=== PATIENT | male | born 1960 | race Two or more races ===

== ENCOUNTER 2018-04-15 14:07 | Inpatient (IN) | payer MEDICAID ==
[~2018-04-15] VITALS: Ht 175.3 cm; Wt 99.5 kg
[2018-04-15] VITALS (17 sets, daily range): BP systolic 41–131; BP diastolic 16–80
[2018-04-15] MEDS ORDERED: Cefepime HCl 1 GM in NS 55 ML IV STA (14:10)
[2018-04-15] MEDS ORDERED: Vancomycin 1 GM in NS 275 ML IV ONE (14:15)
[2018-04-15] MEDS ORDERED: Morphine Sulfate 4mg/ml Inj IVP ONE (14:15)
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
[2018-04-15] MEDS ORDERED: ACIDOPHILUS-PE1 EAC3 PO (14:21)
[2018-04-15] MEDS ORDERED: PEPCID40 MG/5 ML PO (14:21)
[2018-04-15] MEDS ORDERED: ASCORBIC ACID500 MG ORAL (14:21)
[2018-04-15] MEDS ORDERED: NORCO 7.5-3251 EACH ORAL (14:21)
[2018-04-15] MEDS ORDERED: MULTIVITAMINS1 EAC2 ORAL (14:21)
[2018-04-15] MEDS ORDERED: ACETAMINOP160 MG/51 ORAL (14:21)
[2018-04-15] MEDS ORDERED: HYDRALAZINE HCL10 MG ORAL (14:21)
[2018-04-15] MEDS ORDERED: Vancomycin 1gm/D5W 275ml IVPB ONE ×2 (14:30)
[2018-04-15 14:47] LABS: HEMATOCRIT 32.1 % (42.0-52.0); HEMOGLOBIN 10.1 G/DL (14.2-18.0); MEAN CORPUSCULAR VOLUME 82 FL (80-99); PLATELET COUNT 276 K/UL (150-450); WHITE BLOOD COUNT 17.2 K/UL (4.8-10.8)
[2018-04-15 14:57] LABS: APPEARANCE,URINE SLIGHTLY CLOUDY; BILIRUBIN, URINE NEGATIVE (NEGATIVE); COLOR,URINE AMBER; GLUCOSE, URINE (UA) NEGATIVE (NEGATIVE); KETONES,URINE NEGATIVE (NEGATIVE); LEUKOCYTE ESTERASE ,URINE 3+ (NEGATIVE); NITRITE,URINE NEGATIVE (NEGATIVE); PH,URINE 8 (4.5-8.0); PROTEIN,URINE 2+ (NEGATIVE); UROBILINOGEN,URINE NORMAL MG/DL (0.0-1.0)
[2018-04-15 14:58] LABS: ANION GAP 16 mmol/L (5-15); BLOOD UREA NITROGEN 50 mg/dL (7-18); CALCIUM 7.5 MG/DL (8.5-10.1); CARBON DIOXIDE 18 MMOL/L (21-32); CHLORIDE 103 MMOL/L (98-107); CREATININE 3.8 MG/DL (0.55-1.30); POTASSIUM 3.7 MMOL/L (3.5-5.1); SODIUM 137 MMOL/L (136-145)
[2018-04-15 14:59] LABS: INR 1.2 (0.9-1.1)
[2018-04-15 15:11] LABS: ALANINE AMINOTRANSFERASE 24 U/L (12-78); ALBUMIN 2.2 G/DL (3.4-5.0); ALBUMIN/GLOBULIN RATIO 0.4 (1.0-2.7); ALKALINE PHOSPHATASE 118 U/L (46-116); ASPARTATE AMINO TRANSFERASE 37 U/L (15-37); BILIRUBIN,TOTAL 0.6 MG/DL (0.2-1.0); CREATINE KINASE 834 U/L (26-308)
--- NOTE | 2018-04-15 15:12 | Diagnostic Imaging Report ---
Indication: Dyspnea Comparison: None A single view chest radiograph was obtained. Findings: Cardiomediastinal appearance is within normal limits for age. Pulmonary vascularity is appropriate. The diaphragmatic contour is smooth and costophrenic angles are sharp. No pleural effusions are identified. The bones are unremarkable. Impression: No acute findings
--- NOTE | 2018-04-15 18:32 | Diagnostic Imaging Report ---
EXAM: XR Chest, 1 View CLINICAL HISTORY: TUBE PLCMT TECHNIQUE: Frontal view of the chest. COMPARISON: 04/15/2018 2:35 PM chest x-ray. FINDINGS: Lungs: Unremarkable. No consolidation. Pleural space: Unremarkable. No pneumothorax. Heart: Unremarkable. No cardiomegaly. Mediastinum: Unremarkable. Bones/joints: Unremarkable. Vasculature: Right IJ line in SVC. IMPRESSION: Right IJ line in SVC. No pneumothorax.
[2018-04-15] MEDS ORDERED: FAMOTIDINE20 MG ORAL (18:34)
[2018-04-15] MEDS ORDERED: METHADONE HCL10 MG PO (18:34)
[2018-04-15] MEDS ORDERED: POLYETHYLENE GL17 GM ORAL (18:34)
[2018-04-15] MEDS ORDERED: Milk of Magnesia 30ml Ud ORAL PRN (22:30)
[2018-04-15] MEDS ORDERED: Zolpidem 5mg tab ORAL PRN (22:30)
[2018-04-15] MEDS ORDERED: HYDROcodone/Acetamin 7.5/325 tab ORAL PRN (23:00)
[2018-04-15] MEDS: Heparin 5000 units/ml inj SUBQ SCH (23:31)
[2018-04-16] VITALS (68 sets, daily range): BP systolic 49–126; BP diastolic 29–86
[2018-04-16] MEDS ORDERED: Vancomycin 1250mg/D5W 250ml IVPB SCH
[2018-04-16] MEDS ORDERED: Piperacillin/Tazobactam 3.375 GM in D5W 110 ML IVPB SCH (02:00)
[2018-04-16 05:40] LABS: HEMATOCRIT 27.5 % (42.0-52.0); HEMOGLOBIN 9.4 G/DL (14.2-18.0); MEAN CORPUSCULAR VOLUME 82 FL (80-99); PLATELET COUNT 236 K/UL (150-450); RED BLOOD COUNT 3.35 M/UL (4.70-6.10); RED CELL DISTRIBUTION WIDTH 15.8 % (11.6-14.8)
[2018-04-16 05:55] LABS: ALANINE AMINOTRANSFERASE 20 U/L (12-78); ALBUMIN 2.1 G/DL (3.4-5.0); ALBUMIN/GLOBULIN RATIO 0.4 (1.0-2.7); ALKALINE PHOSPHATASE 112 U/L (46-116); ANION GAP 12 mmol/L (5-15); ASPARTATE AMINO TRANSFERASE 51 U/L (15-37); BILIRUBIN,TOTAL 0.6 MG/DL (0.2-1.0); BLOOD UREA NITROGEN 42 mg/dL (7-18); CALCIUM 7.8 MG/DL (8.5-10.1); CARBON DIOXIDE 20 MMOL/L (21-32); CHLORIDE 106 MMOL/L (98-107); CREATININE 2.5 MG/DL (0.55-1.30); POTASSIUM 3.6 MMOL/L (3.5-5.1); SODIUM 138 MMOL/L (136-145)
[2018-04-16 05:58] LABS: WHITE BLOOD COUNT 22.4 K/UL (4.8-10.8)
--- NOTE | 2018-04-16 09:24 | History & Physical ---
History and Physical History & Physicial 57 year old male presents with hypotension and sepsis. Patient admitted to ICU on pressors. ER care reviewed PMH: reviewed MEDS noted ALLERGIES: noted PHYSICAL WDWN chronically ill clear breath sounds bilaterally without rhonchi or wheeze [id number] without MRG NABS nontender no HSM; protuberant no CC contractures large wound Laboratory Tests Test 04/15/18 14:27 04/15/18 16:00 04/15/18 19:55 04/16/18 05:15 White Blood Count 17.2 K/UL (4.8-10.8) H 22.4 K/UL (4.8-10.8) *H Red Blood Count 3.90 M/UL (4.70-6.10) L 3.35 M/UL (4.70-6.10) L Hemoglobin 10.1 G/DL (14.2-18.0) L 9.4 G/DL (14.2-18.0) L Hematocrit 32.1 % (42.0-52.0) L 27.5 % (42.0-52.0) L Mean Corpuscular Volume 82 FL (80-99) 82 FL (80-99) Mean Corpuscular Hemoglobin 25.9 PG (27.0-31.0) L 28.2 PG (27.0-31.0) Mean Corpuscular Hemoglobin Concent 31.5 G/DL (32.0-36.0) L 34.3 G/DL (32.0-36.0) Red Cell Distribution Width 16.0 % (11.6-14.8) H 15.8 % (11.6-14.8) H Platelet Count 276 K/UL (150-450) 236 K/UL (150-450) Mean Platelet Volume 7.3 FL (6.5-10.1) 7.3 FL (6.5-10.1) Neutrophils (%) (Auto) % (45.0-75.0) % (45.0-75.0) Lymphocytes (%) (Auto) % (20.0-45.0) % (20.0-45.0) Monocytes (%) (Auto) % (1.0-10.0) % (1.0-10.0) Eosinophils (%) (Auto) % (0.0-3.0) % (0.0-3.0) Basophils (%) (Auto) % (0.0-2.0) % (0.0-2.0) Differential Total Cells Counted 100 Neutrophils % (Manual) 84 % (45-75) H Pending Lymphocytes % (Manual) 6 % (20-45) L Pending Monocytes % (Manual) 3 % (1-10) Eosinophils % (Manual) 0 % (0-3) Basophils % (Manual) 0 % (0-2) Band Neutrophils 7 % (0-8) Platelet Estimate Adequate Pending Platelet Morphology Normal Pending Polychromasia 1+ Anisocytosis 1+ Prothrombin Time 12.6 SEC (9.30-11.50) H Prothromb Time International Ratio 1.2 (0.9-1.1) H Activated Partial Thromboplast Time 37 SEC (23-33) H Urine Color Erica Urine Appearance Slightly cloudy Urine pH 8 (4.5-8.0) Urine Specific [place] 1.010 (1.005-1.035) Urine Protein 2+ (NEGATIVE) H Urine Glucose (UA) Negative (NEGATIVE) Urine Ketones Negative (NEGATIVE) Urine Occult Blood 4+ (NEGATIVE) H Urine Nitrite Negative (NEGATIVE) Urine Bilirubin Negative (NEGATIVE) Urine Ictotest Negative Urine Urobilinogen Normal MG/DL (0.0-1.0) Urine Leukocyte Esterase 3+ (NEGATIVE) H Urine RBC Tntc /HPF (0 - 0) H Urine WBC Tntc /HPF (0 - 0) H Urine Squamous Epithelial Cells Few /LPF (NONE/OCC) Urine Bacteria Many /HPF (NONE) H Sodium Level 137 MMOL/L (136-145) 138 MMOL/L (136-145) Potassium Level 3.7 MMOL/L (3.5-5.1) 3.6 MMOL/L (3.5-5.1) Chloride Level 103 MMOL/L (98-107) 106 MMOL/L (98-107) Carbon Dioxide Level 18 MMOL/L (21-32) L 20 MMOL/L (21-32) L Anion Gap 16 mmol/L (5-15) H 12 mmol/L (5-15) Blood Urea Nitrogen 50 mg/dL (7-18) H 42 mg/dL (7-18) H Creatinine 3.8 MG/DL (0.55-1.30) H 2.5 MG/DL (0.55-1.30) H Estimat Glomerular Filtration Rate 16.5 mL/min (>60) 26.8 mL/min (>60) Glucose Level 103 MG/DL (74-106) 118 MG/DL (74-106) H Lactic Acid Level 2.80 mmol/L (0.4-2.0) H 3.10 mmol/L (0.66-2.22) H 2.30 mmol/L (0.4-2.0) H 1.10 mmol/L (0.4-2.0) Calcium Level 7.5 MG/DL (8.5-10.1) L 7.8 MG/DL (8.5-10.1) L Total Bilirubin 0.6 MG/DL (0.2-1.0) 0.6 MG/DL (0.2-1.0) Aspartate Amino Transf (AST/SGOT) 37 U/L (15-37) 51 U/L (15-37) H Alanine Aminotransferase (ALT/SGPT) 24 U/L (12-78) 20 U/L (12-78) Alkaline Phosphatase 118 U/L (46-116) H 112 U/L (46-116) Total Creatine Kinase 834 U/L (26-308) H Troponin I 0.003 ng/mL (0.000-0.056) Pro-B-Type Natriuretic Peptide 3183 pg/mL (0-125) H Total Protein 7.1 G/DL (6.4-8.2) 7.1 G/DL (6.4-8.2) Albumin 2.2 G/DL (3.4-5.0) L 2.1 G/DL (3.4-5.0) L Globulin 4.9 g/dL 5.0 g/dL Albumin/Globulin Ratio 0.4 (1.0-2.7) L 0.4 (1.0-2.7) L IMPRESSION Acute on chronic encephalopathy Urosepsis shock leukocytosis anemia SHARDA severe protein malnutrition hypotension sacral pressure ulcer PLAN IV antibiotics ID evaluation pressors iv hydration monitor labs ICU care for Amado Arce MD Apr 16, 2018 09:24
[2018-04-16] MEDS: Pantoprazole Inj IVP SCH (10:05)
[2018-04-16] MEDS: Lactobacillus-GG tablet ORAL SCH ×2 (10:05→17:52)
[2018-04-16] MEDS: Ascorbic Acid 500mg tab ORAL SCH ×2 (10:06→17:52)
[2018-04-16] MEDS: Heparin 5000 units/ml inj SUBQ SCH ×2 (10:07→20:19)
[2018-04-16] MEDS: Norepinephrine Bitartrate 8 MG in D5W 500ml 550 ML IV SCH ×2 (10:08→17:53)
[2018-04-16] MEDS ORDERED: Tubing IV Secondary IV ONE (10:49)
[2018-04-16] MEDS ORDERED: Aztreonam Inj 1 GM in D5W 110 ML IVPB SCH (11:00)
--- NOTE | 2018-04-16 11:30 | Consultation ---
DATE OF CONSULTATION: 04/16/2018 REFERRING PHYSICIAN: Amado Coker M.D. REASON FOR CONSULTATION: Acute kidney injury. HISTORY OF PRESENT ILLNESS: The patient is a pleasant 57-year-old gentleman who presented for further evaluation and care of fever and weakness from his shelter facility. The patient is paralyzed/paraplegic from the waist down. He does have an indwelling Slater catheter. Upon presentation, the patient was hypotensive, with an elevated creatinine of 2.5. No nausea, vomiting, or diarrhea. No chest pain. The patient is stable and communicating well. IV fluids along with IV pressor support and antibiotics have been initiated. No baseline creatinine is known at this time. ALLERGIES: No known drug allergies. PAST MEDICAL HISTORY: 1. Paraplegic. 2. Indwelling Slater catheter, urinary retention. 3. Hypertension. PAST SOCIAL HISTORY: No current tobacco, alcohol, illicit drug use. FAMILY HISTORY: Noncontributory. PAST SURGICAL HISTORY: The patient has an indwelling Slater catheter. REVIEW OF SYSTEMS: NEUROLOGIC: The patient denies headache, change in vision, syncope or presyncopal episodes. CARDIOVASCULAR: No current chest pain, palpitations, or angina. PULMONARY: No difficulty breathing, productive cough, or sputum. GASTROINTESTINAL/GENITOURINARY: No changes urinary or bowel habits. No nausea, vomiting, or diarrhea. ENDOCRINOLOGY: No night sweats, fevers, or chills. LABORATORY AND DIAGNOSTIC DATA: Labs dated 04/16/2018, sodium 130, potassium 3.6, BUN 42, creatinine 2.5, bicarbonate 20, calcium 7.8. White cell count 22.4, hemoglobin 9.4, and platelet count 236. PHYSICAL EXAMINATION: VITAL SIGNS: Blood pressure 105/61, respiratory rate 20, pulse 82, and 99% oxygen saturation on room air. GENERAL: The patient is awake, alert, not otherwise in distress. HEENT: Extraocular muscles intact. No lymphadenopathy noted. CARDIOVASCULAR: S1 and S2. No rubs or gallops. PULMONARY: Clear to auscultation bilaterally. No rales, rhonchi or wheezes. ABDOMEN: Nondistended, nontender. EXTREMITIES: The patient is contracted. No edema noted. ASSESSMENT AND PLAN: 1. Acute kidney injury at this time, most likely secondary to multifactorial acute tubular necrosis from underlying sepsis inflammatory cytokine damaged approximate tubes along with ischemic acute tubular necrosis from hypotension. Continue IV fluids along with IV pressor support. Maintain a mean arterial blood pressure greater than 65 millimeters per mercury. Renal ultrasound to rule out the possibility of obstruction. Avoid any nephrotoxins. Pharmacy to follow vancomycin levels. 2. Septic shock, likely from urinary source. Intravenous antibiotics per primary care physician. 3. Hypotension secondary to septic shock. Continue IV pressor support and intravenous fluids. Let me take this opportunity to thank, Dr. Coker. Macario Kumar MD DR: LAURI JOB#: [id number] CC:
[2018-04-16] MEDS: Meropenem 1 GM in D5W 110 ML IVPB SCH (12:38)
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
--- NOTE | 2018-04-16 15:37 | Diagnostic Imaging Report ---
EXAM: US Abdomen Complete CLINICAL HISTORY: Abscess. Increased AST. Increased renal function tests. History of hypertension, diabetes, and hypercholesterolemia. TECHNIQUE: Real-time ultrasound of the abdomen (complete) with image documentation. COMPARISON: No relevant prior studies available. FINDINGS: Limitations: Exam degraded by body habitus and overlying gas, obscuring pancreas, left hepatic lobe, IVC, and aorta. Liver: Liver appears enlarged, with a diameter of 24.3 cm. Mildly echogenic liver, suggesting fatty infiltration. Gallbladder: Cholelithiasis. Gallbladder wall thickness of 4 mm. No pericholecystic fluid. Common bile duct: Common bile duct diameter of 2.6 mm, within normal limits. No stones. No dilation. Pancreas: See above. Kidneys: Right kidney length of 12.8 cm. Left kidney length of 12.8 cm. No stones. No hydronephrosis. Spleen: Spleen diameter of 12.1 cm. Aorta: See above. Inferior vena cava: See above. Tubes, lines and devices: Slater catheter within a decompressed urinary bladder. A bladder volume of 47 cc. IMPRESSION: 1. Liver appears enlarged, with a diameter of 24.3 cm. 2. Mildly echogenic liver, suggesting fatty infiltration. 3. Cholelithiasis with borderline wall thickening of 4 mm. No pericholecystic fluid or ductal dilatation. Negative sonographic Tyson's sign.
[2018-04-16] MEDS ORDERED: Dyna-Hex 2% Top Sol 2oz TOPIC SCH (20:00)
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
[2018-04-16] MEDS ORDERED: Aztreonam Inj 1 GM in D5W 55 ML IVPB SCH (21:00)
[2018-04-16] MEDS ORDERED: Zolpidem 5mg tab ORAL PRN (21:00)
[2018-04-17] VITALS (54 sets, daily range): BP systolic 68–135; BP diastolic 30–74
[2018-04-17] MEDS: Meropenem 1 GM in D5W 110 ML IVPB SCH ×2 (01:15→13:00)
[2018-04-17] MEDS ORDERED: Levophed 4mg/4mL Inj IV ONE (02:10)
[2018-04-17] MEDS: Norepinephrine Bitartrate 8 MG in D5W 500ml 550 ML IV SCH ×2 (02:15→17:00)
[2018-04-17 05:34] LABS: BASOPHILS % (AUTO) 0.5 % (0.0-2.0); EOSINOPHILS % (AUTO) 5.4 % (0.0-3.0); HEMATOCRIT 26.7 % (42.0-52.0); MEAN CORPUSCULAR VOLUME 82 FL (80-99); MONOCYTES % (AUTO) 4.5 % (1.0-10.0); NEUTROPHILS % (AUTO) 81.6 % (45.0-75.0); PLATELET COUNT 228 K/UL (150-450); RED BLOOD COUNT 3.26 M/UL (4.70-6.10); RED CELL DISTRIBUTION WIDTH 16.1 % (11.6-14.8); WHITE BLOOD COUNT 15.7 K/UL (4.8-10.8)
[2018-04-17 05:55] LABS: ANION GAP 10 mmol/L (5-15); BLOOD UREA NITROGEN 19 mg/dL (7-18); CALCIUM 8.1 MG/DL (8.5-10.1); CARBON DIOXIDE 22 MMOL/L (21-32); CHLORIDE 106 MMOL/L (98-107); CREATININE 1.3 MG/DL (0.55-1.30); SODIUM 138 MMOL/L (136-145)
[2018-04-17] MEDS: Lactobacillus-GG tablet ORAL SCH ×2 (09:19→18:00)
[2018-04-17] MEDS: Ascorbic Acid 500mg tab ORAL SCH ×2 (09:19→18:00)
[2018-04-17] MEDS: Pantoprazole Inj IVP SCH (09:19)
[2018-04-17] MEDS: Heparin 5000 units/ml inj SUBQ SCH ×2 (09:20→21:19)
--- NOTE | 2018-04-17 10:12 | Nephrology Progress Note ---
Assessment/Plan Assessment/Plan 1. SHARDA- multifact ATN ( hypotension/sepsis) - Cr improved 2.5--------> 1.3 - Renal US negative - avoid nephrotoxins - continue IV pressors and Abx/IVF's 2. Sepsis- Abx and IV pressors 3. UTI- Abx 4. Paraplegic- per PCP 5. Hypokalemia- being replaced today Subjective Date patient seen: Apr 17, 2018 Time patient seen: 09:35 ROS Limited/Unobtainable: No Allergies: Coded Allergies: CHLORHEXIDINE (Verified Allergy, Unknown, 04/17/18) Pt states CHG gives him rashes All Systems: reviewed and negative except above Subjective Patient doing much better. In no acute distress Objective Last 24 Hour Vital Signs Date Time Temp Pulse Resp B/P (MAP) Pulse Ox O2 Delivery O2 Flow Rate FiO2 04/17/18 07:00 76 22 90/52 99 Nasal Cannula 2.0 04/17/18 06:00 77 19 84/44 98 Nasal Cannula 2.0 04/17/18 05:30 76 22 135/71 93 Nasal Cannula 2.0 04/17/18 05:00 77 20 93/48 99 Nasal Cannula 2.0 04/17/18 04:30 83 23 99/49 98 Nasal Cannula 2.0 04/17/18 04:00 81 04/17/18 04:00 98.3 85 30 111/60 98 Nasal Cannula 2.0 98.3 04/17/18 03:30 83 31 91/74 98 Nasal Cannula 2.0 04/17/18 03:15 87 34 114/58 99 Nasal Cannula 2.0 04/17/18 03:00 85 33 114/58 97 Nasal Cannula 2.0 04/17/18 02:45 85 40 124/67 97 Nasal Cannula 2.0 04/17/18 02:30 84 32 109/59 97 Nasal Cannula 2.0 04/17/18 02:15 83 30 107/47 98 Nasal Cannula 2.0 04/17/18 02:15 68/30 04/17/18 02:02 93 33 68/30 99 Nasal Cannula 2.0 04/17/18 02:00 80 29 79/35 98 Nasal Cannula 2.0 04/17/18 01:45 85 31 115/62 97 Nasal Cannula 2.0 04/17/18 01:30 87 38 104/59 96 Nasal Cannula 2.0 04/17/18 01:15 85 29 102/58 97 Nasal Cannula 2.0 04/17/18 01:00 83 30 101/53 96 Nasal Cannula 2.0 04/17/18 00:45 81 29 95/50 96 Nasal Cannula 2.0 04/17/18 00:30 86 38 113/55 96 Nasal Cannula 2.0 04/17/18 00:15 84 30 114/61 98 Nasal Cannula 2.0 04/17/18 00:00 82 04/17/18 00:00 82 24 107/57 98 Nasal Cannula 2.0 04/16/18 23:45 81 28 103/63 97 Nasal Cannula 2.0 04/16/18 23:30 83 32 102/56 95 Nasal Cannula 2.0 04/16/18 23:15 83 30 102/53 96 Nasal Cannula 2.0 04/16/18 23:00 85 29 108/55 97 Nasal Cannula 2.0 04/16/18 22:45 83 32 94/55 95 Nasal Cannula 2.0 04/16/18 22:30 83 30 99/53 96 Nasal Cannula 2.0 04/16/18 22:15 83 27 98/53 96 Nasal Cannula 2.0 04/16/18 22:00 87 27 112/54 96 Nasal Cannula 2.0 04/16/18 21:45 85 29 100/51 95 Nasal Cannula 2.0 04/16/18 21:30 85 28 102/53 96 Nasal Cannula 2.0 04/16/18 21:15 83 25 95/48 97 Nasal Cannula 2.0 04/16/18 21:00 84 29 95/54 96 Nasal Cannula 2.0 04/16/18 20:45 84 26 102/50 95 Nasal Cannula 2.0 04/16/18 20:30 84 26 88/71 94 Nasal Cannula 2.0 04/16/18 20:15 84 27 99/51 95 Nasal Cannula 2.0 04/16/18 20:00 83 04/16/18 20:00 80 27 89/43 96 Nasal Cannula 2.0 04/16/18 19:45 77 22 92/50 96 Nasal Cannula 2.0 04/16/18 19:30 98.3 87 27 89/41 99 Nasal Cannula 2.0 98.3 04/16/18 19:15 83 22 96/53 97 Nasal Cannula 2.0 04/16/18 19:00 86 24 93/37 98 Nasal Cannula 2.0 04/16/18 18:30 87 23 95/34 96 Nasal Cannula 2.0 04/16/18 18:00 98/68 04/16/18 17:59 92 28 92/68 98 Nasal Cannula 2.0 04/16/18 17:53 96/50 04/16/18 17:00 77 20 92/48 99 Nasal Cannula 2.0 04/16/18 17:00 92/48 04/16/18 16:30 77 20 90/47 98 Nasal Cannula 2.0 04/16/18 16:00 98.3 79 21 104/50 98 Nasal Cannula 2.0 98.3 04/16/18 16:00 78 04/16/18 16:00 104/50 04/16/18 15:30 78 21 100/52 98 Nasal Cannula 2.0 04/16/18 15:00 77 21 126/86 98 Nasal Cannula 2.0 04/16/18 15:00 126/86 04/16/18 14:30 80 27 101/54 98 Nasal Cannula 2.0 04/16/18 14:00 89 26 69/34 98 Nasal Cannula 2.0 04/16/18 14:00 69/34 04/16/18 13:30 101 85/31 95 Nasal Cannula 2.0 04/16/18 13:00 109/46 04/16/18 12:00 110/58 04/16/18 12:00 91 04/16/18 12:00 98.6 89 25 110/58 97 Nasal Cannula 2.0 98.6 04/16/18 11:30 91 26 111/51 97 Nasal Cannula 2.0 04/16/18 11:00 98/47 04/16/18 11:00 86 26 98/47 96 Nasal Cannula 2.0 04/16/18 10:30 78 25 104/54 97 Nasal Cannula 2.0 04/16/18 10:08 122/67 04/16/18 10:00 89 22 61/29 98 Nasal Cannula 2.0 04/16/18 10:00 122/67 Intake and Output 04/16/18 04/17/18 19:00 07:00 Intake Total 4610.92 ml 2922.85 ml Output Total 2512 ml 2560 ml Balance 2098.92 ml 362.85 ml Intake Oral 2290 ml 960 ml IV Total 2280.92 ml 1962.85 ml Other 40 ml Output Urine Total 2510 ml 2560 ml Stool Total 2 ml # Bowel Movements 2 2 Laboratory Tests 04/17/18 05:00: White Blood Count 15.7H, Red Blood Count 3.26L, Hemoglobin 9.0L, Hematocrit 26.7L, Mean Corpuscular Volume 82, Mean Corpuscular Hemoglobin 27.8, Mean Corpuscular Hemoglobin Concent 33.9, Red Cell Distribution Width 16.1H, Platelet Count 228, Mean Platelet Volume 7.7, Neutrophils (%) (Auto) 81.6H, Lymphocytes (%) (Auto) 8.0L, Monocytes (%) (Auto) 4.5, Eosinophils (%) (Auto) 5.4H, Basophils (%) (Auto) 0.5, Sodium Level 138, Potassium Level 3.0L, Chloride Level 106, Carbon Dioxide Level 22, Anion Gap 10, Blood Urea Nitrogen 19H, Creatinine 1.3, Estimat Glomerular Filtration Rate 56.9, Glucose Level 124H , Calcium Level 8.1L Height (Feet): 5 Height (Inches): 9.00 Weight (Pounds): 198 General Appearance: no apparent distress, alert EENT: normal ENT inspection Neck: normal alignment, supple Cardiovascular: normal rate, regular rhythm Respiratory/Chest: lungs clear, normal breath sounds Abdomen: non tender, soft Edema: no edema noted Arm (L), no edema noted Arm (R), no edema noted Leg (L), no edema noted Leg (R), no edema noted Pedal (L), no edema noted Pedal (R), no edema noted Generalized Macario Kumar M.D. Apr 17, 2018 10:12
--- NOTE | 2018-04-17 11:12 | General Progress Note ---
Assessment/Plan Assessment/Plan IMPRESSION Acute on chronic encephalopathy Urosepsis shock leukocytosis anemia SHARDA severe protein malnutrition hypotension sacral pressure ulcer PLAN IV antibiotics ID evaluation pressors taper to off iv hydration monitor labs all appreciated ICU care for now Subjective Allergies: Coded Allergies: CHLORHEXIDINE (Verified Allergy, Unknown, 04/17/18) Pt states CHG gives him rashes Subjective better more alert no distress Objective Last 24 Hour Vital Signs Date Time Temp Pulse Resp B/P (MAP) Pulse Ox O2 Delivery O2 Flow Rate FiO2 04/17/18 07:00 76 22 90/52 99 Nasal Cannula 2.0 04/17/18 06:00 77 19 84/44 98 Nasal Cannula 2.0 04/17/18 05:30 76 22 135/71 93 Nasal Cannula 2.0 04/17/18 05:00 77 20 93/48 99 Nasal Cannula 2.0 04/17/18 04:30 83 23 99/49 98 Nasal Cannula 2.0 04/17/18 04:00 81 04/17/18 04:00 98.3 85 30 111/60 98 Nasal Cannula 2.0 98.3 04/17/18 03:30 83 31 91/74 98 Nasal Cannula 2.0 04/17/18 03:15 87 34 114/58 99 Nasal Cannula 2.0 04/17/18 03:00 85 33 114/58 97 Nasal Cannula 2.0 04/17/18 02:45 85 40 124/67 97 Nasal Cannula 2.0 04/17/18 02:30 84 32 109/59 97 Nasal Cannula 2.0 04/17/18 02:15 83 30 107/47 98 Nasal Cannula 2.0 04/17/18 02:15 68/30 04/17/18 02:02 93 33 68/30 99 Nasal Cannula 2.0 04/17/18 02:00 80 29 79/35 98 Nasal Cannula 2.0 04/17/18 01:45 85 31 115/62 97 Nasal Cannula 2.0 04/17/18 01:30 87 38 104/59 96 Nasal Cannula 2.0 04/17/18 01:15 85 29 102/58 97 Nasal Cannula 2.0 04/17/18 01:00 83 30 101/53 96 Nasal Cannula 2.0 04/17/18 00:45 81 29 95/50 96 Nasal Cannula 2.0 04/17/18 00:30 86 38 113/55 96 Nasal Cannula 2.0 04/17/18 00:15 84 30 114/61 98 Nasal Cannula 2.0 04/17/18 00:00 82 04/17/18 00:00 82 24 107/57 98 Nasal Cannula 2.0 04/16/18 23:45 81 28 103/63 97 Nasal Cannula 2.0 04/16/18 23:30 83 32 102/56 95 Nasal Cannula 2.0 04/16/18 23:15 83 30 102/53 96 Nasal Cannula 2.0 04/16/18 23:00 85 29 108/55 97 Nasal Cannula 2.0 04/16/18 22:45 83 32 94/55 95 Nasal Cannula 2.0 04/16/18 22:30 83 30 99/53 96 Nasal Cannula 2.0 04/16/18 22:15 83 27 98/53 96 Nasal Cannula 2.0 04/16/18 22:00 87 27 112/54 96 Nasal Cannula 2.0 04/16/18 21:45 85 29 100/51 95 Nasal Cannula 2.0 04/16/18 21:30 85 28 102/53 96 Nasal Cannula 2.0 04/16/18 21:15 83 25 95/48 97 Nasal Cannula 2.0 04/16/18 21:00 84 29 95/54 96 Nasal Cannula 2.0 04/16/18 20:45 84 26 102/50 95 Nasal Cannula 2.0 04/16/18 20:30 84 26 88/71 94 Nasal Cannula 2.0 04/16/18 20:15 84 27 99/51 95 Nasal Cannula 2.0 04/16/18 20:00 83 04/16/18 20:00 80 27 89/43 96 Nasal Cannula 2.0 04/16/18 19:45 77 22 92/50 96 Nasal Cannula 2.0 04/16/18 19:30 98.3 87 27 89/41 99 Nasal Cannula 2.0 98.3 04/16/18 19:15 83 22 96/53 97 Nasal Cannula 2.0 04/16/18 19:00 86 24 93/37 98 Nasal Cannula 2.0 04/16/18 18:30 87 23 95/34 96 Nasal Cannula 2.0 04/16/18 18:00 98/68 04/16/18 17:59 92 28 92/68 98 Nasal Cannula 2.0 04/16/18 17:53 96/50 04/16/18 17:00 77 20 92/48 99 Nasal Cannula 2.0 04/16/18 17:00 92/48 04/16/18 16:30 77 20 90/47 98 Nasal Cannula 2.0 04/16/18 16:00 98.3 79 21 104/50 98 Nasal Cannula 2.0 98.3 04/16/18 16:00 78 04/16/18 16:00 104/50 04/16/18 15:30 78 21 100/52 98 Nasal Cannula 2.0 04/16/18 15:00 77 21 126/86 98 Nasal Cannula 2.0 04/16/18 15:00 126/86 04/16/18 14:30 80 27 101/54 98 Nasal Cannula 2.0 04/16/18 14:00 89 26 69/34 98 Nasal Cannula 2.0 04/16/18 14:00 69/34 04/16/18 13:30 101 85/31 95 Nasal Cannula 2.0 04/16/18 13:00 109/46 04/16/18 12:00 110/58 04/16/18 12:00 91 04/16/18 12:00 98.6 89 25 110/58 97 Nasal Cannula 2.0 98.6 04/16/18 11:30 91 26 111/51 97 Nasal Cannula 2.0 Intake and Output 04/16/18 04/17/18 19:00 07:00 Intake Total 4610.92 ml 2922.85 ml Output Total 2512 ml 2560 ml Balance 2098.92 ml 362.85 ml Intake Oral 2290 ml 960 ml IV Total 2280.92 ml 1962.85 ml Other 40 ml Output Urine Total 2510 ml 2560 ml Stool Total 2 ml # Bowel Movements 2 2 Laboratory Tests 04/17/18 05:00: White Blood Count 15.7H, Red Blood Count 3.26L, Hemoglobin 9.0L, Hematocrit 26.7L, Mean Corpuscular Volume 82, Mean Corpuscular Hemoglobin 27.8, Mean Corpuscular Hemoglobin Concent 33.9, Red Cell Distribution Width 16.1H, Platelet Count 228, Mean Platelet Volume 7.7, Neutrophils (%) (Auto) 81.6H, Lymphocytes (%) (Auto) 8.0L, Monocytes (%) (Auto) 4.5, Eosinophils (%) (Auto) 5.4H, Basophils (%) (Auto) 0.5, Sodium Level 138, Potassium Level 3.0L, Chloride Level 106, Carbon Dioxide Level 22, Anion Gap 10, Blood Urea Nitrogen 19H, Creatinine 1.3, Estimat Glomerular Filtration Rate 56.9, Glucose Level 124H , Calcium Level 8.1L Height (Feet): 5 Height (Inches): 9.00 Weight (Pounds): 198 Objective WDWN NAD clear breath sounds bilaterally without rhonchi or wheeze [id number] without MRG NABS nontender no HSM weak alert Amado Coker MD Apr 17, 2018 11:12
--- NOTE | 2018-04-17 13:35 | General Surgery Progress Note ---
General Surgery-Progress Note Subjective Additional Comments on pressors. titrating pressors down. somewhat improved. Objective Last 24 Hour Vital Signs Date Time Temp Pulse Resp B/P (MAP) Pulse Ox O2 Delivery O2 Flow Rate FiO2 04/17/18 12:00 83 04/17/18 08:00 75 04/17/18 07:00 76 22 90/52 99 Nasal Cannula 2.0 04/17/18 06:00 77 19 84/44 98 Nasal Cannula 2.0 04/17/18 05:30 76 22 135/71 93 Nasal Cannula 2.0 04/17/18 05:00 77 20 93/48 99 Nasal Cannula 2.0 04/17/18 04:30 83 23 99/49 98 Nasal Cannula 2.0 04/17/18 04:00 81 04/17/18 04:00 98.3 85 30 111/60 98 Nasal Cannula 2.0 98.3 04/17/18 03:30 83 31 91/74 98 Nasal Cannula 2.0 04/17/18 03:15 87 34 114/58 99 Nasal Cannula 2.0 04/17/18 03:00 85 33 114/58 97 Nasal Cannula 2.0 04/17/18 02:45 85 40 124/67 97 Nasal Cannula 2.0 04/17/18 02:30 84 32 109/59 97 Nasal Cannula 2.0 04/17/18 02:15 83 30 107/47 98 Nasal Cannula 2.0 04/17/18 02:15 68/30 04/17/18 02:02 93 33 68/30 99 Nasal Cannula 2.0 04/17/18 02:00 80 29 79/35 98 Nasal Cannula 2.0 04/17/18 01:45 85 31 115/62 97 Nasal Cannula 2.0 04/17/18 01:30 87 38 104/59 96 Nasal Cannula 2.0 04/17/18 01:15 85 29 102/58 97 Nasal Cannula 2.0 04/17/18 01:00 83 30 101/53 96 Nasal Cannula 2.0 04/17/18 00:45 81 29 95/50 96 Nasal Cannula 2.0 04/17/18 00:30 86 38 113/55 96 Nasal Cannula 2.0 04/17/18 00:15 84 30 114/61 98 Nasal Cannula 2.0 04/17/18 00:00 82 04/17/18 00:00 82 24 107/57 98 Nasal Cannula 2.0 04/16/18 23:45 81 28 103/63 97 Nasal Cannula 2.0 04/16/18 23:30 83 32 102/56 95 Nasal Cannula 2.0 04/16/18 23:15 83 30 102/53 96 Nasal Cannula 2.0 04/16/18 23:00 85 29 108/55 97 Nasal Cannula 2.0 04/16/18 22:45 83 32 94/55 95 Nasal Cannula 2.0 04/16/18 22:30 83 30 99/53 96 Nasal Cannula 2.0 04/16/18 22:15 83 27 98/53 96 Nasal Cannula 2.0 04/16/18 22:00 87 27 112/54 96 Nasal Cannula 2.0 04/16/18 21:45 85 29 100/51 95 Nasal Cannula 2.0 04/16/18 21:30 85 28 102/53 96 Nasal Cannula 2.0 04/16/18 21:15 83 25 95/48 97 Nasal Cannula 2.0 04/16/18 21:00 84 29 95/54 96 Nasal Cannula 2.0 04/16/18 20:45 84 26 102/50 95 Nasal Cannula 2.0 04/16/18 20:30 84 26 88/71 94 Nasal Cannula 2.0 04/16/18 20:15 84 27 99/51 95 Nasal Cannula 2.0 04/16/18 20:00 83 04/16/18 20:00 80 27 89/43 96 Nasal Cannula 2.0 04/16/18 19:45 77 22 92/50 96 Nasal Cannula 2.0 04/16/18 19:30 98.3 87 27 89/41 99 Nasal Cannula 2.0 98.3 04/16/18 19:15 83 22 96/53 97 Nasal Cannula 2.0 04/16/18 19:00 86 24 93/37 98 Nasal Cannula 2.0 04/16/18 18:30 87 23 95/34 96 Nasal Cannula 2.0 04/16/18 18:00 98/68 04/16/18 17:59 92 28 92/68 98 Nasal Cannula 2.0 04/16/18 17:53 96/50 04/16/18 17:00 77 20 92/48 99 Nasal Cannula 2.0 04/16/18 17:00 92/48 04/16/18 16:30 77 20 90/47 98 Nasal Cannula 2.0 04/16/18 16:00 98.3 79 21 104/50 98 Nasal Cannula 2.0 98.3 04/16/18 16:00 78 04/16/18 16:00 104/50 04/16/18 15:30 78 21 100/52 98 Nasal Cannula 2.0 04/16/18 15:00 77 21 126/86 98 Nasal Cannula 2.0 04/16/18 15:00 126/86 04/16/18 14:30 80 27 101/54 98 Nasal Cannula 2.0 04/16/18 14:00 89 26 69/34 98 Nasal Cannula 2.0 04/16/18 14:00 6934 I&O Intake and Output 04/16/18 04/17/18 19:00 07:00 Intake Total 4610.92 ml 2922.85 ml Output Total 2512 ml 2560 ml Balance 2098.92 ml 362.85 ml Intake Oral 2290 ml 960 ml IV Total 2280.92 ml 1962.85 ml Other 40 ml Output Urine Total 2510 ml 2560 ml Stool Total 2 ml # Bowel Movements 2 2 Cardiovascular: RSR Respiratory: clear Abdomen: soft, present bowel sounds Extremities: edema Laboratory Tests Test 04/17/18 05:00 White Blood Count 15.7 K/UL (4.8-10.8) H Red Blood Count 3.26 M/UL (4.70-6.10) L Hemoglobin 9.0 G/DL (14.2-18.0) L Hematocrit 26.7 % (42.0-52.0) L Mean Corpuscular Volume 82 FL (80-99) Mean Corpuscular Hemoglobin 27.8 PG (27.0-31.0) Mean Corpuscular Hemoglobin Concent 33.9 G/DL (32.0-36.0) Red Cell Distribution Width 16.1 % (11.6-14.8) H Platelet Count 228 K/UL (150-450) Mean Platelet Volume 7.7 FL (6.5-10.1) Neutrophils (%) (Auto) 81.6 % (45.0-75.0) H Lymphocytes (%) (Auto) 8.0 % (20.0-45.0) L Monocytes (%) (Auto) 4.5 % (1.0-10.0) Eosinophils (%) (Auto) 5.4 % (0.0-3.0) H Basophils (%) (Auto) 0.5 % (0.0-2.0) Sodium Level 138 MMOL/L (136-145) Potassium Level 3.0 MMOL/L (3.5-5.1) L Chloride Level 106 MMOL/L (98-107) Carbon Dioxide Level 22 MMOL/L (21-32) Anion Gap 10 mmol/L (5-15) Blood Urea Nitrogen 19 mg/dL (7-18) H Creatinine 1.3 MG/DL (0.55-1.30) Estimat Glomerular Filtration Rate 56.9 mL/min (>60) Glucose Level 124 MG/DL (74-106) H Calcium Level 8.1 MG/DL (8.5-10.1) L Plan Problems: (1) Sepsis Assessment & Plan: 57M with sepsis. likely etiology UTI. 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 please refer to wound care photos for size and measurements. 2-3cm deep, 2cm undermining in inferior aspect. does get stool in wound at times given proximity to anus. some granulation tissue. no foul odor. serous drainage. minimal eschar and necrotic tissues. -wound care orders placed. air soft mattress, gauze packing and dressings TID for now. good rectal care. -IV Abx -wean pressors -trend labs -will follow with recs. thank you for this consultation. Alo Martin Apr 17, 2018 13:35
[2018-04-17] MEDS ORDERED: NS 500ML ONE (17:14)
[2018-04-17] MEDS ORDERED: D5W 550ml IV ONE (17:14)
[2018-04-18] VITALS (39 sets, daily range): BP systolic 76–123; BP diastolic 39–79
[2018-04-18] MEDS: Meropenem 1 GM in D5W 110 ML IVPB SCH (00:20)
[2018-04-18] MEDS ORDERED: Vancomycin 1500mg IVPB SCH (02:00)
[2018-04-18 05:54] LABS: BASOPHILS % (AUTO) 0.2 % (0.0-2.0); EOSINOPHILS % (AUTO) 8.1 % (0.0-3.0); HEMATOCRIT 27.4 % (42.0-52.0); HEMOGLOBIN 8.7 G/DL (14.2-18.0); LYMPHOCYTES % (AUTO) 7.1 % (20.0-45.0); MEAN CORPUSCULAR VOLUME 83 FL (80-99); MONOCYTES % (AUTO) 5.7 % (1.0-10.0); NEUTROPHILS % (AUTO) 78.9 % (45.0-75.0); PLATELET COUNT 220 K/UL (150-450); RED BLOOD COUNT 3.31 M/UL (4.70-6.10); WHITE BLOOD COUNT 15.6 K/UL (4.8-10.8)
[2018-04-18 05:57] LABS: ANION GAP 9 mmol/L (5-15); BLOOD UREA NITROGEN 10 mg/dL (7-18); CALCIUM 8.3 MG/DL (8.5-10.1); CARBON DIOXIDE 25 MMOL/L (21-32); CHLORIDE 105 MMOL/L (98-107); CREATININE 1.2 MG/DL (0.55-1.30); POTASSIUM 3.3 MMOL/L (3.5-5.1); SODIUM 139 MMOL/L (136-145)
[2018-04-18] MEDS: Norepinephrine Bitartrate 8 MG in D5W 500ml 550 ML IV SCH (07:10)
--- NOTE | 2018-04-18 08:07 | Nephrology Progress Note ---
Assessment/Plan Assessment/Plan 1. SHARDA- multifact ATN ( hypotension/sepsis) - Cr improved 2.5--------> 1.3->1.2 - Renal US negative, avoid nephrotoxins, IV pressors and Abx/IVF's 2. Sepsis- Abx and IV pressors 3. UTI- Abx 4. Paraplegic- per PCP mgmt 5. Hypokalemia- replace today Subjective Date patient seen: Apr 18, 2018 Time patient seen: 08:04 ROS Limited/Unobtainable: No Allergies: Coded Allergies: CHLORHEXIDINE (Verified Allergy, Unknown, 04/17/18) Pt states CHG gives him rashes Subjective Patient doing much better. No CP or SOB Objective Last 24 Hour Vital Signs Date Time Temp Pulse Resp B/P (MAP) Pulse Ox O2 Delivery O2 Flow Rate FiO2 04/18/18 07:10 111/58 04/18/18 07:00 84 27 111/58 96 Nasal Cannula 2.0 04/18/18 06:30 86 35 115/62 96 Nasal Cannula 2.0 04/18/18 06:00 96 21 103/64 97 Nasal Cannula 2.0 04/18/18 06:00 103/64 04/18/18 05:30 85 27 104/59 96 Nasal Cannula 2.0 04/18/18 05:00 106/57 04/18/18 05:00 84 27 106/57 96 Nasal Cannula 2.0 04/18/18 04:30 81 24 107/59 97 Nasal Cannula 2.0 04/18/18 04:00 86 04/18/18 04:00 101/56 04/18/18 04:00 99.3 83 24 101/56 98 Nasal Cannula 2.0 99.3 04/18/18 03:30 88 26 108/59 98 Nasal Cannula 2.0 04/18/18 03:00 99/53 04/18/18 03:00 83 24 99/53 98 Nasal Cannula 2.0 04/18/18 02:30 80 24 102/57 97 Nasal Cannula 2.0 04/18/18 02:02 88/39 04/18/18 02:00 83 21 88/39 97 Nasal Cannula 2.0 04/18/18 01:30 74 23 94/52 95 Nasal Cannula 2.0 04/18/18 01:00 86 23 78/52 98 Nasal Cannula 2.0 04/18/18 01:00 78/52 04/18/18 00:30 79 23 99/57 96 Nasal Cannula 2.0 04/18/18 00:00 81 04/18/18 00:00 99.2 81 23 92/48 97 Nasal Cannula 2.0 99.2 04/18/18 00:00 99/57 04/17/18 23:30 79 23 116/60 96 Nasal Cannula 2.0 04/17/18 23:00 82 25 110/56 94 Nasal Cannula 2.0 04/17/18 23:00 102/54 04/17/18 22:30 89 21 105/57 94 Nasal Cannula 2.0 04/17/18 22:00 105/57 04/17/18 22:00 84 25 102/54 94 Nasal Cannula 2.0 04/17/18 21:30 83 26 107/66 98 Nasal Cannula 2.0 04/17/18 21:00 80 24 90/47 96 Nasal Cannula 2.0 04/17/18 21:00 90/47 04/17/18 20:30 81 23 115/62 96 Nasal Cannula 2.0 04/17/18 20:00 98.6 82 22 96/52 95 Nasal Cannula 2.0 98.6 04/17/18 20:00 115/62 04/17/18 20:00 80 04/17/18 19:30 81 24 104/54 95 Nasal Cannula 2.0 04/17/18 19:00 79 20 92/55 98 Nasal Cannula 2.0 04/17/18 19:00 96/52 04/17/18 18:30 79 22 97/50 96 Nasal Cannula 2.0 04/17/18 18:00 82 20 86/49 98 Nasal Cannula 2.0 04/17/18 17:30 79 20 93/52 97 Nasal Cannula 2.0 04/17/18 17:00 86/49 04/17/18 17:00 75 19 90/49 95 Nasal Cannula 2.0 04/17/18 16:30 70 18 110/60 99 Nasal Cannula 2.0 04/17/18 16:00 98.2 85 16 100/55 98 Nasal Cannula 2.0 98.2 04/17/18 16:00 85 04/17/18 15:30 79 24 86/49 42 Nasal Cannula 2.0 04/17/18 15:00 80 24 86/49 97 Nasal Cannula 2.0 04/17/18 14:30 79 22 87/44 97 Nasal Cannula 2.0 04/17/18 14:00 84 21 87/50 97 Nasal Cannula 2.0 04/17/18 14:00 21 97 04/17/18 13:30 83 18 100/50 99 Nasal Cannula 2.0 04/17/18 13:00 98.2 85 18 97/55 98 Nasal Cannula 2.0 98.2 04/17/18 12:30 83 18 98/52 99 Nasal Cannula 2.0 04/17/18 12:00 83 04/17/18 12:00 85 20 99/58 99 Nasal Cannula 2.0 04/17/18 11:30 81 19 96/53 99 Nasal Cannula 2.0 04/17/18 11:00 79 22 99/50 99 Nasal Cannula 2.0 04/17/18 10:30 76 20 94/54 99 Nasal Cannula 2.0 04/17/18 10:00 75 20 91/44 99 Nasal Cannula 2.0 04/17/18 09:30 76 18 95/56 99 Nasal Cannula 2.0 04/17/18 09:00 80 19 96/53 99 Nasal Cannula 2.0 04/17/18 08:30 82 20 95/55 99 Nasal Cannula 2.0 Intake and Output 04/17/18 04/18/18 19:00 07:00 Intake Total 2474.26 ml 1886.39 ml Output Total 2330 ml 1925 ml Balance 144.26 ml -38.61 ml Intake Oral 750 ml IV Total 1724.26 ml 1886.39 ml Output Urine Total 2330 ml 1925 ml # Bowel Movements 1 3 Laboratory Tests 04/17/18 23:32: Vancomycin Level Trough 3.0L 04/18/18 04:30: White Blood Count 15.6H, Red Blood Count 3.31L, Hemoglobin 8.7L, Hematocrit 27.4L, Mean Corpuscular Volume 83, Mean Corpuscular Hemoglobin 26.3L, Mean Corpuscular Hemoglobin Concent 31.8L, Red Cell Distribution Width 16.0H, Platelet Count 220, Mean Platelet Volume 7.9, Neutrophils (%) (Auto) 78.9H, Lymphocytes (%) (Auto) 7.1L, Monocytes (%) (Auto) 5.7, Eosinophils (%) (Auto) 8.1H, Basophils (%) (Auto) 0.2, Sodium Level 139, Potassium Level 3.3L, Chloride Level 105, Carbon Dioxide Level 25, Anion Gap 9, Blood Urea Nitrogen 10 , Creatinine 1.2, Estimat Glomerular Filtration Rate > 60, Glucose Level 123H, Calcium Level 8.3L Height (Feet): 5 Height (Inches): 9.00 Weight (Pounds): 197 General Appearance: no apparent distress, alert EENT: normal ENT inspection, TMs normal Neck: normal alignment, supple Cardiovascular: normal rate, regular rhythm Respiratory/Chest: lungs clear, normal breath sounds Abdomen: non tender, soft Edema: no edema noted Arm (L), no edema noted Arm (R), no edema noted Leg (L), no edema noted Leg (R), no edema noted Pedal (L), no edema noted Pedal (R), no edema noted Generalized Macario Kumar M.D. Apr 18, 2018 08:07
--- NOTE | 2018-04-18 08:44 | General Progress Note ---
Assessment/Plan Assessment/Plan IMPRESSION Acute on chronic encephalopathy Urosepsis shock leukocytosis anemia SHARDA severe protein malnutrition hypotension sacral pressure ulcer PLAN IV antibiotics noted cultures noted ID evaluation appreciated pressors taper to off iv hydration ?dc add norco monitor labs all appreciated hope to dc to snf once hemodynamics improved Subjective Allergies: Coded Allergies: CHLORHEXIDINE (Verified Allergy, Unknown, 04/17/18) Pt states CHG gives him rashes Subjective better more alert has pain Objective Last 24 Hour Vital Signs Date Time Temp Pulse Resp B/P (MAP) Pulse Ox O2 Delivery O2 Flow Rate FiO2 04/18/18 07:10 111/58 04/18/18 07:00 84 27 111/58 96 Nasal Cannula 2.0 04/18/18 06:30 86 35 115/62 96 Nasal Cannula 2.0 04/18/18 06:00 96 21 103/64 97 Nasal Cannula 2.0 04/18/18 06:00 103/64 04/18/18 05:30 85 27 104/59 96 Nasal Cannula 2.0 04/18/18 05:00 106/57 04/18/18 05:00 84 27 106/57 96 Nasal Cannula 2.0 04/18/18 04:30 81 24 107/59 97 Nasal Cannula 2.0 04/18/18 04:00 86 04/18/18 04:00 101/56 04/18/18 04:00 99.3 83 24 101/56 98 Nasal Cannula 2.0 99.3 04/18/18 03:30 88 26 108/59 98 Nasal Cannula 2.0 04/18/18 03:00 99/53 04/18/18 03:00 83 24 99/53 98 Nasal Cannula 2.0 04/18/18 02:30 80 24 102/57 97 Nasal Cannula 2.0 04/18/18 02:02 88/39 04/18/18 02:00 83 21 88/39 97 Nasal Cannula 2.0 04/18/18 01:30 74 23 94/52 95 Nasal Cannula 2.0 04/18/18 01:00 86 23 78/52 98 Nasal Cannula 2.0 04/18/18 01:00 78/52 04/18/18 00:30 79 23 99/57 96 Nasal Cannula 2.0 04/18/18 00:00 81 04/18/18 00:00 99.2 81 23 92/48 97 Nasal Cannula 2.0 99.2 04/18/18 00:00 99/57 04/17/18 23:30 79 23 116/60 96 Nasal Cannula 2.0 04/17/18 23:00 82 25 110/56 94 Nasal Cannula 2.0 04/17/18 23:00 102/54 04/17/18 22:30 89 21 105/57 94 Nasal Cannula 2.0 04/17/18 22:00 105/57 04/17/18 22:00 84 25 102/54 94 Nasal Cannula 2.0 04/17/18 21:30 83 26 107/66 98 Nasal Cannula 2.0 04/17/18 21:00 80 24 90/47 96 Nasal Cannula 2.0 04/17/18 21:00 90/47 04/17/18 20:30 81 23 115/62 96 Nasal Cannula 2.0 04/17/18 20:00 98.6 82 22 96/52 95 Nasal Cannula 2.0 98.6 04/17/18 20:00 115/62 04/17/18 20:00 80 04/17/18 19:30 81 24 104/54 95 Nasal Cannula 2.0 04/17/18 19:00 79 20 92/55 98 Nasal Cannula 2.0 04/17/18 19:00 96/52 04/17/18 18:30 79 22 97/50 96 Nasal Cannula 2.0 04/17/18 18:00 82 20 86/49 98 Nasal Cannula 2.0 04/17/18 17:30 79 20 93/52 97 Nasal Cannula 2.0 04/17/18 17:00 86/49 04/17/18 17:00 75 19 90/49 95 Nasal Cannula 2.0 04/17/18 16:30 70 18 110/60 99 Nasal Cannula 2.0 04/17/18 16:00 98.2 85 16 100/55 98 Nasal Cannula 2.0 98.2 04/17/18 16:00 85 04/17/18 15:30 79 24 86/49 42 Nasal Cannula 2.0 04/17/18 15:00 80 24 86/49 97 Nasal Cannula 2.0 04/17/18 14:30 79 22 87/44 97 Nasal Cannula 2.0 04/17/18 14:00 84 21 87/50 97 Nasal Cannula 2.0 04/17/18 14:00 21 97 04/17/18 13:30 83 18 100/50 99 Nasal Cannula 2.0 04/17/18 13:00 98.2 85 18 97/55 98 Nasal Cannula 2.0 98.2 04/17/18 12:30 83 18 98/52 99 Nasal Cannula 2.0 04/17/18 12:00 83 04/17/18 12:00 85 20 99/58 99 Nasal Cannula 2.0 04/17/18 11:30 81 19 96/53 99 Nasal Cannula 2.0 04/17/18 11:00 79 22 99/50 99 Nasal Cannula 2.0 04/17/18 10:30 76 20 94/54 99 Nasal Cannula 2.0 04/17/18 10:00 75 20 91/44 99 Nasal Cannula 2.0 04/17/18 09:30 76 18 95/56 99 Nasal Cannula 2.0 04/17/18 09:00 80 19 96/53 99 Nasal Cannula 2.0 Intake and Output 04/17/18 04/18/18 19:00 07:00 Intake Total 2474.26 ml 1886.39 ml Output Total 2330 ml 1925 ml Balance 144.26 ml -38.61 ml Intake Oral 750 ml IV Total 1724.26 ml 1886.39 ml Output Urine Total 2330 ml 1925 ml # Bowel Movements 1 3 Laboratory Tests 04/17/18 23:32: Vancomycin Level Trough 3.0L 04/18/18 04:30: White Blood Count 15.6H, Red Blood Count 3.31L, Hemoglobin 8.7L, Hematocrit 27.4L, Mean Corpuscular Volume 83, Mean Corpuscular Hemoglobin 26.3L, Mean Corpuscular Hemoglobin Concent 31.8L, Red Cell Distribution Width 16.0H, Platelet Count 220, Mean Platelet Volume 7.9, Neutrophils (%) (Auto) 78.9H, Lymphocytes (%) (Auto) 7.1L, Monocytes (%) (Auto) 5.7, Eosinophils (%) (Auto) 8.1H, Basophils (%) (Auto) 0.2, Sodium Level 139, Potassium Level 3.3L, Chloride Level 105, Carbon Dioxide Level 25, Anion Gap 9, Blood Urea Nitrogen 10 , Creatinine 1.2, Estimat Glomerular Filtration Rate > 60, Glucose Level 123H, Calcium Level 8.3L Height (Feet): 5 Height (Inches): 9.00 Weight (Pounds): 197 Objective WDWN NAD clear breath sounds bilaterally without rhonchi or wheeze [id number] without MRG NABS nontender no HSM weak alert Amado Coker MD Apr 18, 2018 08:44
[2018-04-18] MEDS ORDERED: Meropenem 1 GM in D5W 110 ML IVPB SCH (10:00)
[2018-04-18] MEDS: Lactobacillus-GG tablet ORAL SCH ×2 (10:00→18:22)
[2018-04-18] MEDS: Pantoprazole Inj IVP SCH (10:00)
[2018-04-18] MEDS: Heparin 5000 units/ml inj SUBQ SCH ×2 (10:00→21:00)
[2018-04-18] MEDS: Ascorbic Acid 500mg tab ORAL SCH ×2 (10:00→18:22)
[2018-04-18] MEDS ORDERED: HYDROcodone/Acetamin 7.5/325 tab ORAL PRN (11:00)
--- NOTE | 2018-04-18 11:49 | Infectious Diseases Prog Note ---
Assessment/Plan Assessment/Plan antibiotics : vancomycin iv, meropenem A 1. proteus sepsis secondary to UTI 2. proteus UTI 3. leucocytosis improving 4. renal failure improving 5. paraplegia 6. shock 7. sacral decubitus ulcer P 1. d/c vancomycin iv, meropenem 2. start iv ceftriaxone 3. will follow up cultures Subjective Constitutional: Denies: fever, chills Respiratory: Denies: shortness of breath, dry cough Gastrointestinal/Abdominal: Denies: nausea, vomiting, diarrhea Musculoskeletal: Denies: pain Allergies: Coded Allergies: CHLORHEXIDINE (Verified Allergy, Unknown, 04/17/18) Pt states CHG gives him rashes Objective Vital Signs Last 24 Hour Vital Signs Date Time Temp Pulse Resp B/P (MAP) Pulse Ox O2 Delivery O2 Flow Rate FiO2 04/18/18 07:10 111/58 04/18/18 07:00 84 27 111/58 96 Nasal Cannula 2.0 04/18/18 06:30 86 35 115/62 96 Nasal Cannula 2.0 04/18/18 06:00 96 21 103/64 97 Nasal Cannula 2.0 04/18/18 06:00 103/64 04/18/18 05:30 85 27 104/59 96 Nasal Cannula 2.0 04/18/18 05:00 106/57 04/18/18 05:00 84 27 106/57 96 Nasal Cannula 2.0 04/18/18 04:30 81 24 107/59 97 Nasal Cannula 2.0 04/18/18 04:00 86 04/18/18 04:00 101/56 04/18/18 04:00 99.3 83 24 101/56 98 Nasal Cannula 2.0 99.3 04/18/18 03:30 88 26 108/59 98 Nasal Cannula 2.0 04/18/18 03:00 99/53 04/18/18 03:00 83 24 99/53 98 Nasal Cannula 2.0 04/18/18 02:30 80 24 102/57 97 Nasal Cannula 2.0 04/18/18 02:02 88/39 04/18/18 02:00 83 21 88/39 97 Nasal Cannula 2.0 04/18/18 01:30 74 23 94/52 95 Nasal Cannula 2.0 04/18/18 01:00 86 23 78/52 98 Nasal Cannula 2.0 04/18/18 01:00 78/52 04/18/18 00:30 79 23 99/57 96 Nasal Cannula 2.0 04/18/18 00:00 81 04/18/18 00:00 99.2 81 23 92/48 97 Nasal Cannula 2.0 99.2 04/18/18 00:00 99/57 04/17/18 23:30 79 23 116/60 96 Nasal Cannula 2.0 04/17/18 23:00 82 25 110/56 94 Nasal Cannula 2.0 04/17/18 23:00 102/54 04/17/18 22:30 89 21 105/57 94 Nasal Cannula 2.0 04/17/18 22:00 105/57 04/17/18 22:00 84 25 102/54 94 Nasal Cannula 2.0 04/17/18 21:30 83 26 107/66 98 Nasal Cannula 2.0 04/17/18 21:00 80 24 90/47 96 Nasal Cannula 2.0 04/17/18 21:00 90/47 04/17/18 20:30 81 23 115/62 96 Nasal Cannula 2.0 04/17/18 20:00 98.6 82 22 96/52 95 Nasal Cannula 2.0 98.6 04/17/18 20:00 115/62 04/17/18 20:00 80 04/17/18 19:30 81 24 104/54 95 Nasal Cannula 2.0 04/17/18 19:00 79 20 92/55 98 Nasal Cannula 2.0 04/17/18 19:00 96/52 04/17/18 18:30 79 22 97/50 96 Nasal Cannula 2.0 04/17/18 18:00 82 20 86/49 98 Nasal Cannula 2.0 04/17/18 17:30 79 20 93/52 97 Nasal Cannula 2.0 04/17/18 17:00 86/49 04/17/18 17:00 75 19 90/49 95 Nasal Cannula 2.0 04/17/18 16:30 70 18 110/60 99 Nasal Cannula 2.0 04/17/18 16:00 98.2 85 16 100/55 98 Nasal Cannula 2.0 98.2 04/17/18 16:00 85 04/17/18 15:30 79 24 86/49 42 Nasal Cannula 2.0 04/17/18 15:00 80 24 86/49 97 Nasal Cannula 2.0 04/17/18 14:30 79 22 87/44 97 Nasal Cannula 2.0 04/17/18 14:00 84 21 87/50 97 Nasal Cannula 2.0 04/17/18 14:00 21 97 04/17/18 13:30 83 18 100/50 99 Nasal Cannula 2.0 04/17/18 13:00 98.2 85 18 97/55 98 Nasal Cannula 2.0 98.2 04/17/18 12:30 83 18 98/52 99 Nasal Cannula 2.0 04/17/18 12:00 83 04/17/18 12:00 85 20 99/58 99 Nasal Cannula 2.0 Height (Feet): 5 Height (Inches): 9.00 Weight (Pounds): 197 Respiratory/Chest: lungs clear Cardiovascular: normal rate, regular rhythm, no gallop/murmur Abdomen: soft, non tender Extremities: no edema, other - right Ij catheter Microbiology Date/Time Source Procedure Growth Status 04/15/18 14:27 Blood Blood Culture - Final Proteus Mirabilis Complete 04/15/18 14:27 Blood Blood Culture - Final Proteus Mirabilis Complete 04/15/18 21:00 Wound Gram Stain - Final Resulted 04/15/18 21:00 Wound Culture - Preliminary Escherichia Coli - Esbl Strep Species, Gamma-Hemolytic Resulted 04/15/18 18:50 Nasal Nares MRSA Culture - Final NO METHICILLIN RESISTANT STAPH AUREUS... Complete 04/17/18 04:30 Stool Clostridium difficile Toxin Assay - Final Complete 04/15/18 14:27 Urine,Clean Catch Urine Culture - Final Proteus Mirabilis Complete 04/15/18 18:50 Rectum VRE Culture - Final Enterococcus Faecalis - Vre Complete Laboratory Tests Test 04/17/18 23:32 04/18/18 04:30 Vancomycin Level Trough 3.0 ug/mL (5.0-12.0) L White Blood Count 15.6 K/UL (4.8-10.8) H Red Blood Count 3.31 M/UL (4.70-6.10) L Hemoglobin 8.7 G/DL (14.2-18.0) L Hematocrit 27.4 % (42.0-52.0) L Mean Corpuscular Volume 83 FL (80-99) Mean Corpuscular Hemoglobin 26.3 PG (27.0-31.0) L Mean Corpuscular Hemoglobin Concent 31.8 G/DL (32.0-36.0) L Red Cell Distribution Width 16.0 % (11.6-14.8) H Platelet Count 220 K/UL (150-450) Mean Platelet Volume 7.9 FL (6.5-10.1) Neutrophils (%) (Auto) 78.9 % (45.0-75.0) H Lymphocytes (%) (Auto) 7.1 % (20.0-45.0) L Monocytes (%) (Auto) 5.7 % (1.0-10.0) Eosinophils (%) (Auto) 8.1 % (0.0-3.0) H Basophils (%) (Auto) 0.2 % (0.0-2.0) Sodium Level 139 MMOL/L (136-145) Potassium Level 3.3 MMOL/L (3.5-5.1) L Chloride Level 105 MMOL/L (98-107) Carbon Dioxide Level 25 MMOL/L (21-32) Anion Gap 9 mmol/L (5-15) Blood Urea Nitrogen 10 mg/dL (7-18) Creatinine 1.2 MG/DL (0.55-1.30) Estimat Glomerular Filtration Rate > 60 mL/min (>60) Glucose Level 123 MG/DL (74-106) H Calcium Level 8.3 MG/DL (8.5-10.1) L Current Medications Medications (Trade) Dose Ordered Sig/Aleyda Route PRN Reason Start Time Stop Time Status Last Admin Dose Admin Acetaminophen/ Hydrocodone Bitart ([place] 5/325) 1 tab Q4H PRN ORAL Moderate Pain (Pain Scale 4-6) 04/18/18 08:45 04/25/18 08:44 Acetaminophen/ Hydrocodone Bitart ([place] 7.5/325) 1 tab Q6H PRN ORAL Severe Pain (Pain Scale 7-10) 04/18/18 11:00 04/22/18 22:59 Al Hydroxide/Mg Hydroxide (Mylanta) 30 ml Q6H PRN ORAL HEARTBURN 04/15/18 22:30 05/15/18 22:29 Ascorbic Acid (Vitamin C) 500 mg TWICE A DAY ORAL 04/16/18 09:00 05/16/18 08:59 6/11/18 10:00 Heparin Sodium (Porcine) (Heparin 5000 units/ml) 5,000 units EVERY 12 HOURS SUBQ 04/15/18 22:30 05/15/18 22:29 04/18/18 10:00 Lactobacillus Acidophilus (Culturelle) 1 tab TWICE A DAY ORAL 04/16/18 09:00 05/16/18 08:59 04/18/18 10:00 Magnesium Hydroxide (Mom) 30 ml HSPRN PRN ORAL Constipation 04/15/18 22:30 05/15/18 22:29 Meropenem 1 gm/ Dextrose 110 ml @ 220 mls/hr Q8HR@0200,1000,1800 IVPB 04/18/18 10:00 04/23/18 09:59 Multivitamins (Multivitamins) 1 tab DAILY ORAL 04/16/18 09:00 05/16/18 08:59 04/18/18 10:00 Norepinephrine Bitartrate 8 mg/ Dextrose 558 ml @ 0 mls/hr Q24H IV 04/16/18 10:00 05/16/18 09:59 04/18/18 07:10 Pantoprazole (Protonix) 40 mg DAILY IVP 04/16/18 09:00 05/16/18 08:59 04/18/18 10:00 Potassium Chloride 100 ml @ 100 mls/hr Q1H IVPB 04/18/18 10:00 04/18/18 11:59 04/18/18 10:34 Sodium Chloride 1,000 ml @ 100 mls/hr Q10H IV 04/15/18 22:30 05/15/18 22:29 04/18/18 10:40 Vancomycin HCl (Vanco rx to dose) 1 ea DAILY PRN MISC Per rx protocol 04/15/18 22:30 05/15/18 22:29 Vancomycin HCl/ Dextrose 250 ml @ 125 mls/hr Q24H IVPB 04/18/18 02:00 04/23/18 01:59 04/18/18 02:02 Zolpidem Tartrate (Ambien) 5 mg HSPRN PRN ORAL Insomnia 04/16/18 21:00 04/23/18 20:59 04/17/18 21:16 SABI COLON Apr 18, 2018 11:49
[2018-04-18] MEDS: cefTRIAXone 1 GM in D5W 110 ML IVPB SCH (13:58)
[2018-04-18] MEDS ORDERED: Tubing IV Secondary IV ONE (17:07)
[2018-04-18] MEDS: Norco 5mg/325mg tab ORAL PRN (21:31)
[2018-04-19] VITALS (32 sets, daily range): BP systolic 79–130; BP diastolic 28–79
[2018-04-19] MEDS: Norco 5mg/325mg tab ORAL PRN ×3 (05:08→19:51)
[2018-04-19 06:06] LABS: BASOPHILS % (AUTO) 0.5 % (0.0-2.0); EOSINOPHILS % (AUTO) 16.5 % (0.0-3.0); HEMATOCRIT 25.2 % (42.0-52.0); HEMOGLOBIN 8.1 G/DL (14.2-18.0); LYMPHOCYTES % (AUTO) 14.2 % (20.0-45.0); MEAN CORPUSCULAR VOLUME 84 FL (80-99); NEUTROPHILS % (AUTO) 62.7 % (45.0-75.0); PLATELET COUNT 173 K/UL (150-450); RED BLOOD COUNT 3.01 M/UL (4.70-6.10); RED CELL DISTRIBUTION WIDTH 15.6 % (11.6-14.8); WHITE BLOOD COUNT 9.9 K/UL (4.8-10.8)
[2018-04-19 06:24] LABS: ANION GAP 10 mmol/L (5-15); BLOOD UREA NITROGEN 9 mg/dL (7-18); CALCIUM 8.1 MG/DL (8.5-10.1); CARBON DIOXIDE 26 MMOL/L (21-32); CHLORIDE 105 MMOL/L (98-107); CREATININE 1.3 MG/DL (0.55-1.30); POTASSIUM 3.1 MMOL/L (3.5-5.1); SODIUM 140 MMOL/L (136-145)
--- NOTE | 2018-04-19 08:28 | Nephrology Progress Note ---
Assessment/Plan Assessment/Plan 1. SHARDA- multifact ATN ( hypotension/sepsis) - Resolving, Cr stable at 1.3 - Renal US negative. Wean off pressor and add midrodrine 2. Sepsis- Abx and midrodrine 3. UTI- Abx 4. Paraplegic- per PCP mgmt 5. Hypokalemia- replace today again Subjective Date patient seen: Apr 19, 2018 Time patient seen: 08:25 ROS Limited/Unobtainable: No Allergies: Coded Allergies: CHLORHEXIDINE (Verified Allergy, Unknown, 04/17/18) Pt states CHG gives him rashes All Systems: reviewed and negative except above Subjective Patient doing well and in no distress Objective Last 24 Hour Vital Signs Date Time Temp Pulse Resp B/P (MAP) Pulse Ox O2 Delivery O2 Flow Rate FiO2 04/19/18 08:00 98.2 83 24 91/53 100 Nasal Cannula 2.0 98.2 04/19/18 07:00 94 33 122/79 100 Nasal Cannula 2.0 04/19/18 06:00 77 21 96/61 97 Nasal Cannula 2.0 04/19/18 05:00 78 21 101/55 97 Nasal Cannula 2.0 04/19/18 04:00 90 04/19/18 04:00 98.7 76 25 79/28 100 Nasal Cannula 2.0 98.7 04/19/18 03:00 69 21 109/67 100 Nasal Cannula 2.0 04/19/18 02:00 88 36 87/54 94 Nasal Cannula 2.0 04/19/18 01:00 91 31 130/67 94 Nasal Cannula 2.0 04/19/18 00:00 84 19 102/56 100 Nasal Cannula 2.0 04/18/18 23:00 86 29 95/55 31 Nasal Cannula 2.0 04/18/18 22:00 80 29 101/52 96 Nasal Cannula 2.0 04/18/18 21:00 83 30 106/56 95 Nasal Cannula 2.0 04/18/18 20:00 84 04/18/18 20:00 98.9 86 36 100/53 98 Nasal Cannula 2.0 98.9 04/18/18 19:00 81 30 107/64 97 Nasal Cannula 2.0 04/18/18 18:00 79 30 105/57 98 Nasal Cannula 2.0 04/18/18 17:00 81 25 97/50 97 Nasal Cannula 2.0 04/18/18 16:00 78 31 104/54 95 Nasal Cannula 2.0 04/18/18 16:00 77 04/18/18 15:30 80 36 94/54 95 Nasal Cannula 2.0 04/18/18 15:00 79 38 106/60 95 Nasal Cannula 2.0 04/18/18 14:30 81 41 96/52 95 Nasal Cannula 2.0 04/18/18 14:00 81 40 99/57 96 Nasal Cannula 2.0 04/18/18 13:30 84 39 93/54 96 Nasal Cannula 2.0 04/18/18 13:00 87 36 112/65 97 Nasal Cannula 2.0 04/18/18 12:30 87 37 120/79 97 Nasal Cannula 2.0 04/18/18 12:00 80 04/18/18 12:00 98.9 89 31 119/74 97 Nasal Cannula 2.0 98.9 04/18/18 11:30 82 33 123/75 98 Nasal Cannula 2.0 04/18/18 11:00 82 33 109/70 98 Nasal Cannula 2.0 04/18/18 10:30 80 24 121/62 98 Nasal Cannula 2.0 04/18/18 10:00 82 25 104/66 98 Nasal Cannula 2.0 04/18/18 09:30 81 25 116/63 98 Nasal Cannula 2.0 04/18/18 09:00 84 27 104/64 97 Nasal Cannula 2.0 04/18/18 08:30 82 36 114/65 96 Nasal Cannula 2.0 Intake and Output 04/18/18 04/19/18 19:00 07:00 Intake Total 1868.95 ml 1558.81 ml Output Total 1655 ml 1625 ml Balance 213.95 ml -66.19 ml Intake Oral 350 ml IV Total 1868.95 ml 1208.81 ml Output Urine Total 1655 ml 1625 ml # Bowel Movements 3 3 Laboratory Tests 04/19/18 04:00: White Blood Count 9.9, Red Blood Count 3.01L, Hemoglobin 8.1L, Hematocrit 25.2L , Mean Corpuscular Volume 84, Mean Corpuscular Hemoglobin 27.0, Mean Corpuscular Hemoglobin Concent 32.3, Red Cell Distribution Width 15.6H, Platelet Count 173, Mean Platelet Volume 8.0, Neutrophils (%) (Auto) 62.7, Lymphocytes (%) (Auto) 14.2L, Monocytes (%) (Auto) 6.0, Eosinophils (%) (Auto) 16.5H, Basophils (%) (Auto) 0.5, Sodium Level 140, Potassium Level 3.1L, Chloride Level 105, Carbon Dioxide Level 26, Anion Gap 10, Blood Urea Nitrogen 9 , Creatinine 1.3, Estimat Glomerular Filtration Rate 56.9, Glucose Level 103, Calcium Level 8.1L Height (Feet): 5 Height (Inches): 9.00 Weight (Pounds): 195 General Appearance: no apparent distress, alert EENT: normal ENT inspection Neck: normal alignment, supple Cardiovascular: normal rate, regular rhythm Respiratory/Chest: lungs clear, normal breath sounds Abdomen: non tender, soft Edema: no edema noted Arm (L), no edema noted Arm (R), no edema noted Leg (L), no edema noted Leg (R), no edema noted Pedal (L), no edema noted Pedal (R), no edema noted Generalized Macario Kumar M.D. Apr 19, 2018 08:28
[2018-04-19] MEDS: Pantoprazole Inj IVP SCH (09:11)
[2018-04-19] MEDS: Ascorbic Acid 500mg tab ORAL SCH ×2 (09:12→17:36)
[2018-04-19] MEDS: Lactobacillus-GG tablet ORAL SCH ×2 (09:13→17:36)
[2018-04-19] MEDS: Heparin 5000 units/ml inj SUBQ SCH ×2 (09:23→21:04)
--- NOTE | 2018-04-19 09:54 | Infectious Diseases Prog Note ---
Assessment/Plan Assessment/Plan A 1. Proteus sepsis secondary to UTI 2. Proteus UTI 3. leucocytosis resolved 4. Acute renal failure improving 5. paraplegia 6. shock, resolved, off pressor 7. 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 Continue iv ceftriaxone 2. will follow up cultures Subjective ROS Limited/Unobtainable: No Constitutional: Reports: no symptoms Respiratory: Reports: no symptoms Cardiovascular: Reports: no symptoms Gastrointestinal/Abdominal: Reports: diarrhea Musculoskeletal: Reports: pain, other - in left hand Allergies: Coded Allergies: CHLORHEXIDINE (Verified Allergy, Unknown, 04/17/18) Pt states CHG gives him rashes Objective Vital Signs Last 24 Hour Vital Signs Date Time Temp Pulse Resp B/P (MAP) Pulse Ox O2 Delivery O2 Flow Rate FiO2 04/19/18 08:00 98.2 83 24 91/53 100 Nasal Cannula 2.0 98.2 04/19/18 07:00 94 33 122/79 100 Nasal Cannula 2.0 04/19/18 06:00 77 21 96/61 97 Nasal Cannula 2.0 04/19/18 05:00 78 21 101/55 97 Nasal Cannula 2.0 04/19/18 04:00 90 04/19/18 04:00 98.7 76 25 79/28 100 Nasal Cannula 2.0 98.7 04/19/18 03:00 69 21 109/67 100 Nasal Cannula 2.0 04/19/18 02:00 88 36 87/54 94 Nasal Cannula 2.0 04/19/18 01:00 91 31 130/67 94 Nasal Cannula 2.0 04/19/18 00:00 84 19 102/56 100 Nasal Cannula 2.0 04/18/18 23:00 86 29 95/55 31 Nasal Cannula 2.0 04/18/18 22:00 80 29 101/52 96 Nasal Cannula 2.0 04/18/18 21:00 83 30 106/56 95 Nasal Cannula 2.0 04/18/18 20:00 84 04/18/18 20:00 98.9 86 36 100/53 98 Nasal Cannula 2.0 98.9 04/18/18 19:00 81 30 107/64 97 Nasal Cannula 2.0 04/18/18 18:00 79 30 105/57 98 Nasal Cannula 2.0 04/18/18 17:00 81 25 97/50 97 Nasal Cannula 2.0 04/18/18 16:00 78 31 104/54 95 Nasal Cannula 2.0 04/18/18 16:00 77 04/18/18 15:30 80 36 94/54 95 Nasal Cannula 2.0 04/18/18 15:00 79 38 106/60 95 Nasal Cannula 2.0 04/18/18 14:30 81 41 96/52 95 Nasal Cannula 2.0 04/18/18 14:00 81 40 99/57 96 Nasal Cannula 2.0 04/18/18 13:30 84 39 93/54 96 Nasal Cannula 2.0 04/18/18 13:00 87 36 112/65 97 Nasal Cannula 2.0 04/18/18 12:30 87 37 120/79 97 Nasal Cannula 2.0 04/18/18 12:00 80 04/18/18 12:00 98.9 89 31 119/74 97 Nasal Cannula 2.0 98.9 04/18/18 11:30 82 33 123/75 98 Nasal Cannula 2.0 04/18/18 11:00 82 33 109/70 98 Nasal Cannula 2.0 04/18/18 10:30 80 24 121/62 98 Nasal Cannula 2.0 04/18/18 10:00 82 25 104/66 98 Nasal Cannula 2.0 Height (Feet): 5 Height (Inches): 9.00 Weight (Pounds): 195 General Appearance: no acute distress HEENT: mucous membranes moist Respiratory/Chest: lungs clear Cardiovascular: normal rate, other - RIJ central line Abdomen: soft, non tender, other - rectal tube Extremities: no edema Skin: ulcers, other - multiple Neurologic/Psychiatric: alert, responsive Microbiology Date/Time Source Procedure Growth Status 04/17/18 04:30 Stool Clostridium difficile Toxin Assay - Final Complete Laboratory Tests Test 04/19/18 04:00 White Blood Count 9.9 K/UL (4.8-10.8) Red Blood Count 3.01 M/UL (4.70-6.10) L Hemoglobin 8.1 G/DL (14.2-18.0) L Hematocrit 25.2 % (42.0-52.0) L Mean Corpuscular Volume 84 FL (80-99) Mean Corpuscular Hemoglobin 27.0 PG (27.0-31.0) Mean Corpuscular Hemoglobin Concent 32.3 G/DL (32.0-36.0) Red Cell Distribution Width 15.6 % (11.6-14.8) H Platelet Count 173 K/UL (150-450) Mean Platelet Volume 8.0 FL (6.5-10.1) Neutrophils (%) (Auto) 62.7 % (45.0-75.0) Lymphocytes (%) (Auto) 14.2 % (20.0-45.0) L Monocytes (%) (Auto) 6.0 % (1.0-10.0) Eosinophils (%) (Auto) 16.5 % (0.0-3.0) H Basophils (%) (Auto) 0.5 % (0.0-2.0) Sodium Level 140 MMOL/L (136-145) Potassium Level 3.1 MMOL/L (3.5-5.1) L Chloride Level 105 MMOL/L (98-107) Carbon Dioxide Level 26 MMOL/L (21-32) Anion Gap 10 mmol/L (5-15) Blood Urea Nitrogen 9 mg/dL (7-18) Creatinine 1.3 MG/DL (0.55-1.30) Estimat Glomerular Filtration Rate 56.9 mL/min (>60) Glucose Level 103 MG/DL (74-106) Calcium Level 8.1 MG/DL (8.5-10.1) L Current Medications Medications (Trade) Dose Ordered Sig/Aleyda Route PRN Reason Start Time Stop Time Status Last Admin Dose Admin Acetaminophen/ Hydrocodone Bitart ([place] 5/325) 1 tab Q4H PRN ORAL Moderate Pain (Pain Scale 4-6) 04/18/18 08:45 04/25/18 08:44 04/19/18 09:13 Acetaminophen/ Hydrocodone Bitart ([place] 7.5/325) 1 tab Q6H PRN ORAL Severe Pain (Pain Scale 7-10) 04/18/18 11:00 04/22/18 22:59 Al Hydroxide/Mg Hydroxide (Mylanta) 30 ml Q6H PRN ORAL HEARTBURN 04/15/18 22:30 05/15/18 22:29 Ascorbic Acid (Vitamin C) 500 mg TWICE A DAY ORAL 04/16/18 09:00 05/16/18 08:59 04/19/18 09:12 Ceftriaxone Sodium 1 gm/ Dextrose 110 ml @ 220 mls/hr Q24H IVPB 04/18/18 13:00 04/25/18 12:59 04/18/18 13:58 Heparin Sodium (Porcine) (Heparin 5000 units/ml) 5,000 units EVERY 12 HOURS SUBQ 04/15/18 22:30 05/15/18 22:29 04/19/18 09:23 Lactobacillus Acidophilus (Culturelle) 1 tab TWICE A DAY ORAL 04/16/18 09:00 05/16/18 08:59 04/19/18 09:13 Magnesium Hydroxide (Mom) 30 ml HSPRN PRN ORAL Constipation 04/15/18 22:30 05/15/18 22:29 Midodrine (Pro-Amatine) 5 mg THREE TIMES A DAY ORAL 04/19/18 09:00 05/19/18 08:59 04/19/18 09:12 Multivitamins (Multivitamins) 1 tab DAILY ORAL 04/16/18 09:00 05/16/18 08:59 04/19/18 09:13 Norepinephrine Bitartrate 8 mg/ Dextrose 558 ml @ 0 mls/hr Q24H IV 04/16/18 10:00 05/16/18 09:59 04/18/18 07:10 Pantoprazole (Protonix) 40 mg DAILY IVP 04/16/18 09:00 05/16/18 08:59 04/19/18 09:11 Sodium Chloride 1,000 ml @ 100 mls/hr Q10H IV 04/15/18 22:30 05/15/18 22:29 04/19/18 06:33 Zolpidem Tartrate (Ambien) 5 mg HSPRN PRN ORAL Insomnia 04/16/18 21:00 04/23/18 20:59 04/17/18 21:16 Reyes Trevino MD Apr 19, 2018 09:54
[2018-04-19] MEDS: Norepinephrine Bitartrate 8 MG in D5W 500ml 550 ML IV SCH (10:00)
--- NOTE | 2018-04-19 12:03 | General Surgery Progress Note ---
General Surgery-Progress Note Subjective Additional Comments leukocytosis resolved. no acute events. no n/v/f/c. diarrhea. responsive Objective Last 24 Hour Vital Signs Date Time Temp Pulse Resp B/P (MAP) Pulse Ox O2 Delivery O2 Flow Rate FiO2 04/19/18 11:00 114/57 04/19/18 11:00 77 26 103/55 88 Nasal Cannula 3.0 04/19/18 10:30 76 26 113/51 90 Nasal Cannula 3.0 04/19/18 10:15 82/41 04/19/18 10:00 77 26 82/41 82 Nasal Cannula 3.0 04/19/18 09:00 79 22 91/45 93 Nasal Cannula 2.0 04/19/18 08:00 98.2 83 24 91/53 100 Nasal Cannula 2.0 98.2 04/19/18 08:00 83 04/19/18 07:00 94 33 122/79 100 Nasal Cannula 2.0 04/19/18 07:00 99/73 04/19/18 06:00 77 21 96/61 97 Nasal Cannula 2.0 04/19/18 05:00 78 21 101/55 97 Nasal Cannula 2.0 04/19/18 04:00 90 04/19/18 04:00 98.7 76 25 79/28 100 Nasal Cannula 2.0 98.7 04/19/18 03:00 69 21 109/67 100 Nasal Cannula 2.0 04/19/18 02:00 88 36 87/54 94 Nasal Cannula 2.0 04/19/18 01:00 91 31 130/67 94 Nasal Cannula 2.0 04/19/18 00:00 84 19 102/56 100 Nasal Cannula 2.0 04/18/18 23:00 86 29 95/55 31 Nasal Cannula 2.0 04/18/18 22:00 80 29 101/52 96 Nasal Cannula 2.0 04/18/18 21:00 83 30 106/56 95 Nasal Cannula 2.0 04/18/18 20:00 84 04/18/18 20:00 98.9 86 36 100/53 98 Nasal Cannula 2.0 98.9 04/18/18 19:00 81 30 107/64 97 Nasal Cannula 2.0 04/18/18 18:00 79 30 105/57 98 Nasal Cannula 2.0 04/18/18 17:00 81 25 97/50 97 Nasal Cannula 2.0 04/18/18 16:00 78 31 104/54 95 Nasal Cannula 2.0 04/18/18 16:00 77 04/18/18 15:30 80 36 94/54 95 Nasal Cannula 2.0 04/18/18 15:00 79 38 106/60 95 Nasal Cannula 2.0 04/18/18 14:30 81 41 96/52 95 Nasal Cannula 2.0 04/18/18 14:00 81 40 99/57 96 Nasal Cannula 2.0 04/18/18 13:30 84 39 93/54 96 Nasal Cannula 2.0 04/18/18 13:00 87 36 112/65 97 Nasal Cannula 2.0 04/18/18 12:30 87 37 120/79 97 Nasal Cannula 2.0 I&O Intake and Output 04/18/18 04/19/18 19:00 07:00 Intake Total 1868.95 ml 1558.81 ml Output Total 1655 ml 1625 ml Balance 213.95 ml -66.19 ml Intake Oral 350 ml IV Total 1868.95 ml 1208.81 ml Output Urine Total 1655 ml 1625 ml # Bowel Movements 3 3 Dressing: saturated Wound: clean Drains: none Cardiovascular: RSR Respiratory: clear Abdomen: soft, flat, non-tender Extremities: edema, tenderness, cyanosis Laboratory Tests Test 04/19/18 04:00 White Blood Count 9.9 K/UL (4.8-10.8) Red Blood Count 3.01 M/UL (4.70-6.10) L Hemoglobin 8.1 G/DL (14.2-18.0) L Hematocrit 25.2 % (42.0-52.0) L Mean Corpuscular Volume 84 FL (80-99) Mean Corpuscular Hemoglobin 27.0 PG (27.0-31.0) Mean Corpuscular Hemoglobin Concent 32.3 G/DL (32.0-36.0) Red Cell Distribution Width 15.6 % (11.6-14.8) H Platelet Count 173 K/UL (150-450) Mean Platelet Volume 8.0 FL (6.5-10.1) Neutrophils (%) (Auto) 62.7 % (45.0-75.0) Lymphocytes (%) (Auto) 14.2 % (20.0-45.0) L Monocytes (%) (Auto) 6.0 % (1.0-10.0) Eosinophils (%) (Auto) 16.5 % (0.0-3.0) H Basophils (%) (Auto) 0.5 % (0.0-2.0) Sodium Level 140 MMOL/L (136-145) Potassium Level 3.1 MMOL/L (3.5-5.1) L Chloride Level 105 MMOL/L (98-107) Carbon Dioxide Level 26 MMOL/L (21-32) Anion Gap 10 mmol/L (5-15) Blood Urea Nitrogen 9 mg/dL (7-18) Creatinine 1.3 MG/DL (0.55-1.30) Estimat Glomerular Filtration Rate 56.9 mL/min (>60) Glucose Level 103 MG/DL (74-106) Calcium Level 8.1 MG/DL (8.5-10.1) L Plan Problems: (1) Sepsis Assessment & Plan: 57M with sepsis. likely etiology UTI. 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 please refer to wound care photos for size and measurements. 2-3cm deep, 2cm undermining in inferior aspect. does get stool in wound at times given proximity to anus. some granulation tissue. no foul odor. serous drainage. minimal eschar and necrotic tissues. -No acute debridement necessary. -air soft mattress, gauze packing and dressings TID for now. -will follow with recs. thank you for this consultation. Alo Martin Apr 19, 2018 12:03
--- NOTE | 2018-04-19 12:16 | General Progress Note ---
Assessment/Plan Assessment/Plan IMPRESSION Acute on chronic encephalopathy Urosepsis shock leukocytosis anemia SHARDA severe protein malnutrition hypotension sacral pressure ulcer PLAN IV antibiotics noted cultures noted ID evaluation appreciated pressors off as able midodrine bolus fluids PRN norco monitor labs all appreciated hope to dc to snf once hemodynamics improved Subjective Allergies: Coded Allergies: CHLORHEXIDINE (Verified Allergy, Unknown, 04/17/18) Pt states CHG gives him rashes Subjective better more alert has pain Objective Last 24 Hour Vital Signs Date Time Temp Pulse Resp B/P (MAP) Pulse Ox O2 Delivery O2 Flow Rate FiO2 04/19/18 11:00 114/57 04/19/18 11:00 77 26 103/55 88 Nasal Cannula 3.0 04/19/18 10:30 76 26 113/51 90 Nasal Cannula 3.0 04/19/18 10:15 82/41 04/19/18 10:00 77 26 82/41 82 Nasal Cannula 3.0 04/19/18 09:00 79 22 91/45 93 Nasal Cannula 2.0 04/19/18 08:00 98.2 83 24 91/53 100 Nasal Cannula 2.0 98.2 04/19/18 08:00 83 04/19/18 07:00 94 33 122/79 100 Nasal Cannula 2.0 04/19/18 07:00 99/73 04/19/18 06:00 77 21 96/61 97 Nasal Cannula 2.0 04/19/18 05:00 78 21 101/55 97 Nasal Cannula 2.0 04/19/18 04:00 90 04/19/18 04:00 98.7 76 25 79/28 100 Nasal Cannula 2.0 98.7 04/19/18 03:00 69 21 109/67 100 Nasal Cannula 2.0 04/19/18 02:00 88 36 87/54 94 Nasal Cannula 2.0 04/19/18 01:00 91 31 130/67 94 Nasal Cannula 2.0 04/19/18 00:00 84 19 102/56 100 Nasal Cannula 2.0 04/18/18 23:00 86 29 95/55 31 Nasal Cannula 2.0 04/18/18 22:00 80 29 101/52 96 Nasal Cannula 2.0 04/18/18 21:00 83 30 106/56 95 Nasal Cannula 2.0 04/18/18 20:00 84 04/18/18 20:00 98.9 86 36 100/53 98 Nasal Cannula 2.0 98.9 04/18/18 19:00 81 30 107/64 97 Nasal Cannula 2.0 04/18/18 18:00 79 30 105/57 98 Nasal Cannula 2.0 04/18/18 17:00 81 25 97/50 97 Nasal Cannula 2.0 04/18/18 16:00 78 31 104/54 95 Nasal Cannula 2.0 04/18/18 16:00 77 04/18/18 15:30 80 36 94/54 95 Nasal Cannula 2.0 04/18/18 15:00 79 38 106/60 95 Nasal Cannula 2.0 04/18/18 14:30 81 41 96/52 95 Nasal Cannula 2.0 04/18/18 14:00 81 40 99/57 96 Nasal Cannula 2.0 04/18/18 13:30 84 39 93/54 96 Nasal Cannula 2.0 04/18/18 13:00 87 36 112/65 97 Nasal Cannula 2.0 04/18/18 12:30 87 37 120/79 97 Nasal Cannula 2.0 Intake and Output 04/18/18 04/19/18 19:00 07:00 Intake Total 1868.95 ml 1558.81 ml Output Total 1655 ml 1625 ml Balance 213.95 ml -66.19 ml Intake Oral 350 ml IV Total 1868.95 ml 1208.81 ml Output Urine Total 1655 ml 1625 ml # Bowel Movements 3 3 Laboratory Tests 04/19/18 04:00: White Blood Count 9.9, Red Blood Count 3.01L, Hemoglobin 8.1L, Hematocrit 25.2L , Mean Corpuscular Volume 84, Mean Corpuscular Hemoglobin 27.0, Mean Corpuscular Hemoglobin Concent 32.3, Red Cell Distribution Width 15.6H, Platelet Count 173, Mean Platelet Volume 8.0, Neutrophils (%) (Auto) 62.7, Lymphocytes (%) (Auto) 14.2L, Monocytes (%) (Auto) 6.0, Eosinophils (%) (Auto) 16.5H, Basophils (%) (Auto) 0.5, Sodium Level 140, Potassium Level 3.1L, Chloride Level 105, Carbon Dioxide Level 26, Anion Gap 10, Blood Urea Nitrogen 9 , Creatinine 1.3, Estimat Glomerular Filtration Rate 56.9, Glucose Level 103, Calcium Level 8.1L Height (Feet): 5 Height (Inches): 9.00 Weight (Pounds): 195 Objective WDWN NAD clear breath sounds bilaterally without rhonchi or wheeze [id number] without MRG NABS nontender no HSM weak alert Amado Coker MD Apr 19, 2018 12:16
[2018-04-19] MEDS ORDERED: Sodium Chloride 500ML 500 ML IV ONE (13:00)
[2018-04-19] MEDS: cefTRIAXone 1 GM in D5W 110 ML IVPB SCH (14:15)
--- NOTE | 2018-04-19 14:21 | Cardiology Report ---
APPROVED REPORT EKG Measurement Heart [id number] CT 124P72 [id number] Sinus tachycardia Otherwise normal ECG
[2018-04-20] VITALS (21 sets, daily range): BP systolic 89–132; BP diastolic 42–80
[2018-04-20 06:23] LABS: ANION GAP 9 mmol/L (5-15); BLOOD UREA NITROGEN 6 mg/dL (7-18); CALCIUM 8.2 MG/DL (8.5-10.1); CARBON DIOXIDE 25 MMOL/L (21-32); CHLORIDE 106 MMOL/L (98-107); CREATININE 1.1 MG/DL (0.55-1.30); POTASSIUM 3.2 MMOL/L (3.5-5.1); SODIUM 140 MMOL/L (136-145)
--- NOTE | 2018-04-20 08:03 | Nephrology Progress Note ---
Assessment/Plan Assessment/Plan 1. SHARDA- multifact ATN ( hypotension/sepsis) - Resolved, Cr 1.1 - Renal US negative. Off IV presswor 2. Sepsis- Abx and midrodrine. BP stable 3. UTI- Abx 4. Paraplegic- per PCP mgmt 5. Hypokalemia- replace today Subjective Date patient seen: Apr 20, 2018 Time patient seen: 07:53 ROS Limited/Unobtainable: No Allergies: Coded Allergies: CHLORHEXIDINE (Verified Allergy, Unknown, 04/17/18) Pt states CHG gives him rashes Subjective Patient doing well and in no distress and eating breakfast Objective Last 24 Hour Vital Signs Date Time Temp Pulse Resp B/P (MAP) Pulse Ox O2 Delivery O2 Flow Rate FiO2 04/20/18 07:00 82 19 115/68 93 Nasal Cannula 3.0 04/20/18 06:00 76 22 89/50 93 Nasal Cannula 3.0 04/20/18 05:00 78 22 105/42 94 Nasal Cannula 3.0 04/20/18 04:00 98.3 78 22 111/58 94 Nasal Cannula 3.0 98.3 04/20/18 04:00 80 04/20/18 03:05 98.2 04/20/18 03:00 73 22 107/58 94 Nasal Cannula 3.0 04/20/18 02:06 98.2 04/20/18 02:00 81 22 118/64 94 Nasal Cannula 3.0 04/20/18 01:00 69 18 125/67 94 Nasal Cannula 3.0 04/20/18 00:00 69 04/20/18 00:00 98.3 69 25 120/66 92 Nasal Cannula 3.0 98.3 04/19/18 23:00 71 26 126/70 93 Nasal Cannula 3.0 04/19/18 22:00 79 24 100/66 94 Nasal Cannula 3.0 04/19/18 21:00 75 18 95/61 94 Nasal Cannula 3.0 04/19/18 20:50 97.8 04/19/18 20:00 74 23 107/65 95 Nasal Cannula 3.0 04/19/18 20:00 74 04/19/18 19:51 97.6 04/19/18 19:00 77 21 117/71 93 Nasal Cannula 3.0 04/19/18 18:30 75 20 107/59 90 Nasal Cannula 3.0 04/19/18 18:00 81 20 101/61 90 Nasal Cannula 3.0 04/19/18 17:30 83 20 96/49 90 Nasal Cannula 3.0 04/19/18 17:00 80 23 96/54 92 Nasal Cannula 3.0 04/19/18 16:45 109/64 04/19/18 16:30 77 23 109/64 94 Nasal Cannula 3.0 04/19/18 16:00 98.1 79 21 117/60 90 Nasal Cannula 3.0 98.1 04/19/18 16:00 100/56 04/19/18 16:00 80 04/19/18 15:30 83 21 117/60 93 Nasal Cannula 3.0 04/19/18 15:00 97 23 98/57 95 Nasal Cannula 3.0 04/19/18 15:00 117/60 04/19/18 14:30 95 22 96/55 95 Nasal Cannula 3.0 04/19/18 14:00 75 24 100/50 96 Nasal Cannula 3.0 04/19/18 14:00 100/50 04/19/18 13:30 77 24 109/60 96 Nasal Cannula 3.0 04/19/18 13:00 114/63 04/19/18 13:00 79 29 106/52 92 Nasal Cannula 3.0 04/19/18 12:30 98.4 80 24 96/50 92 Nasal Cannula 3.0 98.4 04/19/18 12:30 96/50 04/19/18 12:00 79 04/19/18 12:00 117/65 04/19/18 12:00 80 26 117/65 88 Nasal Cannula 3.0 04/19/18 11:00 114/57 04/19/18 11:00 77 26 103/55 88 Nasal Cannula 3.0 04/19/18 10:30 76 26 113/51 90 Nasal Cannula 3.0 04/19/18 10:15 82/41 04/19/18 10:00 77 26 82/41 82 Nasal Cannula 3.0 04/19/18 10:00 113/51 04/19/18 09:00 79 22 91/45 93 Nasal Cannula 2.0 04/19/18 08:00 98.2 83 24 91/53 100 Nasal Cannula 2.0 98.2 04/19/18 08:00 83 Intake and Output 04/19/18 04/20/18 19:00 07:00 Intake Total 1649.50 ml 1770 ml Output Total 1775 ml 1540 ml Balance -125.50 ml 230 ml Intake Oral 250 ml 570 ml IV Total 1399.50 ml 1200 ml Output Urine Total 1775 ml 1340 ml Stool Total 200 ml # Bowel Movements 3 3 Laboratory Tests 04/20/18 05:00: Sodium Level 140, Potassium Level 3.2L, Chloride Level 106, Carbon Dioxide Level 25, Anion Gap 9, Blood Urea Nitrogen 6L, Creatinine 1.1, Estimat Glomerular Filtration Rate > 60, Glucose Level 115H, Calcium Level 8.2L Height (Feet): 5 Height (Inches): 9.00 Weight (Pounds): 198 General Appearance: no apparent distress, alert EENT: normal ENT inspection Neck: normal alignment, supple Cardiovascular: normal rate, regular rhythm Respiratory/Chest: lungs clear, normal breath sounds Abdomen: non tender, soft Edema: no edema noted Arm (L), no edema noted Arm (R), no edema noted Leg (L), no edema noted Leg (R), no edema noted Pedal (L), no edema noted Pedal (R), no edema noted Generalized Macario Kumar M.D. Apr 20, 2018 08:03
[2018-04-20] MEDS: Pantoprazole Inj IVP SCH (08:43)
[2018-04-20] MEDS: Lactobacillus-GG tablet ORAL SCH ×2 (08:44→18:41)
[2018-04-20] MEDS: Ascorbic Acid 500mg tab ORAL SCH ×2 (08:44→18:46)
[2018-04-20] MEDS: Heparin 5000 units/ml inj SUBQ SCH ×2 (08:56→22:14)
--- NOTE | 2018-04-20 09:10 | Consultation ---
History of Present Illness General Chief Complaint: Fever Reason for Consultation: sepsis, sacral ulcer Present Illness Allergies: Coded Allergies: CHLORHEXIDINE (Verified Allergy, Unknown, 04/17/18) Pt states CHG gives him rashes Medication History Scheduled Ascorbic Acid* (Ascorbic Acid*), 500 MG ORAL TWICE A DAY, (Reported) Famotidine (Famotidine), 20 MG ORAL DAILY, (Reported) Hydralazine Hcl* (Hydralazine Hcl*), 10 MG ORAL EVERY 6 HOURS, (Reported) Lactobacillus Acidophilus/Pect (Acidophilus-Pectin Capsule), 1 EACH PO BID, ( Reported) Methadone Hcl* (Methadone*), 10 MG PO Q8HR, (Reported) Multivitamins* (Multivitamins*), 1 TAB ORAL DAILY, (Reported) Scheduled PRN Acetaminophen* (Acetaminophen*), 650 MG ORAL Q6H PRN for Mild Pain/Temp > 100.5, (Reported) Hydrocodone Bit/Acetaminophen 7.5-325* ([place] 7.5-325*), 1 TAB ORAL Q6H PRN for For Pain, (Reported) Polyethylene Glycol 3350* (Polyethylene Glycol 3350*), 8.5 GM ORAL BEDTIME PRN for Constipation, (Reported) Discontinued Medications Famotidine (Pepcid), 20 MG PO, (Reported) Discontinued Reason: Prescription changed Patient History Healthcare decision maker N Resuscitation status Advanced Directive on File Physical Exam Last 24 Hour Vital Signs Date Time Temp Pulse Resp B/P (MAP) Pulse Ox O2 Delivery O2 Flow Rate FiO2 04/20/18 07:00 82 19 115/68 93 Nasal Cannula 3.0 04/20/18 06:00 76 22 89/50 93 Nasal Cannula 3.0 04/20/18 05:00 78 22 105/42 94 Nasal Cannula 3.0 04/20/18 04:00 98.3 78 22 111/58 94 Nasal Cannula 3.0 98.3 04/20/18 04:00 80 04/20/18 03:05 98.2 04/20/18 03:00 73 22 107/58 94 Nasal Cannula 3.0 04/20/18 02:06 98.2 04/20/18 02:00 81 22 118/64 94 Nasal Cannula 3.0 04/20/18 01:00 69 18 125/67 94 Nasal Cannula 3.0 04/20/18 00:00 69 6/13/18 00:00 98.3 69 25 120/66 92 Nasal Cannula 3.0 98.3 04/19/18 23:00 71 26 126/70 93 Nasal Cannula 3.0 04/19/18 22:00 79 24 100/66 94 Nasal Cannula 3.0 04/19/18 21:00 75 18 95/61 94 Nasal Cannula 3.0 04/19/18 20:50 97.8 04/19/18 20:00 74 23 107/65 95 Nasal Cannula 3.0 04/19/18 20:00 74 04/19/18 19:51 97.6 04/19/18 19:00 77 21 117/71 93 Nasal Cannula 3.0 04/19/18 18:30 75 20 107/59 90 Nasal Cannula 3.0 04/19/18 18:00 81 20 101/61 90 Nasal Cannula 3.0 04/19/18 17:30 83 20 96/49 90 Nasal Cannula 3.0 04/19/18 17:00 80 23 96/54 92 Nasal Cannula 3.0 04/19/18 16:45 109/64 04/19/18 16:30 77 23 109/64 94 Nasal Cannula 3.0 04/19/18 16:00 98.1 79 21 117/60 90 Nasal Cannula 3.0 98.1 04/19/18 16:00 100/56 04/19/18 16:00 80 04/19/18 15:30 83 21 117/60 93 Nasal Cannula 3.0 04/19/18 15:00 97 23 98/57 95 Nasal Cannula 3.0 04/19/18 15:00 117/60 04/19/18 14:30 95 22 96/55 95 Nasal Cannula 3.0 04/19/18 14:00 75 24 100/50 96 Nasal Cannula 3.0 04/19/18 14:00 100/50 04/19/18 13:30 77 24 109/60 96 Nasal Cannula 3.0 04/19/18 13:00 114/63 04/19/18 13:00 79 29 106/52 92 Nasal Cannula 3.0 04/19/18 12:30 98.4 80 24 96/50 92 Nasal Cannula 3.0 98.4 04/19/18 12:30 96/50 04/19/18 12:00 79 04/19/18 12:00 117/65 04/19/18 12:00 80 26 117/65 88 Nasal Cannula 3.0 04/19/18 11:00 114/57 04/19/18 11:00 77 26 103/55 88 Nasal Cannula 3.0 04/19/18 10:30 76 26 113/51 90 Nasal Cannula 3.0 04/19/18 10:15 82/41 04/19/18 10:00 77 26 82/41 82 Nasal Cannula 3.0 04/19/18 10:00 113/51 Intake and Output 04/19/18 04/20/18 19:00 07:00 Intake Total 1649.50 ml 1770 ml Output Total 1775 ml 1540 ml Balance -125.50 ml 230 ml Intake Oral 250 ml 570 ml IV Total 1399.50 ml 1200 ml Output Urine Total 1775 ml 1340 ml Stool Total 200 ml # Bowel Movements 3 3 Laboratory Tests Test 04/20/18 05:00 Sodium Level 140 MMOL/L (136-145) Potassium Level 3.2 MMOL/L (3.5-5.1) L Chloride Level 106 MMOL/L (98-107) Carbon Dioxide Level 25 MMOL/L (21-32) Anion Gap 9 mmol/L (5-15) Blood Urea Nitrogen 6 mg/dL (7-18) L Creatinine 1.1 MG/DL (0.55-1.30) Estimat Glomerular Filtration Rate > 60 mL/min (>60) Glucose Level 115 MG/DL (74-106) H Calcium Level 8.2 MG/DL (8.5-10.1) L Height (Feet): 5 Height (Inches): 9.00 Weight (Pounds): 198 Medications Current Medications Medications (Trade) Dose Ordered Sig/Aleyda Route PRN Reason Start Time Stop Time Status Last Admin Dose Admin Al Hydroxide/Mg Hydroxide (Mylanta) 30 ml Q6H PRN ORAL HEARTBURN 04/15/18 22:30 05/15/18 22:29 Ascorbic Acid (Vitamin C) 500 mg TWICE A DAY ORAL 04/16/18 09:00 05/16/18 08:59 04/20/18 08:44 Ceftriaxone Sodium 1 gm/ Dextrose 110 ml @ 220 mls/hr Q24H IVPB 04/18/18 13:00 04/25/18 12:59 04/19/18 14:15 Heparin Sodium (Porcine) (Heparin 5000 units/ml) 5,000 units EVERY 12 HOURS SUBQ 04/15/18 22:30 05/15/18 22:29 04/20/18 08:56 Lactobacillus Acidophilus (Culturelle) 1 tab TWICE A DAY ORAL 04/16/18 09:00 05/16/18 08:59 04/20/18 08:44 Magnesium Hydroxide (Mom) 30 ml HSPRN PRN ORAL Constipation 04/15/18 22:30 05/15/18 22:29 Midodrine (Pro-Amatine) 5 mg THREE TIMES A DAY ORAL 04/19/18 09:00 05/19/18 08:59 04/20/18 08:44 Multivitamins (Multivitamins) 1 tab DAILY ORAL 04/16/18 09:00 05/16/18 08:59 04/20/18 08:44 Norepinephrine Bitartrate 8 mg/ Dextrose 558 ml @ 0 mls/hr Q24H IV 04/16/18 10:00 05/16/18 09:59 04/18/18 07:10 Oxycodone/ Acetaminophen (Percocet 10/325) 1 tab Q4H PRN ORAL severe pain 04/20/18 09:15 04/27/18 09:14 UNV Pantoprazole (Protonix) 40 mg DAILY IVP 04/16/18 09:00 05/16/18 08:59 04/20/18 08:43 Potassium Chloride (K-Dur) 40 meq DAILY ORAL 04/20/18 09:00 05/20/18 08:59 04/20/18 08:44 Pregabalin (Lyrica) 50 mg THREE TIMES A DAY ORAL 04/20/18 09:15 05/20/18 09:14 UNV Sodium Chloride 1,000 ml @ 100 mls/hr Q10H IV 04/15/18 22:30 05/15/18 22:29 04/19/18 23:21 Zolpidem Tartrate (Ambien) 5 mg HSPRN PRN ORAL Insomnia 04/16/18 21:00 04/23/18 20:59 04/17/18 21:16 Assessment/Plan Assessment/Plan (1) Spinal cord injury (2) H/o heroin abuse (3) Decubitus ulcer (4) Paraplegia (5) Neuropathic pain (6) Intractable pain seen dictated Luiz Lees Apr 20, 2018 09:10
[2018-04-20] MEDS ORDERED: Naloxone 0.4mg/ml Inj IVP PRN ×2 (09:15→21:00)
[2018-04-20] MEDS: Norepinephrine Bitartrate 8 MG in D5W 500ml 550 ML IV SCH (09:24)
--- NOTE | 2018-04-20 11:12 | Infectious Diseases Prog Note ---
Assessment/Plan Assessment/Plan antibiotics : ceftriaxone A 1. proteus sepsis secondary to UTI 2. proteus UTI 3. leucocytosis resolved 4. renal failure resolved 5. paraplegia 6. shock 7. sacral decubitus ulcer P 1. continue iv ceftriaxone 5 more days 2. will follow up cultures Subjective ROS Limited/Unobtainable: Yes Allergies: Coded Allergies: CHLORHEXIDINE (Verified Allergy, Unknown, 04/17/18) Pt states CHG gives him rashes Objective Vital Signs Last 24 Hour Vital Signs Date Time Temp Pulse Resp B/P (MAP) Pulse Ox O2 Delivery O2 Flow Rate FiO2 04/20/18 09:24 95/52 04/20/18 09:00 82 22 95/52 90 Nasal Cannula 3.0 04/20/18 08:00 98.1 87 20 93/45 90 Nasal Cannula 3.0 98.1 04/20/18 07:00 82 19 115/68 93 Nasal Cannula 3.0 04/20/18 06:00 76 22 89/50 93 Nasal Cannula 3.0 04/20/18 05:00 78 22 105/42 94 Nasal Cannula 3.0 04/20/18 04:00 98.3 78 22 111/58 94 Nasal Cannula 3.0 98.3 04/20/18 04:00 80 04/20/18 03:05 98.2 04/20/18 03:00 73 22 107/58 94 Nasal Cannula 3.0 04/20/18 02:06 98.2 04/20/18 02:00 81 22 118/64 94 Nasal Cannula 3.0 04/20/18 01:00 69 18 125/67 94 Nasal Cannula 3.0 04/20/18 00:00 69 04/20/18 00:00 98.3 69 25 120/66 92 Nasal Cannula 3.0 98.3 04/19/18 23:00 71 26 126/70 93 Nasal Cannula 3.0 04/19/18 22:00 79 24 100/66 94 Nasal Cannula 3.0 04/19/18 21:00 75 18 95/61 94 Nasal Cannula 3.0 04/19/18 20:50 97.8 04/19/18 20:00 74 23 107/65 95 Nasal Cannula 3.0 04/19/18 20:00 74 04/19/18 19:51 97.6 04/19/18 19:00 77 21 117/71 93 Nasal Cannula 3.0 04/19/18 18:30 75 20 107/59 90 Nasal Cannula 3.0 04/19/18 18:00 81 20 101/61 90 Nasal Cannula 3.0 04/19/18 17:30 83 20 96/49 90 Nasal Cannula 3.0 04/19/18 17:00 80 23 96/54 92 Nasal Cannula 3.0 04/19/18 16:45 109/64 04/19/18 16:30 77 23 109/64 94 Nasal Cannula 3.0 04/19/18 16:00 98.1 79 21 117/60 90 Nasal Cannula 3.0 98.1 04/19/18 16:00 100/56 04/19/18 16:00 80 04/19/18 15:30 83 21 117/60 93 Nasal Cannula 3.0 04/19/18 15:00 97 23 98/57 95 Nasal Cannula 3.0 04/19/18 15:00 117/60 04/19/18 14:30 95 22 96/55 95 Nasal Cannula 3.0 04/19/18 14:00 75 24 100/50 96 Nasal Cannula 3.0 04/19/18 14:00 100/50 04/19/18 13:30 77 24 109/60 96 Nasal Cannula 3.0 04/19/18 13:00 114/63 04/19/18 13:00 79 29 106/52 92 Nasal Cannula 3.0 04/19/18 12:30 98.4 80 24 96/50 92 Nasal Cannula 3.0 98.4 04/19/18 12:30 96/50 04/19/18 12:00 79 04/19/18 12:00 117/65 04/19/18 12:00 80 26 117/65 88 Nasal Cannula 3.0 Height (Feet): 5 Height (Inches): 9.00 Weight (Pounds): 198 Respiratory/Chest: lungs clear Cardiovascular: normal rate, regular rhythm, no gallop/murmur Abdomen: soft, non tender Extremities: no edema, other - right IJ catheter Skin: rash - on abdomen Laboratory Tests Test 04/20/18 05:00 Sodium Level 140 MMOL/L (136-145) Potassium Level 3.2 MMOL/L (3.5-5.1) L Chloride Level 106 MMOL/L (98-107) Carbon Dioxide Level 25 MMOL/L (21-32) Anion Gap 9 mmol/L (5-15) Blood Urea Nitrogen 6 mg/dL (7-18) L Creatinine 1.1 MG/DL (0.55-1.30) Estimat Glomerular Filtration Rate > 60 mL/min (>60) Glucose Level 115 MG/DL (74-106) H Calcium Level 8.2 MG/DL (8.5-10.1) L Current Medications Medications (Trade) Dose Ordered Sig/Aleyda Route PRN Reason Start Time Stop Time Status Last Admin Dose Admin Al Hydroxide/Mg Hydroxide (Mylanta) 30 ml Q6H PRN ORAL HEARTBURN 04/15/18 22:30 05/15/18 22:29 Ascorbic Acid (Vitamin C) 500 mg TWICE A DAY ORAL 04/16/18 09:00 05/16/18 08:59 04/20/18 08:44 Ceftriaxone Sodium 1 gm/ Dextrose 110 ml @ 220 mls/hr Q24H IVPB 04/18/18 13:00 04/25/18 12:59 04/19/18 14:15 Heparin Sodium (Porcine) (Heparin 5000 units/ml) 5,000 units EVERY 12 HOURS SUBQ 04/15/18 22:30 05/15/18 22:29 04/20/18 08:56 Lactobacillus Acidophilus (Culturelle) 1 tab TWICE A DAY ORAL 04/16/18 09:00 05/16/18 08:59 04/20/18 08:44 Magnesium Hydroxide (Mom) 30 ml HSPRN PRN ORAL Constipation 04/15/18 22:30 05/15/18 22:29 Midodrine (Pro-Amatine) 10 mg THREE TIMES A DAY ORAL 04/20/18 13:00 05/19/18 08:59 Multivitamins (Multivitamins) 1 tab DAILY ORAL 04/16/18 09:00 05/16/18 08:59 04/20/18 08:44 Naloxone HCl (Narcan) 0.2 mg Q30MIN PRN IVP respritory depression 04/20/18 09:15 05/20/18 09:14 Norepinephrine Bitartrate 8 mg/ Dextrose 558 ml @ 0 mls/hr Q24H IV 04/16/18 10:00 05/16/18 09:59 04/18/18 07:10 Oxycodone/ Acetaminophen (Percocet 10/325) 1 tab Q4H PRN ORAL severe pain 04/20/18 09:15 04/27/18 09:14 04/20/18 09:34 Pantoprazole (Protonix) 40 mg DAILY IVP 04/16/18 09:00 05/16/18 08:59 04/20/18 08:43 Potassium Chloride (K-Dur) 40 meq DAILY ORAL 04/20/18 09:00 05/20/18 08:59 04/20/18 08:44 Pregabalin (Lyrica) 50 mg THREE TIMES A DAY ORAL 04/20/18 11:00 05/20/18 10:59 Sodium Chloride 1,000 ml @ 100 mls/hr Q10H IV 04/15/18 22:30 05/15/18 22:29 04/20/18 10:30 Zolpidem Tartrate (Ambien) 5 mg HSPRN PRN ORAL Insomnia 04/16/18 21:00 04/23/18 20:59 04/17/18 21:16 SABI COLON Apr 20, 2018 11:12
[2018-04-20] MEDS: Lyrica 50mg cap ORAL SCH ×3 (11:18→18:47)
[2018-04-20] MEDS: Midodrine 10mg tab ORAL SCH ×2 (13:22→18:46)
[2018-04-20] MEDS: cefTRIAXone 1 GM in D5W 110 ML IVPB SCH (13:22)
--- NOTE | 2018-04-20 17:50 | General Progress Note ---
Assessment/Plan Assessment/Plan IMPRESSION Acute on chronic encephalopathy Urosepsis shock leukocytosis anemia SHARDA severe protein malnutrition hypotension sacral pressure ulcer PLAN IV antibiotics noted cultures noted ID evaluation appreciated pressors off midodrine bolus fluids PRN norco monitor labs dc to snf Subjective Allergies: Coded Allergies: CHLORHEXIDINE (Verified Allergy, Unknown, 04/17/18) Pt states CHG gives him rashes Subjective better alert has pain Objective Last 24 Hour Vital Signs Date Time Temp Pulse Resp B/P (MAP) Pulse Ox O2 Delivery O2 Flow Rate FiO2 04/20/18 16:00 98.4 73 22 104/54 90 Room Air 98.4 04/20/18 16:00 81 04/20/18 15:00 87 22 120/67 90 Room Air 04/20/18 14:00 80 22 121/64 91 Room Air 04/20/18 13:00 81 22 121/57 90 Room Air 04/20/18 12:00 77 04/20/18 12:00 98.0 96 22 112/61 90 Room Air 98.0 04/20/18 11:00 81 22 130/67 90 Room Air 04/20/18 10:00 79 22 102/58 91 Room Air 04/20/18 09:24 95/52 04/20/18 09:00 82 22 95/52 90 Room Air 04/20/18 08:00 73 04/20/18 08:00 98.1 87 20 93/45 90 Room Air 98.1 04/20/18 07:00 82 19 115/68 93 Nasal Cannula 3.0 04/20/18 06:00 76 22 89/50 93 Nasal Cannula 3.0 04/20/18 05:00 78 22 105/42 94 Nasal Cannula 3.0 04/20/18 04:00 98.3 78 22 111/58 94 Nasal Cannula 3.0 98.3 04/20/18 04:00 80 04/20/18 03:05 98.2 04/20/18 03:00 73 22 107/58 94 Nasal Cannula 3.0 04/20/18 02:06 98.2 04/20/18 02:00 81 22 118/64 94 Nasal Cannula 3.0 04/20/18 01:00 69 18 125/67 94 Nasal Cannula 3.0 04/20/18 00:00 69 04/20/18 00:00 98.3 69 25 120/66 92 Nasal Cannula 3.0 98.3 04/19/18 23:00 71 26 126/70 93 Nasal Cannula 3.0 04/19/18 22:00 79 24 100/66 94 Nasal Cannula 3.0 04/19/18 21:00 75 18 95/61 94 Nasal Cannula 3.0 04/19/18 20:50 97.8 04/19/18 20:00 74 23 107/65 95 Nasal Cannula 3.0 04/19/18 20:00 74 04/19/18 19:51 97.6 04/19/18 19:00 77 21 117/71 93 Nasal Cannula 3.0 04/19/18 18:30 75 20 107/59 90 Nasal Cannula 3.0 04/19/18 18:00 81 20 101/61 90 Nasal Cannula 3.0 Intake and Output 04/19/18 04/20/18 19:00 07:00 Intake Total 1649.50 ml 1770 ml Output Total 1775 ml 1540 ml Balance -125.50 ml 230 ml Intake Oral 250 ml 570 ml IV Total 1399.50 ml 1200 ml Output Urine Total 1775 ml 1340 ml Stool Total 200 ml # Bowel Movements 3 3 Laboratory Tests 04/20/18 05:00: Sodium Level 140, Potassium Level 3.2L, Chloride Level 106, Carbon Dioxide Level 25, Anion Gap 9, Blood Urea Nitrogen 6L, Creatinine 1.1, Estimat Glomerular Filtration Rate > 60, Glucose Level 115H, Calcium Level 8.2L Height (Feet): 5 Height (Inches): 9.00 Weight (Pounds): 198 Objective WDWN NAD clear breath sounds bilaterally without rhonchi or wheeze [id number] without MRG NABS nontender no HSM weak alert Amado Coker MD Apr 20, 2018 17:50
[2018-04-20] MEDS ORDERED: Zolpidem 5mg tab ORAL PRN (21:00)
[2018-04-20] MEDS ORDERED: Milk of Magnesia 30ml Ud ORAL PRN (22:30)
[2018-04-21 00:38] VITALS: BP 126/75
[2018-04-21 04:00] VITALS: BP 120/77
[2018-04-21 07:42] VITALS: BP 127/70
--- NOTE | 2018-04-21 07:45 | Consultation ---
DATE OF CONSULTATION: 04/20/2018 PAIN MANAGEMENT CONSULTATION CONSULTING PHYSICIAN: Stephany Byrd M.D. REFERRING PHYSICIAN: Amado Coker M.D. PHYSICIAN PAROLE HEARING OFFICER: SHAWNA Godoy. CHIEF COMPLAINT: Generalized body pain. HISTORY OF PRESENT ILLNESS: This is a 57-year-old male who is being seen on the ICU of the [facility] for initial comprehensive pain management consultation. The patient was admitted under the care of Dr. Coker due to sepsis and reports that he has been having generalized body pain for many years due to spinal cord injury causing him to be paraplegic with decubitus ulcer that has formed with multiple joint contractures. He has history of heroin abuse and was admitted with [place] 5/325 and [place] 10/325mg 1 tablet every 4-6 hours as needed with minimal pain relief. He had been started on Neurontin which the patient refused reporting that it has increased his pain. Due to this, we were consulted so that the patient could have adequate pain control while here in the hospital. I discussed with the patient about his current condition and the fact that his blood pressure is not stable due to sepsis. I explained to the patient that we will add parameters to his medication and that to hold for oversedation or systolic blood pressure below 90 or diastolic blood pressure below 60 or respiratory rate below 12 or oxygen saturation below 92%. The patient seems to understand and agrees. With the fact that the [place] has not helped relieve his pain, I discussed with the patient about starting him on Percocet 10/325 one tablet every four hours as needed for severe pain as well as Lyrica 50 mg tablet 3 times a day. He seems to understand and agrees with the plan and he has no complaints. PAST MEDICAL HISTORY: Paraplegic, indwelling Slater catheter, hypertension. SOCIAL HISTORY: He has history of heroin abuse. ALLERGIES: Chlorhexidine. REVIEW OF SYSTEMS: Denies rash, fever, chills, sweating, dizziness, drowsiness, blurred vision, sore throat, or change in weight. No shortness of breath or chest pain. No nausea, vomiting, diarrhea, or blood in the stool or urine. He is complaining of generalized body pain. PHYSICAL EXAMINATION: GENERAL: Alert, awake, and oriented. VITAL SIGNS: Blood pressure 115/68, heart rate 65. HEENT: PERRLA. NECK: Range of motion is decreased due to the patient's condition. LUNGS: Decreased breath sounds bilaterally. ABDOMEN: Benign. BACK: Range of motion is decreased in flexion and extension with decubitus ulcer noted. EXTREMITIES: Upper and lower extremity range of motion is decreased with joint contractures seen. Tenderness to palpation. ASSESSMENT AND PLAN: This is a 57-year-old male with spinal cord injury, paraplegia, history of heroin abuse, decubitus ulcer, chronic pain, intractable pain. The patient will be discontinued off the [place] and Neurontin. He will be started on Percocet 10/325 one tablet every 4 hours as needed for severe pain and Lyrica 50 mg 3 times a day. Parameters will be set to hold opiates for oversedation or systolic blood pressure below 90 or diastolic blood pressure below 60 or respiratory rate below 12 or oxygen saturation below 92%. The patient seems to understand and agrees. The patient was discussed with Dr. Byrd and Dr. Byrd concurred. We will follow the patient. Thank you very much for the courtesy of this consultation. Stephany Byrd M.D. SHAWNA Godoy DR: Alex JOB#: [id number] CC: ELANA
[2018-04-21 08:11] LABS: ANION GAP 10 mmol/L (5-15); BLOOD UREA NITROGEN 9 mg/dL (7-18); CARBON DIOXIDE 23 MMOL/L (21-32); CHLORIDE 110 MMOL/L (98-107); CREATININE 1.1 MG/DL (0.55-1.30); POTASSIUM 3.2 MMOL/L (3.5-5.1); SODIUM 143 MMOL/L (136-145)
[2018-04-21] MEDS: Ascorbic Acid 500mg tab ORAL SCH ×2 (08:27→17:18)
[2018-04-21] MEDS: Lactobacillus-GG tablet ORAL SCH ×2 (08:27→17:19)
[2018-04-21] MEDS: Pantoprazole Inj IVP SCH (08:28)
[2018-04-21] MEDS: Lyrica 50mg cap ORAL SCH ×3 (08:28→17:19)
[2018-04-21] MEDS: Heparin 5000 units/ml inj SUBQ SCH ×2 (08:29→21:28)
--- NOTE | 2018-04-21 08:35 | Nephrology Progress Note ---
Assessment/Plan Assessment/Plan 1. SHARDA- multifact ATN ( hypotension/sepsis) - Resolved 2. Sepsis- Abx and midrodrine. BP stable. DC IVF's 3. UTI- Abx 4. Paraplegic- per PCP mgmt 5. Hypokalemia- replace today again Subjective Date patient seen: Apr 21, 2018 Time patient seen: 08:34 ROS Limited/Unobtainable: No Allergies: Coded Allergies: CHLORHEXIDINE (Verified Allergy, Unknown, 04/17/18) Pt states CHG gives him rashes All Systems: reviewed and negative except above Subjective Patient doing well and in no distress Objective Last 24 Hour Vital Signs Date Time Temp Pulse Resp B/P (MAP) Pulse Ox O2 Delivery O2 Flow Rate FiO2 04/21/18 07:42 97.7 74 18 127/70 96 Room Air 97.7 04/21/18 04:00 98.2 79 24 120/77 96 Room Air 98.2 04/21/18 03:16 99.1 04/21/18 02:17 99.1 04/21/18 00:38 99.1 84 20 126/75 95 Room Air 99.1 84 84 04/21/18 00:38 95 Room Air 04/20/18 22:13 98.5 04/20/18 20:00 98.5 77 22 128/61 90 Room Air 98.5 04/20/18 20:00 78 04/20/18 19:00 79 22 132/80 90 Room Air 04/20/18 18:00 78 22 126/59 90 Room Air 04/20/18 17:00 76 22 123/60 90 Room Air 04/20/18 16:00 98.4 73 22 104/54 90 Room Air 98.4 04/20/18 16:00 81 04/20/18 15:00 87 22 120/67 90 Room Air 04/20/18 14:00 80 22 121/64 91 Room Air 04/20/18 13:00 81 22 121/57 90 Room Air 04/20/18 12:00 77 04/20/18 12:00 98.0 96 22 112/61 90 Room Air 98.0 04/20/18 11:00 81 22 130/67 90 Room Air 04/20/18 10:00 79 22 102/58 91 Room Air 04/20/18 09:24 95/52 04/20/18 09:00 82 22 95/52 90 Room Air Intake and Output 04/20/18 04/21/18 19:00 07:00 Intake Total 810 ml 1075 ml Output Total 1975 ml 1325 ml Balance -1165 ml -250 ml Intake Oral 200 ml 200 ml IV Total 610 ml 875 ml Output Urine Total 1875 ml 1325 ml Stool Total 100 ml 0 ml # Bowel Movements 3 1 Laboratory Tests 04/21/18 06:30: Sodium Level 143, Potassium Level 3.2L, Chloride Level 110H, Carbon Dioxide Level 23, Anion Gap 10, Blood Urea Nitrogen 9, Creatinine 1.1, Estimat Glomerular Filtration Rate > 60, Glucose Level 90, Calcium Level 8.0L Height (Feet): 5 Height (Inches): 9.00 Weight (Pounds): 202 General Appearance: no apparent distress, alert EENT: normal ENT inspection Neck: normal alignment, supple Cardiovascular: normal rate, regular rhythm Respiratory/Chest: lungs clear, normal breath sounds Abdomen: non tender, soft Edema: no edema noted Arm (L), no edema noted Arm (R), no edema noted Leg (L), no edema noted Leg (R), no edema noted Pedal (L), no edema noted Pedal (R), no edema noted Generalized Macario Kumar M.D. Apr 21, 2018 08:35
[2018-04-21] MEDS: Midodrine 10mg tab ORAL SCH ×3 (08:44→17:19)
[2018-04-21] MEDS: DiphenhydrAMINE 50mg/ml Inj IVP PRN ×2 (09:35→21:57)
[2018-04-21 11:41] VITALS: BP 127/73
--- NOTE | 2018-04-21 12:22 | Infectious Diseases Prog Note ---
Assessment/Plan Assessment/Plan A 1. Proteus sepsis secondary to UTI 2. Proteus UTI 3. leucocytosis resolved 4. Acute renal failure improving 5. paraplegia 6. shock, resolved, off pressor 7. 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 Continue iv ceftriaxone X 4 days 2. will follow up cultures Subjective ROS Limited/Unobtainable: Yes Allergies: Coded Allergies: CHLORHEXIDINE (Verified Allergy, Unknown, 04/17/18) Pt states CHG gives him rashes Objective Vital Signs Last 24 Hour Vital Signs Date Time Temp Pulse Resp B/P (MAP) Pulse Ox O2 Delivery O2 Flow Rate FiO2 04/21/18 11:41 77 18 127/73 96 Room Air 04/21/18 10:34 97.7 04/21/18 09:35 97.7 04/21/18 07:42 97.7 74 18 127/70 96 Room Air 97.7 04/21/18 04:00 98.2 79 24 120/77 96 Room Air 98.2 04/21/18 02:17 99.1 04/21/18 00:38 99.1 84 20 126/75 95 Room Air 99.1 84 84 04/21/18 00:38 95 Room Air 04/20/18 22:13 98.5 04/20/18 20:00 98.5 77 22 128/61 90 Room Air 98.5 04/20/18 20:00 78 04/20/18 19:00 79 22 132/80 90 Room Air 04/20/18 18:00 78 22 126/59 90 Room Air 04/20/18 17:00 76 22 123/60 90 Room Air 04/20/18 16:00 98.4 73 22 104/54 90 Room Air 98.4 04/20/18 16:00 81 04/20/18 15:00 87 22 120/67 90 Room Air 04/20/18 14:00 80 22 121/64 91 Room Air 04/20/18 13:00 81 22 121/57 90 Room Air Height (Feet): 5 Height (Inches): 9.00 Weight (Pounds): 202 General Appearance: no acute distress HEENT: mucous membranes moist Respiratory/Chest: lungs clear Cardiovascular: normal rate Abdomen: soft, non tender, other - rectal tube Extremities: no edema Neurologic/Psychiatric: alert, responsive Laboratory Tests Test 04/21/18 06:30 Sodium Level 143 MMOL/L (136-145) Potassium Level 3.2 MMOL/L (3.5-5.1) L Chloride Level 110 MMOL/L (98-107) H Carbon Dioxide Level 23 MMOL/L (21-32) Anion Gap 10 mmol/L (5-15) Blood Urea Nitrogen 9 mg/dL (7-18) Creatinine 1.1 MG/DL (0.55-1.30) Estimat Glomerular Filtration Rate > 60 mL/min (>60) Glucose Level 90 MG/DL (74-106) Calcium Level 8.0 MG/DL (8.5-10.1) L Current Medications Medications (Trade) Dose Ordered Sig/Aleyda Route PRN Reason Start Time Stop Time Status Last Admin Dose Admin Al Hydroxide/Mg Hydroxide (Mylanta) 30 ml Q6H PRN ORAL HEARTBURN 04/20/18 22:30 05/15/18 22:29 Ascorbic Acid (Vitamin C) 500 mg TWICE A DAY ORAL 04/21/18 09:00 05/16/18 08:59 04/21/18 08:27 Ceftriaxone Sodium 1 gm/ Dextrose 110 ml @ 220 mls/hr Q24H IVPB 04/21/18 13:00 04/25/18 12:59 Diphenhydramine HCl (Benadryl) 25 mg Q6H PRN IVP Itching 04/21/18 08:39 05/21/18 08:38 04/21/18 09:35 Heparin Sodium (Porcine) (Heparin 5000 units/ml) 5,000 units EVERY 12 HOURS SUBQ 04/20/18 22:00 05/15/18 21:59 04/21/18 08:29 Lactobacillus Acidophilus (Culturelle) 1 tab TWICE A DAY ORAL 04/21/18 09:00 05/16/18 08:59 04/21/18 08:27 Magnesium Hydroxide (Mom) 30 ml HSPRN PRN ORAL Constipation 04/20/18 22:30 05/15/18 22:29 Midodrine (Pro-Amatine) 10 mg THREE TIMES A DAY ORAL 04/21/18 09:00 05/19/18 08:59 04/21/18 08:44 Multivitamins (Multivitamins) 1 tab DAILY ORAL 04/21/18 09:00 05/16/18 08:59 04/21/18 08:27 Naloxone HCl (Narcan) 0.2 mg Q30MIN PRN IVP respiratory depression 04/20/18 21:00 05/20/18 09:14 Oxycodone/ Acetaminophen (Percocet 10/325) 1 tab Q4H PRN ORAL Severe Pain (Pain Scale 7-10) 04/20/18 21:15 04/27/18 09:14 04/21/18 09:35 Pantoprazole (Protonix) 40 mg DAILY IVP 04/21/18 09:00 05/16/18 08:59 04/21/18 08:28 Potassium Chloride (K-Dur) 40 meq DAILY ORAL 04/21/18 09:00 05/20/18 08:59 04/21/18 08:28 Pregabalin (Lyrica) 50 mg THREE TIMES A DAY ORAL 04/21/18 09:00 05/20/18 10:59 04/21/18 08:28 Zolpidem Tartrate (Ambien) 5 mg HSPRN PRN ORAL Insomnia 04/20/18 21:00 04/23/18 20:59 Reyes Trevino MD Apr 21, 2018 12:22
[2018-04-21] MEDS: cefTRIAXone 1 GM in D5W 110 ML IVPB SCH (12:48)
--- NOTE | 2018-04-21 14:21 | General Progress Note ---
Assessment/Plan Assessment/Plan (1) Spinal cord injury (2) H/o heroin abuse (3) Decubitus ulcer (4) Paraplegia (5) Neuropathic pain (6) Intractable pain Patient will be continued on Percocet and Lyrica D/w Dr. Byrd and he concurred. Subjective Date patient seen: Apr 21, 2018 Time patient seen: 01:30 - pm Constitutional: Reports: weakness HEENT: Reports: no symptoms Cardiovascular: Reports: no symptoms Respiratory: Reports: no symptoms Gastrointestinal/Abdominal: Reports: no symptoms Genitourinary: Reports: no symptoms Neurologic/Psychiatric: Reports: numbness, tingling Endocrine: Reports: no symptoms Hematologic/Lymphatic: Reports: no symptoms Allergies: Coded Allergies: CHLORHEXIDINE (Verified Allergy, Unknown, 04/17/18) Pt states CHG gives him rashes Subjective Patient has been transffered to med/surg floor and reports that his pain has reduced with the Percocet and Lyrica at a moderate level. Objective Last 24 Hour Vital Signs Date Time Temp Pulse Resp B/P (MAP) Pulse Ox O2 Delivery O2 Flow Rate FiO2 04/21/18 11:41 98.1 77 18 127/73 96 Room Air 98.1 04/21/18 10:34 97.7 04/21/18 09:35 97.7 04/21/18 07:42 97.7 74 18 127/70 96 Room Air 97.7 04/21/18 04:00 98.2 79 24 120/77 96 Room Air 98.2 04/21/18 02:17 99.1 04/21/18 00:38 99.1 84 20 126/75 95 Room Air 99.1 84 84 04/21/18 00:38 95 Room Air 04/20/18 22:13 98.5 04/20/18 20:00 98.5 77 22 128/61 90 Room Air 98.5 04/20/18 20:00 78 04/20/18 19:00 79 22 132/80 90 Room Air 04/20/18 18:00 78 22 126/59 90 Room Air 04/20/18 17:00 76 22 123/60 90 Room Air 04/20/18 16:00 98.4 73 22 104/54 90 Room Air 98.4 04/20/18 16:00 81 04/20/18 15:00 87 22 120/67 90 Room Air Intake and Output 04/20/18 04/21/18 19:00 07:00 Intake Total 810 ml 1075 ml Output Total 1975 ml 1325 ml Balance -1165 ml -250 ml Intake Oral 200 ml 200 ml IV Total 610 ml 875 ml Output Urine Total 1875 ml 1325 ml Stool Total 100 ml 0 ml # Bowel Movements 3 1 Laboratory Tests 04/21/18 06:30: Sodium Level 143, Potassium Level 3.2L, Chloride Level 110H, Carbon Dioxide Level 23, Anion Gap 10, Blood Urea Nitrogen 9, Creatinine 1.1, Estimat Glomerular Filtration Rate > 60, Glucose Level 90, Calcium Level 8.0L Height (Feet): 5 Height (Inches): 9.00 Weight (Pounds): 202 Objective GENERAL: Alert, awake, and oriented. HEENT: PERRLA. NECK: Range of motion is decreased due to the patient's condition. LUNGS: Decreased breath sounds bilaterally. ABDOMEN: Benign. BACK: Range of motion is decreased in flexion and extension with decubitus ulcer noted. EXTREMITIES: Upper and lower extremity range of motion is decreased with joint contractures seen. Tenderness to palpation. Luiz Lees Apr 21, 2018 14:21
[2018-04-21 16:00] VITALS: BP 122/78
[2018-04-21 20:00] VITALS: BP 145/75
--- NOTE | 2018-04-21 22:01 | General Progress Note ---
Assessment/Plan Assessment/Plan IMPRESSION Acute on chronic encephalopathy Urosepsis shock leukocytosis anemia SHARDA severe protein malnutrition hypotension sacral pressure ulcer PLAN IV antibiotics noted cultures noted ID evaluation appreciated pressors off midodrine bolus fluids PRN norco monitor labs dc to snf Subjective Allergies: Coded Allergies: CHLORHEXIDINE (Verified Allergy, Unknown, 04/17/18) Pt states CHG gives him rashes Subjective better alert has pain Objective Last 24 Hour Vital Signs Date Time Temp Pulse Resp B/P (MAP) Pulse Ox O2 Delivery O2 Flow Rate FiO2 04/21/18 20:56 97.3 04/21/18 19:57 97.3 04/21/18 16:00 97.3 80 18 122/78 96 Room Air 97.3 04/21/18 15:18 98.1 04/21/18 11:41 98.1 77 18 127/73 96 Room Air 98.1 04/21/18 09:35 97.7 04/21/18 07:42 97.7 74 18 127/70 96 Room Air 97.7 04/21/18 04:00 98.2 79 24 120/77 96 Room Air 98.2 04/21/18 02:17 99.1 04/21/18 00:38 99.1 84 20 126/75 95 Room Air 99.1 84 84 04/21/18 00:38 95 Room Air 04/20/18 22:13 98.5 Intake and Output 04/20/18 04/21/18 19:00 07:00 Intake Total 810 ml 1075 ml Output Total 1975 ml 1325 ml Balance -1165 ml -250 ml Intake Oral 200 ml 200 ml IV Total 610 ml 875 ml Output Urine Total 1875 ml 1325 ml Stool Total 100 ml 0 ml # Bowel Movements 3 1 Laboratory Tests 04/21/18 06:30: Sodium Level 143, Potassium Level 3.2L, Chloride Level 110H, Carbon Dioxide Level 23, Anion Gap 10, Blood Urea Nitrogen 9, Creatinine 1.1, Estimat Glomerular Filtration Rate > 60, Glucose Level 90, Calcium Level 8.0L Height (Feet): 5 Height (Inches): 9.00 Weight (Pounds): 202 Objective WDWN NAD clear breath sounds bilaterally without rhonchi or wheeze [id number] without MRG NABS nontender no HSM weak alert Amado Coker MD Apr 21, 2018 22:01
[2018-04-22] VITALS (8 sets, daily range): BP systolic 79–150; BP diastolic 44–88
[2018-04-22 06:48] LABS: ANION GAP 11 mmol/L (5-15); BLOOD UREA NITROGEN 14 mg/dL (7-18); CARBON DIOXIDE 23 MMOL/L (21-32); CHLORIDE 107 MMOL/L (98-107); CREATININE 1.9 MG/DL (0.55-1.30); POTASSIUM 3.5 MMOL/L (3.5-5.1); SODIUM 141 MMOL/L (136-145)
--- NOTE | 2018-04-22 08:13 | General Progress Note ---
Assessment/Plan Assessment/Plan IMPRESSION Acute on chronic encephalopathy Urosepsis shock leukocytosis anemia SHARDA severe protein malnutrition hypotension sacral pressure ulcer PLAN IV antibiotics noted cultures noted ID evaluation appreciated pressors off midodrine bolus fluids PRN norco monitor labs dc to snf Subjective Allergies: Coded Allergies: CHLORHEXIDINE (Verified Allergy, Unknown, 04/17/18) Pt states CHG gives him rashes Subjective better alert has pain Objective Last 24 Hour Vital Signs Date Time Temp Pulse Resp B/P (MAP) Pulse Ox O2 Delivery O2 Flow Rate FiO2 04/22/18 07:18 99.0 04/22/18 06:19 99.0 04/22/18 04:00 99.0 64 20 94/54 97 Room Air 99.0 04/22/18 01:09 97.3 04/22/18 00:00 99.5 78 20 150/88 94 Room Air 99.5 04/21/18 20:00 97.1 73 18 145/75 98 Room Air 97.1 04/21/18 19:57 97.3 04/21/18 16:00 97.3 80 18 122/78 96 Room Air 97.3 04/21/18 15:18 98.1 04/21/18 11:41 98.1 77 18 127/73 96 Room Air 98.1 04/21/18 09:35 97.7 Intake and Output 04/21/18 04/22/18 19:00 07:00 Intake Total 1200 ml 840 ml Output Total 1800 ml 300 ml Balance -600 ml 540 ml Intake Oral 1200 ml 840 ml Output Urine Total 1800 ml Stool Total 300 ml # Bowel Movements 1 Laboratory Tests 04/22/18 05:10: Sodium Level 141, Potassium Level 3.5, Chloride Level 107, Carbon Dioxide Level 23, Anion Gap 11, Blood Urea Nitrogen 14, Creatinine 1.9#H, Estimat Glomerular Filtration Rate 36.7, Glucose Level 98, Calcium Level 8.0L Height (Feet): 5 Height (Inches): 9.00 Weight (Pounds): 201 Objective WDWN NAD clear breath sounds bilaterally without rhonchi or wheeze [id number] without MRG NABS nontender no HSM weak alert Amado Coker MD Apr 22, 2018 08:13
[2018-04-22] MEDS: Ascorbic Acid 500mg tab ORAL SCH ×2 (08:52→17:36)
[2018-04-22] MEDS: Midodrine 10mg tab ORAL SCH ×5 (08:52→17:38)
[2018-04-22] MEDS: Lactobacillus-GG tablet ORAL SCH ×2 (08:52→17:36)
[2018-04-22] MEDS: Lyrica 50mg cap ORAL SCH ×3 (08:52→17:37)
--- NOTE | 2018-04-22 09:02 | General Progress Note ---
Assessment/Plan Assessment/Plan (1) Spinal cord injury (2) H/o heroin abuse (3) Decubitus ulcer (4) Paraplegia (5) Neuropathic pain (6) Intractable pain Patient will be continued on Percocet and Lyrica D/w Dr. Byrd and he concurred. Subjective Date patient seen: Apr 22, 2018 Time patient seen: 08:15 - am Allergies: Coded Allergies: CHLORHEXIDINE (Verified Allergy, Unknown, 04/17/18) Pt states CHG gives him rashes Subjective Constitutional: Reports: weakness HEENT: Reports: no symptoms Cardiovascular: Reports: no symptoms Respiratory: Reports: no symptoms Gastrointestinal/Abdominal: Reports: no symptoms Genitourinary: Reports: no symptoms Neurologic/Psychiatric: Reports: numbness, tingling Endocrine: Reports: no symptoms Hematologic/Lymphatic: Reports: no symptoms Subjective Patient is in bed and reports that he continues to have pain and it has been tolerated when given. 5 doses of Percocet has been given to patient in last 24hrs. He has no other complaints. Objective Last 24 Hour Vital Signs Date Time Temp Pulse Resp B/P (MAP) Pulse Ox O2 Delivery O2 Flow Rate FiO2 04/22/18 08:00 97.9 83 20 79/46 94 97.9 04/22/18 07:18 99.0 04/22/18 06:19 99.0 04/22/18 04:00 99.0 64 20 94/54 97 Room Air 99.0 04/22/18 01:09 97.3 04/22/18 00:00 99.5 78 20 150/88 94 Room Air 99.5 04/21/18 20:00 97.1 73 18 145/75 98 Room Air 97.1 04/21/18 19:57 97.3 04/21/18 16:00 97.3 80 18 122/78 96 Room Air 97.3 04/21/18 15:18 98.1 04/21/18 11:41 98.1 77 18 127/73 96 Room Air 98.1 04/21/18 09:35 97.7 Intake and Output 04/21/18 04/22/18 19:00 07:00 Intake Total 1200 ml 840 ml Output Total 1800 ml 300 ml Balance -600 ml 540 ml Intake Oral 1200 ml 840 ml Output Urine Total 1800 ml Stool Total 300 ml # Bowel Movements 1 Laboratory Tests 04/22/18 05:10: Sodium Level 141, Potassium Level 3.5, Chloride Level 107, Carbon Dioxide Level 23, Anion Gap 11, Blood Urea Nitrogen 14, Creatinine 1.9#H, Estimat Glomerular Filtration Rate 36.7, Glucose Level 98, Calcium Level 8.0L Height (Feet): 5 Height (Inches): 9.00 Weight (Pounds): 201 Objective GENERAL: Alert, awake, and oriented. HEENT: PERRLA. NECK: Range of motion is decreased due to the patient's condition. LUNGS: Decreased breath sounds bilaterally. ABDOMEN: Benign. BACK: Range of motion is decreased in flexion and extension with decubitus ulcer noted. EXTREMITIES: Upper and lower extremity range of motion is decreased with joint contractures seen. Tenderness to palpation. Luiz Lees Apr 22, 2018 09:02
[2018-04-22] MEDS: Heparin 5000 units/ml inj SUBQ SCH ×2 (09:03→21:30)
--- NOTE | 2018-04-22 09:49 | Nephrology Progress Note ---
Assessment/Plan Assessment/Plan 1. SHARDA- multifact ATN ( hypotension/sepsis) - Cr up to 1.9 this am as patient becaome hypotensive - Midrodrine and fluid bolus. NS at 125 ml/hr 2. Sepsis- Abx and midrodrine. 3. UTI- Abx 4. Paraplegic- per PCP mgmt 5. Hypokalemia- replace prn Subjective Date patient seen: Apr 22, 2018 Time patient seen: 09:47 ROS Limited/Unobtainable: No Allergies: Coded Allergies: CHLORHEXIDINE (Verified Allergy, Unknown, 04/17/18) Pt states CHG gives him rashes All Systems: reviewed and negative except above Subjective Patient had hypotensive episode and fluid bolus being given Objective Last 24 Hour Vital Signs Date Time Temp Pulse Resp B/P (MAP) Pulse Ox O2 Delivery O2 Flow Rate FiO2 04/22/18 08:00 97.9 83 20 79/46 94 97.9 04/22/18 07:18 99.0 04/22/18 06:19 99.0 04/22/18 04:00 99.0 64 20 94/54 97 Room Air 99.0 04/22/18 01:09 97.3 04/22/18 00:00 99.5 78 20 150/88 94 Room Air 99.5 04/21/18 20:00 97.1 73 18 145/75 98 Room Air 97.1 04/21/18 19:57 97.3 04/21/18 16:00 97.3 80 18 122/78 96 Room Air 97.3 04/21/18 15:18 98.1 04/21/18 11:41 98.1 77 18 127/73 96 Room Air 98.1 Intake and Output 04/21/18 04/22/18 19:00 07:00 Intake Total 1200 ml 840 ml Output Total 1800 ml 300 ml Balance -600 ml 540 ml Intake Oral 1200 ml 840 ml Output Urine Total 1800 ml Stool Total 300 ml # Bowel Movements 1 Laboratory Tests 04/22/18 05:10: Sodium Level 141, Potassium Level 3.5, Chloride Level 107, Carbon Dioxide Level 23, Anion Gap 11, Blood Urea Nitrogen 14, Creatinine 1.9#H, Estimat Glomerular Filtration Rate 36.7, Glucose Level 98, Calcium Level 8.0L Height (Feet): 5 Height (Inches): 9.00 Weight (Pounds): 201 General Appearance: no apparent distress, alert EENT: normal ENT inspection, TMs normal Neck: supple Cardiovascular: normal rate, regular rhythm Respiratory/Chest: normal breath sounds, no respiratory distress Abdomen: non tender, soft Edema: no edema noted Arm (L), no edema noted Arm (R), no edema noted Leg (L), no edema noted Leg (R), no edema noted Pedal (L), no edema noted Pedal (R), no edema noted Generalized Macario Kumar M.D. Apr 22, 2018 09:49
[2018-04-22] MEDS: Pantoprazole Inj IVP SCH (09:58)
--- NOTE | 2018-04-22 11:57 | Infectious Diseases Prog Note ---
Assessment/Plan Assessment/Plan A 1. Proteus sepsis secondary to UTI 2. Proteus UTI 3. leucocytosis resolved 4. Acute renal failure improving 5. paraplegia 6. shock, resolved, off pressor 7. 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 acute renal failure P 1. Continue iv ceftriaxone X 3 days 2. will follow up cultures Subjective ROS Limited/Unobtainable: Yes Cardiovascular: Reports: other - hypotension in am Allergies: Coded Allergies: CHLORHEXIDINE (Verified Allergy, Unknown, 04/17/18) Pt states CHG gives him rashes Objective Vital Signs Last 24 Hour Vital Signs Date Time Temp Pulse Resp B/P (MAP) Pulse Ox O2 Delivery O2 Flow Rate FiO2 04/22/18 11:33 98.8 64 20 101/51 95 98.8 04/22/18 11:33 Room Air 04/22/18 08:00 97.9 83 20 79/46 94 97.9 04/22/18 08:00 Room Air 04/22/18 07:18 99.0 04/22/18 06:19 99.0 04/22/18 04:00 99.0 64 20 94/54 97 Room Air 99.0 04/22/18 01:09 97.3 04/22/18 00:00 99.5 78 20 150/88 94 Room Air 99.5 04/21/18 20:00 97.1 73 18 145/75 98 Room Air 97.1 04/21/18 19:57 97.3 04/21/18 16:00 97.3 80 18 122/78 96 Room Air 97.3 04/21/18 15:18 98.1 Height (Feet): 5 Height (Inches): 9.00 Weight (Pounds): 201 General Appearance: no acute distress HEENT: mucous membranes moist Respiratory/Chest: lungs clear Cardiovascular: normal rate Abdomen: soft, non tender Extremities: no edema Neurologic/Psychiatric: other - sleeping Laboratory Tests Test 04/22/18 05:10 Sodium Level 141 MMOL/L (136-145) Potassium Level 3.5 MMOL/L (3.5-5.1) Chloride Level 107 MMOL/L (98-107) Carbon Dioxide Level 23 MMOL/L (21-32) Anion Gap 11 mmol/L (5-15) Blood Urea Nitrogen 14 mg/dL (7-18) Creatinine 1.9 MG/DL (0.55-1.30) #H Estimat Glomerular Filtration Rate 36.7 mL/min (>60) Glucose Level 98 MG/DL (74-106) Calcium Level 8.0 MG/DL (8.5-10.1) L Current Medications Medications (Trade) Dose Ordered Sig/Aleyda Route PRN Reason Start Time Stop Time Status Last Admin Dose Admin Al Hydroxide/Mg Hydroxide (Mylanta) 30 ml Q6H PRN ORAL HEARTBURN 04/20/18 22:30 05/15/18 22:29 Ascorbic Acid (Vitamin C) 500 mg TWICE A DAY ORAL 04/21/18 09:00 05/16/18 08:59 04/22/18 08:52 Ceftriaxone Sodium 1 gm/ Dextrose 110 ml @ 220 mls/hr Q24H IVPB 04/21/18 13:00 04/25/18 12:59 04/21/18 12:48 Diphenhydramine HCl (Benadryl) 25 mg Q6H PRN IVP Itching 04/21/18 08:39 05/21/18 08:38 04/21/18 21:57 Heparin Sodium (Porcine) (Heparin 5000 units/ml) 5,000 units EVERY 12 HOURS SUBQ 04/20/18 22:00 05/15/18 21:59 04/22/18 09:03 Lactobacillus Acidophilus (Culturelle) 1 tab TWICE A DAY ORAL 04/21/18 09:00 05/16/18 08:59 04/22/18 08:52 Magnesium Hydroxide (Mom) 30 ml HSPRN PRN ORAL Constipation 04/20/18 22:30 05/15/18 22:29 Midodrine (Pro-Amatine) 10 mg THREE TIMES A DAY ORAL 04/21/18 09:00 05/19/18 08:59 04/22/18 08:52 Midodrine (Pro-Amatine) 10 mg THREE TIMES A DAY ORAL 04/22/18 09:30 05/22/18 09:29 Multivitamins (Multivitamins) 1 tab DAILY ORAL 04/21/18 09:00 05/16/18 08:59 04/22/18 08:52 Naloxone HCl (Narcan) 0.2 mg Q30MIN PRN IVP respiratory depression 04/20/18 21:00 05/20/18 09:14 Oxycodone/ Acetaminophen (Percocet 10/325) 1 tab Q4H PRN ORAL Severe Pain (Pain Scale 7-10) 04/20/18 21:15 04/27/18 09:14 04/22/18 06:19 Pantoprazole (Protonix) 40 mg DAILY IVP 04/21/18 09:00 05/16/18 08:59 04/22/18 09:58 Potassium Chloride (K-Dur) 40 meq DAILY ORAL 04/21/18 09:00 05/20/18 08:59 04/22/18 08:51 Pregabalin (Lyrica) 50 mg THREE TIMES A DAY ORAL 04/21/18 09:00 05/20/18 10:59 04/22/18 08:52 Sodium Chloride 1,000 ml @ 125 mls/hr Q8H IV 04/22/18 10:00 05/22/18 09:59 04/22/18 10:01 Zolpidem Tartrate (Ambien) 5 mg HSPRN PRN ORAL Insomnia 04/20/18 21:00 04/23/18 20:59 Reyes Trevino MD Apr 22, 2018 11:57
[2018-04-22] MEDS: cefTRIAXone 1 GM in D5W 110 ML IVPB SCH (13:39)
[2018-04-23 00:08] VITALS: BP 108/62
[2018-04-23 04:00] VITALS: BP 139/83
[2018-04-23 06:49] LABS: ANION GAP 14 mmol/L (5-15); BLOOD UREA NITROGEN 13 mg/dL (7-18); CALCIUM 8.3 MG/DL (8.5-10.1); CARBON DIOXIDE 20 MMOL/L (21-32); CHLORIDE 111 MMOL/L (98-107); CREATININE 1.5 MG/DL (0.55-1.30); POTASSIUM 3.2 MMOL/L (3.5-5.1); SODIUM 145 MMOL/L (136-145)
[2018-04-23 08:00] VITALS: BP 85/47
--- NOTE | 2018-04-23 08:26 | Nephrology Progress Note ---
Assessment/Plan Assessment/Plan 1. SHARDA- multifact ATN ( hypotension/sepsis) - Cr down to 1.5. BP stable - Midrodrine and IVF's 2. Sepsis- Abx and midrodrine. Stable now 3. UTI- Abx 4. Paraplegic- per PCP mgmt 5. Hypokalemia- replace today IV Subjective Date patient seen: Apr 23, 2018 Time patient seen: 08:23 ROS Limited/Unobtainable: No Allergies: Coded Allergies: CHLORHEXIDINE (Verified Allergy, Unknown, 04/17/18) Pt states CHG gives him rashes Subjective Patient resting comfortably in no distress Objective Last 24 Hour Vital Signs Date Time Temp Pulse Resp B/P (MAP) Pulse Ox O2 Delivery O2 Flow Rate FiO2 04/23/18 05:24 98.5 04/23/18 04:25 98.5 04/23/18 04:00 97.6 84 18 139/83 99 Room Air 97.6 04/23/18 00:09 96 Room Air 04/23/18 00:08 98.5 72 19 108/62 96 Room Air 98.5 04/22/18 21:29 97.5 04/22/18 20:00 97.5 72 19 146/78 96 Room Air 97.5 04/22/18 20:00 96 Room Air 04/22/18 17:37 98.1 04/22/18 16:00 Room Air 04/22/18 15:57 98.1 80 20 131/65 95 98.1 04/22/18 13:38 98.8 04/22/18 11:33 98.8 64 20 101/51 95 98.8 04/22/18 11:33 Room Air 04/22/18 10:30 82/44 Intake and Output 04/22/18 04/23/18 19:00 07:00 Intake Total 1840 ml 2000 ml Output Total 1800 ml 800 ml Balance 40 ml 1200 ml Intake Oral 620 ml 500 ml IV Total 1220 ml 1500 ml Output Urine Total 1700 ml 800 ml Stool Total 100 ml Laboratory Tests 04/23/18 04:45: Sodium Level 145, Potassium Level 3.2L, Chloride Level 111H, Carbon Dioxide Level 20L, Anion Gap 14, Blood Urea Nitrogen 13, Creatinine 1.5H, Estimat Glomerular Filtration Rate 48.2, Glucose Level 99, Calcium Level 8.3L Height (Feet): 5 Height (Inches): 9.00 Weight (Pounds): 213 General Appearance: no apparent distress, alert EENT: PERRL/EOMI, normal ENT inspection Neck: normal alignment, supple Cardiovascular: normal rate, regular rhythm Respiratory/Chest: lungs clear, normal breath sounds Abdomen: non tender, soft Edema: no edema noted Arm (L), no edema noted Arm (R), no edema noted Leg (L), no edema noted Leg (R), no edema noted Pedal (L), no edema noted Pedal (R), no edema noted Generalized Macario Kumar M.D. Apr 23, 2018 08:26
[2018-04-23] MEDS: Ascorbic Acid 500mg tab ORAL SCH ×2 (08:38→17:49)
[2018-04-23] MEDS: Pantoprazole Inj IVP SCH (08:38)
[2018-04-23] MEDS: DiphenhydrAMINE 50mg/ml Inj IVP PRN ×2 (08:38→20:47)
[2018-04-23] MEDS: Lactobacillus-GG tablet ORAL SCH ×2 (08:39→17:49)
[2018-04-23] MEDS: Lyrica 50mg cap ORAL SCH ×3 (08:39→17:50)
[2018-04-23] MEDS: Heparin 5000 units/ml inj SUBQ SCH ×2 (08:46→20:56)
[2018-04-23] MEDS: Midodrine 10mg tab ORAL SCH ×3 (08:46→17:49)
--- NOTE | 2018-04-23 10:02 | General Progress Note ---
Assessment/Plan Assessment/Plan IMPRESSION Acute on chronic encephalopathy Urosepsis shock leukocytosis anemia SHARDA severe protein malnutrition hypotension sacral pressure ulcer PLAN IV antibiotics to dc soon ID evaluation appreciated pressors off midodrine PRN norco monitor labs dc to snf Subjective Allergies: Coded Allergies: CHLORHEXIDINE (Verified Allergy, Unknown, 04/17/18) Pt states CHG gives him rashes Subjective better stable Objective Last 24 Hour Vital Signs Date Time Temp Pulse Resp B/P (MAP) Pulse Ox O2 Delivery O2 Flow Rate FiO2 04/23/18 08:00 98.2 80 20 85/47 99 Room Air 98.2 04/23/18 05:24 98.5 04/23/18 04:25 98.5 04/23/18 04:00 97.6 84 18 139/83 99 Room Air 97.6 04/23/18 00:09 96 Room Air 04/23/18 00:08 98.5 72 19 108/62 96 Room Air 98.5 04/22/18 21:29 97.5 04/22/18 20:00 97.5 72 19 146/78 96 Room Air 97.5 04/22/18 20:00 96 Room Air 04/22/18 17:37 98.1 04/22/18 16:00 Room Air 04/22/18 15:57 98.1 80 20 131/65 95 98.1 04/22/18 13:38 98.8 04/22/18 11:33 98.8 64 20 101/51 95 98.8 04/22/18 11:33 Room Air 04/22/18 10:30 82/44 Intake and Output 04/22/18 04/23/18 19:00 07:00 Intake Total 1840 ml 2000 ml Output Total 1800 ml 800 ml Balance 40 ml 1200 ml Intake Oral 620 ml 500 ml IV Total 1220 ml 1500 ml Output Urine Total 1700 ml 800 ml Stool Total 100 ml Laboratory Tests 04/23/18 04:45: Sodium Level 145, Potassium Level 3.2L, Chloride Level 111H, Carbon Dioxide Level 20L, Anion Gap 14, Blood Urea Nitrogen 13, Creatinine 1.5H, Estimat Glomerular Filtration Rate 48.2, Glucose Level 99, Calcium Level 8.3L Height (Feet): 5 Height (Inches): 9.00 Weight (Pounds): 213 Objective WDWN NAD clear breath sounds bilaterally without rhonchi or wheeze [id number] without MRG NABS nontender no HSM weak alert Amado Coker MD Apr 23, 2018 10:02
[2018-04-23] MEDS ORDERED: Tubing IV Secondary IV ONE (11:03)
--- NOTE | 2018-04-23 11:06 | Infectious Diseases Prog Note ---
Assessment/Plan Assessment/Plan antibiotics : ceftriaxone A 1. proteus sepsis secondary to UTI 2. proteus UTI 3. leucocytosis resolved 4. renal failure resolved 5. paraplegia 6. shock resolved 7. sacral decubitus ulcer P 1. continue iv ceftriaxone 2 more days 2. will follow up cultures Subjective Constitutional: Denies: fever, chills Respiratory: Denies: shortness of breath, dry cough Gastrointestinal/Abdominal: Denies: nausea, vomiting, diarrhea Musculoskeletal: Reports: pain Allergies: Coded Allergies: CHLORHEXIDINE (Verified Allergy, Unknown, 04/17/18) Pt states CHG gives him rashes Objective Vital Signs Last 24 Hour Vital Signs Date Time Temp Pulse Resp B/P (MAP) Pulse Ox O2 Delivery O2 Flow Rate FiO2 04/23/18 08:00 98.2 80 20 85/47 99 Room Air 98.2 04/23/18 05:24 98.5 04/23/18 04:25 98.5 04/23/18 04:00 97.6 84 18 139/83 99 Room Air 97.6 04/23/18 00:09 96 Room Air 04/23/18 00:08 98.5 72 19 108/62 96 Room Air 98.5 04/22/18 21:29 97.5 04/22/18 20:00 97.5 72 19 146/78 96 Room Air 97.5 04/22/18 20:00 96 Room Air 04/22/18 17:37 98.1 04/22/18 16:00 Room Air 04/22/18 15:57 98.1 80 20 131/65 95 98.1 04/22/18 13:38 98.8 04/22/18 11:33 98.8 64 20 101/51 95 98.8 04/22/18 11:33 Room Air Height (Feet): 5 Height (Inches): 9.00 Weight (Pounds): 213 Respiratory/Chest: lungs clear Cardiovascular: normal rate, regular rhythm, no gallop/murmur Abdomen: soft, non tender Extremities: no edema Laboratory Tests Test 04/23/18 04:45 Sodium Level 145 MMOL/L (136-145) Potassium Level 3.2 MMOL/L (3.5-5.1) L Chloride Level 111 MMOL/L (98-107) H Carbon Dioxide Level 20 MMOL/L (21-32) L Anion Gap 14 mmol/L (5-15) Blood Urea Nitrogen 13 mg/dL (7-18) Creatinine 1.5 MG/DL (0.55-1.30) H Estimat Glomerular Filtration Rate 48.2 mL/min (>60) Glucose Level 99 MG/DL (74-106) Calcium Level 8.3 MG/DL (8.5-10.1) L Current Medications Medications (Trade) Dose Ordered Sig/Aledya Route PRN Reason Start Time Stop Time Status Last Admin Dose Admin Al Hydroxide/Mg Hydroxide (Mylanta) 30 ml Q6H PRN ORAL HEARTBURN 04/20/18 22:30 05/15/18 22:29 Ascorbic Acid (Vitamin C) 500 mg TWICE A DAY ORAL 04/21/18 09:00 05/16/18 08:59 04/23/18 08:38 Ceftriaxone Sodium 1 gm/ Dextrose 110 ml @ 220 mls/hr Q24H IVPB 04/21/18 13:00 04/25/18 12:59 04/22/18 13:39 Diphenhydramine HCl (Benadryl) 25 mg Q6H PRN IVP Itching 04/21/18 08:39 05/21/18 08:38 04/23/18 08:38 Heparin Sodium (Porcine) (Heparin 5000 units/ml) 5,000 units EVERY 12 HOURS SUBQ 04/20/18 22:00 05/15/18 21:59 04/23/18 08:46 Lactobacillus Acidophilus (Culturelle) 1 tab TWICE A DAY ORAL 04/21/18 09:00 05/16/18 08:59 04/23/18 08:39 Magnesium Hydroxide (Mom) 30 ml HSPRN PRN ORAL Constipation 04/20/18 22:30 05/15/18 22:29 Midodrine (Pro-Amatine) 10 mg THREE TIMES A DAY ORAL 04/21/18 09:00 05/19/18 08:59 04/23/18 08:46 Multivitamins (Multivitamins) 1 tab DAILY ORAL 04/21/18 09:00 05/16/18 08:59 04/23/18 08:39 Naloxone HCl (Narcan) 0.2 mg Q30MIN PRN IVP respiratory depression 04/20/18 21:00 05/20/18 09:14 Oxycodone/ Acetaminophen (Percocet 10/325) 1 tab Q4H PRN ORAL Severe Pain (Pain Scale 7-10) 04/20/18 21:15 04/27/18 09:14 04/23/18 08:38 Pantoprazole (Protonix) 40 mg DAILY IVP 04/21/18 09:00 05/16/18 08:59 04/23/18 08:38 Potassium Chloride (K-Dur) 40 meq DAILY ORAL 04/21/18 09:00 05/20/18 08:59 04/23/18 08:39 Potassium Chloride (K-Dur) 60 meq ONCE ONCE ORAL 04/23/18 10:15 04/23/18 10:16 UNV Pregabalin (Lyrica) 50 mg THREE TIMES A DAY ORAL 04/21/18 09:00 05/20/18 10:59 04/23/18 08:39 Sodium Chloride 1,000 ml @ 125 mls/hr Q8H IV 04/22/18 10:00 05/22/18 09:59 04/23/18 08:46 Zolpidem Tartrate (Ambien) 5 mg HSPRN PRN ORAL Insomnia 04/20/18 21:00 04/23/18 20:59 SABI COLON Apr 23, 2018 11:06
[2018-04-23 12:00] VITALS: BP 121/75
[2018-04-23] MEDS: cefTRIAXone 1 GM in D5W 110 ML IVPB SCH (12:49)
[2018-04-23 16:00] VITALS: BP 129/81
[2018-04-23 20:00] VITALS: BP 121/75
[2018-04-24] VITALS: BP_SYST 101; BP_SYST 118; BP_DIAS 64; BP_DIAS 71
[2018-04-24 04:00] VITALS: BP 124/75
[2018-04-24 06:55] LABS: ANION GAP 9 mmol/L (5-15); BLOOD UREA NITROGEN 11 mg/dL (7-18); CALCIUM 8.3 MG/DL (8.5-10.1); CARBON DIOXIDE 24 MMOL/L (21-32); CHLORIDE 111 MMOL/L (98-107); CREATININE 1.2 MG/DL (0.55-1.30); POTASSIUM 3.6 MMOL/L (3.5-5.1); SODIUM 144 MMOL/L (136-145)
[2018-04-24 07:53] VITALS: BP 90/60
[2018-04-24] MEDS: Lyrica 50mg cap ORAL SCH ×3 (08:57→17:49)
[2018-04-24] MEDS: Ascorbic Acid 500mg tab ORAL SCH ×2 (08:58→17:50)
[2018-04-24] MEDS: Pantoprazole Inj IVP SCH (08:58)
[2018-04-24] MEDS: Midodrine 10mg tab ORAL SCH ×3 (08:58→17:49)
[2018-04-24] MEDS: Lactobacillus-GG tablet ORAL SCH ×2 (08:58→17:50)
[2018-04-24] MEDS: Heparin 5000 units/ml inj SUBQ SCH ×2 (09:07→20:43)
--- NOTE | 2018-04-24 09:07 | Nephrology Progress Note ---
Assessment/Plan Assessment/Plan 1. SHARDA- multifact ATN ( hypotension/sepsis) - Resolved again, Cr back to 1.2 - Midrodrine and IVF's. 2. Sepsis- Abx and midrodrine. Stable 3. UTI- Abx 4. Paraplegic- per PCP mgmt 5. Hypokalemia- corrected. replace prn Subjective Date patient seen: Apr 24, 2018 Time patient seen: 09:05 ROS Limited/Unobtainable: No Allergies: Coded Allergies: CHLORHEXIDINE (Verified Allergy, Unknown, 04/17/18) Pt states CHG gives him rashes All Systems: reviewed and negative except above Subjective Patient resting comfortably. No complaints Objective Last 24 Hour Vital Signs Date Time Temp Pulse Resp B/P (MAP) Pulse Ox O2 Delivery O2 Flow Rate FiO2 04/24/18 07:53 98.0 71 20 90/60 98 Room Air 98.0 04/24/18 04:00 97.8 71 18 124/75 97 Room Air 97.8 04/24/18 00:00 97.7 69 18 118/71 96 Room Air 97.7 04/23/18 20:00 98.0 72 18 121/75 95 Room Air 98.0 04/23/18 16:00 97.3 66 20 129/81 98 Room Air 97.3 04/23/18 12:00 97.7 74 20 121/75 95 Room Air 97.7 Intake and Output 04/23/18 04/24/18 19:00 07:00 Intake Total 1080 ml 1775 ml Output Total 800 ml 900 ml Balance 280 ml 875 ml Intake Oral 220 ml 400 ml IV Total 860 ml 1375 ml Output Urine Total 800 ml 700 ml Stool Total 200 ml Laboratory Tests 04/24/18 04:40: Sodium Level 144, Potassium Level 3.6, Chloride Level 111H, Carbon Dioxide Level 24, Anion Gap 9, Blood Urea Nitrogen 11, Creatinine 1.2, Estimat Glomerular Filtration Rate > 60, Glucose Level 94, Calcium Level 8.3L Height (Feet): 5 Height (Inches): 9.00 Weight (Pounds): 205 General Appearance: no apparent distress, alert EENT: normal ENT inspection Neck: normal alignment Cardiovascular: normal rate, regular rhythm Respiratory/Chest: lungs clear, normal breath sounds Abdomen: non tender, soft Edema: no edema noted Arm (L), no edema noted Arm (R), no edema noted Leg (L), no edema noted Leg (R), no edema noted Pedal (L), no edema noted Pedal (R), no edema noted Generalized Macario Kumar M.D. Apr 24, 2018 09:07
--- NOTE | 2018-04-24 09:47 | Infectious Diseases Prog Note ---
Assessment/Plan Assessment/Plan A 1. Proteus sepsis secondary to UTI 2. Proteus UTI 3. leucocytosis resolved 4. Acute renal failure improving 5. paraplegia 6. shock, resolved, off pressor 7. 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 acute renal failure P 1. Continue iv ceftriaxone X 1 day 2. will follow up cultures Subjective ROS Limited/Unobtainable: No Constitutional: Reports: chills Musculoskeletal: Reports: pain, other - left hand Allergies: Coded Allergies: CHLORHEXIDINE (Verified Allergy, Unknown, 04/17/18) Pt states CHG gives him rashes Objective Vital Signs Last 24 Hour Vital Signs Date Time Temp Pulse Resp B/P (MAP) Pulse Ox O2 Delivery O2 Flow Rate FiO2 04/24/18 09:41 98.0 04/24/18 07:53 98.0 71 20 90/60 98 Room Air 98.0 04/24/18 04:00 97.8 71 18 124/75 97 Room Air 97.8 04/24/18 00:00 97.7 69 18 118/71 96 Room Air 97.7 04/23/18 20:00 98.0 72 18 121/75 95 Room Air 98.0 04/23/18 16:00 97.3 66 20 129/81 98 Room Air 97.3 04/23/18 12:00 97.7 74 20 121/75 95 Room Air 97.7 Height (Feet): 5 Height (Inches): 9.00 Weight (Pounds): 205 General Appearance: no acute distress HEENT: mucous membranes moist Respiratory/Chest: lungs clear Cardiovascular: normal rate Abdomen: soft, non tender, other - rectal tube Extremities: no edema Neurologic/Psychiatric: alert, responsive Laboratory Tests Test 04/24/18 04:40 Sodium Level 144 MMOL/L (136-145) Potassium Level 3.6 MMOL/L (3.5-5.1) Chloride Level 111 MMOL/L (98-107) H Carbon Dioxide Level 24 MMOL/L (21-32) Anion Gap 9 mmol/L (5-15) Blood Urea Nitrogen 11 mg/dL (7-18) Creatinine 1.2 MG/DL (0.55-1.30) Estimat Glomerular Filtration Rate > 60 mL/min (>60) Glucose Level 94 MG/DL (74-106) Calcium Level 8.3 MG/DL (8.5-10.1) L Current Medications Medications (Trade) Dose Ordered Sig/Aleyda Route PRN Reason Start Time Stop Time Status Last Admin Dose Admin Al Hydroxide/Mg Hydroxide (Mylanta) 30 ml Q6H PRN ORAL HEARTBURN 04/20/18 22:30 05/15/18 22:29 Ascorbic Acid (Vitamin C) 500 mg TWICE A DAY ORAL 04/21/18 09:00 05/16/18 08:59 04/24/18 08:58 Ceftriaxone Sodium 1 gm/ Dextrose 110 ml @ 220 mls/hr Q24H IVPB 04/21/18 13:00 04/25/18 12:59 04/23/18 12:49 Diphenhydramine HCl (Benadryl) 25 mg Q6H PRN IVP Itching 04/21/18 08:39 05/21/18 08:38 04/23/18 20:47 Heparin Sodium (Porcine) (Heparin 5000 units/ml) 5,000 units EVERY 12 HOURS SUBQ 04/20/18 22:00 05/15/18 21:59 04/24/18 09:07 Lactobacillus Acidophilus (Culturelle) 1 tab TWICE A DAY ORAL 04/21/18 09:00 05/16/18 08:59 04/24/18 08:58 Magnesium Hydroxide (Mom) 30 ml HSPRN PRN ORAL Constipation 04/20/18 22:30 05/15/18 22:29 Midodrine (Pro-Amatine) 10 mg THREE TIMES A DAY ORAL 04/21/18 09:00 05/19/18 08:59 04/24/18 08:58 Multivitamins (Multivitamins) 1 tab DAILY ORAL 04/21/18 09:00 05/16/18 08:59 04/24/18 08:57 Naloxone HCl (Narcan) 0.2 mg Q30MIN PRN IVP respiratory depression 04/20/18 21:00 05/20/18 09:14 Oxycodone/ Acetaminophen (Percocet 10/325) 1 tab Q4H PRN ORAL Severe Pain (Pain Scale 7-10) 04/20/18 21:15 04/27/18 09:14 04/24/18 09:41 Pantoprazole (Protonix) 40 mg DAILY IVP 04/21/18 09:00 05/16/18 08:59 04/24/18 08:58 Potassium Chloride (K-Dur) 40 meq DAILY ORAL 04/21/18 09:00 05/20/18 08:59 04/24/18 08:58 Pregabalin (Lyrica) 50 mg THREE TIMES A DAY ORAL 04/21/18 09:00 05/20/18 10:59 04/24/18 08:57 Sodium Chloride 1,000 ml @ 125 mls/hr Q8H IV 04/22/18 10:00 05/22/18 09:59 04/24/18 09:40 Reyes Trevino MD Apr 24, 2018 09:47
--- NOTE | 2018-04-24 10:14 | General Progress Note ---
Assessment/Plan Assessment/Plan IMPRESSION Acute on chronic encephalopathy Urosepsis shock leukocytosis anemia SHARDA severe protein malnutrition hypotension sacral pressure ulcer PLAN IV antibiotics dc after today ID evaluation appreciated pressors off midodrine PRN norco monitor labs dc to snf Subjective Allergies: Coded Allergies: CHLORHEXIDINE (Verified Allergy, Unknown, 04/17/18) Pt states CHG gives him rashes Subjective better stable BP improved Objective Last 24 Hour Vital Signs Date Time Temp Pulse Resp B/P (MAP) Pulse Ox O2 Delivery O2 Flow Rate FiO2 04/24/18 09:41 98.0 04/24/18 07:53 98.0 71 20 90/60 98 Room Air 98.0 04/24/18 04:00 97.8 71 18 124/75 97 Room Air 97.8 04/24/18 00:00 97.7 69 18 118/71 96 Room Air 97.7 04/23/18 20:00 98.0 72 18 121/75 95 Room Air 98.0 04/23/18 16:00 97.3 66 20 129/81 98 Room Air 97.3 04/23/18 12:00 97.7 74 20 121/75 95 Room Air 97.7 Intake and Output 04/23/18 04/24/18 19:00 07:00 Intake Total 1080 ml 1775 ml Output Total 800 ml 900 ml Balance 280 ml 875 ml Intake Oral 220 ml 400 ml IV Total 860 ml 1375 ml Output Urine Total 800 ml 700 ml Stool Total 200 ml Laboratory Tests 04/24/18 04:40: Sodium Level 144, Potassium Level 3.6, Chloride Level 111H, Carbon Dioxide Level 24, Anion Gap 9, Blood Urea Nitrogen 11, Creatinine 1.2, Estimat Glomerular Filtration Rate > 60, Glucose Level 94, Calcium Level 8.3L Height (Feet): 5 Height (Inches): 9.00 Weight (Pounds): 205 Objective WDWN NAD clear breath sounds bilaterally without rhonchi or wheeze [id number] without MRG NABS nontender no HSM weak alert Amado Coker MD Apr 24, 2018 10:14
[2018-04-24 12:00] VITALS: BP 127/77
--- NOTE | 2018-04-24 12:40 | General Progress Note ---
Assessment/Plan Assessment/Plan (1) Spinal cord injury (2) H/o heroin abuse (3) Decubitus ulcer (4) Paraplegia (5) Neuropathic pain (6) Intractable pain Patient will be continued on Percocet and Lyrica D/w Dr. Byrd and he concurred. Subjective Date patient seen: Apr 24, 2018 Time patient seen: 12:00 - pm Allergies: Coded Allergies: CHLORHEXIDINE (Verified Allergy, Unknown, 04/17/18) Pt states CHG gives him rashes Subjective Constitutional: Reports: weakness HEENT: Reports: no symptoms Cardiovascular: Reports: no symptoms Respiratory: Reports: no symptoms Gastrointestinal/Abdominal: Reports: no symptoms Genitourinary: Reports: no symptoms Neurologic/Psychiatric: Reports: numbness, tingling Endocrine: Reports: no symptoms Hematologic/Lymphatic: Reports: no symptoms Subjective Patient has no new complaints or signs of pain. His pain has been tolerated on the medication. Objective Last 24 Hour Vital Signs Date Time Temp Pulse Resp B/P (MAP) Pulse Ox O2 Delivery O2 Flow Rate FiO2 04/24/18 10:40 98.0 04/24/18 09:41 98.0 04/24/18 07:53 98.0 71 20 90/60 98 Room Air 98.0 04/24/18 04:00 97.8 71 18 124/75 97 Room Air 97.8 04/24/18 00:00 97.7 69 18 118/71 96 Room Air 97.7 04/23/18 20:00 98.0 72 18 121/75 95 Room Air 98.0 04/23/18 16:00 97.3 66 20 129/81 98 Room Air 97.3 Intake and Output 04/23/18 04/24/18 19:00 07:00 Intake Total 1080 ml 1775 ml Output Total 800 ml 900 ml Balance 280 ml 875 ml Intake Oral 220 ml 400 ml IV Total 860 ml 1375 ml Output Urine Total 800 ml 700 ml Stool Total 200 ml Laboratory Tests 04/24/18 04:40: Sodium Level 144, Potassium Level 3.6, Chloride Level 111H, Carbon Dioxide Level 24, Anion Gap 9, Blood Urea Nitrogen 11, Creatinine 1.2, Estimat Glomerular Filtration Rate > 60, Glucose Level 94, Calcium Level 8.3L Height (Feet): 5 Height (Inches): 9.00 Weight (Pounds): 205 Objective GENERAL: Alert, awake, and oriented. HEENT: PERRLA. NECK: Range of motion is decreased due to the patient's condition. LUNGS: Decreased breath sounds bilaterally. ABDOMEN: Benign. BACK: Range of motion is decreased in flexion and extension with decubitus ulcer noted. EXTREMITIES: Upper and lower extremity range of motion is decreased with joint contractures seen. Tenderness to palpation. Luiz Lees Apr 24, 2018 12:40
[2018-04-24] MEDS ORDERED: LYRICA50 MG ORAL (12:57)
[2018-04-24] MEDS ORDERED: PANTOPRAZOLE SO20 MG ORAL (12:58)
[2018-04-24] MEDS ORDERED: FLUDROCORTISON0.1 MG PO (13:00)
[2018-04-24] MEDS ORDERED: BENADRYL25 M3 PO (13:01)
[2018-04-24] MEDS: cefTRIAXone 1 GM in D5W 110 ML IVPB SCH (13:01)
[2018-04-24] MEDS ORDERED: PERCOCET 10-321 EAC1 PO (13:03)
[2018-04-24 15:28] LABS: ALANINE AMINOTRANSFERASE 20 U/L (12-78); ALBUMIN 2.6 G/DL (3.4-5.0); ALKALINE PHOSPHATASE 90 U/L (46-116); ASPARTATE AMINO TRANSFERASE 16 U/L (15-37); BILIRUBIN,DIRECT < 0.1 MG/DL (0.0-0.3); BILIRUBIN,TOTAL < 0.1 MG/DL (0.2-1.0)
[2018-04-24 16:00] VITALS: BP 104/69
[2018-04-24] MEDS: DiphenhydrAMINE 50mg/ml Inj IVP PRN (18:42)
[2018-04-24 20:22] VITALS: BP 116/75
[2018-04-25] VITALS (7 sets, daily range): BP systolic 94–118; BP diastolic 56–79
--- NOTE | 2018-04-25 07:53 | General Progress Note ---
Assessment/Plan Assessment/Plan (1) Spinal cord injury (2) H/o heroin abuse (3) Decubitus ulcer (4) Paraplegia (5) Neuropathic pain (6) Intractable pain Patient will be continued on Percocet and Lyrica D/w Dr. Byrd and he concurred. Subjective Date patient seen: Apr 25, 2018 Time patient seen: 07:15 - am Allergies: Coded Allergies: CHLORHEXIDINE (Verified Allergy, Unknown, 04/17/18) Pt states CHG gives him rashes Subjective Constitutional: Reports: weakness HEENT: Reports: no symptoms Cardiovascular: Reports: no symptoms Respiratory: Reports: no symptoms Gastrointestinal/Abdominal: Reports: no symptoms Genitourinary: Reports: no symptoms Neurologic/Psychiatric: Reports: numbness, tingling Endocrine: Reports: no symptoms Hematologic/Lymphatic: Reports: no symptoms Subjective Patient laying in bed and reports pain is tolerated well on the Percocet 6 doses in the last 24hrs. He has no new complaints. Objective Last 24 Hour Vital Signs Date Time Temp Pulse Resp B/P (MAP) Pulse Ox O2 Delivery O2 Flow Rate FiO2 04/25/18 04:00 98.1 76 20 94/56 96 Room Air 98.1 04/25/18 00:00 97.0 81 20 99/64 98 Room Air 97.0 04/24/18 20:22 97.2 72 18 116/75 100 Room Air 97.2 04/24/18 17:34 98.4 04/24/18 16:35 98.4 04/24/18 16:00 98.4 75 18 104/69 97 Room Air 98.4 04/24/18 12:00 97.7 69 18 127/77 98 Room Air 97.7 04/24/18 09:41 98.0 04/24/18 07:53 98.0 71 20 90/60 98 Room Air 98.0 Intake and Output 04/24/18 04/25/18 19:00 07:00 Intake Total 1677.5 ml Output Total 2400 ml 1600 ml Balance -722.5 ml -1600 ml Intake Oral 1250 ml IV Total 427.5 ml Output Urine Total 2000 ml 1400 ml Stool Total 400 ml 200 ml Laboratory Tests 04/25/18 06:30: Sodium Level [Pending], Potassium Level [Pending], Chloride Level [Pending], Carbon Dioxide Level [Pending], Blood Urea Nitrogen [Pending], Creatinine [ Pending], Estimat Glomerular Filtration Rate [Pending], Glucose Level [Pending] , Calcium Level [Pending] Height (Feet): 5 Height (Inches): 9.00 Weight (Pounds): 216 Objective GENERAL: Alert, awake, and oriented. HEENT: PERRLA. NECK: Range of motion is decreased due to the patient's condition. LUNGS: Decreased breath sounds bilaterally. ABDOMEN: Benign. BACK: Range of motion is decreased in flexion and extension with decubitus ulcer noted. EXTREMITIES: Upper and lower extremity range of motion is decreased with joint contractures seen. Tenderness to palpation. Luiz Lees Apr 25, 2018 07:53
--- NOTE | 2018-04-25 08:21 | General Progress Note ---
Assessment/Plan Assessment/Plan IMPRESSION Acute on chronic encephalopathy Urosepsis shock leukocytosis anemia SHARDA severe protein malnutrition hypotension sacral pressure ulcer abdominal distention PLAN IV antibiotics -dc ID noted abdominal CT and intervention if needed pressors off midodrine PRN norco monitor labs dc to snf on hold pending GI and GS clearance and eval Subjective Allergies: Coded Allergies: CHLORHEXIDINE (Verified Allergy, Unknown, 04/17/18) Pt states CHG gives him rashes Subjective abdominal distention abnormal KUB CT ordered Objective Last 24 Hour Vital Signs Date Time Temp Pulse Resp B/P (MAP) Pulse Ox O2 Delivery O2 Flow Rate FiO2 04/25/18 04:00 98.1 76 20 94/56 96 Room Air 98.1 04/25/18 00:00 97.0 81 20 99/64 98 Room Air 97.0 04/24/18 20:22 97.2 72 18 116/75 100 Room Air 97.2 04/24/18 17:34 98.4 04/24/18 16:35 98.4 04/24/18 16:00 98.4 75 18 104/69 97 Room Air 98.4 04/24/18 12:00 97.7 69 18 127/77 98 Room Air 97.7 04/24/18 09:41 98.0 Intake and Output 04/24/18 04/25/18 19:00 07:00 Intake Total 1677.5 ml Output Total 2400 ml 1600 ml Balance -722.5 ml -1600 ml Intake Oral 1250 ml IV Total 427.5 ml Output Urine Total 2000 ml 1400 ml Stool Total 400 ml 200 ml Laboratory Tests 04/25/18 06:30: Sodium Level [Pending], Potassium Level [Pending], Chloride Level [Pending], Carbon Dioxide Level [Pending], Blood Urea Nitrogen [Pending], Creatinine [ Pending], Estimat Glomerular Filtration Rate [Pending], Glucose Level [Pending] , Calcium Level [Pending] Height (Feet): 5 Height (Inches): 9.00 Weight (Pounds): 216 Objective WDWN NAD clear breath sounds bilaterally without rhonchi or wheeze [id number] without MRG NABS some distention weak alert Amado Coker MD Apr 25, 2018 08:21
[2018-04-25 08:30] LABS: ANION GAP 9 mmol/L (5-15); BLOOD UREA NITROGEN 12 mg/dL (7-18); CALCIUM 8.2 MG/DL (8.5-10.1); CARBON DIOXIDE 24 MMOL/L (21-32); CHLORIDE 111 MMOL/L (98-107); CREATININE 1.3 MG/DL (0.55-1.30); POTASSIUM 3.7 MMOL/L (3.5-5.1); SODIUM 144 MMOL/L (136-145)
--- NOTE | 2018-04-25 09:00 | Nephrology Progress Note ---
Assessment/Plan Assessment/Plan 1. SHARDA- multifact ATN ( hypotension/sepsis) - Cr stable, monitor for now - Midrodrine and IVF's. 2. Sepsis- Abx and midrodrine. 3. UTI- Abx 4. Paraplegic- per PCP mgmt 5. Hypokalemia- corrected. replace prn OK for DC from renal point Subjective Date patient seen: Apr 25, 2018 Time patient seen: 08:58 ROS Limited/Unobtainable: No Allergies: Coded Allergies: CHLORHEXIDINE (Verified Allergy, Unknown, 04/17/18) Pt states CHG gives him rashes Subjective Patient resting comfortably. Doing well Objective Last 24 Hour Vital Signs Date Time Temp Pulse Resp B/P (MAP) Pulse Ox O2 Delivery O2 Flow Rate FiO2 04/25/18 08:00 97.5 81 19 104/63 98 Room Air 97.5 04/25/18 04:00 98.1 76 20 94/56 96 Room Air 98.1 04/25/18 00:00 97.0 81 20 99/64 98 Room Air 97.0 04/24/18 20:22 97.2 72 18 116/75 100 Room Air 97.2 04/24/18 17:34 98.4 04/24/18 16:35 98.4 04/24/18 16:00 98.4 75 18 104/69 97 Room Air 98.4 04/24/18 12:00 97.7 69 18 127/77 98 Room Air 97.7 04/24/18 09:41 98.0 Intake and Output 04/24/18 04/25/18 19:00 07:00 Intake Total 1677.5 ml Output Total 2400 ml 1600 ml Balance -722.5 ml -1600 ml Intake Oral 1250 ml IV Total 427.5 ml Output Urine Total 2000 ml 1400 ml Stool Total 400 ml 200 ml Laboratory Tests 04/25/18 06:30: Sodium Level 144, Potassium Level 3.7, Chloride Level 111H, Carbon Dioxide Level 24, Anion Gap 9, Blood Urea Nitrogen 12, Creatinine 1.3, Estimat Glomerular Filtration Rate 56.9, Glucose Level 91, Calcium Level 8.2L Height (Feet): 5 Height (Inches): 9.00 Weight (Pounds): 216 General Appearance: no apparent distress, alert EENT: normal ENT inspection, TMs normal Neck: normal alignment, supple Cardiovascular: normal rate, regular rhythm Respiratory/Chest: lungs clear, normal breath sounds Edema: no edema noted Arm (L), no edema noted Arm (R), no edema noted Leg (L), no edema noted Leg (R), no edema noted Pedal (L), no edema noted Pedal (R), no edema noted Generalized Macario Kuamr M.D. Apr 25, 2018 09:00
[2018-04-25] MEDS: Ascorbic Acid 500mg tab ORAL SCH ×2 (09:11→18:03)
[2018-04-25] MEDS: Midodrine 10mg tab ORAL SCH ×3 (09:12→18:03)
[2018-04-25] MEDS: Heparin 5000 units/ml inj SUBQ SCH ×2 (09:13→21:30)
[2018-04-25] MEDS: Lactobacillus-GG tablet ORAL SCH ×2 (09:13→18:03)
--- NOTE | 2018-04-25 09:52 | Diagnostic Imaging Report ---
Indication: Abdominal distention Technique: Noncontrast CT of the abdomen and pelvis utilizing automated exposure control. Axial, sagittal and coronal reformats presented. CT dose: Total DLP 1126.47 mGycm; CTDI vol 19.28 mGy Comparison: None Findings: Please note that evaluation of the abdominal and pelvic viscera and vascular structures is limited without the use of intravenous and oral contrast. Within these limitations the following observations are made: There are dependent atelectatic changes in the lung bases. Heart size within normal limits. There are some coronary arterial calcifications. Cholelithiasis without CT evidence suggest acute cholecystitis. Otherwise noncontrast evaluation of the liver is unremarkable. Spleen, adrenal glands and pancreas grossly unremarkable. There is bilateral perinephric stranding which is nonspecific although there may be subtle increase on the right, particularly around the proximal right ureter. No evidence of hydronephrosis bilaterally. Slater catheter decompresses the bladder. There is no free intraperitoneal air or fluid. There is gaseous distention of a redundant sigmoid colon which expands up to the right upper quadrant without definite evidence of twisting or volvulus. A rectal tube is in place. There is a moderate to large amount of colonic stool, including stool adjacent to the tip of the rectal tube. No appreciable colonic wall thickening or pericolonic inflammatory change. No pneumatosis identified. Small bowel is normal in caliber. Appendix is normal. Abdominal aorta normal in caliber with scattered atherosclerotic calcifications. No pathologically enlarged lymphadenopathy. There are degenerative changes of the spine. No acute osseous abnormality is seen. There is a sacral decubitus ulcer with adjacent sclerosis of the sacrum. No well-defined/drainable fluid collection is identified. IMPRESSION: Limited exam without intravenous and oral contrast. Within these limitations: * Gaseous distention of a redundant sigmoid without definite evidence of twisting/volvulus. * Moderate to large amount of upstream colonic stool including moderate stool adjacent to the tip of the rectal tube. * No evidence of free intraperitoneal air or fluid. * Bilateral nonspecific perinephric stranding with questionable asymmetric increased on the right. No hydronephrosis or urinary tract stone. Correlate with urinalysis. * Bibasilar atelectasis. * Cholelithiasis without CT evidence of acute cholecystitis. * Sacral decubitus dorsal with adjacent osseous changes. Osteomyelitis (acute or chronic) not excludable. This corresponds with the statrad preliminary report. The CT scanner at [facility] is accredited by the [employer] and the scans are performed using protocols designed to limit radiation exposure to as low as reasonably achievable to attain images of sufficient resolution adequate for diagnostic evaluation.
[2018-04-25] MEDS: Lyrica 50mg cap ORAL SCH ×3 (10:10→18:49)
--- NOTE | 2018-04-25 12:24 | Infectious Diseases Prog Note ---
Assessment/Plan Assessment/Plan A 1. Proteus sepsis secondary to UTI 2. Proteus UTI 3. leucocytosis resolved 4. Acute renal failure improving 5. paraplegia 6. shock, resolved, off pressor 7. 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 acute renal failure P 1.observe off antibiotic 2. agree with discharge Subjective ROS Limited/Unobtainable: No Respiratory: Reports: no symptoms Cardiovascular: Reports: no symptoms Gastrointestinal/Abdominal: Reports: no symptoms Musculoskeletal: Reports: pain, other - in left hand Allergies: Coded Allergies: CHLORHEXIDINE (Verified Allergy, Unknown, 04/17/18) Pt states CHG gives him rashes Objective Vital Signs Last 24 Hour Vital Signs Date Time Temp Pulse Resp B/P (MAP) Pulse Ox O2 Delivery O2 Flow Rate FiO2 04/25/18 12:00 98.0 67 20 118/79 96 Room Air 98.0 04/25/18 10:12 97.5 04/25/18 09:13 97.5 04/25/18 08:00 97.5 81 19 104/63 98 Room Air 97.5 04/25/18 04:00 98.1 76 20 94/56 96 Room Air 98.1 04/25/18 00:00 97.0 81 20 99/64 98 Room Air 97.0 04/24/18 20:22 97.2 72 18 116/75 100 Room Air 97.2 04/24/18 17:34 98.4 04/24/18 16:35 98.4 04/24/18 16:00 98.4 75 18 104/69 97 Room Air 98.4 Height (Feet): 5 Height (Inches): 9.00 Weight (Pounds): 216 General Appearance: no acute distress HEENT: mucous membranes moist Respiratory/Chest: lungs clear Cardiovascular: normal rate Abdomen: soft, non tender, other - rectal tube Extremities: no edema, other - contracted left hand Neurologic/Psychiatric: alert, oriented x 3, responsive, other - triplegic with sensory level in lower chest Laboratory Tests Test 04/25/18 06:30 Sodium Level 144 MMOL/L (136-145) Potassium Level 3.7 MMOL/L (3.5-5.1) Chloride Level 111 MMOL/L (98-107) H Carbon Dioxide Level 24 MMOL/L (21-32) Anion Gap 9 mmol/L (5-15) Blood Urea Nitrogen 12 mg/dL (7-18) Creatinine 1.3 MG/DL (0.55-1.30) Estimat Glomerular Filtration Rate 56.9 mL/min (>60) Glucose Level 91 MG/DL (74-106) Calcium Level 8.2 MG/DL (8.5-10.1) L Current Medications Medications (Trade) Dose Ordered Sig/Aleyda Route PRN Reason Start Time Stop Time Status Last Admin Dose Admin Al Hydroxide/Mg Hydroxide (Mylanta) 30 ml Q6H PRN ORAL HEARTBURN 04/20/18 22:30 05/15/18 22:29 Ascorbic Acid (Vitamin C) 500 mg TWICE A DAY ORAL 04/21/18 09:00 05/16/18 08:59 04/25/18 09:11 Diphenhydramine HCl (Benadryl) 25 mg Q6H PRN IVP Itching 04/21/18 08:39 05/21/18 08:38 04/24/18 18:42 Fludrocortisone Acetate (Florinef) 0.1 mg DAILY ORAL 04/25/18 09:00 05/25/18 08:59 04/25/18 09:12 Heparin Sodium (Porcine) (Heparin 5000 units/ml) 5,000 units EVERY 12 HOURS SUBQ 04/20/18 22:00 05/15/18 21:59 04/25/18 09:13 Lactobacillus Acidophilus (Culturelle) 1 tab TWICE A DAY ORAL 04/21/18 09:00 05/16/18 08:59 04/25/18 09:13 Magnesium Hydroxide (Mom) 30 ml HSPRN PRN ORAL Constipation 04/20/18 22:30 05/15/18 22:29 Midodrine (Pro-Amatine) 10 mg THREE TIMES A DAY ORAL 04/21/18 09:00 05/19/18 08:59 04/25/18 09:12 Multivitamins (Multivitamins) 1 tab DAILY ORAL 04/21/18 09:00 05/16/18 08:59 04/25/18 09:11 Naloxone HCl (Narcan) 0.2 mg Q30MIN PRN IVP respiratory depression 04/20/18 21:00 05/20/18 09:14 Oxycodone/ Acetaminophen (Percocet 10/325) 1 tab Q4H PRN ORAL Severe Pain (Pain Scale 7-10) 04/25/18 09:15 05/01/18 21:14 04/25/18 09:13 Pantoprazole (Protonix) 40 mg DAILY ORAL 04/25/18 09:00 05/25/18 08:59 04/25/18 09:11 Potassium Chloride (K-Dur) 40 meq DAILY ORAL 04/21/18 09:00 05/20/18 08:59 04/25/18 09:12 Pregabalin (Lyrica) 50 mg THREE TIMES A DAY ORAL 04/21/18 09:00 05/20/18 10:59 04/25/18 10:10 Reyes Trevino MD Apr 25, 2018 12:24
--- NOTE | 2018-04-25 16:27 | General Surgery Progress Note ---
General Surgery-Progress Note Subjective Additional Comments abdominal distention. KUB with concerns for volvulus Objective Last 24 Hour Vital Signs Date Time Temp Pulse Resp B/P (MAP) Pulse Ox O2 Delivery O2 Flow Rate FiO2 04/25/18 15:10 98.0 04/25/18 14:11 98.0 04/25/18 12:00 98.0 67 20 118/79 96 Room Air 98.0 04/25/18 09:13 97.5 04/25/18 08:00 97.5 81 19 104/63 98 Room Air 97.5 04/25/18 04:00 98.1 76 20 94/56 96 Room Air 98.1 04/25/18 00:00 97.0 81 20 99/64 98 Room Air 97.0 04/24/18 20:22 97.2 72 18 116/75 100 Room Air 97.2 04/24/18 17:34 98.4 04/24/18 16:35 98.4 I&O Intake and Output 04/24/18 04/25/18 19:00 07:00 Intake Total 1677.5 ml Output Total 2400 ml 1600 ml Balance -722.5 ml -1600 ml Intake Oral 1250 ml IV Total 427.5 ml Output Urine Total 2000 ml 1400 ml Stool Total 400 ml 200 ml Cardiovascular: RSR Respiratory: clear Abdomen: soft, distended, non-tender, present bowel sounds Extremities: no cyanosis Laboratory Tests Test 04/25/18 06:30 Sodium Level 144 MMOL/L (136-145) Potassium Level 3.7 MMOL/L (3.5-5.1) Chloride Level 111 MMOL/L (98-107) H Carbon Dioxide Level 24 MMOL/L (21-32) Anion Gap 9 mmol/L (5-15) Blood Urea Nitrogen 12 mg/dL (7-18) Creatinine 1.3 MG/DL (0.55-1.30) Estimat Glomerular Filtration Rate 56.9 mL/min (>60) Glucose Level 91 MG/DL (74-106) Calcium Level 8.2 MG/DL (8.5-10.1) L Plan Problems: (1) Sepsis Assessment & Plan: 57M with sepsis. likely etiology UTI. recently noted to have abdominal distention. KUB ordered and concerns for possible volvulus. CT ordered and no obstruction or volvulus noted. dilated redundant sigmoid colon air filled. still watery stool in rectal tube. exam with distention but otherwise benign. differential could be atonic colon developing, hirschsprung adult, pseudo- obstruction -no acute surgical intervention planned -appreciate GI input -can potentially perforate and if so then will need surgery Sacral decubitus ulcer stage IV evaluated. please refer to wound care photos for size and measurements. 2-3cm deep, 2cm undermining in inferior aspect. does get stool in wound at times given proximity to anus. some granulation tissue. no foul odor. serous drainage. minimal eschar and necrotic tissues. -No acute debridement necessary. -air soft mattress, gauze packing and dressings TID for now. -will follow with recs. thank you for this consultation. Alo Martin Apr 25, 2018 16:27
--- NOTE | 2018-04-25 17:48 | Diagnostic Imaging Report ---
Indication: Abdominal distention Technique: XRAY Abdomen 1v Comparison: None Findings: There is large amount of colonic stool. There is gaseous distention of a large bowel loop in the right abdomen. No definite evidence suggest free intraperitoneal air. No acute osseous abnormality seen. Impression: Marked gaseous distention of a large bowel loop in the right abdomen, likely sigmoid colon. The possibility of a volvulus is not excluded. Consider further imaging with water soluble contrast enema or CT. This corresponds with the [facility] preliminary report.
--- NOTE | 2018-04-25 23:05 | General Progress Note ---
Assessment/Plan Assessment/Plan GI CONSULT Dictated KUB findings presumed due to chronic intestinal dysmotility ("paraplegic gut") No volvulus Rectal tube removed and replaced with 30 Fr colonic decompression tube resulting in gush of air Will need jail paraplegic bowel Rx (roll side to side, daily digital stimulation, dulcolax supp) Thank you Raiza Rodas MD Subjective Allergies: Coded Allergies: CHLORHEXIDINE (Verified Allergy, Unknown, 04/17/18) Pt states CHG gives him rashes Objective Last 24 Hour Vital Signs Date Time Temp Pulse Resp B/P (MAP) Pulse Ox O2 Delivery O2 Flow Rate FiO2 04/25/18 20:02 97.0 86 20 115/65 97 Room Air 97.0 04/25/18 19:03 98.9 04/25/18 18:04 98.9 04/25/18 16:24 98.9 76 22 110/70 98 Room Air 98.9 04/25/18 14:11 98.0 04/25/18 12:00 98.0 67 20 118/79 96 Room Air 98.0 04/25/18 09:13 97.5 04/25/18 08:00 97.5 81 19 104/63 98 Room Air 97.5 04/25/18 04:00 98.1 76 20 94/56 96 Room Air 98.1 04/25/18 00:00 97.0 81 20 99/64 98 Room Air 97.0 Intake and Output 04/24/18 04/25/18 19:00 07:00 Intake Total 1677.5 ml Output Total 2400 ml 1600 ml Balance -722.5 ml -1600 ml Intake Oral 1250 ml IV Total 427.5 ml Output Urine Total 2000 ml 1400 ml Stool Total 400 ml 200 ml Laboratory Tests 04/25/18 06:30: Sodium Level 144, Potassium Level 3.7, Chloride Level 111H, Carbon Dioxide Level 24, Anion Gap 9, Blood Urea Nitrogen 12, Creatinine 1.3, Estimat Glomerular Filtration Rate 56.9, Glucose Level 91, Calcium Level 8.2L Height (Feet): 5 Height (Inches): 9.00 Weight (Pounds): 216 Raiza Rodas MD Apr 25, 2018 23:05
--- NOTE | 2018-04-26 02:30 | Consultation ---
DATE OF CONSULTATION: 04/25/2018 NOTE: POOR AUDIO GASTROENTEROLOGY CONSULTATION CONSULTING PHYSICIAN: Raiza Roads M.D. CHIEF COMPLAINT: I was asked to see this patient by Dr. Amado Coker and Dr. Alo Martin for evaluation of abdominal distention. HISTORY OF PRESENT ILLNESS: The patient is an unfortunate 57-year-old white man, who is paraplegic from his waist down, was brought in for urinary tract infection with sepsis. His initial presentation was notable for sepsis and leukocytosis and is markedly better now. During the process, he has been noted to distended and in a possible volvulus position. However, the patient has no nausea, vomiting, and no significant abdominal complaints. He has been having bowel movements with copious diarrhea with the rectal tube. The rectal tube placed in the area of rectum. The patient is chronically ill. He is bedbound. He is contracted, has decubitus ulceration and is essentially nonmobile. PAST MEDICAL HISTORY: History of paraplegia, chronic Slater catheter, history of urinary retention, hypertension, history of paraplegia, contraction deformities, decubitus ulceration, debilitation, azotemia, urinary tract infection. FAMILY HISTORY: Noncontributory. SOCIAL HISTORY: The patient requires around the clock care. He does not smoke or drink alcohol. REVIEW OF SYSTEMS: Otherwise negative. PHYSICAL EXAMINATION: GENERAL: This is a debilitated white man with obvious contracture deformities in all extremities. HEENT: Normocephalic and atraumatic. Sclerae anicteric. Oropharynx clear. Dentition is poor. NECK: Supple. CHEST: Clear to auscultation. CARDIOVASCULAR: Regular rate. ABDOMEN: Soft and distended. There are audible bowel sounds. There is no tenderness. EXTREMITIES: Lower extremities revealed contractures. LABORATORY DATA: Laboratory data were noted. ASSESSMENT: The patient presented with marked distention and dilated contour, which in the setting is likely due to chronic intestinal dysmotility, in which he has been paraplegic. I doubt if this represents volvulus since he does not have any vomiting and he clinically improved with 30-Romansh Slater catheter and with resulting in eventual repair and showing that there is no obstruction due to airflow. The patient will likely get better with paraplegic bowel regimen including daily rectal exams and side to side maneuvers. RECOMMENDATIONS: 1. Large caliber Slater catheter decompression. 2. Outpatient long-term paraplegic bowel regimen. Thank you for asking me to participate in the care of this patient. Raiza Rodas M.D. DR: CELINE JOB#: [id number] CC: ELANA
[2018-04-26 03:50] VITALS: BP 126/78
--- NOTE | 2018-04-26 07:52 | General Progress Note ---
Assessment/Plan Assessment/Plan IMPRESSION Acute on chronic encephalopathy Urosepsis shock leukocytosis anemia SHARDA severe protein malnutrition hypotension sacral pressure ulcer abdominal distention PLAN IV antibiotics -off ID noted abdominal CT noted laxatives pressors off midodrine PRN norco monitor labs dc to snf ?hospice Subjective Allergies: Coded Allergies: CHLORHEXIDINE (Verified Allergy, Unknown, 04/17/18) Pt states CHG gives him rashes Subjective abdominal distention improved CT noted Objective Last 24 Hour Vital Signs Date Time Temp Pulse Resp B/P (MAP) Pulse Ox O2 Delivery O2 Flow Rate FiO2 04/26/18 04:47 96.8 04/26/18 03:50 96.8 67 20 126/78 99 Room Air 96.8 04/26/18 03:48 97.3 04/25/18 23:53 97.3 72 20 102/63 96 Room Air 97.3 04/25/18 23:17 97.0 04/25/18 20:02 97.0 86 20 115/65 97 Room Air 97.0 04/25/18 18:04 98.9 04/25/18 16:24 98.9 76 22 110/70 98 Room Air 98.9 04/25/18 14:11 98.0 04/25/18 12:00 98.0 67 20 118/79 96 Room Air 98.0 04/25/18 09:13 97.5 04/25/18 08:00 97.5 81 19 104/63 98 Room Air 97.5 Intake and Output 04/25/18 04/26/18 19:00 07:00 Intake Total 720 ml 600 ml Output Total 1275 ml 1150 ml Balance -555 ml -550 ml Intake Oral 720 ml 480 ml Other 120 ml Output Urine Total 1275 ml 950 ml Stool Total 200 ml Height (Feet): 5 Height (Inches): 9.00 Weight (Pounds): 214 Objective WDWN NAD clear breath sounds bilaterally without rhonchi or wheeze [id number] without MRG NABS nontender weak alert Amado Coker MD Apr 26, 2018 07:52
[2018-04-26 08:00] VITALS: BP 68/40
--- NOTE | 2018-04-26 08:12 | Nephrology Progress Note ---
Assessment/Plan Assessment/Plan 1. SHARDA- multifact ATN ( hypotension/sepsis) - Cr stable. Recheck in am - Midrodrine 3. UTI- Abx completed 4. Paraplegic- per PCP mgmt 5. Hypokalemia- corrected. replace prn OK for DC from renal point Subjective Date patient seen: Apr 26, 2018 Time patient seen: 08:09 ROS Limited/Unobtainable: No Allergies: Coded Allergies: CHLORHEXIDINE (Verified Allergy, Unknown, 04/17/18) Pt states CHG gives him rashes All Systems: reviewed and negative except above Subjective Patient in no distress Objective Last 24 Hour Vital Signs Date Time Temp Pulse Resp B/P (MAP) Pulse Ox O2 Delivery O2 Flow Rate FiO2 04/26/18 04:47 96.8 04/26/18 03:50 96.8 67 20 126/78 99 Room Air 96.8 04/26/18 03:48 97.3 04/25/18 23:53 97.3 72 20 102/63 96 Room Air 97.3 04/25/18 23:17 97.0 04/25/18 20:02 97.0 86 20 115/65 97 Room Air 97.0 04/25/18 18:04 98.9 04/25/18 16:24 98.9 76 22 110/70 98 Room Air 98.9 04/25/18 14:11 98.0 04/25/18 12:00 98.0 67 20 118/79 96 Room Air 98.0 04/25/18 09:13 97.5 Intake and Output 04/25/18 04/26/18 19:00 07:00 Intake Total 720 ml 600 ml Output Total 1275 ml 1150 ml Balance -555 ml -550 ml Intake Oral 720 ml 480 ml Other 120 ml Output Urine Total 1275 ml 950 ml Stool Total 200 ml Height (Feet): 5 Height (Inches): 9.00 Weight (Pounds): 214 General Appearance: no apparent distress EENT: normal ENT inspection Neck: normal alignment, supple Cardiovascular: normal rate, regular rhythm Respiratory/Chest: lungs clear, normal breath sounds Abdomen: non tender, soft Edema: no edema noted Arm (L), no edema noted Arm (R), no edema noted Leg (L), no edema noted Leg (R), no edema noted Pedal (L), no edema noted Pedal (R), no edema noted Generalized Macario Kumar M.D. Apr 26, 2018 08:12
--- NOTE | 2018-04-26 08:30 | General Progress Note ---
Assessment/Plan Assessment/Plan (1) Spinal cord injury (2) H/o heroin abuse (3) Decubitus ulcer (4) Paraplegia (5) Neuropathic pain (6) Intractable pain Patient will be continued on Percocet and Lyrica D/w Dr. Byrd and he concurred. Subjective Date patient seen: Apr 26, 2018 Time patient seen: 07:15 - am Allergies: Coded Allergies: CHLORHEXIDINE (Verified Allergy, Unknown, 04/17/18) Pt states CHG gives him rashes Subjective Constitutional: Reports: weakness HEENT: Reports: no symptoms Cardiovascular: Reports: no symptoms Respiratory: Reports: no symptoms Gastrointestinal/Abdominal: Reports: no symptoms Genitourinary: Reports: no symptoms Neurologic/Psychiatric: Reports: numbness, tingling Endocrine: Reports: no symptoms Hematologic/Lymphatic: Reports: no symptoms Subjective Patient reports that the pain has been stable and tolerated on the Percocet and Lyrica. He has no other complaints at this time. Objective Last 24 Hour Vital Signs Date Time Temp Pulse Resp B/P (MAP) Pulse Ox O2 Delivery O2 Flow Rate FiO2 04/26/18 04:47 96.8 04/26/18 03:50 96.8 67 20 126/78 99 Room Air 96.8 04/26/18 03:48 97.3 04/25/18 23:53 97.3 72 20 102/63 96 Room Air 97.3 04/25/18 23:17 97.0 04/25/18 20:02 97.0 86 20 115/65 97 Room Air 97.0 04/25/18 18:04 98.9 04/25/18 16:24 98.9 76 22 110/70 98 Room Air 98.9 04/25/18 14:11 98.0 04/25/18 12:00 98.0 67 20 118/79 96 Room Air 98.0 04/25/18 09:13 97.5 Intake and Output 04/25/18 04/26/18 19:00 07:00 Intake Total 720 ml 600 ml Output Total 1275 ml 1150 ml Balance -555 ml -550 ml Intake Oral 720 ml 480 ml Other 120 ml Output Urine Total 1275 ml 950 ml Stool Total 200 ml Height (Feet): 5 Height (Inches): 9.00 Weight (Pounds): 214 Objective GENERAL: Alert, awake, and oriented. HEENT: PERRLA. NECK: Range of motion is decreased due to the patient's condition. LUNGS: Decreased breath sounds bilaterally. ABDOMEN: Benign. BACK: Range of motion is decreased in flexion and extension with decubitus ulcer noted. EXTREMITIES: Upper and lower extremity range of motion is decreased with joint contractures seen. Tenderness to palpation. Luiz Lees Apr 26, 2018 08:30
[2018-04-26] MEDS: Lyrica 50mg cap ORAL SCH ×4 (08:53→18:39)
[2018-04-26] MEDS: Midodrine 10mg tab ORAL SCH ×3 (08:53→17:27)
[2018-04-26] MEDS: Ascorbic Acid 500mg tab ORAL SCH ×2 (08:54→17:27)
[2018-04-26] MEDS: Heparin 5000 units/ml inj SUBQ SCH ×2 (09:07→20:55)
--- NOTE | 2018-04-26 09:28 | General Surgery Progress Note ---
General Surgery-Progress Note Subjective Symptoms: improved Additional Comments 30f rectal tube placed high with good evacuation of air and contents. Objective Last 24 Hour Vital Signs Date Time Temp Pulse Resp B/P (MAP) Pulse Ox O2 Delivery O2 Flow Rate FiO2 04/26/18 08:00 97.5 95 20 68/40 98 97.5 04/26/18 04:47 96.8 04/26/18 03:50 96.8 67 20 126/78 99 Room Air 96.8 04/26/18 03:48 97.3 04/25/18 23:53 97.3 72 20 102/63 96 Room Air 97.3 04/25/18 23:17 97.0 04/25/18 20:02 97.0 86 20 115/65 97 Room Air 97.0 04/25/18 18:04 98.9 04/25/18 16:24 98.9 76 22 110/70 98 Room Air 98.9 04/25/18 14:11 98.0 04/25/18 12:00 98.0 67 20 118/79 96 Room Air 98.0 I&O Intake and Output 04/25/18 04/26/18 19:00 07:00 Intake Total 720 ml 600 ml Output Total 1275 ml 1150 ml Balance -555 ml -550 ml Intake Oral 720 ml 480 ml Other 120 ml Output Urine Total 1275 ml 950 ml Stool Total 200 ml Cardiovascular: RSR Respiratory: clear Abdomen: soft, distended, non-tender, present bowel sounds Extremities: no cyanosis Plan Problems: (1) Sepsis Assessment & Plan: 57M with sepsis. likely etiology UTI. recently noted to have abdominal distention. KUB ordered and concerns for possible volvulus. CT ordered and no obstruction or volvulus noted. dilated redundant sigmoid colon air filled. still watery stool in rectal tube. exam with distention but otherwise benign. differential could be atonic colon developing, hirschsprung adult, pseudo- obstruction s/p high rectal tube insertion by GI with good result -kub today -no acute surgical intervention planned -appreciate GI input Sacral decubitus ulcer stage IV evaluated. please refer to wound care photos for size and measurements. 2-3cm deep, 2cm undermining in inferior aspect. does get stool in wound at times given proximity to anus. some granulation tissue. no foul odor. serous drainage. minimal eschar and necrotic tissues. -No acute debridement necessary. -air soft mattress, gauze packing and dressings TID for now. -will follow with recs. thank you for this consultation. Alo Martin Apr 26, 2018 09:28
[2018-04-26 09:37] VITALS: BP 101/66
[2018-04-26] MEDS: Lactobacillus-GG tablet ORAL SCH ×2 (10:39→17:28)
--- NOTE | 2018-04-26 10:47 | Infectious Diseases Prog Note ---
Assessment/Plan Assessment/Plan antibiotics : none A 1. proteus sepsis secondary to UTI s/p rx 2. proteus UTI s/p rx 3. leucocytosis resolved 4. renal failure resolved 5. paraplegia 6. shock resolved 7. sacral decubitus ulcer P 1. continue off antibiotics Subjective Constitutional: Denies: fever, chills Respiratory: Denies: shortness of breath, dry cough Gastrointestinal/Abdominal: Denies: nausea, vomiting, diarrhea Musculoskeletal: Reports: pain Allergies: Coded Allergies: CHLORHEXIDINE (Verified Allergy, Unknown, 04/17/18) Pt states CHG gives him rashes Objective Vital Signs Last 24 Hour Vital Signs Date Time Temp Pulse Resp B/P (MAP) Pulse Ox O2 Delivery O2 Flow Rate FiO2 04/26/18 10:32 97.5 04/26/18 09:37 62 18 101/66 96 Room Air 04/26/18 08:00 97.5 95 20 68/40 98 97.5 04/26/18 03:50 96.8 67 20 126/78 99 Room Air 96.8 04/26/18 03:48 97.3 04/25/18 23:53 97.3 72 20 102/63 96 Room Air 97.3 04/25/18 23:17 97.0 04/25/18 20:02 97.0 86 20 115/65 97 Room Air 97.0 04/25/18 18:04 98.9 04/25/18 16:24 98.9 76 22 110/70 98 Room Air 98.9 04/25/18 14:11 98.0 04/25/18 12:00 98.0 67 20 118/79 96 Room Air 98.0 Height (Feet): 5 Height (Inches): 9.00 Weight (Pounds): 214 Respiratory/Chest: lungs clear Cardiovascular: normal rate, regular rhythm, no gallop/murmur Abdomen: soft, non tender Extremities: no edema Current Medications Medications (Trade) Dose Ordered Sig/Aleyda Route PRN Reason Start Time Stop Time Status Last Admin Dose Admin Al Hydroxide/Mg Hydroxide (Mylanta) 30 ml Q6H PRN ORAL HEARTBURN 04/20/18 22:30 05/15/18 22:29 Ascorbic Acid (Vitamin C) 500 mg TWICE A DAY ORAL 04/21/18 09:00 05/16/18 08:59 04/26/18 08:54 Diphenhydramine HCl (Benadryl) 25 mg Q6H PRN IVP Itching 04/21/18 08:39 05/21/18 08:38 04/24/18 18:42 Fludrocortisone Acetate (Florinef) 0.1 mg DAILY ORAL 04/25/18 09:00 05/25/18 08:59 04/26/18 08:54 Heparin Sodium (Porcine) (Heparin 5000 units/ml) 5,000 units EVERY 12 HOURS SUBQ 04/20/18 22:00 05/15/18 21:59 04/26/18 09:07 Lactobacillus Acidophilus (Culturelle) 1 tab TWICE A DAY ORAL 04/21/18 09:00 05/16/18 08:59 04/26/18 10:39 Magnesium Hydroxide (Mom) 30 ml HSPRN PRN ORAL Constipation 04/20/18 22:30 05/15/18 22:29 Midodrine (Pro-Amatine) 10 mg THREE TIMES A DAY ORAL 04/21/18 09:00 05/19/18 08:59 04/26/18 08:53 Multivitamins (Multivitamins) 1 tab DAILY ORAL 04/21/18 09:00 05/16/18 08:59 04/26/18 08:54 Naloxone HCl (Narcan) 0.2 mg Q30MIN PRN IVP respiratory depression 04/20/18 21:00 05/20/18 09:14 Oxycodone/ Acetaminophen (Percocet 10/325) 1 tab Q4H PRN ORAL Severe Pain (Pain Scale 7-10) 04/25/18 09:15 05/01/18 21:14 04/26/18 09:07 Pantoprazole (Protonix) 40 mg DAILY ORAL 04/25/18 09:00 05/25/18 08:59 04/26/18 08:54 Potassium Chloride (K-Dur) 40 meq DAILY ORAL 04/21/18 09:00 05/20/18 08:59 04/26/18 08:53 Pregabalin (Lyrica) 50 mg THREE TIMES A DAY ORAL 04/21/18 09:00 05/20/18 10:59 04/26/18 10:39 SABI COLON Apr 26, 2018 10:47
[2018-04-26 11:48] VITALS: BP 127/76
--- NOTE | 2018-04-26 15:07 | Diagnostic Imaging Report ---
Indication: Abdominal pain and distention Technique: Supine view of the abdomen Comparison: 04/24/2018 Findings: Interim marked improvement of previously demonstrated gaseous colonic distention. There is still some prominent gas in the epigastric region in the midline, which probably represents residual dilated gas-filled mid sigmoid. Gas is otherwise seen in nondilated colon and small bowel elsewhere. Rectal tube and Slater catheter again demonstrated. Impression: Over 2 days, markedly improved gaseous distention of previously distended sigmoid colon. There is some residual mild distention at the apex of the sigmoid loop.
[2018-04-26] MEDS: DiphenhydrAMINE 50mg/ml Inj IVP PRN ×2 (15:40→23:56)
[2018-04-26 15:42] VITALS: BP 116/69
[2018-04-26 20:00] VITALS: BP 117/76
--- NOTE | 2018-04-26 22:36 | General Progress Note ---
Assessment/Plan Assessment/Plan Assessment - paraplegia - chronic intestinal dysmotility - contractures - poor Px Recommendations - po as tolerated - temporary rectal decompression - Abx - Placement Subjective Allergies: Coded Allergies: CHLORHEXIDINE (Verified Allergy, Unknown, 04/17/18) Pt states CHG gives him rashes Subjective Feel OK no abd pain no vomiting rectal tube in place Objective Last 24 Hour Vital Signs Date Time Temp Pulse Resp B/P (MAP) Pulse Ox O2 Delivery O2 Flow Rate FiO2 04/26/18 21:42 99.1 04/26/18 20:00 99.1 91 17 117/76 98 Room Air 99.1 04/26/18 18:05 98.4 04/26/18 17:28 98.4 04/26/18 15:42 98.4 79 20 116/69 98 98.4 04/26/18 13:09 99.0 04/26/18 11:48 99.0 68 20 127/76 97 99.0 04/26/18 09:37 62 18 101/66 96 Room Air 04/26/18 08:00 97.5 95 20 68/40 98 97.5 04/26/18 03:50 96.8 67 20 126/78 99 Room Air 96.8 04/26/18 03:48 97.3 04/25/18 23:53 97.3 72 20 102/63 96 Room Air 97.3 04/25/18 23:17 97.0 Intake and Output 04/25/18 04/26/18 19:00 07:00 Intake Total 720 ml 600 ml Output Total 1275 ml 1150 ml Balance -555 ml -550 ml Intake Oral 720 ml 480 ml Other 120 ml Output Urine Total 1275 ml 950 ml Stool Total 200 ml Height (Feet): 5 Height (Inches): 9.00 Weight (Pounds): 214 Raiza Rodas MD Apr 26, 2018 22:36
[2018-04-27] VITALS (8 sets, daily range): BP systolic 98–143; BP diastolic 56–84
[2018-04-27 06:58] LABS: ANION GAP 10 mmol/L (5-15); BLOOD UREA NITROGEN 15 mg/dL (7-18); CALCIUM 8.6 MG/DL (8.5-10.1); CARBON DIOXIDE 24 MMOL/L (21-32); CHLORIDE 106 MMOL/L (98-107); CREATININE 1.2 MG/DL (0.55-1.30); POTASSIUM 3.6 MMOL/L (3.5-5.1); SODIUM 140 MMOL/L (136-145)
--- NOTE | 2018-04-27 07:53 | General Progress Note ---
Assessment/Plan Assessment/Plan (1) Spinal cord injury (2) H/o heroin abuse (3) Decubitus ulcer (4) Paraplegia (5) Neuropathic pain (6) Intractable pain Patient will be continued on Percocet and Lyrica D/w Dr. Byrd and he concurred. Subjective Date patient seen: Apr 27, 2018 Time patient seen: 07:15 - am Allergies: Coded Allergies: CHLORHEXIDINE (Verified Allergy, Unknown, 04/17/18) Pt states CHG gives him rashes Subjective Constitutional: Reports: weakness HEENT: Reports: no symptoms Cardiovascular: Reports: no symptoms Respiratory: Reports: no symptoms Gastrointestinal/Abdominal: Reports: no symptoms Genitourinary: Reports: no symptoms Neurologic/Psychiatric: Reports: numbness, tingling Endocrine: Reports: no symptoms Hematologic/Lymphatic: Reports: no symptoms Subjective Patient continues to have pain through out his body and reports that the Lyrica and Percocet has been tolerating his pain. He has no new complaints. Objective Last 24 Hour Vital Signs Date Time Temp Pulse Resp B/P (MAP) Pulse Ox O2 Delivery O2 Flow Rate FiO2 04/27/18 04:00 98.2 79 17 109/66 96 Room Air 98.2 04/27/18 02:53 98.1 04/27/18 01:54 98.1 04/27/18 00:00 98.1 74 17 134/78 96 Room Air 98.1 04/26/18 21:42 99.1 04/26/18 20:00 99.1 91 17 117/76 98 Room Air 99.1 04/26/18 17:28 98.4 04/26/18 15:42 98.4 79 20 116/69 98 98.4 04/26/18 13:09 99.0 04/26/18 11:48 99.0 68 20 127/76 97 99.0 04/26/18 09:37 62 18 101/66 96 Room Air 04/26/18 08:00 97.5 95 20 68/40 98 97.5 Intake and Output 04/26/18 04/27/18 19:00 07:00 Intake Total 770 ml 780 ml Output Total 450 ml 2700 ml Balance 320 ml -1920 ml Intake Oral 770 ml 660 ml Other 120 ml Output Urine Total 450 ml 2400 ml Stool Total 300 ml Laboratory Tests 04/27/18 05:10: Sodium Level 140, Potassium Level 3.6, Chloride Level 106, Carbon Dioxide Level 24, Anion Gap 10, Blood Urea Nitrogen 15, Creatinine 1.2, Estimat Glomerular Filtration Rate > 60, Glucose Level 90, Calcium Level 8.6 Height (Feet): 5 Height (Inches): 9.00 Weight (Pounds): 211 Objective GENERAL: Alert, awake, and oriented. HEENT: PERRLA. NECK: Range of motion is decreased due to the patient's condition. LUNGS: Decreased breath sounds bilaterally. ABDOMEN: Benign. BACK: Range of motion is decreased in flexion and extension with decubitus ulcer noted. EXTREMITIES: Upper and lower extremity range of motion is decreased with joint contractures seen. Tenderness to palpation. Luiz Lees Apr 27, 2018 07:53
[2018-04-27] MEDS: Heparin 5000 units/ml inj SUBQ SCH ×2 (08:08→21:02)
[2018-04-27] MEDS: Ascorbic Acid 500mg tab ORAL SCH ×2 (08:09→17:18)
[2018-04-27] MEDS: Lyrica 50mg cap ORAL SCH ×3 (08:11→17:19)
[2018-04-27] MEDS: Midodrine 10mg tab ORAL SCH ×3 (08:15→17:17)
--- NOTE | 2018-04-27 08:21 | Nephrology Progress Note ---
Assessment/Plan Assessment/Plan 1. SHARDA- multifact ATN ( hypotension/sepsis) - Cr stable. OK for DC from renal point - Midrodrine + Florinef 3. UTI- Abx completed 4. Paraplegic- per PCP mgmt 5. Hypokalemia- corrected. Subjective Date patient seen: Apr 27, 2018 Time patient seen: 08:19 ROS Limited/Unobtainable: No Allergies: Coded Allergies: CHLORHEXIDINE (Verified Allergy, Unknown, 04/17/18) Pt states CHG gives him rashes Subjective Patient in no distress. Awaiting DC to SNF Objective Last 24 Hour Vital Signs Date Time Temp Pulse Resp B/P (MAP) Pulse Ox O2 Delivery O2 Flow Rate FiO2 04/27/18 08:12 97.4 71 18 98/57 97 Nasal Cannula 97.4 04/27/18 04:00 98.2 79 17 109/66 96 Room Air 98.2 04/27/18 02:53 98.1 04/27/18 01:54 98.1 04/27/18 00:00 98.1 74 17 134/78 96 Room Air 98.1 04/26/18 21:42 99.1 04/26/18 20:00 99.1 91 17 117/76 98 Room Air 99.1 04/26/18 17:28 98.4 04/26/18 15:42 98.4 79 20 116/69 98 98.4 04/26/18 13:09 99.0 04/26/18 11:48 99.0 68 20 127/76 97 99.0 04/26/18 09:37 62 18 101/66 96 Room Air Intake and Output 04/26/18 04/27/18 19:00 07:00 Intake Total 770 ml 780 ml Output Total 450 ml 2700 ml Balance 320 ml -1920 ml Intake Oral 770 ml 660 ml Other 120 ml Output Urine Total 450 ml 2400 ml Stool Total 300 ml Laboratory Tests 04/27/18 05:10: Sodium Level 140, Potassium Level 3.6, Chloride Level 106, Carbon Dioxide Level 24, Anion Gap 10, Blood Urea Nitrogen 15, Creatinine 1.2, Estimat Glomerular Filtration Rate > 60, Glucose Level 90, Calcium Level 8.6 Height (Feet): 5 Height (Inches): 9.00 Weight (Pounds): 211 General Appearance: no apparent distress, alert EENT: normal ENT inspection Neck: normal alignment, supple Cardiovascular: normal rate, regular rhythm Respiratory/Chest: normal breath sounds, no respiratory distress Abdomen: non tender, soft Edema: no edema noted Arm (L), no edema noted Arm (R), no edema noted Leg (L), no edema noted Leg (R), no edema noted Pedal (L), no edema noted Pedal (R), no edema noted Generalized Macario Kumar M.D. Apr 27, 2018 08:21
[2018-04-27] MEDS: Lactobacillus-GG tablet ORAL SCH ×2 (08:23→17:17)
--- NOTE | 2018-04-27 08:30 | General Progress Note ---
Assessment/Plan Problem List: (1) Renal failure ICD Codes: N19 - Unspecified kidney failure SNOMED: 47764082 Qualifiers: Qualified Codes: N19 - Unspecified kidney failure (2) Severe sepsis ICD Codes: A41.9 - Sepsis, unspecified organism; R65.20 - Severe sepsis without septic shock SNOMED: 05390154 (3) Paraplegia ICD Codes: G82.20 - Paraplegia, unspecified SNOMED: 09029212 (4) UTI (urinary tract infection) ICD Codes: N39.0 - Urinary tract infection, site not specified SNOMED: 57810672 Qualifiers: Qualified Codes: T83.511A - Infection and inflammatory reaction due to indwelling urethral catheter, initial encounter; N39.0 - Urinary tract infection , site not specified (5) Decubitus ulcer ICD Codes: L89.90 - Pressure ulcer of unspecified site, unspecified stage SNOMED: 953056690 Status: stable Assessment/Plan cont current rx wound care ?hospice Subjective ROS Limited/Unobtainable: No Constitutional: Reports: malaise, weakness HEENT: Reports: no symptoms Cardiovascular: Reports: no symptoms Respiratory: Reports: no symptoms Gastrointestinal/Abdominal: Reports: no symptoms Genitourinary: Reports: no symptoms Neurologic/Psychiatric: Reports: pre-existing deficit Endocrine: Reports: no symptoms Hematologic/Lymphatic: Reports: no symptoms Allergies: Coded Allergies: CHLORHEXIDINE (Verified Allergy, Unknown, 04/17/18) Pt states CHG gives him rashes All Systems: reviewed and negative except above Subjective no complaints. alert. no cp/sob. Objective Last 24 Hour Vital Signs Date Time Temp Pulse Resp B/P (MAP) Pulse Ox O2 Delivery O2 Flow Rate FiO2 04/27/18 08:12 97.4 71 18 98/57 97 Nasal Cannula 97.4 04/27/18 04:00 98.2 79 17 109/66 96 Room Air 98.2 04/27/18 02:53 98.1 04/27/18 01:54 98.1 04/27/18 00:00 98.1 74 17 134/78 96 Room Air 98.1 04/26/18 21:42 99.1 04/26/18 20:00 99.1 91 17 117/76 98 Room Air 99.1 04/26/18 17:28 98.4 04/26/18 15:42 98.4 79 20 116/69 98 98.4 04/26/18 13:09 99.0 04/26/18 11:48 99.0 68 20 127/76 97 99.0 04/26/18 09:37 62 18 101/66 96 Room Air Intake and Output 04/26/18 04/27/18 19:00 07:00 Intake Total 770 ml 780 ml Output Total 450 ml 2700 ml Balance 320 ml -1920 ml Intake Oral 770 ml 660 ml Other 120 ml Output Urine Total 450 ml 2400 ml Stool Total 300 ml Laboratory Tests 04/27/18 05:10: Sodium Level 140, Potassium Level 3.6, Chloride Level 106, Carbon Dioxide Level 24, Anion Gap 10, Blood Urea Nitrogen 15, Creatinine 1.2, Estimat Glomerular Filtration Rate > 60, Glucose Level 90, Calcium Level 8.6 Height (Feet): 5 Height (Inches): 9.00 Weight (Pounds): 211 General Appearance: WD/WN, alert Neck: supple Cardiovascular: regular rhythm Respiratory/Chest: chest wall non-tender, lungs clear, normal breath sounds Abdomen: normal bowel sounds, non tender, soft, no organomegaly Edema: no edema noted Arm (L), no edema noted Arm (R), no edema noted Leg (L), no edema noted Leg (R), no edema noted Pedal (L), no edema noted Pedal (R), no edema noted Generalized Alfa Marshall MD Apr 27, 2018 08:30
--- NOTE | 2018-04-27 13:29 | Infectious Diseases Prog Note ---
Assessment/Plan Assessment/Plan A 1. Proteus sepsis secondary to UTI treated 2. Proteus UTI treated 3. leucocytosis resolved 4. Acute renal failure resolved 5. paraplegia 6. shock, resolved, 7. 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 acute renal failure P 1.observe off antibiotic 2. agree with discharge Subjective ROS Limited/Unobtainable: No Constitutional: Reports: no symptoms Respiratory: Reports: no symptoms Cardiovascular: Reports: no symptoms Gastrointestinal/Abdominal: Reports: no symptoms Genitourinary: Reports: no symptoms Musculoskeletal: Reports: pain, other - in left hand Allergies: Coded Allergies: CHLORHEXIDINE (Verified Allergy, Unknown, 04/17/18) Pt states CHG gives him rashes Objective Vital Signs Last 24 Hour Vital Signs Date Time Temp Pulse Resp B/P (MAP) Pulse Ox O2 Delivery O2 Flow Rate FiO2 04/27/18 11:54 97.3 85 20 112/71 98 Nasal Cannula 97.3 04/27/18 08:12 97.4 71 18 98/57 97 Nasal Cannula 97.4 04/27/18 04:00 98.2 79 17 109/66 96 Room Air 98.2 04/27/18 02:53 98.1 04/27/18 01:54 98.1 04/27/18 00:00 98.1 74 17 134/78 96 Room Air 98.1 04/26/18 21:42 99.1 04/26/18 20:00 99.1 91 17 117/76 98 Room Air 99.1 04/26/18 17:28 98.4 04/26/18 15:42 98.4 79 20 116/69 98 98.4 Height (Feet): 5 Height (Inches): 9.00 Weight (Pounds): 211 General Appearance: no acute distress HEENT: mucous membranes moist Respiratory/Chest: lungs clear Cardiovascular: normal rate Abdomen: soft, non tender Extremities: no edema Neurologic/Psychiatric: alert, responsive, other - triplegic Laboratory Tests Test 04/27/18 05:10 Sodium Level 140 MMOL/L (136-145) Potassium Level 3.6 MMOL/L (3.5-5.1) Chloride Level 106 MMOL/L (98-107) Carbon Dioxide Level 24 MMOL/L (21-32) Anion Gap 10 mmol/L (5-15) Blood Urea Nitrogen 15 mg/dL (7-18) Creatinine 1.2 MG/DL (0.55-1.30) Estimat Glomerular Filtration Rate > 60 mL/min (>60) Glucose Level 90 MG/DL (74-106) Calcium Level 8.6 MG/DL (8.5-10.1) Current Medications Medications (Trade) Dose Ordered Sig/Aleyda Route PRN Reason Start Time Stop Time Status Last Admin Dose Admin Al Hydroxide/Mg Hydroxide (Mylanta) 30 ml Q6H PRN ORAL HEARTBURN 04/20/18 22:30 05/15/18 22:29 Ascorbic Acid (Vitamin C) 500 mg TWICE A DAY ORAL 04/21/18 09:00 05/16/18 08:59 04/27/18 08:09 Diphenhydramine HCl (Benadryl) 25 mg Q6H PRN IVP Itching 04/21/18 08:39 05/21/18 08:38 04/26/18 23:56 Fludrocortisone Acetate (Florinef) 0.1 mg DAILY ORAL 04/25/18 09:00 05/25/18 08:59 04/27/18 08:09 Heparin Sodium (Porcine) (Heparin 5000 units/ml) 5,000 units EVERY 12 HOURS SUBQ 04/20/18 22:00 05/15/18 21:59 04/27/18 08:08 Lactobacillus Acidophilus (Culturelle) 1 tab TWICE A DAY ORAL 04/21/18 09:00 05/16/18 08:59 04/27/18 08:23 Magnesium Hydroxide (Mom) 30 ml HSPRN PRN ORAL Constipation 04/20/18 22:30 05/15/18 22:29 Midodrine (Pro-Amatine) 10 mg THREE TIMES A DAY ORAL 04/21/18 09:00 05/19/18 08:59 04/27/18 12:43 Multivitamins (Multivitamins) 1 tab DAILY ORAL 04/21/18 09:00 05/16/18 08:59 04/27/18 08:09 Naloxone HCl (Narcan) 0.2 mg Q30MIN PRN IVP respiratory depression 04/20/18 21:00 05/20/18 09:14 Oxycodone/ Acetaminophen (Percocet 10/325) 1 tab Q4H PRN ORAL Severe Pain (Pain Scale 7-10) 04/25/18 09:15 05/01/18 21:14 04/27/18 12:44 Pantoprazole (Protonix) 40 mg DAILY ORAL 04/25/18 09:00 05/25/18 08:59 04/27/18 08:09 Potassium Chloride (K-Dur) 40 meq DAILY ORAL 04/21/18 09:00 05/20/18 08:59 04/27/18 08:09 Pregabalin (Lyrica) 50 mg THREE TIMES A DAY ORAL 04/21/18 09:00 05/20/18 10:59 04/27/18 12:43 Reyes Trevino MD Apr 27, 2018 13:29
--- NOTE | 2018-04-27 18:50 | General Progress Note ---
Assessment/Plan Assessment/Plan Assessment - paraplegia - chronic intestinal dysmotility - contractures - poor Px Recommendations - po as tolerated - temporary rectal decompression - can d/c rectal tube at time of discharge - Abx - Placement Subjective Allergies: Coded Allergies: CHLORHEXIDINE (Verified Allergy, Unknown, 04/17/18) Pt states CHG gives him rashes Subjective Feel OK no abd pain no vomiting rectal tube in place Objective Last 24 Hour Vital Signs Date Time Temp Pulse Resp B/P (MAP) Pulse Ox O2 Delivery O2 Flow Rate FiO2 04/27/18 16:00 98.8 68 18 143/84 96 Room Air 98.8 04/27/18 11:54 97.3 85 20 112/71 98 Nasal Cannula 97.3 04/27/18 08:12 97.4 71 18 98/57 97 Nasal Cannula 97.4 04/27/18 04:00 98.2 79 17 109/66 96 Room Air 98.2 04/27/18 02:53 98.1 04/27/18 01:54 98.1 04/27/18 00:00 98.1 74 17 134/78 96 Room Air 98.1 04/26/18 21:42 99.1 04/26/18 20:00 99.1 91 17 117/76 98 Room Air 99.1 Intake and Output 04/26/18 04/27/18 19:00 07:00 Intake Total 770 ml 780 ml Output Total 450 ml 2700 ml Balance 320 ml -1920 ml Intake Oral 770 ml 660 ml Other 120 ml Output Urine Total 450 ml 2400 ml Stool Total 300 ml Laboratory Tests 04/27/18 05:10: Sodium Level 140, Potassium Level 3.6, Chloride Level 106, Carbon Dioxide Level 24, Anion Gap 10, Blood Urea Nitrogen 15, Creatinine 1.2, Estimat Glomerular Filtration Rate > 60, Glucose Level 90, Calcium Level 8.6 Height (Feet): 5 Height (Inches): 9.00 Weight (Pounds): 211 Raiza Rodas MD Apr 27, 2018 18:50
--- NOTE | 2018-04-27 22:16 | General Surgery Progress Note ---
General Surgery-Progress Note Subjective Symptoms: improved Additional Comments KUB much improved. Objective Last 24 Hour Vital Signs Date Time Temp Pulse Resp B/P (MAP) Pulse Ox O2 Delivery O2 Flow Rate FiO2 04/27/18 20:22 98.0 80 24 105/62 95 98.0 04/27/18 20:00 98.0 80 24 105/62 95 Room Air 98.0 04/27/18 16:00 98.8 68 18 143/84 96 Room Air 98.8 04/27/18 11:54 97.3 85 20 112/71 98 Nasal Cannula 97.3 04/27/18 08:12 97.4 71 18 98/57 97 Nasal Cannula 97.4 04/27/18 04:00 98.2 79 17 109/66 96 Room Air 98.2 04/27/18 02:53 98.1 04/27/18 01:54 98.1 04/27/18 00:00 98.1 74 17 134/78 96 Room Air 98.1 I&O Intake and Output 04/26/18 04/27/18 19:00 07:00 Intake Total 770 ml 780 ml Output Total 450 ml 2700 ml Balance 320 ml -1920 ml Intake Oral 770 ml 660 ml Other 120 ml Output Urine Total 450 ml 2400 ml Stool Total 300 ml Drains: none Cardiovascular: RSR Respiratory: clear Abdomen: soft, distended, present bowel sounds Laboratory Tests Test 04/27/18 05:10 Sodium Level 140 MMOL/L (136-145) Potassium Level 3.6 MMOL/L (3.5-5.1) Chloride Level 106 MMOL/L (98-107) Carbon Dioxide Level 24 MMOL/L (21-32) Anion Gap 10 mmol/L (5-15) Blood Urea Nitrogen 15 mg/dL (7-18) Creatinine 1.2 MG/DL (0.55-1.30) Estimat Glomerular Filtration Rate > 60 mL/min (>60) Glucose Level 90 MG/DL (74-106) Calcium Level 8.6 MG/DL (8.5-10.1) Plan Problems: (1) Sepsis Assessment & Plan: 57M with sepsis. likely etiology UTI. recently noted to have abdominal distention. KUB ordered and concerns for possible volvulus. CT ordered and no obstruction or volvulus noted. dilated redundant sigmoid colon air filled. still watery stool in rectal tube. exam with distention but otherwise benign. differential could be atonic colon developing, hirschsprung adult, pseudo- obstruction s/p high rectal tube insertion by GI with good result KUB shows improvement -no acute surgical intervention planned -appreciate GI input Sacral decubitus ulcer stage IV evaluated. please refer to wound care photos for size and measurements. 2-3cm deep, 2cm undermining in inferior aspect. does get stool in wound at times given proximity to anus. some granulation tissue. no foul odor. serous drainage. minimal eschar and necrotic tissues. -No acute debridement necessary. -air soft mattress, gauze packing and dressings TID for now. -will follow with recs. thank you for this consultation. Alo Martin Apr 27, 2018 22:16
[2018-04-27] MEDS: DiphenhydrAMINE 50mg/ml Inj IVP PRN (22:46)
[2018-04-28 04:00] VITALS: BP 100/59
[2018-04-28] MEDS: DiphenhydrAMINE 50mg/ml Inj IVP PRN (04:53)
[2018-04-28 08:00] VITALS: BP 81/36
[2018-04-28] MEDS: Ascorbic Acid 500mg tab ORAL SCH ×2 (08:26→17:29)
[2018-04-28] MEDS: Lyrica 50mg cap ORAL SCH ×3 (08:27→17:29)
[2018-04-28] MEDS: Midodrine 10mg tab ORAL SCH ×3 (08:27→17:30)
[2018-04-28] MEDS: Lactobacillus-GG tablet ORAL SCH ×2 (08:27→17:29)
--- NOTE | 2018-04-28 08:28 | General Progress Note ---
Assessment/Plan Problem List: (1) Renal failure ICD Codes: N19 - Unspecified kidney failure SNOMED: 43251568 Qualifiers: Qualified Codes: N19 - Unspecified kidney failure (2) Severe sepsis ICD Codes: A41.9 - Sepsis, unspecified organism; R65.20 - Severe sepsis without septic shock SNOMED: 47431332 (3) Paraplegia ICD Codes: G82.20 - Paraplegia, unspecified SNOMED: 01439418 (4) UTI (urinary tract infection) ICD Codes: N39.0 - Urinary tract infection, site not specified SNOMED: 99481748 Qualifiers: Qualified Codes: T83.511A - Infection and inflammatory reaction due to indwelling urethral catheter, initial encounter; N39.0 - Urinary tract infection , site not specified (5) Decubitus ulcer ICD Codes: L89.90 - Pressure ulcer of unspecified site, unspecified stage SNOMED: 855844034 Status: stable Assessment/Plan cont current rx wound care ?hospice- pt refusing dc planning pt wants to go closer to [facility] Subjective ROS Limited/Unobtainable: No Constitutional: Reports: malaise, weakness HEENT: Reports: no symptoms Cardiovascular: Reports: no symptoms Respiratory: Reports: no symptoms Gastrointestinal/Abdominal: Reports: no symptoms Genitourinary: Reports: no symptoms Neurologic/Psychiatric: Reports: pre-existing deficit Endocrine: Reports: no symptoms Hematologic/Lymphatic: Reports: no symptoms Allergies: Coded Allergies: CHLORHEXIDINE (Verified Allergy, Unknown, 04/17/18) Pt states CHG gives him rashes All Systems: reviewed and negative except above Subjective no complaints. alert. no cp/sob. does not want hospice. no pain Objective Last 24 Hour Vital Signs Date Time Temp Pulse Resp B/P (MAP) Pulse Ox O2 Delivery O2 Flow Rate FiO2 04/28/18 08:00 97.8 72 20 81/36 98 97.8 04/28/18 04:00 98.1 67 24 100/59 96 98.1 04/27/18 23:47 98.5 74 22 100/56 95 98.5 04/27/18 20:22 98.0 80 24 105/62 95 98.0 04/27/18 20:00 98.0 80 24 105/62 95 Room Air 98.0 04/27/18 16:00 98.8 68 18 143/84 96 Room Air 98.8 04/27/18 11:54 97.3 85 20 112/71 98 Nasal Cannula 97.3 Intake and Output 04/27/18 04/28/18 19:00 07:00 Intake Total 720 ml 100 ml Output Total 900 ml 1300 ml Balance -180 ml -1200 ml Intake Oral 600 ml 100 ml Other 120 ml Output Urine Total 850 ml 1100 ml Stool Total 50 ml 200 ml Height (Feet): 5 Height (Inches): 9.00 Weight (Pounds): 211 Objective General Appearance: WD/WN, alert Neck: supple Cardiovascular: regular rhythm Respiratory/Chest: chest wall non-tender, lungs clear, normal breath sounds Abdomen: normal bowel sounds, non tender, soft, no organomegaly Edema: no edema noted Arm (L), no edema noted Arm (R), no edema noted Leg (L), no edema noted Leg (R), no edema noted Pedal (L), no edema noted Pedal (R), no edema noted Generalized Alfa Marshall MD Apr 28, 2018 08:28
[2018-04-28] MEDS: Heparin 5000 units/ml inj SUBQ SCH ×2 (08:31→20:47)
--- NOTE | 2018-04-28 08:41 | General Progress Note ---
Assessment/Plan Assessment/Plan (1) Spinal cord injury (2) H/o heroin abuse (3) Decubitus ulcer (4) Paraplegia (5) Neuropathic pain (6) Intractable pain Patient will be continued on Percocet and Lyrica D/w Dr. Byrd and he concurred. Subjective Date patient seen: Apr 28, 2018 Time patient seen: 07:15 - am Allergies: Coded Allergies: CHLORHEXIDINE (Verified Allergy, Unknown, 04/17/18) Pt states CHG gives him rashes Subjective Constitutional: Reports: weakness HEENT: Reports: no symptoms Cardiovascular: Reports: no symptoms Respiratory: Reports: no symptoms Gastrointestinal/Abdominal: Reports: no symptoms Genitourinary: Reports: no symptoms Neurologic/Psychiatric: Reports: numbness, tingling Endocrine: Reports: no symptoms Hematologic/Lymphatic: Reports: no symptoms Subjective Patient is in bed and continues to c/o body pain which has be tolerated on the Percocet. He has no new complaints.. Objective Last 24 Hour Vital Signs Date Time Temp Pulse Resp B/P (MAP) Pulse Ox O2 Delivery O2 Flow Rate FiO2 04/28/18 08:00 97.8 72 20 81/36 98 97.8 04/28/18 04:00 98.1 67 24 100/59 96 98.1 04/27/18 23:47 98.5 74 22 100/56 95 98.5 04/27/18 20:22 98.0 80 24 105/62 95 98.0 04/27/18 20:00 98.0 80 24 105/62 95 Room Air 98.0 04/27/18 16:00 98.8 68 18 143/84 96 Room Air 98.8 04/27/18 11:54 97.3 85 20 112/71 98 Nasal Cannula 97.3 Intake and Output 04/27/18 04/28/18 19:00 07:00 Intake Total 720 ml 100 ml Output Total 900 ml 1300 ml Balance -180 ml -1200 ml Intake Oral 600 ml 100 ml Other 120 ml Output Urine Total 850 ml 1100 ml Stool Total 50 ml 200 ml Height (Feet): 5 Height (Inches): 9.00 Weight (Pounds): 211 Objective GENERAL: Alert, awake, and oriented. HEENT: PERRLA. NECK: Range of motion is decreased due to the patient's condition. LUNGS: Decreased breath sounds bilaterally. ABDOMEN: Benign. BACK: Range of motion is decreased in flexion and extension with decubitus ulcer noted. EXTREMITIES: Upper and lower extremity range of motion is decreased with joint contractures seen. Tenderness to palpation. Luiz Lees Apr 28, 2018 08:41
--- NOTE | 2018-04-28 08:53 | Nephrology Progress Note ---
Assessment/Plan Assessment/Plan 1. SHARDA- multifact ATN ( hypotension/sepsis) - Cr stable. OK for DC from renal point. Will check BMP Sat if still here - Midrodrine + Florinef 3. UTI- Abx completed 4. Paraplegic- per PCP mgmt 5. Hypokalemia- corrected. BMP Sat Subjective Date patient seen: Apr 28, 2018 Time patient seen: 08:51 Allergies: Coded Allergies: CHLORHEXIDINE (Verified Allergy, Unknown, 04/17/18) Pt states CHG gives him rashes All Systems: reviewed and negative except above Subjective Awaiting DC to SNF. Itching today Objective Last 24 Hour Vital Signs Date Time Temp Pulse Resp B/P (MAP) Pulse Ox O2 Delivery O2 Flow Rate FiO2 04/28/18 08:00 97.8 72 20 81/36 98 97.8 04/28/18 04:00 98.1 67 24 100/59 96 98.1 04/27/18 23:47 98.5 74 22 100/56 95 98.5 04/27/18 20:22 98.0 80 24 105/62 95 98.0 04/27/18 20:00 98.0 80 24 105/62 95 Room Air 98.0 04/27/18 16:00 98.8 68 18 143/84 96 Room Air 98.8 04/27/18 11:54 97.3 85 20 112/71 98 Nasal Cannula 97.3 Intake and Output 04/27/18 04/28/18 19:00 07:00 Intake Total 720 ml 100 ml Output Total 900 ml 1300 ml Balance -180 ml -1200 ml Intake Oral 600 ml 100 ml Other 120 ml Output Urine Total 850 ml 1100 ml Stool Total 50 ml 200 ml Height (Feet): 5 Height (Inches): 9.00 Weight (Pounds): 211 General Appearance: no apparent distress, alert EENT: normal ENT inspection, TMs normal Neck: normal alignment, supple Cardiovascular: normal rate, regular rhythm Respiratory/Chest: lungs clear, normal breath sounds Abdomen: non tender, soft Edema: no edema noted Arm (L), no edema noted Arm (R), no edema noted Leg (L), no edema noted Leg (R), no edema noted Pedal (L), no edema noted Pedal (R), no edema noted Generalized Macario Kumar M.D. Apr 28, 2018 08:53
[2018-04-28 10:32] VITALS: BP 113/69
[2018-04-28] MEDS ORDERED: DiphenhydrAMINE & Zinc 28g Cream TOPIC PRN (11:00)
[2018-04-28 12:00] VITALS: BP 110/68
--- NOTE | 2018-04-28 12:14 | Infectious Diseases Prog Note ---
Assessment/Plan Assessment/Plan A 1. Proteus sepsis secondary to UTI treated 2. Proteus UTI treated 3. leucocytosis resolved 4. Acute renal failure resolved 5. paraplegia 6. shock, resolved, 7. 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 acute renal failure P 1.observe off antibiotic 2. agree with discharge Subjective ROS Limited/Unobtainable: Yes Allergies: Coded Allergies: CHLORHEXIDINE (Verified Allergy, Unknown, 04/17/18) Pt states CHG gives him rashes Objective Vital Signs Last 24 Hour Vital Signs Date Time Temp Pulse Resp B/P (MAP) Pulse Ox O2 Delivery O2 Flow Rate FiO2 04/28/18 11:33 97.8 04/28/18 10:34 97.8 04/28/18 10:32 79 113/69 04/28/18 08:00 97.8 72 20 81/36 98 97.8 04/28/18 04:00 98.1 67 24 100/59 96 98.1 04/27/18 23:47 98.5 74 22 100/56 95 98.5 04/27/18 20:22 98.0 80 24 105/62 95 98.0 04/27/18 20:00 98.0 80 24 105/62 95 Room Air 98.0 04/27/18 16:00 98.8 68 18 143/84 96 Room Air 98.8 Height (Feet): 5 Height (Inches): 9.00 Weight (Pounds): 211 General Appearance: no acute distress HEENT: mucous membranes moist Respiratory/Chest: lungs clear Cardiovascular: normal rate Abdomen: soft, non tender Extremities: no edema Neurologic/Psychiatric: other - sleeping Current Medications Medications (Trade) Dose Ordered Sig/Aleyda Route PRN Reason Start Time Stop Time Status Last Admin Dose Admin Al Hydroxide/Mg Hydroxide (Mylanta) 30 ml Q6H PRN ORAL HEARTBURN 04/20/18 22:30 05/15/18 22:29 Ascorbic Acid (Vitamin C) 500 mg TWICE A DAY ORAL 04/21/18 09:00 05/16/18 08:59 04/28/18 08:26 Diphenhydramine HCl (Benadryl Cream) 1 applic THREE TIMES A DAY PRN TOPIC Itching 04/28/18 11:00 05/28/18 10:59 Diphenhydramine HCl (Benadryl) 25 mg Q4H PRN IVP Itching 04/28/18 09:00 05/28/18 08:59 Fludrocortisone Acetate (Florinef) 0.1 mg DAILY ORAL 04/25/18 09:00 05/25/18 08:59 04/28/18 08:27 Heparin Sodium (Porcine) (Heparin 5000 units/ml) 5,000 units EVERY 12 HOURS SUBQ 04/20/18 22:00 05/15/18 21:59 04/28/18 08:31 Lactobacillus Acidophilus (Culturelle) 1 tab TWICE A DAY ORAL 04/21/18 09:00 05/16/18 08:59 04/28/18 08:27 Magnesium Hydroxide (Mom) 30 ml HSPRN PRN ORAL Constipation 04/20/18 22:30 05/15/18 22:29 Midodrine (Pro-Amatine) 10 mg THREE TIMES A DAY ORAL 04/21/18 09:00 05/19/18 08:59 04/28/18 08:27 Multivitamins (Multivitamins) 1 tab DAILY ORAL 04/21/18 09:00 05/16/18 08:59 04/28/18 08:27 Naloxone HCl (Narcan) 0.2 mg Q30MIN PRN IVP respiratory depression 04/20/18 21:00 05/20/18 09:14 Oxycodone/ Acetaminophen (Percocet 10/325) 1 tab Q4H PRN ORAL Severe Pain (Pain Scale 7-10) 04/25/18 09:15 05/01/18 21:14 04/28/18 10:34 Pantoprazole (Protonix) 40 mg DAILY ORAL 04/25/18 09:00 05/25/18 08:59 04/28/18 08:26 Potassium Chloride (K-Dur) 40 meq DAILY ORAL 04/21/18 09:00 05/20/18 08:59 04/28/18 08:28 Pregabalin (Lyrica) 50 mg THREE TIMES A DAY ORAL 04/21/18 09:00 05/20/18 10:59 04/28/18 08:27 Reyes Trevino MD Apr 28, 2018 12:14
--- NOTE | 2018-04-28 15:51 | General Surgery Progress Note ---
General Surgery-Progress Note Subjective Symptoms: improved Additional Comments no acute events. abd exam improved. good output in bag Objective Last 24 Hour Vital Signs Date Time Temp Pulse Resp B/P (MAP) Pulse Ox O2 Delivery O2 Flow Rate FiO2 04/28/18 12:00 98.0 73 19 110/68 98 98.0 04/28/18 12:00 Room Air 04/28/18 11:33 97.8 04/28/18 10:34 97.8 04/28/18 10:32 79 113/69 04/28/18 08:00 97.8 72 20 81/36 98 97.8 04/28/18 04:00 98.1 67 24 100/59 96 98.1 04/27/18 23:47 98.5 74 22 100/56 95 98.5 04/27/18 20:22 98.0 80 24 105/62 95 98.0 04/27/18 20:00 98.0 80 24 105/62 95 Room Air 98.0 04/27/18 16:00 98.8 68 18 143/84 96 Room Air 98.8 I&O Intake and Output 04/27/18 04/28/18 19:00 07:00 Intake Total 720 ml 100 ml Output Total 900 ml 1300 ml Balance -180 ml -1200 ml Intake Oral 600 ml 100 ml Other 120 ml Output Urine Total 850 ml 1100 ml Stool Total 50 ml 200 ml Drains: other Cardiovascular: RSR Respiratory: clear Abdomen: soft, distended, non-tender, present bowel sounds Extremities: no cyanosis Plan Problems: (1) Sepsis Assessment & Plan: 57M with sepsis. likely etiology UTI. recently noted to have abdominal distention. KUB ordered and concerns for possible volvulus. CT ordered and no obstruction or volvulus noted. dilated redundant sigmoid colon air filled. still watery stool in rectal tube. exam with distention but otherwise benign. differential could be atonic colon developing, hirschsprung adult, pseudo- obstruction s/p high rectal tube insertion by GI with good result KUB shows improvement -no acute surgical intervention planned -appreciate GI input Sacral decubitus ulcer stage IV evaluated. please refer to wound care photos for size and measurements. 2-3cm deep, 2cm undermining in inferior aspect. does get stool in wound at times given proximity to anus. some granulation tissue. no foul odor. serous drainage. minimal eschar and necrotic tissues. -No acute debridement necessary. -air soft mattress, gauze packing and dressings TID for now. -will follow with recs. thank you for this consultation. Alo Martin Apr 28, 2018 15:51
[2018-04-28 16:00] VITALS: BP 123/77
[2018-04-28 20:00] VITALS: BP 92/60
--- NOTE | 2018-04-28 22:26 | General Progress Note ---
Assessment/Plan Assessment/Plan Assessment - paraplegia - chronic intestinal dysmotility - contractures - poor Px Recommendations - po as tolerated - temporary rectal decompression - can d/c rectal tube at time of discharge - Abx - Placement Subjective Allergies: Coded Allergies: CHLORHEXIDINE (Verified Allergy, Unknown, 04/17/18) Pt states CHG gives him rashes Subjective Feel OK no abd pain no vomiting rectal tube in place Objective Last 24 Hour Vital Signs Date Time Temp Pulse Resp B/P (MAP) Pulse Ox O2 Delivery O2 Flow Rate FiO2 04/28/18 22:22 98.1 04/28/18 21:23 98.1 04/28/18 20:00 98.1 84 18 92/60 97 Room Air 98.1 04/28/18 16:43 97.8 04/28/18 16:00 Room Air 04/28/18 16:00 97.8 65 20 123/77 97 97.8 04/28/18 12:00 98.0 73 19 110/68 98 98.0 04/28/18 12:00 Room Air 04/28/18 10:34 97.8 04/28/18 10:32 79 113/69 04/28/18 08:00 97.8 72 20 81/36 98 97.8 04/28/18 04:00 98.1 67 24 100/59 96 98.1 04/27/18 23:47 98.5 74 22 100/56 95 98.5 Intake and Output 04/27/18 04/28/18 19:00 07:00 Intake Total 720 ml 100 ml Output Total 900 ml 1300 ml Balance -180 ml -1200 ml Intake Oral 600 ml 100 ml Other 120 ml Output Urine Total 850 ml 1100 ml Stool Total 50 ml 200 ml Height (Feet): 5 Height (Inches): 9.00 Weight (Pounds): 211 Raiza Rodas MD Apr 28, 2018 22:26
[2018-04-29] VITALS (7 sets, daily range): BP systolic 77–123; BP diastolic 46–93
--- NOTE | 2018-04-29 08:10 | General Progress Note ---
Assessment/Plan Problem List: (1) Renal failure ICD Codes: N19 - Unspecified kidney failure SNOMED: 98154978 Qualifiers: Qualified Codes: N19 - Unspecified kidney failure (2) Severe sepsis ICD Codes: A41.9 - Sepsis, unspecified organism; R65.20 - Severe sepsis without septic shock SNOMED: 74888493 (3) Paraplegia ICD Codes: G82.20 - Paraplegia, unspecified SNOMED: 92158191 (4) UTI (urinary tract infection) ICD Codes: N39.0 - Urinary tract infection, site not specified SNOMED: 31647552 Qualifiers: Qualified Codes: T83.511A - Infection and inflammatory reaction due to indwelling urethral catheter, initial encounter; N39.0 - Urinary tract infection , site not specified (5) Decubitus ulcer ICD Codes: L89.90 - Pressure ulcer of unspecified site, unspecified stage SNOMED: 962736916 Status: stable Assessment/Plan cont current rx wound care ?hospice- pt refusing picc line dc planning pt wants to go closer to [facility] Subjective ROS Limited/Unobtainable: No Constitutional: Reports: malaise, weakness HEENT: Reports: no symptoms Cardiovascular: Reports: no symptoms Respiratory: Reports: no symptoms Gastrointestinal/Abdominal: Reports: no symptoms Genitourinary: Reports: no symptoms Neurologic/Psychiatric: Reports: pre-existing deficit Endocrine: Reports: no symptoms Hematologic/Lymphatic: Reports: no symptoms Allergies: Coded Allergies: CHLORHEXIDINE (Verified Allergy, Unknown, 04/17/18) Pt states CHG gives him rashes All Systems: reviewed and negative except above Subjective no complaints. alert. no cp/sob. does not want hospice. no pain wants picc line. poor access Objective Last 24 Hour Vital Signs Date Time Temp Pulse Resp B/P (MAP) Pulse Ox O2 Delivery O2 Flow Rate FiO2 04/29/18 06:49 98.0 04/29/18 05:50 98.0 04/29/18 04:00 98.0 65 18 122/93 95 Room Air 98.0 04/29/18 01:31 97.9 04/29/18 00:00 97.9 80 19 100/80 96 Room Air 97.9 04/28/18 21:23 98.1 04/28/18 20:00 98.1 84 18 92/60 97 Room Air 98.1 04/28/18 16:43 97.8 04/28/18 16:00 Room Air 04/28/18 16:00 97.8 65 20 123/77 97 97.8 04/28/18 12:00 98.0 73 19 110/68 98 98.0 04/28/18 12:00 Room Air 04/28/18 10:34 97.8 04/28/18 10:32 79 113/69 Intake and Output 04/28/18 04/29/18 19:00 07:00 Intake Total 400 ml 720 ml Output Total 1000 ml 1150 ml Balance -600 ml -430 ml Intake Oral 400 ml 600 ml Other 120 ml Output Urine Total 900 ml 975 ml Stool Total 100 ml 175 ml Height (Feet): 5 Height (Inches): 9.00 Weight (Pounds): 211 Objective General Appearance: WD/WN, alert Neck: supple Cardiovascular: regular rhythm Respiratory/Chest: chest wall non-tender, lungs clear, normal breath sounds Abdomen: normal bowel sounds, non tender, soft, no organomegaly Edema: no edema noted Arm (L), no edema noted Arm (R), no edema noted Leg (L), no edema noted Leg (R), no edema noted Pedal (L), no edema noted Pedal (R), no edema noted Generalized Alfa Marshall MD Apr 29, 2018 08:09
[2018-04-29] MEDS ORDERED: Lidocaine 1% Plain 30 ml INJ PRN (08:15)
[2018-04-29] MEDS ORDERED: Heparin 2000 units/Ns 1000ml INJ PRN (09:00)
[2018-04-29] MEDS: Heparin 5000 units/ml inj SUBQ SCH ×2 (09:00→21:20)
--- NOTE | 2018-04-29 09:01 | General Progress Note ---
Assessment/Plan Assessment/Plan (1) Spinal cord injury (2) H/o heroin abuse (3) Decubitus ulcer (4) Paraplegia (5) Neuropathic pain (6) Intractable pain Patient will be continued on Percocet and Lyrica D/w Dr. Byrd and he concurred. Subjective Date patient seen: Apr 29, 2018 Time patient seen: 07:15 - am Allergies: Coded Allergies: CHLORHEXIDINE (Verified Allergy, Unknown, 04/17/18) Pt states CHG gives him rashes Subjective Constitutional: Reports: weakness HEENT: Reports: no symptoms Cardiovascular: Reports: no symptoms Respiratory: Reports: no symptoms Gastrointestinal/Abdominal: Reports: no symptoms Genitourinary: Reports: no symptoms Neurologic/Psychiatric: Reports: numbness, tingling Endocrine: Reports: no symptoms Hematologic/Lymphatic: Reports: no symptoms Subjective Patient is in bed pain has been unchanged and tolerated on the Percocet having 5 doses in the last 24hrs. No new complaints. Objective Last 24 Hour Vital Signs Date Time Temp Pulse Resp B/P (MAP) Pulse Ox O2 Delivery O2 Flow Rate FiO2 04/29/18 08:00 97.5 67 20 77/49 98 97.5 04/29/18 08:00 97.5 67 18 77/49 98 Room Air 97.5 04/29/18 06:49 98.0 04/29/18 05:50 98.0 04/29/18 04:00 98.0 65 18 122/93 95 Room Air 98.0 04/29/18 01:31 97.9 04/29/18 00:00 97.9 80 19 100/80 96 Room Air 97.9 04/28/18 21:23 98.1 04/28/18 20:00 98.1 84 18 92/60 97 Room Air 98.1 04/28/18 16:43 97.8 04/28/18 16:00 Room Air 04/28/18 16:00 97.8 65 20 123/77 97 97.8 04/28/18 12:00 98.0 73 19 110/68 98 98.0 04/28/18 12:00 Room Air 04/28/18 10:34 97.8 04/28/18 10:32 79 113/69 Intake and Output 04/28/18 04/29/18 19:00 07:00 Intake Total 400 ml 720 ml Output Total 1000 ml 1150 ml Balance -600 ml -430 ml Intake Oral 400 ml 600 ml Other 120 ml Output Urine Total 900 ml 975 ml Stool Total 100 ml 175 ml Height (Feet): 5 Height (Inches): 9.00 Weight (Pounds): 211 Objective GENERAL: Alert, awake, and oriented. HEENT: PERRLA. NECK: Range of motion is decreased due to the patient's condition. LUNGS: Decreased breath sounds bilaterally. ABDOMEN: Benign. BACK: Range of motion is decreased in flexion and extension with decubitus ulcer noted. EXTREMITIES: Upper and lower extremity range of motion is decreased with joint contractures seen. Tenderness to palpation. Luiz Lees Apr 29, 2018 09:01
[2018-04-29] MEDS: Midodrine 10mg tab ORAL SCH ×3 (09:23→17:46)
[2018-04-29] MEDS: Lactobacillus-GG tablet ORAL SCH ×2 (09:23→17:46)
[2018-04-29] MEDS: Ascorbic Acid 500mg tab ORAL SCH ×2 (09:23→17:46)
[2018-04-29] MEDS: Lyrica 50mg cap ORAL SCH ×3 (09:24→17:46)
--- NOTE | 2018-04-29 11:14 | Infectious Diseases Prog Note ---
Assessment/Plan Assessment/Plan antibiotics : none A 1. proteus sepsis secondary to UTI s/p rx 2. proteus UTI s/p rx 3. leucocytosis resolved 4. renal failure resolved 5. paraplegia 6. shock resolved 7. sacral decubitus ulcer P 1. continue off antibiotics Subjective ROS Limited/Unobtainable: Yes Allergies: Coded Allergies: CHLORHEXIDINE (Verified Allergy, Unknown, 04/17/18) Pt states CHG gives him rashes Objective Vital Signs Last 24 Hour Vital Signs Date Time Temp Pulse Resp B/P (MAP) Pulse Ox O2 Delivery O2 Flow Rate FiO2 04/29/18 09:47 97.2 69 18 85/46 97 Room Air 97.2 04/29/18 08:00 97.5 67 20 77/49 98 97.5 04/29/18 08:00 97.5 67 18 77/49 98 Room Air 97.5 04/29/18 06:49 98.0 04/29/18 05:50 98.0 04/29/18 04:00 98.0 65 18 122/93 95 Room Air 98.0 04/29/18 01:31 97.9 04/29/18 00:00 97.9 80 19 100/80 96 Room Air 97.9 04/28/18 21:23 98.1 04/28/18 20:00 98.1 84 18 92/60 97 Room Air 98.1 04/28/18 16:43 97.8 04/28/18 16:00 Room Air 04/28/18 16:00 97.8 65 20 123/77 97 97.8 04/28/18 12:00 98.0 73 19 110/68 98 98.0 04/28/18 12:00 Room Air Height (Feet): 5 Height (Inches): 9.00 Weight (Pounds): 211 Respiratory/Chest: lungs clear Cardiovascular: normal rate, regular rhythm, no gallop/murmur Abdomen: soft, non tender Extremities: no edema Current Medications Medications (Trade) Dose Ordered Sig/Aleyda Route PRN Reason Start Time Stop Time Status Last Admin Dose Admin Acetaminophen (Tylenol) 650 mg Q6H PRN ORAL Shivering 04/29/18 11:00 05/29/18 10:59 Al Hydroxide/Mg Hydroxide (Mylanta) 30 ml Q6H PRN ORAL HEARTBURN 04/20/18 22:30 05/15/18 22:29 Ascorbic Acid (Vitamin C) 500 mg TWICE A DAY ORAL 04/21/18 09:00 05/16/18 08:59 04/29/18 09:23 Diphenhydramine HCl (Benadryl Cream) 1 applic THREE TIMES A DAY PRN TOPIC Itching 04/28/18 11:00 05/28/18 10:59 Diphenhydramine HCl (Benadryl) 25 mg Q4H PRN IVP Itching 04/28/18 09:00 05/28/18 08:59 Fludrocortisone Acetate (Florinef) 0.1 mg DAILY ORAL 04/25/18 09:00 05/25/18 08:59 04/29/18 09:25 Heparin Sodium (Porcine) (Heparin 5000 units/ml) 5,000 units EVERY 12 HOURS SUBQ 04/20/18 22:00 05/15/18 21:59 04/28/18 20:47 Heparin Sodium/ Sodium Chloride (Heparin 2000 units/Ns 1000ml premix) 2,000 unit DAILY PRN INJ for picc line placement 04/29/18 09:00 05/01/18 08:59 Lactobacillus Acidophilus (Culturelle) 1 tab TWICE A DAY ORAL 04/21/18 09:00 05/16/18 08:59 04/29/18 09:23 Lidocaine HCl (Xylocaine 1% 30ml) 30 ml ONCE PRN INJ for picc line placement 04/29/18 08:15 05/01/18 08:14 Magnesium Hydroxide (Mom) 30 ml HSPRN PRN ORAL Constipation 04/20/18 22:30 05/15/18 22:29 Midodrine (Pro-Amatine) 10 mg THREE TIMES A DAY ORAL 04/21/18 09:00 05/19/18 08:59 04/29/18 09:23 Multivitamins (Multivitamins) 1 tab DAILY ORAL 04/21/18 09:00 05/16/18 08:59 04/29/18 09:23 Naloxone HCl (Narcan) 0.2 mg Q30MIN PRN IVP respiratory depression 04/20/18 21:00 05/20/18 09:14 Oxycodone/ Acetaminophen (Percocet 10/325) 1 tab Q4H PRN ORAL Severe Pain (Pain Scale 7-10) 04/25/18 09:15 05/01/18 21:14 04/29/18 05:50 Pantoprazole (Protonix) 40 mg DAILY ORAL 04/25/18 09:00 05/25/18 08:59 04/29/18 09:23 Potassium Chloride (K-Dur) 40 meq DAILY ORAL 04/21/18 09:00 05/20/18 08:59 04/29/18 09:24 Pregabalin (Lyrica) 50 mg THREE TIMES A DAY ORAL 04/21/18 09:00 05/20/18 10:59 04/29/18 09:24 SABI COLON Apr 29, 2018 11:14
--- NOTE | 2018-04-29 11:47 | Diagnostic Imaging Report ---
Indications: Needs long-term IV access Technique: Ultrasound confirms patent compressible left basilic vein. Total sterile technique, including sterile probe cover and sterile gel, hat, mask,, sterile gown, large sterile drape, and preparation with 2% chlorhexidine utilized. Local anesthesia with 1% lidocaine. Under real-time ultrasound guidance, puncture basilic vein using 21-gauge needle, documented and archived, passage 0.018 guidewire under direct fluoroscopy, which was used to determine appropriate catheter length, exchange for 5 Bengali peel-away sheath. 5 Bengali Bard dual-lumen power PICC cut to 45 cm. It was inserted through the peel-away sheath. Peel-away sheath and guidewire removed. Catheter fixed to the skin. Both catheter ports aspirated and flushed. Patient tolerated procedure well, without immediate complication. Digital radiograph documents satisfactory catheter tip position, at the cavoatrial junction. Total fluoroscopy time 0.4 minutes. Total dose area product 26 dGycm2 Impression: Successful placement of PICC under sonographic and fluoroscopic guidance, as described above.
--- NOTE | 2018-04-29 15:12 | General Surgery Progress Note ---
General Surgery-Progress Note Subjective Symptoms: improved, pain absent, tolerating diet, BM Additional Comments overall improving Objective Last 24 Hour Vital Signs Date Time Temp Pulse Resp B/P (MAP) Pulse Ox O2 Delivery O2 Flow Rate FiO2 04/29/18 12:12 97.2 04/29/18 12:12 97.2 04/29/18 12:00 97.7 66 20 123/73 97 97.7 04/29/18 11:13 99.1 04/29/18 11:13 97.2 04/29/18 09:47 97.2 69 18 85/46 97 Room Air 97.2 04/29/18 08:00 97.5 67 20 77/49 98 97.5 04/29/18 08:00 97.5 67 18 77/49 98 Room Air 97.5 04/29/18 05:50 98.0 04/29/18 04:00 98.0 65 18 122/93 95 Room Air 98.0 04/29/18 01:31 97.9 04/29/18 00:00 97.9 80 19 100/80 96 Room Air 97.9 04/28/18 21:23 98.1 04/28/18 20:00 98.1 84 18 92/60 97 Room Air 98.1 04/28/18 16:43 97.8 04/28/18 16:00 Room Air 04/28/18 16:00 97.8 65 20 123/77 97 97.8 I&O Intake and Output 04/28/18 04/29/18 19:00 07:00 Intake Total 400 ml 720 ml Output Total 1000 ml 1150 ml Balance -600 ml -430 ml Intake Oral 400 ml 600 ml Other 120 ml Output Urine Total 900 ml 975 ml Stool Total 100 ml 175 ml Drains: other - rectal Cardiovascular: RSR Respiratory: clear Abdomen: soft, distended, non-tender, present bowel sounds Extremities: no edema, no tenderness Plan Problems: (1) Sepsis Assessment & Plan: 57M with sepsis. likely etiology UTI. recently noted to have abdominal distention. KUB ordered and concerns for possible volvulus. CT ordered and no obstruction or volvulus noted. dilated redundant sigmoid colon air filled. still watery stool in rectal tube. exam with distention but otherwise benign. differential could be atonic colon developing, hirschsprung adult, pseudo- obstruction s/p high rectal tube insertion by GI with good result KUB shows improvement -no acute surgical intervention planned -appreciate GI input Overall much improved and decompressed. rectal tube to be removed upon discharge. unfortunately may recur and if so will need to be monitored. discussed considerations for diverting loop colostomy given medical condition, sacral wounds, and prior events. 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 please refer to wound care photos for size and measurements. 2-3cm deep, 2cm undermining in inferior aspect. does get stool in wound at times given proximity to anus. some granulation tissue. no foul odor. serous drainage. minimal eschar and necrotic tissues. -No acute debridement necessary. -air soft mattress, gauze packing and dressings TID for now. -will follow with recs. thank you for this consultation. Alo Martin Apr 29, 2018 15:12
[2018-04-29 16:05] LABS: ALANINE AMINOTRANSFERASE 19 U/L (12-78); ALBUMIN 3.1 G/DL (3.4-5.0); ALBUMIN/GLOBULIN RATIO 0.7 (1.0-2.7); ALKALINE PHOSPHATASE 114 U/L (46-116); ANION GAP 8 mmol/L (5-15); ASPARTATE AMINO TRANSFERASE 18 U/L (15-37); BILIRUBIN,TOTAL 0.1 MG/DL (0.2-1.0); BLOOD UREA NITROGEN 23 mg/dL (7-18); CALCIUM 8.7 MG/DL (8.5-10.1); CARBON DIOXIDE 26 MMOL/L (21-32); CHLORIDE 107 MMOL/L (98-107); CREATININE 1.3 MG/DL (0.55-1.30); POTASSIUM 4.4 MMOL/L (3.5-5.1); SODIUM 141 MMOL/L (136-145)
[2018-04-29 16:37] LABS: HEMATOCRIT 31.5 % (42.0-52.0); HEMOGLOBIN 9.9 G/DL (14.2-18.0); MEAN CORPUSCULAR VOLUME 86 FL (80-99); PLATELET COUNT 453 K/UL (150-450); RED BLOOD COUNT 3.66 M/UL (4.70-6.10); WHITE BLOOD COUNT 13.6 K/UL (4.8-10.8)
--- NOTE | 2018-04-29 17:37 | General Progress Note ---
Assessment/Plan Assessment/Plan Assessment - paraplegia - chronic intestinal dysmotility - contractures - poor Px Recommendations - po as tolerated - temporary rectal decompression - can d/c rectal tube at time of discharge - Abx - Placement Subjective Allergies: Coded Allergies: CHLORHEXIDINE (Verified Allergy, Unknown, 04/17/18) Pt states CHG gives him rashes Subjective Feel OK no abd pain no vomiting Objective Last 24 Hour Vital Signs Date Time Temp Pulse Resp B/P (MAP) Pulse Ox O2 Delivery O2 Flow Rate FiO2 04/29/18 15:51 98.1 71 20 111/75 98 98.1 04/29/18 12:12 97.2 04/29/18 12:12 97.2 04/29/18 12:00 97.7 66 20 123/73 97 97.7 04/29/18 11:13 99.1 04/29/18 11:13 97.2 04/29/18 09:47 97.2 69 18 85/46 97 Room Air 97.2 04/29/18 08:00 97.5 67 20 77/49 98 97.5 04/29/18 08:00 97.5 67 18 77/49 98 Room Air 97.5 04/29/18 05:50 98.0 04/29/18 04:00 98.0 65 18 122/93 95 Room Air 98.0 04/29/18 01:31 97.9 04/29/18 00:00 97.9 80 19 100/80 96 Room Air 97.9 04/28/18 21:23 98.1 04/28/18 20:00 98.1 84 18 92/60 97 Room Air 98.1 Intake and Output 04/28/18 04/29/18 19:00 07:00 Intake Total 400 ml 720 ml Output Total 1000 ml 1150 ml Balance -600 ml -430 ml Intake Oral 400 ml 600 ml Other 120 ml Output Urine Total 900 ml 975 ml Stool Total 100 ml 175 ml Laboratory Tests 04/29/18 15:20: Sodium Level 141, Potassium Level 4.4, Chloride Level 107, Carbon Dioxide Level 26, Anion Gap 8, Blood Urea Nitrogen 23H, Creatinine 1.3, Estimat Glomerular Filtration Rate 56.9, Glucose Level 106, Calcium Level 8.7, Total Bilirubin 0.1L , Aspartate Amino Transf (AST/SGOT) 18, Alanine Aminotransferase (ALT/SGPT) 19, Alkaline Phosphatase 114, Total Protein 7.8, Albumin 3.1L, Globulin 4.7, Albumin /Globulin Ratio 0.7L 04/29/18 16:00: White Blood Count 13.6H, Red Blood Count 3.66L, Hemoglobin 9.9L, Hematocrit 31.5L, Mean Corpuscular Volume 86, Mean Corpuscular Hemoglobin 26.9L, Mean Corpuscular Hemoglobin Concent 31.3L, Red Cell Distribution Width 17.0H, Platelet Count 453H, Mean Platelet Volume 7.2, Neutrophils (%) (Auto) , Lymphocytes (%) (Auto) , Monocytes (%) (Auto) , Eosinophils (%) (Auto) , Basophils (%) (Auto) , Differential Total Cells Counted 100, Neutrophils % ( Manual) 59, Lymphocytes % (Manual) 9L, Monocytes % (Manual) 2, Eosinophils % ( Manual) 29H, Basophils % (Manual) 1, Band Neutrophils 0, Platelet Estimate IncreasedH, Platelet Morphology Normal, Polychromasia 1+, Hypochromasia 1+, Anisocytosis 1+ Height (Feet): 5 Height (Inches): 9.00 Weight (Pounds): 211 Raiza Rodas MD Apr 29, 2018 17:37
[2018-04-29] MEDS ORDERED: Dyna-Hex 2% Top Sol 2oz TOPIC SCH (20:00)
[2018-04-30 00:26] VITALS: BP 110/70
[2018-04-30 04:00] VITALS: BP 109/62
[2018-04-30 06:13] LABS: ANION GAP 8 mmol/L (5-15); BLOOD UREA NITROGEN 25 mg/dL (7-18); CALCIUM 9.1 MG/DL (8.5-10.1); CARBON DIOXIDE 25 MMOL/L (21-32); CHLORIDE 107 MMOL/L (98-107); CREATININE 1.3 MG/DL (0.55-1.30); SODIUM 140 MMOL/L (136-145)
[2018-04-30 08:00] VITALS: BP 100/59
[2018-04-30] MEDS: Ascorbic Acid 500mg tab ORAL SCH ×2 (08:07→17:48)
[2018-04-30] MEDS: Midodrine 10mg tab ORAL SCH ×3 (08:07→17:48)
[2018-04-30] MEDS: Lyrica 50mg cap ORAL SCH ×3 (08:08→17:49)
[2018-04-30] MEDS: Lactobacillus-GG tablet ORAL SCH ×2 (08:08→17:48)
[2018-04-30] MEDS: Heparin 5000 units/ml inj SUBQ SCH ×2 (08:09→20:48)
--- NOTE | 2018-04-30 08:59 | General Progress Note ---
Assessment/Plan Assessment/Plan Assessment/Plan Assessment - paraplegia - chronic intestinal dysmotility - contractures - poor Px Recommendations - po as tolerated - temporary rectal decompression - can d/c rectal tube at time of discharge - Abx - Placement Subjective Allergies: Coded Allergies: CHLORHEXIDINE (Verified Allergy, Unknown, 04/17/18) Pt states CHG gives him rashes Objective Last 24 Hour Vital Signs Date Time Temp Pulse Resp B/P (MAP) Pulse Ox O2 Delivery O2 Flow Rate FiO2 04/30/18 08:00 97.4 72 20 100/59 98 Room Air 97.4 04/30/18 04:19 97.7 04/30/18 04:00 98.2 74 18 109/62 95 Room Air 98.2 04/30/18 03:20 97.7 04/30/18 00:26 97.7 76 19 110/70 95 Room Air 97.7 04/29/18 23:06 98.2 04/29/18 20:00 98.2 67 18 120/63 97 Room Air 98.2 04/29/18 18:21 98.1 04/29/18 15:51 98.1 71 20 111/75 98 98.1 04/29/18 12:12 97.2 04/29/18 12:12 97.2 04/29/18 12:00 97.7 66 20 123/73 97 97.7 04/29/18 11:13 99.1 04/29/18 11:13 97.2 04/29/18 09:47 97.2 69 18 85/46 97 Room Air 97.2 Intake and Output 04/29/18 04/30/18 19:00 07:00 Intake Total 480 ml 360 ml Output Total 700 ml 1000 ml Balance -220 ml -640 ml Intake Oral 480 ml 240 ml Other 120 ml Output Urine Total 700 ml 850 ml Stool Total 150 ml Laboratory Tests 04/29/18 15:20: Sodium Level 141, Potassium Level 4.4, Chloride Level 107, Carbon Dioxide Level 26, Anion Gap 8, Blood Urea Nitrogen 23H, Creatinine 1.3, Estimat Glomerular Filtration Rate 56.9, Glucose Level 106, Calcium Level 8.7, Total Bilirubin 0.1L , Aspartate Amino Transf (AST/SGOT) 18, Alanine Aminotransferase (ALT/SGPT) 19, Alkaline Phosphatase 114, Total Protein 7.8, Albumin 3.1L, Globulin 4.7, Albumin /Globulin Ratio 0.7L 04/29/18 16:00: White Blood Count 13.6H, Red Blood Count 3.66L, Hemoglobin 9.9L, Hematocrit 31.5L, Mean Corpuscular Volume 86, Mean Corpuscular Hemoglobin 26.9L, Mean Corpuscular Hemoglobin Concent 31.3L, Red Cell Distribution Width 17.0H, Platelet Count 453H, Mean Platelet Volume 7.2, Neutrophils (%) (Auto) , Lymphocytes (%) (Auto) , Monocytes (%) (Auto) , Eosinophils (%) (Auto) , Basophils (%) (Auto) , Differential Total Cells Counted 100, Neutrophils % ( Manual) 59, Lymphocytes % (Manual) 9L, Monocytes % (Manual) 2, Eosinophils % ( Manual) 29H, Basophils % (Manual) 1, Band Neutrophils 0, Platelet Estimate IncreasedH, Platelet Morphology Normal, Polychromasia 1+, Hypochromasia 1+, Anisocytosis 1+ 04/30/18 05:25: Sodium Level 140, Potassium Level 4.0, Chloride Level 107, Carbon Dioxide Level 25, Anion Gap 8, Blood Urea Nitrogen 25H, Creatinine 1.3, Estimat Glomerular Filtration Rate 56.9, Glucose Level 99, Calcium Level 9.1 Height (Feet): 5 Height (Inches): 9.00 Weight (Pounds): 209 General Appearance: no apparent distress EENT: normal ENT inspection Neck: supple Cardiovascular: normal rate Respiratory/Chest: decreased breath sounds Abdomen: normal bowel sounds, non tender, soft Extremities: non-tender Bran Burden MD Apr 30, 2018 08:59
--- NOTE | 2018-04-30 09:28 | Nephrology Progress Note ---
Assessment/Plan Assessment/Plan 1. SHARDA- multifact ATN ( hypotension/sepsis) - Cr stable. - OK for DC from renal point. BMP q 2x wk while inpatient - Midrodrine + Florinef 3. UTI- Abx completed 4. Paraplegic- per PCP mgmt 5. Hypokalemia- resolved Subjective Date patient seen: Apr 30, 2018 Time patient seen: 09:27 Allergies: Coded Allergies: CHLORHEXIDINE (Verified Allergy, Unknown, 04/17/18) Pt states CHG gives him rashes Subjective Awaiting DC to SNF. Objective Last 24 Hour Vital Signs Date Time Temp Pulse Resp B/P (MAP) Pulse Ox O2 Delivery O2 Flow Rate FiO2 04/30/18 08:00 97.4 72 20 100/59 98 Room Air 97.4 04/30/18 04:19 97.7 04/30/18 04:00 98.2 74 18 109/62 95 Room Air 98.2 04/30/18 03:20 97.7 04/30/18 00:26 97.7 76 19 110/70 95 Room Air 97.7 04/29/18 23:06 98.2 04/29/18 20:00 98.2 67 18 120/63 97 Room Air 98.2 04/29/18 18:21 98.1 04/29/18 15:51 98.1 71 20 111/75 98 98.1 04/29/18 12:12 97.2 04/29/18 12:12 97.2 04/29/18 12:00 97.7 66 20 123/73 97 97.7 04/29/18 11:13 99.1 04/29/18 11:13 97.2 04/29/18 09:47 97.2 69 18 85/46 97 Room Air 97.2 Intake and Output 04/29/18 04/30/18 19:00 07:00 Intake Total 480 ml 360 ml Output Total 700 ml 1000 ml Balance -220 ml -640 ml Intake Oral 480 ml 240 ml Other 120 ml Output Urine Total 700 ml 850 ml Stool Total 150 ml Laboratory Tests 04/29/18 15:20: Sodium Level 141, Potassium Level 4.4, Chloride Level 107, Carbon Dioxide Level 26, Anion Gap 8, Blood Urea Nitrogen 23H, Creatinine 1.3, Estimat Glomerular Filtration Rate 56.9, Glucose Level 106, Calcium Level 8.7, Total Bilirubin 0.1L , Aspartate Amino Transf (AST/SGOT) 18, Alanine Aminotransferase (ALT/SGPT) 19, Alkaline Phosphatase 114, Total Protein 7.8, Albumin 3.1L, Globulin 4.7, Albumin /Globulin Ratio 0.7L 04/29/18 16:00: White Blood Count 13.6H, Red Blood Count 3.66L, Hemoglobin 9.9L, Hematocrit 31.5L, Mean Corpuscular Volume 86, Mean Corpuscular Hemoglobin 26.9L, Mean Corpuscular Hemoglobin Concent 31.3L, Red Cell Distribution Width 17.0H, Platelet Count 453H, Mean Platelet Volume 7.2, Neutrophils (%) (Auto) , Lymphocytes (%) (Auto) , Monocytes (%) (Auto) , Eosinophils (%) (Auto) , Basophils (%) (Auto) , Differential Total Cells Counted 100, Neutrophils % ( Manual) 59, Lymphocytes % (Manual) 9L, Monocytes % (Manual) 2, Eosinophils % ( Manual) 29H, Basophils % (Manual) 1, Band Neutrophils 0, Platelet Estimate IncreasedH, Platelet Morphology Normal, Polychromasia 1+, Hypochromasia 1+, Anisocytosis 1+ 04/30/18 05:25: Sodium Level 140, Potassium Level 4.0, Chloride Level 107, Carbon Dioxide Level 25, Anion Gap 8, Blood Urea Nitrogen 25H, Creatinine 1.3, Estimat Glomerular Filtration Rate 56.9, Glucose Level 99, Calcium Level 9.1 Height (Feet): 5 Height (Inches): 9.00 Weight (Pounds): 209 General Appearance: no apparent distress EENT: normal ENT inspection Neck: normal alignment Cardiovascular: regular rhythm Respiratory/Chest: lungs clear, normal breath sounds Abdomen: non tender Edema: no edema noted Arm (L), no edema noted Arm (R), no edema noted Leg (L), no edema noted Leg (R), no edema noted Pedal (L), no edema noted Pedal (R), no edema noted Generalized Macario Kumar M.D. Apr 30, 2018 09:28
[2018-04-30 12:00] VITALS: BP 97/59
[2018-04-30] MEDS: DiphenhydrAMINE 50mg/ml Inj IVP PRN (13:23)
[2018-04-30 16:00] VITALS: BP 101/51
[2018-04-30 20:00] VITALS: BP 133/82
[2018-05-01] VITALS: BP 113/70
[2018-05-01 04:00] VITALS: BP 94/56
[2018-05-01] MEDS: DiphenhydrAMINE 50mg/ml Inj IVP PRN (05:54)
[2018-05-01 08:00] VITALS: BP 121/72
--- NOTE | 2018-05-01 08:37 | General Progress Note ---
Assessment/Plan Assessment/Plan Assessment/Plan Assessment - paraplegia - chronic intestinal dysmotility - contractures - poor Px Recommendations - po as tolerated - temporary rectal decompression - can d/c rectal tube at time of discharge - Abx - Placement Subjective Allergies: Coded Allergies: CHLORHEXIDINE (Verified Allergy, Unknown, 04/17/18) Pt states CHG gives him rashes Objective Last 24 Hour Vital Signs Date Time Temp Pulse Resp B/P (MAP) Pulse Ox O2 Delivery O2 Flow Rate FiO2 05/01/18 04:00 97.7 77 20 94/56 97 Room Air 97.7 05/01/18 00:00 99.0 73 20 113/70 96 Room Air 99.0 04/30/18 20:00 98.2 76 24 133/82 96 98.2 04/30/18 17:49 98.1 04/30/18 16:00 98.1 63 20 101/51 95 Room Air 98.1 04/30/18 13:37 98.2 04/30/18 12:38 98.2 04/30/18 12:00 98.2 70 20 97/59 94 Room Air 98.2 Intake and Output 04/30/18 05/01/18 19:00 07:00 Intake Total 960 ml 240 ml Output Total 600 ml 900 ml Balance 360 ml -660 ml Intake Oral 840 ml 120 ml Other 120 ml 120 ml Output Urine Total 600 ml 900 ml Height (Feet): 5 Height (Inches): 9.00 Weight (Pounds): 214 General Appearance: no apparent distress EENT: normal ENT inspection Neck: supple Cardiovascular: normal rate Respiratory/Chest: decreased breath sounds Abdomen: normal bowel sounds, non tender, soft Extremities: non-tender Bran Burden MD May 01, 2018 08:37
[2018-05-01] MEDS: Lactobacillus-GG tablet ORAL SCH ×2 (09:27→18:16)
[2018-05-01] MEDS: Midodrine 10mg tab ORAL SCH ×3 (09:28→18:16)
[2018-05-01] MEDS: Ascorbic Acid 500mg tab ORAL SCH ×2 (09:28→18:15)
[2018-05-01] MEDS: Heparin 5000 units/ml inj SUBQ SCH ×2 (09:32→20:06)
--- NOTE | 2018-05-01 10:24 | Infectious Diseases Prog Note ---
Assessment/Plan Assessment/Plan A 1. Proteus sepsis secondary to UTI treated 2. Proteus UTI treated 3. leucocytosis resolved 4. Acute renal failure resolved 5. paraplegia 6. shock, resolved, 7. 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 Leukocytosis P 1.observe off antibiotic 2. f/u CBC Subjective ROS Limited/Unobtainable: No Constitutional: Reports: chills, drenching sweats Respiratory: Reports: no symptoms Cardiovascular: Reports: no symptoms Gastrointestinal/Abdominal: Reports: no symptoms Genitourinary: Reports: no symptoms Allergies: Coded Allergies: CHLORHEXIDINE (Verified Allergy, Unknown, 04/17/18) Pt states CHG gives him rashes Objective Vital Signs Last 24 Hour Vital Signs Date Time Temp Pulse Resp B/P (MAP) Pulse Ox O2 Delivery O2 Flow Rate FiO2 05/01/18 09:27 98.3 05/01/18 08:00 98.3 65 21 121/72 97 Room Air 98.3 05/01/18 04:00 97.7 77 20 94/56 97 Room Air 97.7 05/01/18 00:00 99.0 73 20 113/70 96 Room Air 99.0 04/30/18 20:00 98.2 76 24 133/82 96 98.2 04/30/18 17:49 98.1 04/30/18 16:00 98.1 63 20 101/51 95 Room Air 98.1 04/30/18 13:37 98.2 04/30/18 12:38 98.2 04/30/18 12:00 98.2 70 20 97/59 94 Room Air 98.2 Height (Feet): 5 Height (Inches): 9.00 Weight (Pounds): 214 General Appearance: no acute distress HEENT: mucous membranes moist Respiratory/Chest: lungs clear Cardiovascular: normal rate, other - left arm PICC line Abdomen: soft, non tender Extremities: no edema Neurologic/Psychiatric: alert, responsive, other - Triplegic Current Medications Medications (Trade) Dose Ordered Sig/Aleyda Route PRN Reason Start Time Stop Time Status Last Admin Dose Admin Acetaminophen (Tylenol) 650 mg Q6H PRN ORAL Shivering 04/29/18 11:00 05/29/18 10:59 04/29/18 11:13 Al Hydroxide/Mg Hydroxide (Mylanta) 30 ml Q6H PRN ORAL HEARTBURN 04/20/18 22:30 05/15/18 22:29 Ascorbic Acid (Vitamin C) 500 mg TWICE A DAY ORAL 04/21/18 09:00 05/16/18 08:59 05/01/18 09:28 Diphenhydramine HCl (Benadryl Cream) 1 applic THREE TIMES A DAY PRN TOPIC Itching 04/28/18 11:00 05/28/18 10:59 04/29/18 15:07 Diphenhydramine HCl (Benadryl) 25 mg Q4H PRN IVP Itching 04/28/18 09:00 05/28/18 08:59 05/01/18 05:54 Fludrocortisone Acetate (Florinef) 0.1 mg DAILY ORAL 04/25/18 09:00 05/25/18 08:59 05/01/18 09:28 Heparin Sodium (Porcine) (Heparin 5000 units/ml) 5,000 units EVERY 12 HOURS SUBQ 04/20/18 22:00 05/15/18 21:59 05/01/18 09:32 Lactobacillus Acidophilus (Culturelle) 1 tab TWICE A DAY ORAL 04/21/18 09:00 05/16/18 08:59 05/01/18 09:27 Magnesium Hydroxide (Mom) 30 ml HSPRN PRN ORAL Constipation 04/20/18 22:30 05/15/18 22:29 Midodrine (Pro-Amatine) 10 mg THREE TIMES A DAY ORAL 04/21/18 09:00 05/19/18 08:59 05/01/18 09:28 Multivitamins (Multivitamins) 1 tab DAILY ORAL 04/21/18 09:00 05/16/18 08:59 05/01/18 09:28 Naloxone HCl (Narcan) 0.2 mg Q30MIN PRN IVP respiratory depression 04/20/18 21:00 05/20/18 09:14 Oxycodone/ Acetaminophen (Percocet 10/325) 1 tab Q4H PRN ORAL Severe Pain (Pain Scale 7-10) 04/29/18 18:00 05/06/18 17:59 05/01/18 09:27 Pantoprazole (Protonix) 40 mg DAILY ORAL 04/25/18 09:00 05/25/18 08:59 05/01/18 09:28 Pregabalin (Lyrica) 50 mg THREE TIMES A DAY ORAL 04/21/18 09:00 05/20/18 10:59 04/30/18 17:49 Reyes Trevino MD May 01, 2018 10:24
[2018-05-01] MEDS: Lyrica 50mg cap ORAL SCH ×3 (11:00→19:04)
[2018-05-01 11:28] LABS: HEMATOCRIT 33.6 % (42.0-52.0); HEMOGLOBIN 10.4 G/DL (14.2-18.0); MEAN CORPUSCULAR VOLUME 84 FL (80-99); PLATELET COUNT 402 K/UL (150-450); RED BLOOD COUNT 4.03 M/UL (4.70-6.10); RED CELL DISTRIBUTION WIDTH 16.7 % (11.6-14.8); WHITE BLOOD COUNT 14.4 K/UL (4.8-10.8)
[2018-05-01 12:00] VITALS: BP 114/59
--- NOTE | 2018-05-01 12:35 | General Progress Note ---
Assessment/Plan Assessment/Plan (1) Spinal cord injury (2) H/o heroin abuse (3) Decubitus ulcer (4) Paraplegia (5) Neuropathic pain (6) Intractable pain Patient will be continued on Percocet and Lyrica D/w Dr. Byrd and he concurred. Subjective Date patient seen: May 01, 2018 Time patient seen: 12:15 - pm Allergies: Coded Allergies: CHLORHEXIDINE (Verified Allergy, Unknown, 04/17/18) Pt states CHG gives him rashes Subjective Constitutional: Reports: weakness HEENT: Reports: no symptoms Cardiovascular: Reports: no symptoms Respiratory: Reports: no symptoms Gastrointestinal/Abdominal: Reports: no symptoms Genitourinary: Reports: no symptoms Neurologic/Psychiatric: Reports: numbness, tingling Endocrine: Reports: no symptoms Hematologic/Lymphatic: Reports: no symptoms Subjective Patient reports that he continues to have pain. The pain is tolerated on the medication with no new complaints. Objective Last 24 Hour Vital Signs Date Time Temp Pulse Resp B/P (MAP) Pulse Ox O2 Delivery O2 Flow Rate FiO2 05/01/18 12:00 98.8 89 20 114/59 98 Room Air 98.8 05/01/18 10:26 98.3 05/01/18 09:27 98.3 05/01/18 08:00 98.3 65 21 121/72 97 Room Air 98.3 05/01/18 04:00 97.7 77 20 94/56 97 Room Air 97.7 05/01/18 00:00 99.0 73 20 113/70 96 Room Air 99.0 04/30/18 20:00 98.2 76 24 133/82 96 98.2 04/30/18 17:49 98.1 04/30/18 16:00 98.1 63 20 101/51 95 Room Air 98.1 04/30/18 12:38 98.2 Intake and Output 04/30/18 05/01/18 19:00 07:00 Intake Total 960 ml 240 ml Output Total 600 ml 900 ml Balance 360 ml -660 ml Intake Oral 840 ml 120 ml Other 120 ml 120 ml Output Urine Total 600 ml 900 ml Laboratory Tests 05/01/18 11:15: White Blood Count 14.4H, Red Blood Count 4.03L, Hemoglobin 10.4L, Hematocrit 33.6L, Mean Corpuscular Volume 84, Mean Corpuscular Hemoglobin 25.8L, Mean Corpuscular Hemoglobin Concent 30.9L, Red Cell Distribution Width 16.7H, Platelet Count 402, Mean Platelet Volume 7.1, Neutrophils (%) (Auto) , Lymphocytes (%) (Auto) , Monocytes (%) (Auto) , Eosinophils (%) (Auto) , Basophils (%) (Auto) , Neutrophils % (Manual) [Pending], Lymphocytes % (Manual) [Pending], Platelet Estimate [Pending], Platelet Morphology [Pending] Height (Feet): 5 Height (Inches): 9.00 Weight (Pounds): 214 Objective GENERAL: Alert, awake, and oriented. HEENT: PERRLA. NECK: Range of motion is decreased due to the patient's condition. LUNGS: Decreased breath sounds bilaterally. ABDOMEN: Benign. BACK: Range of motion is decreased in flexion and extension with decubitus ulcer noted. EXTREMITIES: Upper and lower extremity range of motion is decreased with joint contractures seen. Tenderness to palpation. Luiz Lees May 01, 2018 12:35
--- NOTE | 2018-05-01 14:23 | General Surgery Progress Note ---
General Surgery-Progress Note Subjective Additional Comments doing well. states sweats intermittently after being turned for wound care. leukocytosis 14k Objective Last 24 Hour Vital Signs Date Time Temp Pulse Resp B/P (MAP) Pulse Ox O2 Delivery O2 Flow Rate FiO2 05/01/18 13:55 98.8 05/01/18 12:00 98.8 89 20 114/59 98 Room Air 98.8 05/01/18 10:26 98.3 05/01/18 09:27 98.3 05/01/18 08:00 98.3 65 21 121/72 97 Room Air 98.3 05/01/18 04:00 97.7 77 20 94/56 97 Room Air 97.7 05/01/18 00:00 99.0 73 20 113/70 96 Room Air 99.0 04/30/18 20:00 98.2 76 24 133/82 96 98.2 04/30/18 17:49 98.1 04/30/18 16:00 98.1 63 20 101/51 95 Room Air 98.1 I&O Intake and Output 04/30/18 05/01/18 19:00 07:00 Intake Total 960 ml 240 ml Output Total 600 ml 900 ml Balance 360 ml -660 ml Intake Oral 840 ml 120 ml Other 120 ml 120 ml Output Urine Total 600 ml 900 ml Dressing: saturated Wound: clean Drains: none Cardiovascular: RSR Respiratory: clear Abdomen: soft, flat, non-tender, present bowel sounds Extremities: no cyanosis Laboratory Tests Test 05/01/18 11:15 White Blood Count 14.4 K/UL (4.8-10.8) H Red Blood Count 4.03 M/UL (4.70-6.10) L Hemoglobin 10.4 G/DL (14.2-18.0) L Hematocrit 33.6 % (42.0-52.0) L Mean Corpuscular Volume 84 FL (80-99) Mean Corpuscular Hemoglobin 25.8 PG (27.0-31.0) L Mean Corpuscular Hemoglobin Concent 30.9 G/DL (32.0-36.0) L Red Cell Distribution Width 16.7 % (11.6-14.8) H Platelet Count 402 K/UL (150-450) Mean Platelet Volume 7.1 FL (6.5-10.1) Neutrophils (%) (Auto) % (45.0-75.0) Lymphocytes (%) (Auto) % (20.0-45.0) Monocytes (%) (Auto) % (1.0-10.0) Eosinophils (%) (Auto) % (0.0-3.0) Basophils (%) (Auto) % (0.0-2.0) Differential Total Cells Counted 100 Neutrophils % (Manual) 72 % (45-75) Lymphocytes % (Manual) 11 % (20-45) L Monocytes % (Manual) 2 % (1-10) Eosinophils % (Manual) 15 % (0-3) H Basophils % (Manual) 0 % (0-2) Band Neutrophils 0 % (0-8) Platelet Estimate Adequate Platelet Morphology Normal Hypochromasia 1+ Anisocytosis 1+ Plan Problems: (1) Sepsis Assessment & Plan: 57M with sepsis. likely etiology UTI. recently noted to have abdominal distention. KUB ordered and concerns for possible volvulus. CT ordered and no obstruction or volvulus noted. dilated redundant sigmoid colon air filled. still watery stool in rectal tube. exam with distention but otherwise benign. differential could be atonic colon developing, hirschsprung adult, pseudo- obstruction s/p high rectal tube insertion by GI with good result KUB shows improvement -no acute surgical intervention planned -appreciate GI input Overall much improved and decompressed. rectal tube to be removed upon discharge. unfortunately may recur and if so will need to be monitored. discussed considerations for diverting loop colostomy given medical condition, sacral wounds, and prior events. 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 please refer to wound care photos for size and measurements. 2-3cm deep, 2cm undermining in inferior aspect. does get stool in wound at times given proximity to anus. some granulation tissue. no foul odor. serous drainage. minimal eschar and necrotic tissues. -No acute debridement necessary. -air soft mattress, gauze packing and dressings TID for now. -will follow with recs. thank you for this consultation. Alo Martin May 01, 2018 14:23
--- NOTE | 2018-05-01 14:41 | General Progress Note ---
Assessment/Plan Problem List: (1) Renal failure ICD Codes: N19 - Unspecified kidney failure SNOMED: 16533695 Qualifiers: Qualified Codes: N19 - Unspecified kidney failure (2) Severe sepsis ICD Codes: A41.9 - Sepsis, unspecified organism; R65.20 - Severe sepsis without septic shock SNOMED: 13045013 (3) Paraplegia ICD Codes: G82.20 - Paraplegia, unspecified SNOMED: 18554200 (4) UTI (urinary tract infection) ICD Codes: N39.0 - Urinary tract infection, site not specified SNOMED: 55298053 Qualifiers: Qualified Codes: T83.511A - Infection and inflammatory reaction due to indwelling urethral catheter, initial encounter; N39.0 - Urinary tract infection , site not specified (5) Decubitus ulcer ICD Codes: L89.90 - Pressure ulcer of unspecified site, unspecified stage SNOMED: 344782949 Status: stable, progressing Assessment/Plan cont current rx wound care pain rx picc line dc planning pt wants to go closer to [facility] Subjective ROS Limited/Unobtainable: No Constitutional: Reports: malaise, weakness HEENT: Reports: no symptoms Cardiovascular: Reports: no symptoms Respiratory: Reports: no symptoms Gastrointestinal/Abdominal: Reports: no symptoms Genitourinary: Reports: no symptoms Neurologic/Psychiatric: Reports: pre-existing deficit Endocrine: Reports: no symptoms Hematologic/Lymphatic: Reports: no symptoms Allergies: Coded Allergies: CHLORHEXIDINE (Verified Allergy, Unknown, 04/17/18) Pt states CHG gives him rashes All Systems: reviewed and negative except above Subjective no complaints. alert. no cp/sob. does not want hospice. no pain wants picc line. poor access. ID noted. labs reviewed. Objective Last 24 Hour Vital Signs Date Time Temp Pulse Resp B/P (MAP) Pulse Ox O2 Delivery O2 Flow Rate FiO2 05/01/18 13:55 98.8 05/01/18 12:00 98.8 89 20 114/59 98 Room Air 98.8 05/01/18 10:26 98.3 05/01/18 09:27 98.3 05/01/18 08:00 98.3 65 21 121/72 97 Room Air 98.3 05/01/18 04:00 97.7 77 20 94/56 97 Room Air 97.7 05/01/18 00:00 99.0 73 20 113/70 96 Room Air 99.0 04/30/18 20:00 98.2 76 24 133/82 96 98.2 04/30/18 17:49 98.1 04/30/18 16:00 98.1 63 20 101/51 95 Room Air 98.1 Intake and Output 04/30/18 05/01/18 19:00 07:00 Intake Total 960 ml 240 ml Output Total 600 ml 900 ml Balance 360 ml -660 ml Intake Oral 840 ml 120 ml Other 120 ml 120 ml Output Urine Total 600 ml 900 ml Laboratory Tests 05/01/18 11:15: White Blood Count 14.4H, Red Blood Count 4.03L, Hemoglobin 10.4L, Hematocrit 33.6L, Mean Corpuscular Volume 84, Mean Corpuscular Hemoglobin 25.8L, Mean Corpuscular Hemoglobin Concent 30.9L, Red Cell Distribution Width 16.7H, Platelet Count 402, Mean Platelet Volume 7.1, Neutrophils (%) (Auto) , Lymphocytes (%) (Auto) , Monocytes (%) (Auto) , Eosinophils (%) (Auto) , Basophils (%) (Auto) , Differential Total Cells Counted 100, Neutrophils % ( Manual) 72, Lymphocytes % (Manual) 11L, Monocytes % (Manual) 2, Eosinophils % ( Manual) 15H, Basophils % (Manual) 0, Band Neutrophils 0, Platelet Estimate Adequate, Platelet Morphology Normal, Hypochromasia 1+, Anisocytosis 1+ Height (Feet): 5 Height (Inches): 9.00 Weight (Pounds): 214 Objective General Appearance: WD/WN, alert Neck: supple Cardiovascular: regular rhythm Respiratory/Chest: chest wall non-tender, lungs clear, normal breath sounds Abdomen: normal bowel sounds, non tender, soft, no organomegaly Edema: no edema noted Arm (L), no edema noted Arm (R), no edema noted Leg (L), no edema noted Leg (R), no edema noted Pedal (L), no edema noted Pedal (R), no edema noted Generalized Alfa Marshall MD May 01, 2018 14:41
[2018-05-01 16:00] VITALS: BP 147/81
[2018-05-01 20:00] VITALS: BP 107/67
[2018-05-02] VITALS (7 sets, daily range): BP systolic 104–146; BP diastolic 62–87
[2018-05-02] MEDS: DiphenhydrAMINE 50mg/ml Inj IVP PRN ×2 (05:20→19:48)
[2018-05-02 06:37] LABS: ANION GAP 10 mmol/L (5-15); BLOOD UREA NITROGEN 31 mg/dL (7-18); CALCIUM 9.2 MG/DL (8.5-10.1); CARBON DIOXIDE 24 MMOL/L (21-32); CHLORIDE 105 MMOL/L (98-107); CREATININE 1.5 MG/DL (0.55-1.30); POTASSIUM 3.8 MMOL/L (3.5-5.1); SODIUM 139 MMOL/L (136-145)
--- NOTE | 2018-05-02 07:56 | General Progress Note ---
Assessment/Plan Assessment/Plan (1) Spinal cord injury (2) H/o heroin abuse (3) Decubitus ulcer (4) Paraplegia (5) Neuropathic pain (6) Intractable pain Patient will be continued on Percocet and Lyrica D/w Dr. Byrd and he concurred. Subjective Date patient seen: May 02, 2018 Time patient seen: 07:45 - am Allergies: Coded Allergies: CHLORHEXIDINE (Verified Allergy, Unknown, 04/17/18) Pt states CHG gives him rashes Subjective Constitutional: Reports: weakness HEENT: Reports: no symptoms Cardiovascular: Reports: no symptoms Respiratory: Reports: no symptoms Gastrointestinal/Abdominal: Reports: no symptoms Genitourinary: Reports: no symptoms Neurologic/Psychiatric: Reports: numbness, tingling Endocrine: Reports: no symptoms Hematologic/Lymphatic: Reports: no symptoms Subjective Patient states the pain has been is stable. Has no new complaints. Objective Last 24 Hour Vital Signs Date Time Temp Pulse Resp B/P (MAP) Pulse Ox O2 Delivery O2 Flow Rate FiO2 05/02/18 04:00 98.1 60 19 117/70 95 Room Air 98.1 05/02/18 02:35 99.0 05/02/18 00:00 99.0 70 19 109/62 97 Room Air 99.0 05/01/18 20:00 98.2 79 18 107/67 97 Room Air 98.2 05/01/18 18:16 97.1 05/01/18 16:00 97.1 98 20 147/81 97 Room Air 97.1 05/01/18 14:54 98.8 05/01/18 13:55 98.8 05/01/18 12:00 98.8 89 20 114/59 98 Room Air 98.8 05/01/18 09:27 98.3 05/01/18 08:00 98.3 65 21 121/72 97 Room Air 98.3 Intake and Output 05/01/18 05/02/18 19:00 07:00 Intake Total 1200 ml Output Total 1800 ml 650 ml Balance -600 ml -650 ml Intake Oral 1200 ml Output Urine Total 1800 ml 650 ml Laboratory Tests 05/01/18 11:15: White Blood Count 14.4H, Red Blood Count 4.03L, Hemoglobin 10.4L, Hematocrit 33.6L, Mean Corpuscular Volume 84, Mean Corpuscular Hemoglobin 25.8L, Mean Corpuscular Hemoglobin Concent 30.9L, Red Cell Distribution Width 16.7H, Platelet Count 402, Mean Platelet Volume 7.1, Neutrophils (%) (Auto) , Lymphocytes (%) (Auto) , Monocytes (%) (Auto) , Eosinophils (%) (Auto) , Basophils (%) (Auto) , Differential Total Cells Counted 100, Neutrophils % ( Manual) 72, Lymphocytes % (Manual) 11L, Monocytes % (Manual) 2, Eosinophils % ( Manual) 15H, Basophils % (Manual) 0, Band Neutrophils 0, Platelet Estimate Adequate, Platelet Morphology Normal, Hypochromasia 1+, Anisocytosis 1+ 05/02/18 04:30: Sodium Level 139, Potassium Level 3.8, Chloride Level 105, Carbon Dioxide Level 24, Anion Gap 10, Blood Urea Nitrogen 31H, Creatinine 1.5H, Estimat Glomerular Filtration Rate 48.2, Glucose Level 97, Calcium Level 9.2 Height (Feet): 5 Height (Inches): 9.00 Weight (Pounds): 203 Objective GENERAL: Alert, awake, and oriented. HEENT: PERRLA. NECK: Range of motion is decreased due to the patient's condition. LUNGS: Decreased breath sounds bilaterally. ABDOMEN: Benign. BACK: Range of motion is decreased in flexion and extension with decubitus ulcer noted. EXTREMITIES: Upper and lower extremity range of motion is decreased with joint contractures seen. Tenderness to palpation. Luiz Lees May 02, 2018 07:56
[2018-05-02] MEDS: Lactobacillus-GG tablet ORAL SCH ×2 (08:26→19:05)
[2018-05-02] MEDS: Lyrica 50mg cap ORAL SCH ×3 (08:27→19:05)
[2018-05-02] MEDS: Midodrine 10mg tab ORAL SCH ×3 (08:27→19:05)
[2018-05-02] MEDS: Ascorbic Acid 500mg tab ORAL SCH ×2 (08:28→19:04)
[2018-05-02] MEDS: Heparin 5000 units/ml inj SUBQ SCH ×2 (08:30→21:22)
--- NOTE | 2018-05-02 08:52 | General Progress Note ---
Assessment/Plan Problem List: (1) Renal failure ICD Codes: N19 - Unspecified kidney failure SNOMED: 70782131 Qualifiers: Qualified Codes: N19 - Unspecified kidney failure (2) Severe sepsis ICD Codes: A41.9 - Sepsis, unspecified organism; R65.20 - Severe sepsis without septic shock SNOMED: 22817025 (3) Paraplegia ICD Codes: G82.20 - Paraplegia, unspecified SNOMED: 17246643 (4) UTI (urinary tract infection) ICD Codes: N39.0 - Urinary tract infection, site not specified SNOMED: 58516688 Qualifiers: Qualified Codes: T83.511A - Infection and inflammatory reaction due to indwelling urethral catheter, initial encounter; N39.0 - Urinary tract infection , site not specified (5) Decubitus ulcer ICD Codes: L89.90 - Pressure ulcer of unspecified site, unspecified stage SNOMED: 243917554 Status: stable, not improved Assessment/Plan cont current rx check ua cs wound care pain rx monitor renal fxn picc line dc planning pt wants to go closer to [facility] Subjective ROS Limited/Unobtainable: No Constitutional: Reports: chills, malaise, weakness HEENT: Reports: no symptoms Cardiovascular: Reports: no symptoms Respiratory: Reports: no symptoms Gastrointestinal/Abdominal: Reports: no symptoms Genitourinary: Reports: no symptoms Neurologic/Psychiatric: Reports: pre-existing deficit Endocrine: Reports: no symptoms Allergies: Coded Allergies: CHLORHEXIDINE (Verified Allergy, Unknown, 04/17/18) Pt states CHG gives him rashes All Systems: reviewed and negative except above Subjective c.o fever chills and sweats. no chest pain no sob. Objective Last 24 Hour Vital Signs Date Time Temp Pulse Resp B/P (MAP) Pulse Ox O2 Delivery O2 Flow Rate FiO2 05/02/18 08:03 97.4 78 20 142/73 98 Room Air 97.4 05/02/18 04:00 98.1 60 19 117/70 95 Room Air 98.1 05/02/18 02:35 99.0 05/02/18 00:00 99.0 70 19 109/62 97 Room Air 99.0 05/01/18 20:00 98.2 79 18 107/67 97 Room Air 98.2 05/01/18 18:16 97.1 05/01/18 16:00 97.1 98 20 147/81 97 Room Air 97.1 05/01/18 14:54 98.8 05/01/18 13:55 98.8 05/01/18 12:00 98.8 89 20 114/59 98 Room Air 98.8 05/01/18 09:27 98.3 Intake and Output 05/01/18 05/02/18 19:00 07:00 Intake Total 1200 ml Output Total 1800 ml 650 ml Balance -600 ml -650 ml Intake Oral 1200 ml Output Urine Total 1800 ml 650 ml Laboratory Tests 05/01/18 11:15: White Blood Count 14.4H, Red Blood Count 4.03L, Hemoglobin 10.4L, Hematocrit 33.6L, Mean Corpuscular Volume 84, Mean Corpuscular Hemoglobin 25.8L, Mean Corpuscular Hemoglobin Concent 30.9L, Red Cell Distribution Width 16.7H, Platelet Count 402, Mean Platelet Volume 7.1, Neutrophils (%) (Auto) , Lymphocytes (%) (Auto) , Monocytes (%) (Auto) , Eosinophils (%) (Auto) , Basophils (%) (Auto) , Differential Total Cells Counted 100, Neutrophils % ( Manual) 72, Lymphocytes % (Manual) 11L, Monocytes % (Manual) 2, Eosinophils % ( Manual) 15H, Basophils % (Manual) 0, Band Neutrophils 0, Platelet Estimate Adequate, Platelet Morphology Normal, Hypochromasia 1+, Anisocytosis 1+ 05/02/18 04:30: Sodium Level 139, Potassium Level 3.8, Chloride Level 105, Carbon Dioxide Level 24, Anion Gap 10, Blood Urea Nitrogen 31H, Creatinine 1.5H, Estimat Glomerular Filtration Rate 48.2, Glucose Level 97, Calcium Level 9.2 Height (Feet): 5 Height (Inches): 9.00 Weight (Pounds): 203 Objective General Appearance: WD/WN, alert Neck: supple Cardiovascular: regular rhythm Respiratory/Chest: chest wall non-tender, lungs clear, normal breath sounds Abdomen: normal bowel sounds, non tender, soft, no organomegaly Edema: no edema noted Arm (L), no edema noted Arm (R), no edema noted Leg (L), no edema noted Leg (R), no edema noted Pedal (L), no edema noted Pedal (R), no edema noted Generalized Alfa Marshall MD May 02, 2018 08:52
--- NOTE | 2018-05-02 08:57 | Nephrology Progress Note ---
Assessment/Plan Assessment/Plan 1. SHARDA- multifact ATN ( hypotension/sepsis) - Cr up a little to 1.5. 1L NS today - OK for DC from renal point. BMP q 2x wk while inpatient - Midrodrine + Florinef 3. UTI- Abx completed 4. Paraplegic- per PCP mgmt Subjective Date patient seen: May 02, 2018 Time patient seen: 08:56 ROS Limited/Unobtainable: No Allergies: Coded Allergies: CHLORHEXIDINE (Verified Allergy, Unknown, 04/17/18) Pt states CHG gives him rashes Subjective Awaiting DC to SNF. Patient feels better Objective Last 24 Hour Vital Signs Date Time Temp Pulse Resp B/P (MAP) Pulse Ox O2 Delivery O2 Flow Rate FiO2 05/02/18 08:03 97.4 78 20 142/73 98 Room Air 97.4 05/02/18 04:00 98.1 60 19 117/70 95 Room Air 98.1 05/02/18 02:35 99.0 05/02/18 00:00 99.0 70 19 109/62 97 Room Air 99.0 05/01/18 20:00 98.2 79 18 107/67 97 Room Air 98.2 05/01/18 18:16 97.1 05/01/18 16:00 97.1 98 20 147/81 97 Room Air 97.1 05/01/18 14:54 98.8 05/01/18 13:55 98.8 05/01/18 12:00 98.8 89 20 114/59 98 Room Air 98.8 05/01/18 09:27 98.3 Intake and Output 05/01/18 05/02/18 19:00 07:00 Intake Total 1200 ml Output Total 1800 ml 650 ml Balance -600 ml -650 ml Intake Oral 1200 ml Output Urine Total 1800 ml 650 ml Laboratory Tests 05/01/18 11:15: White Blood Count 14.4H, Red Blood Count 4.03L, Hemoglobin 10.4L, Hematocrit 33.6L, Mean Corpuscular Volume 84, Mean Corpuscular Hemoglobin 25.8L, Mean Corpuscular Hemoglobin Concent 30.9L, Red Cell Distribution Width 16.7H, Platelet Count 402, Mean Platelet Volume 7.1, Neutrophils (%) (Auto) , Lymphocytes (%) (Auto) , Monocytes (%) (Auto) , Eosinophils (%) (Auto) , Basophils (%) (Auto) , Differential Total Cells Counted 100, Neutrophils % ( Manual) 72, Lymphocytes % (Manual) 11L, Monocytes % (Manual) 2, Eosinophils % ( Manual) 15H, Basophils % (Manual) 0, Band Neutrophils 0, Platelet Estimate Adequate, Platelet Morphology Normal, Hypochromasia 1+, Anisocytosis 1+ 05/02/18 04:30: Sodium Level 139, Potassium Level 3.8, Chloride Level 105, Carbon Dioxide Level 24, Anion Gap 10, Blood Urea Nitrogen 31H, Creatinine 1.5H, Estimat Glomerular Filtration Rate 48.2, Glucose Level 97, Calcium Level 9.2 Height (Feet): 5 Height (Inches): 9.00 Weight (Pounds): 203 General Appearance: no apparent distress, alert EENT: normal ENT inspection Neck: normal alignment, supple Cardiovascular: normal rate Respiratory/Chest: lungs clear, normal breath sounds Abdomen: non tender, soft Edema: no edema noted Arm (L), no edema noted Arm (R), no edema noted Leg (L), no edema noted Leg (R), no edema noted Pedal (L), no edema noted Pedal (R), no edema noted Generalized Macario Kumar M.D. May 02, 2018 08:57
--- NOTE | 2018-05-02 10:31 | Diagnostic Imaging Report ---
Indication: Abdominal distention Technique: Supine view of the abdomen Comparison: 04/26/2018 and 04/24/2018 Findings: Interim reexpansion of the distal colon with gas, sigmoid and descending colon now quite dilated. The sigmoid colon is not quite as dilated as it was on 04/24/2018, but the descending colon is somewhat more dilated than seen at that time. The transverse and ascending colon are gas-filled, upper limits of normal in caliber. Small bowel loops are nondilated. Impression: Since 04/26/2018, previously nondistended colon has reexpanded, caliber now similar to but not quite as great as that seen on 04/24/2018. CT scan on 04/24/2018 indicates that this is probably functional in nature rather than due to obstructive process.
--- NOTE | 2018-05-02 10:32 | Diagnostic Imaging Report ---
Indication: Cough Technique: One view of the chest Comparison: 04/15/2018 Findings: Less optimal inspiration currently. Previously demonstrated central venous catheter has been removed and there is now a left arm PICC. There is some atelectasis and possibly some consolidation at the left lung base. Pleural spaces are clear. Visualized bowel loops are prominent, gas-filled Impression: Atelectasis and possibly consolidation at the left lung base Other findings as noted
[2018-05-02 12:52] LABS: APPEARANCE,URINE SLIGHTLY CLOUDY; BILIRUBIN, URINE NEGATIVE (NEGATIVE); COLOR,URINE PALE YELLOW; GLUCOSE, URINE (UA) NEGATIVE (NEGATIVE); KETONES,URINE NEGATIVE (NEGATIVE); LEUKOCYTE ESTERASE ,URINE 3+ (NEGATIVE); NITRITE,URINE POSITIVE (NEGATIVE); PH,URINE 5 (4.5-8.0); PROTEIN,URINE 3+ (NEGATIVE); UROBILINOGEN,URINE NORMAL MG/DL (0.0-1.0)
--- NOTE | 2018-05-02 12:53 | General Surgery Progress Note ---
General Surgery-Progress Note Subjective Additional Comments no acute events. wants regular diet and not soft diet. Objective Last 24 Hour Vital Signs Date Time Temp Pulse Resp B/P (MAP) Pulse Ox O2 Delivery O2 Flow Rate FiO2 05/02/18 11:26 98.2 71 20 123/81 98 Room Air 98.2 05/02/18 08:03 97.4 78 20 142/73 98 Room Air 97.4 05/02/18 04:00 98.1 60 19 117/70 95 Room Air 98.1 05/02/18 02:35 99.0 05/02/18 00:00 99.0 70 19 109/62 97 Room Air 99.0 05/01/18 20:00 98.2 79 18 107/67 97 Room Air 98.2 05/01/18 18:16 97.1 05/01/18 16:00 97.1 98 20 147/81 97 Room Air 97.1 05/01/18 14:54 98.8 05/01/18 13:55 98.8 I&O Intake and Output 05/01/18 05/02/18 19:00 07:00 Intake Total 1200 ml Output Total 1800 ml 650 ml Balance -600 ml -650 ml Intake Oral 1200 ml Output Urine Total 1800 ml 650 ml Cardiovascular: RSR Respiratory: clear Abdomen: soft, distended, non-tender, present bowel sounds Laboratory Tests Test 05/02/18 04:30 05/02/18 11:45 Sodium Level 139 MMOL/L (136-145) Potassium Level 3.8 MMOL/L (3.5-5.1) Chloride Level 105 MMOL/L (98-107) Carbon Dioxide Level 24 MMOL/L (21-32) Anion Gap 10 mmol/L (5-15) Blood Urea Nitrogen 31 mg/dL (7-18) H Creatinine 1.5 MG/DL (0.55-1.30) H Estimat Glomerular Filtration Rate 48.2 mL/min (>60) Glucose Level 97 MG/DL (74-106) Calcium Level 9.2 MG/DL (8.5-10.1) Urine Color Pending Urine Appearance Pending Urine pH Pending Urine Specific [place] Pending Urine Protein Pending Urine Glucose (UA) Pending Urine Ketones Pending Urine Occult Blood Pending Urine Nitrite Pending Urine Bilirubin Pending Urine Urobilinogen Pending Urine Leukocyte Esterase Pending Urine RBC Pending Urine WBC Pending Urine Squamous Epithelial Cells Pending Urine Bacteria Pending Plan Problems: (1) Sepsis Assessment & Plan: 57M with sepsis. likely etiology UTI. recently noted to have abdominal distention. KUB ordered and concerns for possible volvulus. CT ordered and no obstruction or volvulus noted. dilated redundant sigmoid colon air filled. still watery stool in rectal tube. exam with distention but otherwise benign. differential could be atonic colon developing, hirschsprung adult, pseudo- obstruction s/p high rectal tube insertion by GI with good result KUB shows improvement -no acute surgical intervention planned -appreciate GI input Overall much improved and decompressed. rectal tube to be removed upon discharge. unfortunately may recur and if so will need to be monitored. discussed considerations for diverting loop colostomy given medical condition, sacral wounds, and prior events. 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 please refer to wound care photos for size and measurements. 2-3cm deep, 2cm undermining in inferior aspect. does get stool in wound at times given proximity to anus. some granulation tissue. no foul odor. serous drainage. minimal eschar and necrotic tissues. -No acute debridement necessary. -air soft mattress, gauze packing and dressings TID for now. -will follow with recs. thank you for this consultation. Alo Martin May 02, 2018 12:53
--- NOTE | 2018-05-02 15:16 | Infectious Diseases Prog Note ---
Assessment/Plan Assessment/Plan antibiotics : none A 1. pneumonia 2. leucocytosis increasing 3. renal failure resolved 4. paraplegia P 1. start cefepime 2. sputum culture 3. will follow up cultures Subjective ROS Limited/Unobtainable: Yes Allergies: Coded Allergies: CHLORHEXIDINE (Verified Allergy, Unknown, 04/17/18) Pt states CHG gives him rashes Objective Vital Signs Last 24 Hour Vital Signs Date Time Temp Pulse Resp B/P (MAP) Pulse Ox O2 Delivery O2 Flow Rate FiO2 05/02/18 11:26 98.2 71 20 123/81 98 Room Air 98.2 05/02/18 08:03 97.4 78 20 142/73 98 Room Air 97.4 05/02/18 04:00 98.1 60 19 117/70 95 Room Air 98.1 05/02/18 02:35 99.0 05/02/18 00:00 99.0 70 19 109/62 97 Room Air 99.0 05/01/18 20:00 98.2 79 18 107/67 97 Room Air 98.2 05/01/18 18:16 97.1 05/01/18 16:00 97.1 98 20 147/81 97 Room Air 97.1 Height (Feet): 5 Height (Inches): 9.00 Weight (Pounds): 203 Respiratory/Chest: lungs clear Cardiovascular: normal rate, regular rhythm, no gallop/murmur Abdomen: soft, non tender Extremities: no edema, other - left arm PICC Laboratory Tests Test 05/02/18 04:30 05/02/18 11:45 Sodium Level 139 MMOL/L (136-145) Potassium Level 3.8 MMOL/L (3.5-5.1) Chloride Level 105 MMOL/L (98-107) Carbon Dioxide Level 24 MMOL/L (21-32) Anion Gap 10 mmol/L (5-15) Blood Urea Nitrogen 31 mg/dL (7-18) H Creatinine 1.5 MG/DL (0.55-1.30) H Estimat Glomerular Filtration Rate 48.2 mL/min (>60) Glucose Level 97 MG/DL (74-106) Calcium Level 9.2 MG/DL (8.5-10.1) Urine Color Pale yellow Urine Appearance Slightly cloudy Urine pH 5 (4.5-8.0) Urine Specific [place] 1.025 (1.005-1.035) Urine Protein 3+ (NEGATIVE) H Urine Glucose (UA) Negative (NEGATIVE) Urine Ketones Negative (NEGATIVE) Urine Occult Blood 2+ (NEGATIVE) H Urine Nitrite Positive (NEGATIVE) H Urine Bilirubin Negative (NEGATIVE) Urine Urobilinogen Normal MG/DL (0.0-1.0) Urine Leukocyte Esterase 3+ (NEGATIVE) H Urine RBC 5-10 /HPF (0 - 0) H Urine WBC 40-60 /HPF (0 - 0) H Urine Squamous Epithelial Cells Occasional /LPF Urine Bacteria Moderate /HPF (NONE) H Current Medications Medications (Trade) Dose Ordered Sig/Aleyda Route PRN Reason Start Time Stop Time Status Last Admin Dose Admin Acetaminophen (Tylenol) 650 mg Q6H PRN ORAL Shivering 04/29/18 11:00 05/29/18 10:59 04/29/18 11:13 Al Hydroxide/Mg Hydroxide (Mylanta) 30 ml Q6H PRN ORAL HEARTBURN 04/20/18 22:30 05/15/18 22:29 Ascorbic Acid (Vitamin C) 500 mg TWICE A DAY ORAL 04/21/18 09:00 05/16/18 08:59 05/02/18 08:28 Diphenhydramine HCl (Benadryl Cream) 1 applic THREE TIMES A DAY PRN TOPIC Itching 04/28/18 11:00 05/28/18 10:59 04/29/18 15:07 Diphenhydramine HCl (Benadryl) 25 mg Q4H PRN IVP Itching 04/28/18 09:00 05/28/18 08:59 05/02/18 05:20 Fludrocortisone Acetate (Florinef) 0.1 mg DAILY ORAL 04/25/18 09:00 05/25/18 08:59 05/02/18 08:26 Heparin Sodium (Porcine) (Heparin 5000 units/ml) 5,000 units EVERY 12 HOURS SUBQ 04/20/18 22:00 05/15/18 21:59 05/02/18 08:30 Lactobacillus Acidophilus (Culturelle) 1 tab TWICE A DAY ORAL 04/21/18 09:00 05/16/18 08:59 05/02/18 08:26 Magnesium Hydroxide (Mom) 30 ml HSPRN PRN ORAL Constipation 04/20/18 22:30 05/15/18 22:29 Midodrine (Pro-Amatine) 10 mg THREE TIMES A DAY ORAL 04/21/18 09:00 05/19/18 08:59 05/02/18 13:32 Multivitamins (Multivitamins) 1 tab DAILY ORAL 04/21/18 09:00 05/16/18 08:59 05/02/18 08:27 Naloxone HCl (Narcan) 0.2 mg Q30MIN PRN IVP respiratory depression 04/20/18 21:00 05/20/18 09:14 Oxycodone/ Acetaminophen (Percocet 10/325) 1 tab Q4H PRN ORAL Severe Pain (Pain Scale 7-10) 04/29/18 18:00 05/06/18 17:59 05/02/18 11:15 Pantoprazole (Protonix) 40 mg DAILY ORAL 04/25/18 09:00 05/25/18 08:59 05/02/18 08:28 Pregabalin (Lyrica) 50 mg THREE TIMES A DAY ORAL 04/21/18 09:00 05/20/18 10:59 05/02/18 13:35 Sodium Chloride 1,000 ml @ 100 mls/hr Q10H IV 05/02/18 09:15 06/01/18 09:14 05/02/18 11:15 SABI COLON May 02, 2018 15:16
[2018-05-02] MEDS: Cefepime HCl 2 GM in D5W 110 ML IVPB SCH (16:43)
--- NOTE | 2018-05-02 23:26 | General Progress Note ---
Assessment/Plan Assessment/Plan Assessment - paraplegia - chronic intestinal dysmotility - contractures - poor Px Recommendations - po as tolerated - temporary rectal decompression - can d/c rectal tube at time of discharge - Abx - Placement Subjective Allergies: Coded Allergies: CHLORHEXIDINE (Verified Allergy, Unknown, 04/17/18) Pt states CHG gives him rashes Subjective Feel OK no abd pain no vomiting d/w surgery Objective Last 24 Hour Vital Signs Date Time Temp Pulse Resp B/P (MAP) Pulse Ox O2 Delivery O2 Flow Rate FiO2 05/02/18 22:16 97.3 05/02/18 19:18 97.3 73 20 104/87 94 Room Air 97.3 05/02/18 16:14 97.2 84 20 122/68 99 Room Air 97.2 05/02/18 15:31 98.2 05/02/18 11:26 98.2 71 20 123/81 98 Room Air 98.2 05/02/18 08:03 97.4 78 20 142/73 98 Room Air 97.4 05/02/18 04:00 98.1 60 19 117/70 95 Room Air 98.1 05/02/18 02:35 99.0 05/02/18 00:00 99.0 70 19 109/62 97 Room Air 99.0 Intake and Output 05/01/18 05/02/18 19:00 07:00 Intake Total 1200 ml Output Total 1800 ml 650 ml Balance -600 ml -650 ml Intake Oral 1200 ml Output Urine Total 1800 ml 650 ml Laboratory Tests 05/02/18 04:30: Sodium Level 139, Potassium Level 3.8, Chloride Level 105, Carbon Dioxide Level 24, Anion Gap 10, Blood Urea Nitrogen 31H, Creatinine 1.5H, Estimat Glomerular Filtration Rate 48.2, Glucose Level 97, Calcium Level 9.2 05/02/18 11:45: Urine Color Pale yellow, Urine Appearance Slightly cloudy, Urine pH 5, Urine Specific [place] 1.025, Urine Protein 3+H, Urine Glucose (UA) Negative, Urine Ketones Negative, Urine Occult Blood 2+H, Urine Nitrite PositiveH, Urine Bilirubin Negative, Urine Urobilinogen Normal, Urine Leukocyte Esterase 3+H, Urine RBC 5-10H, Urine WBC 40-60H, Urine Squamous Epithelial Cells Occasional, Urine Bacteria ModerateH Height (Feet): 5 Height (Inches): 9.00 Weight (Pounds): 203 Raiza Rodas MD May 02, 2018 23:26
[2018-05-03] VITALS (7 sets, daily range): BP systolic 101–126; BP diastolic 65–82
[2018-05-03] MEDS: Cefepime HCl 2 GM in D5W 110 ML IVPB SCH ×2 (03:45→16:12)
--- NOTE | 2018-05-03 06:54 | General Progress Note ---
Assessment/Plan Assessment/Plan Assessment - paraplegia - chronic intestinal dysmotility - contractures - poor Px Recommendations - po as tolerated - bowel regimen - d/c rectal tube - Abx - Placement Subjective Allergies: Coded Allergies: CHLORHEXIDINE (Verified Allergy, Unknown, 04/17/18) Pt states CHG gives him rashes Subjective Feel OK no abd c/o wants regular texture diet Objective Last 24 Hour Vital Signs Date Time Temp Pulse Resp B/P (MAP) Pulse Ox O2 Delivery O2 Flow Rate FiO2 05/03/18 04:00 98.3 70 20 124/74 97 Room Air 98.3 05/02/18 23:35 97.3 65 20 146/76 96 Room Air 97.3 05/02/18 22:16 97.3 05/02/18 19:18 97.3 73 20 104/87 94 Room Air 97.3 05/02/18 16:14 97.2 84 20 122/68 99 Room Air 97.2 05/02/18 15:31 98.2 05/02/18 11:26 98.2 71 20 123/81 98 Room Air 98.2 05/02/18 08:03 97.4 78 20 142/73 98 Room Air 97.4 Intake and Output 05/02/18 05/03/18 19:00 07:00 Intake Total 1480 ml 940 ml Output Total 1700 ml 750 ml Balance -220 ml 190 ml Intake Oral 880 ml 240 ml IV Total 600 ml 500 ml Other 200 ml Output Urine Total 1700 ml 750 ml # Voids 2 Laboratory Tests 05/02/18 11:45: Urine Color Pale yellow, Urine Appearance Slightly cloudy, Urine pH 5, Urine Specific [place] 1.025, Urine Protein 3+H, Urine Glucose (UA) Negative, Urine Ketones Negative, Urine Occult Blood 2+H, Urine Nitrite PositiveH, Urine Bilirubin Negative, Urine Urobilinogen Normal, Urine Leukocyte Esterase 3+H, Urine RBC 5-10H, Urine WBC 40-60H, Urine Squamous Epithelial Cells Occasional, Urine Bacteria ModerateH 05/03/18 05:45: Sodium Level [Pending], Potassium Level [Pending], Chloride Level [Pending], Carbon Dioxide Level [Pending], Blood Urea Nitrogen [Pending], Creatinine [ Pending], Estimat Glomerular Filtration Rate [Pending], Glucose Level [Pending] , Calcium Level [Pending], Total Bilirubin [Pending], Aspartate Amino Transf ( AST/SGOT) [Pending], Alanine Aminotransferase (ALT/SGPT) [Pending], Alkaline Phosphatase [Pending], Total Protein [Pending], Albumin [Pending], Globulin [ Pending] Height (Feet): 5 Height (Inches): 9.00 Weight (Pounds): 207 Raiza Rodas MD May 03, 2018 06:54
[2018-05-03 07:12] LABS: ALANINE AMINOTRANSFERASE 17 U/L (12-78); ALBUMIN 3.2 G/DL (3.4-5.0); ALBUMIN/GLOBULIN RATIO 0.6 (1.0-2.7); ALKALINE PHOSPHATASE 104 U/L (46-116); ASPARTATE AMINO TRANSFERASE 13 U/L (15-37); BILIRUBIN,TOTAL 0.2 MG/DL (0.2-1.0); BLOOD UREA NITROGEN 24 mg/dL (7-18); CARBON DIOXIDE 23 MMOL/L (21-32); CREATININE 1.3 MG/DL (0.55-1.30)
[2018-05-03 07:52] LABS: CHLORIDE 108 MMOL/L (98-107); POTASSIUM 3.8 MMOL/L (3.5-5.1); SODIUM 141 MMOL/L (136-145)
--- NOTE | 2018-05-03 08:16 | General Progress Note ---
Assessment/Plan Assessment/Plan (1) Spinal cord injury (2) H/o heroin abuse (3) Decubitus ulcer (4) Paraplegia (5) Neuropathic pain (6) Intractable pain Patient will be continued on Percocet and Lyrica D/w Dr. Byrd and he concurred. Subjective Date patient seen: May 03, 2018 Time patient seen: 07:45 - am Allergies: Coded Allergies: CHLORHEXIDINE (Verified Allergy, Unknown, 04/17/18) Pt states CHG gives him rashes Subjective Constitutional: Reports: weakness HEENT: Reports: no symptoms Cardiovascular: Reports: no symptoms Respiratory: Reports: no symptoms Gastrointestinal/Abdominal: Reports: no symptoms Genitourinary: Reports: no symptoms Neurologic/Psychiatric: Reports: numbness, tingling Endocrine: Reports: no symptoms Hematologic/Lymphatic: Reports: no symptoms Subjective Patient is laying in bed and reports that he continues to have severe pain. The pain is worse with movement and tolerated on the Percocet. He has no new complaints. Objective Last 24 Hour Vital Signs Date Time Temp Pulse Resp B/P (MAP) Pulse Ox O2 Delivery O2 Flow Rate FiO2 05/03/18 04:00 98.3 70 20 124/74 97 Room Air 98.3 05/02/18 23:35 97.3 65 20 146/76 96 Room Air 97.3 05/02/18 22:16 97.3 05/02/18 19:18 97.3 73 20 104/87 94 Room Air 97.3 05/02/18 16:14 97.2 84 20 122/68 99 Room Air 97.2 05/02/18 15:31 98.2 05/02/18 11:26 98.2 71 20 123/81 98 Room Air 98.2 Intake and Output 05/02/18 05/03/18 19:00 07:00 Intake Total 1480 ml 940 ml Output Total 1700 ml 750 ml Balance -220 ml 190 ml Intake Oral 880 ml 240 ml IV Total 600 ml 500 ml Other 200 ml Output Urine Total 1700 ml 750 ml # Voids 2 Laboratory Tests 05/02/18 11:45: Urine Color Pale yellow, Urine Appearance Slightly cloudy, Urine pH 5, Urine Specific [place] 1.025, Urine Protein 3+H, Urine Glucose (UA) Negative, Urine Ketones Negative, Urine Occult Blood 2+H, Urine Nitrite PositiveH, Urine Bilirubin Negative, Urine Urobilinogen Normal, Urine Leukocyte Esterase 3+H, Urine RBC 5-10H, Urine WBC 40-60H, Urine Squamous Epithelial Cells Occasional, Urine Bacteria ModerateH 05/03/18 05:45: Sodium Level 141, Potassium Level 3.8, Chloride Level 108H, Carbon Dioxide Level 23, Blood Urea Nitrogen 24H, Creatinine 1.3, Estimat Glomerular Filtration Rate 56.9, Glucose Level 110H, Calcium Level 9.0, Total Bilirubin 0.2 , Aspartate Amino Transf (AST/SGOT) 13L, Alanine Aminotransferase (ALT/SGPT) 17 , Alkaline Phosphatase 104, Total Protein 8.6H, Albumin 3.2L, Globulin 5.4, Albumin/Globulin Ratio 0.6L Height (Feet): 5 Height (Inches): 9.00 Weight (Pounds): 207 Objective GENERAL: Alert, awake, and oriented. HEENT: PERRLA. NECK: Range of motion is decreased due to the patient's condition. LUNGS: Decreased breath sounds bilaterally. ABDOMEN: Benign. BACK: Range of motion is decreased in flexion and extension with decubitus ulcer noted. EXTREMITIES: Upper and lower extremity range of motion is decreased with joint contractures seen. Tenderness to palpation. Luiz Lees May 03, 2018 08:15
[2018-05-03] MEDS: Heparin 5000 units/ml inj SUBQ SCH ×2 (08:17→20:52)
[2018-05-03] MEDS: Ascorbic Acid 500mg tab ORAL SCH ×2 (08:18→19:31)
[2018-05-03] MEDS: Lactobacillus-GG tablet ORAL SCH ×2 (08:18→19:31)
[2018-05-03] MEDS: Midodrine 10mg tab ORAL SCH ×3 (08:21→19:31)
--- NOTE | 2018-05-03 08:33 | General Progress Note ---
Assessment/Plan Problem List: (1) Renal failure ICD Codes: N19 - Unspecified kidney failure SNOMED: 89153088 Qualifiers: Qualified Codes: N19 - Unspecified kidney failure (2) Severe sepsis ICD Codes: A41.9 - Sepsis, unspecified organism; R65.20 - Severe sepsis without septic shock SNOMED: 72838771 (3) Paraplegia ICD Codes: G82.20 - Paraplegia, unspecified SNOMED: 95208399 (4) UTI (urinary tract infection) ICD Codes: N39.0 - Urinary tract infection, site not specified SNOMED: 51527294 Qualifiers: Qualified Codes: T83.511A - Infection and inflammatory reaction due to indwelling urethral catheter, initial encounter; N39.0 - Urinary tract infection , site not specified (5) Decubitus ulcer ICD Codes: L89.90 - Pressure ulcer of unspecified site, unspecified stage SNOMED: 471726827 Status: stable, progressing Assessment/Plan cont current rx follow up urine culture wound care pain rx monitor renal fxn picc line dc planning pt wants to go closer to [facility] Subjective ROS Limited/Unobtainable: No Constitutional: Reports: malaise, weakness HEENT: Reports: no symptoms Cardiovascular: Reports: no symptoms Respiratory: Reports: no symptoms Gastrointestinal/Abdominal: Reports: no symptoms Genitourinary: Reports: no symptoms Neurologic/Psychiatric: Reports: pre-existing deficit Endocrine: Reports: no symptoms Hematologic/Lymphatic: Reports: no symptoms Allergies: Coded Allergies: CHLORHEXIDINE (Verified Allergy, Unknown, 04/17/18) Pt states CHG gives him rashes All Systems: reviewed and negative except above Subjective no new complaints. continues to feel "chills." Objective Last 24 Hour Vital Signs Date Time Temp Pulse Resp B/P (MAP) Pulse Ox O2 Delivery O2 Flow Rate FiO2 05/03/18 08:29 97.0 75 20 101/65 100 Room Air 97.0 05/03/18 04:00 98.3 70 20 124/74 97 Room Air 98.3 05/02/18 23:35 97.3 65 20 146/76 96 Room Air 97.3 05/02/18 22:16 97.3 05/02/18 19:18 97.3 73 20 104/87 94 Room Air 97.3 05/02/18 16:14 97.2 84 20 122/68 99 Room Air 97.2 05/02/18 15:31 98.2 05/02/18 11:26 98.2 71 20 123/81 98 Room Air 98.2 Intake and Output 05/02/18 05/03/18 19:00 07:00 Intake Total 1480 ml 940 ml Output Total 1700 ml 750 ml Balance -220 ml 190 ml Intake Oral 880 ml 240 ml IV Total 600 ml 500 ml Other 200 ml Output Urine Total 1700 ml 750 ml # Voids 2 Laboratory Tests 05/02/18 11:45: Urine Color Pale yellow, Urine Appearance Slightly cloudy, Urine pH 5, Urine Specific [place] 1.025, Urine Protein 3+H, Urine Glucose (UA) Negative, Urine Ketones Negative, Urine Occult Blood 2+H, Urine Nitrite PositiveH, Urine Bilirubin Negative, Urine Urobilinogen Normal, Urine Leukocyte Esterase 3+H, Urine RBC 5-10H, Urine WBC 40-60H, Urine Squamous Epithelial Cells Occasional, Urine Bacteria ModerateH 05/03/18 05:45: Sodium Level 141, Potassium Level 3.8, Chloride Level 108H, Carbon Dioxide Level 23, Blood Urea Nitrogen 24H, Creatinine 1.3, Estimat Glomerular Filtration Rate 56.9, Glucose Level 110H, Calcium Level 9.0, Total Bilirubin 0.2 , Aspartate Amino Transf (AST/SGOT) 13L, Alanine Aminotransferase (ALT/SGPT) 17 , Alkaline Phosphatase 104, Total Protein 8.6H, Albumin 3.2L, Globulin 5.4, Albumin/Globulin Ratio 0.6L Height (Feet): 5 Height (Inches): 9.00 Weight (Pounds): 207 Objective General Appearance: WD/WN, alert Neck: supple Cardiovascular: regular rhythm Respiratory/Chest: chest wall non-tender, lungs clear, normal breath sounds Abdomen: normal bowel sounds, non tender, soft, no organomegaly Edema: no edema noted Arm (L), no edema noted Arm (R), no edema noted Leg (L), no edema noted Leg (R), no edema noted Pedal (L), no edema noted Pedal (R), no edema noted Generalized Alfa Marshall MD May 03, 2018 08:33
[2018-05-03] MEDS: Lyrica 50mg cap ORAL SCH ×3 (09:19→20:47)
--- NOTE | 2018-05-03 09:21 | Nephrology Progress Note ---
Assessment/Plan Assessment/Plan 1. SHARDA- multifact ATN ( hypotension/sepsis) - Cr back to 1.3. DC IVF's - OK for DC from renal point. BMP q 2x wk while inpatient - Midrodrine + Florinef 2. UTI- Abx completed 3. Paraplegic- per PCP mgmt Subjective Date patient seen: May 03, 2018 Time patient seen: 09:20 ROS Limited/Unobtainable: No Allergies: Coded Allergies: CHLORHEXIDINE (Verified Allergy, Unknown, 04/17/18) Pt states CHG gives him rashes Subjective Awaiting DC to SNF. Patient feels better with hydration Objective Last 24 Hour Vital Signs Date Time Temp Pulse Resp B/P (MAP) Pulse Ox O2 Delivery O2 Flow Rate FiO2 05/03/18 08:29 97.0 75 20 101/65 100 Room Air 97.0 05/03/18 04:00 98.3 70 20 124/74 97 Room Air 98.3 05/02/18 23:35 97.3 65 20 146/76 96 Room Air 97.3 05/02/18 22:16 97.3 05/02/18 19:18 97.3 73 20 104/87 94 Room Air 97.3 05/02/18 16:14 97.2 84 20 122/68 99 Room Air 97.2 05/02/18 15:31 98.2 05/02/18 11:26 98.2 71 20 123/81 98 Room Air 98.2 Intake and Output 05/02/18 05/03/18 19:00 07:00 Intake Total 1480 ml 940 ml Output Total 1700 ml 750 ml Balance -220 ml 190 ml Intake Oral 880 ml 240 ml IV Total 600 ml 500 ml Other 200 ml Output Urine Total 1700 ml 750 ml # Voids 2 Laboratory Tests 05/02/18 11:45: Urine Color Pale yellow, Urine Appearance Slightly cloudy, Urine pH 5, Urine Specific [place] 1.025, Urine Protein 3+H, Urine Glucose (UA) Negative, Urine Ketones Negative, Urine Occult Blood 2+H, Urine Nitrite PositiveH, Urine Bilirubin Negative, Urine Urobilinogen Normal, Urine Leukocyte Esterase 3+H, Urine RBC 5-10H, Urine WBC 40-60H, Urine Squamous Epithelial Cells Occasional, Urine Bacteria ModerateH 05/03/18 05:45: Sodium Level 141, Potassium Level 3.8, Chloride Level 108H, Carbon Dioxide Level 23, Blood Urea Nitrogen 24H, Creatinine 1.3, Estimat Glomerular Filtration Rate 56.9, Glucose Level 110H, Calcium Level 9.0, Total Bilirubin 0.2 , Aspartate Amino Transf (AST/SGOT) 13L, Alanine Aminotransferase (ALT/SGPT) 17 , Alkaline Phosphatase 104, Total Protein 8.6H, Albumin 3.2L, Globulin 5.4, Albumin/Globulin Ratio 0.6L Height (Feet): 5 Height (Inches): 9.00 Weight (Pounds): 207 General Appearance: no apparent distress, alert EENT: normal ENT inspection Neck: normal alignment, supple Cardiovascular: normal rate, regular rhythm Respiratory/Chest: lungs clear, normal breath sounds Abdomen: non tender, soft Edema: no edema noted Arm (L), no edema noted Arm (R), no edema noted Leg (L), no edema noted Leg (R), no edema noted Pedal (L), no edema noted Pedal (R), no edema noted Generalized Macario Kumar M.D. May 03, 2018 09:21
--- NOTE | 2018-05-03 13:46 | General Surgery Progress Note ---
General Surgery-Progress Note Subjective Additional Comments no acute events. doing well. Objective Last 24 Hour Vital Signs Date Time Temp Pulse Resp B/P (MAP) Pulse Ox O2 Delivery O2 Flow Rate FiO2 05/03/18 12:00 98.3 65 22 125/74 100 Room Air 98.3 05/03/18 08:29 97.0 75 20 101/65 100 Room Air 97.0 05/03/18 04:00 98.3 70 20 124/74 97 Room Air 98.3 05/02/18 23:35 97.3 65 20 146/76 96 Room Air 97.3 05/02/18 22:16 97.3 05/02/18 19:18 97.3 73 20 104/87 94 Room Air 97.3 05/02/18 16:14 97.2 84 20 122/68 99 Room Air 97.2 05/02/18 15:31 98.2 I&O Intake and Output 05/02/18 05/03/18 19:00 07:00 Intake Total 1480 ml 940 ml Output Total 1700 ml 750 ml Balance -220 ml 190 ml Intake Oral 880 ml 240 ml IV Total 600 ml 500 ml Other 200 ml Output Urine Total 1700 ml 750 ml # Voids 2 Wound: clean Drains: none Cardiovascular: RSR Respiratory: clear Abdomen: soft, distended, non-tender, present bowel sounds Extremities: cyanosis Laboratory Tests Test 05/03/18 05:45 Sodium Level 141 MMOL/L (136-145) Potassium Level 3.8 MMOL/L (3.5-5.1) Chloride Level 108 MMOL/L (98-107) H Carbon Dioxide Level 23 MMOL/L (21-32) Blood Urea Nitrogen 24 mg/dL (7-18) H Creatinine 1.3 MG/DL (0.55-1.30) Estimat Glomerular Filtration Rate 56.9 mL/min (>60) Glucose Level 110 MG/DL (74-106) H Calcium Level 9.0 MG/DL (8.5-10.1) Total Bilirubin 0.2 MG/DL (0.2-1.0) Aspartate Amino Transf (AST/SGOT) 13 U/L (15-37) L Alanine Aminotransferase (ALT/SGPT) 17 U/L (12-78) Alkaline Phosphatase 104 U/L (46-116) Total Protein 8.6 G/DL (6.4-8.2) H Albumin 3.2 G/DL (3.4-5.0) L Globulin 5.4 g/dL Albumin/Globulin Ratio 0.6 (1.0-2.7) L Plan Problems: (1) Sepsis Assessment & Plan: 57M with sepsis. likely etiology UTI. recently noted to have abdominal distention. KUB ordered and concerns for possible volvulus. CT ordered and no obstruction or volvulus noted. dilated redundant sigmoid colon air filled. still watery stool in rectal tube. exam with distention but otherwise benign. differential could be atonic colon developing, hirschsprung adult, pseudo- obstruction s/p high rectal tube insertion by GI with good result KUB shows improvement -no acute surgical intervention planned -appreciate GI input Overall much improved and decompressed. rectal tube to be removed upon discharge. unfortunately may recur and if so will need to be monitored. discussed considerations for diverting loop colostomy given medical condition, sacral wounds, and prior events. 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 please refer to wound care photos for size and measurements. 2-3cm deep, 2cm undermining in inferior aspect. does get stool in wound at times given proximity to anus. some granulation tissue. no foul odor. serous drainage. minimal eschar and necrotic tissues. -No acute debridement necessary. -air soft mattress, gauze packing and dressings TID for now. -will follow with recs. thank you for this consultation. Alo Martin May 03, 2018 13:46
--- NOTE | 2018-05-03 14:05 | Infectious Diseases Prog Note ---
Assessment/Plan Assessment/Plan antibiotics : cefepime 05.03.18 - A 1. pneumonia 2. leucocytosis increasing 3. renal failure resolved 4. paraplegia 5. gram negative UTI P 1. continue cefepime 2. will follow up cultures Subjective Constitutional: Reports: drenching sweats; Denies: fever, chills Respiratory: Denies: shortness of breath, dry cough Gastrointestinal/Abdominal: Denies: nausea, vomiting, diarrhea Musculoskeletal: Reports: pain Allergies: Coded Allergies: CHLORHEXIDINE (Verified Allergy, Unknown, 04/17/18) Pt states CHG gives him rashes Objective Vital Signs Last 24 Hour Vital Signs Date Time Temp Pulse Resp B/P (MAP) Pulse Ox O2 Delivery O2 Flow Rate FiO2 05/03/18 12:00 98.3 65 22 125/74 100 Room Air 98.3 05/03/18 08:29 97.0 75 20 101/65 100 Room Air 97.0 05/03/18 04:00 98.3 70 20 124/74 97 Room Air 98.3 05/02/18 23:35 97.3 65 20 146/76 96 Room Air 97.3 05/02/18 22:16 97.3 05/02/18 19:18 97.3 73 20 104/87 94 Room Air 97.3 05/02/18 16:14 97.2 84 20 122/68 99 Room Air 97.2 05/02/18 15:31 98.2 Height (Feet): 5 Height (Inches): 9.00 Weight (Pounds): 207 Respiratory/Chest: lungs clear Cardiovascular: normal rate, regular rhythm, no gallop/murmur Abdomen: soft, non tender Extremities: no edema Microbiology Date/Time Source Procedure Growth Status 05/02/18 11:45 Indwelling Cath Urine Culture - Preliminary Gram Negative Bacillus 1 Resulted Laboratory Tests Test 05/03/18 05:45 Sodium Level 141 MMOL/L (136-145) Potassium Level 3.8 MMOL/L (3.5-5.1) Chloride Level 108 MMOL/L (98-107) H Carbon Dioxide Level 23 MMOL/L (21-32) Blood Urea Nitrogen 24 mg/dL (7-18) H Creatinine 1.3 MG/DL (0.55-1.30) Estimat Glomerular Filtration Rate 56.9 mL/min (>60) Glucose Level 110 MG/DL (74-106) H Calcium Level 9.0 MG/DL (8.5-10.1) Total Bilirubin 0.2 MG/DL (0.2-1.0) Aspartate Amino Transf (AST/SGOT) 13 U/L (15-37) L Alanine Aminotransferase (ALT/SGPT) 17 U/L (12-78) Alkaline Phosphatase 104 U/L (46-116) Total Protein 8.6 G/DL (6.4-8.2) H Albumin 3.2 G/DL (3.4-5.0) L Globulin 5.4 g/dL Albumin/Globulin Ratio 0.6 (1.0-2.7) L Current Medications Medications (Trade) Dose Ordered Sig/Aleyda Route PRN Reason Start Time Stop Time Status Last Admin Dose Admin Acetaminophen (Tylenol) 650 mg Q6H PRN ORAL Shivering 04/29/18 11:00 05/29/18 10:59 04/29/18 11:13 Al Hydroxide/Mg Hydroxide (Mylanta) 30 ml Q6H PRN ORAL HEARTBURN 04/20/18 22:30 05/15/18 22:29 Ascorbic Acid (Vitamin C) 500 mg TWICE A DAY ORAL 04/21/18 09:00 05/16/18 08:59 05/03/18 08:18 Bisacodyl (Dulcolax) 10 mg DAILY RECTAL 05/03/18 09:00 06/02/18 08:59 Cefepime HCl 2 gm/ Dextrose 110 ml @ 220 mls/hr Q12HR@0400,1600 IVPB 05/02/18 16:00 05/09/18 15:59 05/03/18 03:45 Diphenhydramine HCl (Benadryl Cream) 1 applic THREE TIMES A DAY PRN TOPIC Itching 04/28/18 11:00 05/28/18 10:59 04/29/18 15:07 Diphenhydramine HCl (Benadryl) 25 mg Q4H PRN IVP Itching 04/28/18 09:00 05/28/18 08:59 05/02/18 19:48 Fludrocortisone Acetate (Florinef) 0.1 mg DAILY ORAL 04/25/18 09:00 05/25/18 08:59 05/03/18 08:18 Heparin Sodium (Porcine) (Heparin 5000 units/ml) 5,000 units EVERY 12 HOURS SUBQ 04/20/18 22:00 05/15/18 21:59 05/03/18 08:17 Lactobacillus Acidophilus (Culturelle) 1 tab TWICE A DAY ORAL 04/21/18 09:00 05/16/18 08:59 05/03/18 08:18 Magnesium Hydroxide (Mom) 30 ml HSPRN PRN ORAL Constipation 04/20/18 22:30 05/15/18 22:29 Midodrine (Pro-Amatine) 10 mg THREE TIMES A DAY ORAL 04/21/18 09:00 05/19/18 08:59 05/03/18 08:21 Multivitamins (Multivitamins) 1 tab DAILY ORAL 04/21/18 09:00 05/16/18 08:59 05/03/18 08:19 Naloxone HCl (Narcan) 0.2 mg Q30MIN PRN IVP respiratory depression 04/20/18 21:00 05/20/18 09:14 Oxycodone/ Acetaminophen (Percocet 10/325) 1 tab Q4H PRN ORAL Severe Pain (Pain Scale 7-10) 04/29/18 18:00 05/06/18 17:59 05/03/18 13:10 Pantoprazole (Protonix) 40 mg DAILY ORAL 04/25/18 09:00 05/25/18 08:59 05/03/18 08:19 Polyethylene Glycol (Miralax) 17 gm BEDTIME ORAL 05/03/18 21:00 06/02/18 20:59 Pregabalin (Lyrica) 50 mg THREE TIMES A DAY ORAL 04/21/18 09:00 05/20/18 10:59 05/03/18 09:19 Sodium Chloride 1,000 ml @ 100 mls/hr Q10H IV 05/02/18 09:15 06/01/18 09:14 05/02/18 21:20 SABI COLON May 03, 2018 14:05
[2018-05-03] MEDS: DiphenhydrAMINE 50mg/ml Inj IVP PRN (15:52)
[2018-05-03] MEDS: Miralax 17gm pkt ORAL SCH (21:00)
[2018-05-04 03:30] VITALS: BP 117/60
[2018-05-04] MEDS: Cefepime HCl 2 GM in D5W 110 ML IVPB SCH (03:59)
--- NOTE | 2018-05-04 07:36 | General Progress Note ---
Assessment/Plan Problem List: (1) Renal failure ICD Codes: N19 - Unspecified kidney failure SNOMED: 98974390 Qualifiers: Qualified Codes: N19 - Unspecified kidney failure (2) Severe sepsis ICD Codes: A41.9 - Sepsis, unspecified organism; R65.20 - Severe sepsis without septic shock SNOMED: 91710438 (3) Paraplegia ICD Codes: G82.20 - Paraplegia, unspecified SNOMED: 47391481 (4) UTI (urinary tract infection) ICD Codes: N39.0 - Urinary tract infection, site not specified SNOMED: 90149525 Qualifiers: Qualified Codes: T83.511A - Infection and inflammatory reaction due to indwelling urethral catheter, initial encounter; N39.0 - Urinary tract infection , site not specified (5) Decubitus ulcer ICD Codes: L89.90 - Pressure ulcer of unspecified site, unspecified stage SNOMED: 492994600 Status: stable Assessment/Plan cont current rx follow up urine culture abx per id wound care pain rx monitor renal fxn dc planning pt wants to go closer to [facility] Subjective ROS Limited/Unobtainable: No Constitutional: Reports: chills, malaise, weakness HEENT: Reports: no symptoms Cardiovascular: Reports: no symptoms Respiratory: Reports: no symptoms Gastrointestinal/Abdominal: Reports: no symptoms Genitourinary: Reports: no symptoms Neurologic/Psychiatric: Reports: pre-existing deficit Endocrine: Reports: no symptoms Hematologic/Lymphatic: Reports: no symptoms Allergies: Coded Allergies: CHLORHEXIDINE (Verified Allergy, Unknown, 04/17/18) Pt states CHG gives him rashes All Systems: reviewed and negative except above Subjective no new complaints. continues to feel "chills." ucx with gnr. eating well Objective Last 24 Hour Vital Signs Date Time Temp Pulse Resp B/P (MAP) Pulse Ox O2 Delivery O2 Flow Rate FiO2 05/04/18 06:29 97.0 05/04/18 05:30 97.0 05/04/18 03:30 97.0 74 20 117/60 95 Room Air 97.0 05/04/18 01:25 97.7 05/03/18 23:43 97.7 59 20 118/73 98 Room Air 97.7 05/03/18 21:22 98.1 85 20 126/82 93 Room Air 98.1 05/03/18 20:00 98.1 85 20 126/82 97 Room Air 98.1 05/03/18 16:00 98.0 68 20 126/70 98 Room Air 98.0 05/03/18 12:00 98.3 65 22 125/74 100 Room Air 98.3 05/03/18 08:29 97.0 75 20 101/65 100 Room Air 97.0 Intake and Output 05/03/18 05/04/18 19:00 07:00 Intake Total 2100 ml 110 ml Output Total 850 ml 1202 ml Balance 1250 ml -1092 ml Intake Oral 1600 ml IV Total 500 ml 110 ml Output Urine Total 850 ml 1200 ml Stool Total 2 ml # Bowel Movements 2 3 Height (Feet): 5 Height (Inches): 9.00 Weight (Pounds): 211 Objective General Appearance: WD/WN, alert Neck: supple Cardiovascular: regular rhythm Respiratory/Chest: chest wall non-tender, lungs clear, normal breath sounds Abdomen: normal bowel sounds, non tender, soft, no organomegaly Edema: no edema noted Arm (L), no edema noted Arm (R), no edema noted Leg (L), no edema noted Leg (R), no edema noted Pedal (L), no edema noted Pedal (R), no edema noted Generalized Alfa Marshall MD May 04, 2018 07:36
--- NOTE | 2018-05-04 07:50 | General Progress Note ---
Assessment/Plan Assessment/Plan (1) Spinal cord injury (2) H/o heroin abuse (3) Decubitus ulcer (4) Paraplegia (5) Neuropathic pain (6) Intractable pain Patient will be continued on Percocet and Lyrica D/w Dr. Byrd and he concurred. Subjective Date patient seen: May 04, 2018 Time patient seen: 07:15 - am Allergies: Coded Allergies: CHLORHEXIDINE (Verified Allergy, Unknown, 04/17/18) Pt states CHG gives him rashes Subjective Constitutional: Reports: weakness HEENT: Reports: no symptoms Cardiovascular: Reports: no symptoms Respiratory: Reports: no symptoms Gastrointestinal/Abdominal: Reports: no symptoms Genitourinary: Reports: no symptoms Neurologic/Psychiatric: Reports: numbness, tingling Endocrine: Reports: no symptoms Hematologic/Lymphatic: Reports: no symptoms Subjective Patient has been sitting up in bed no signs of distress. Continues to c/o pain which has been tolerated on the Percocet. He has no new complaints. Objective Last 24 Hour Vital Signs Date Time Temp Pulse Resp B/P (MAP) Pulse Ox O2 Delivery O2 Flow Rate FiO2 05/04/18 06:29 97.0 05/04/18 05:30 97.0 05/04/18 03:30 97.0 74 20 117/60 95 Room Air 97.0 05/04/18 01:25 97.7 05/03/18 23:43 97.7 59 20 118/73 98 Room Air 97.7 05/03/18 21:22 98.1 85 20 126/82 93 Room Air 98.1 05/03/18 20:00 98.1 85 20 126/82 97 Room Air 98.1 05/03/18 16:00 98.0 68 20 126/70 98 Room Air 98.0 05/03/18 12:00 98.3 65 22 125/74 100 Room Air 98.3 05/03/18 08:29 97.0 75 20 101/65 100 Room Air 97.0 Intake and Output 05/03/18 05/04/18 19:00 07:00 Intake Total 2100 ml 110 ml Output Total 850 ml 1202 ml Balance 1250 ml -1092 ml Intake Oral 1600 ml IV Total 500 ml 110 ml Output Urine Total 850 ml 1200 ml Stool Total 2 ml # Bowel Movements 2 3 Height (Feet): 5 Height (Inches): 9.00 Weight (Pounds): 211 Objective GENERAL: Alert, awake, and oriented. HEENT: PERRLA. NECK: Range of motion is decreased due to the patient's condition. LUNGS: Decreased breath sounds bilaterally. ABDOMEN: Benign. BACK: Range of motion is decreased in flexion and extension with decubitus ulcer noted. EXTREMITIES: Upper and lower extremity range of motion is decreased with joint contractures seen. Tenderness to palpation. Luiz Lees May 04, 2018 07:49
[2018-05-04 08:00] VITALS: BP 91/52
[2018-05-04] MEDS: Midodrine 10mg tab ORAL SCH ×3 (08:24→18:11)
[2018-05-04] MEDS: Ascorbic Acid 500mg tab ORAL SCH ×2 (08:25→18:11)
[2018-05-04] MEDS: Lactobacillus-GG tablet ORAL SCH ×2 (08:25→18:11)
[2018-05-04] MEDS: DiphenhydrAMINE 50mg/ml Inj IVP PRN ×2 (08:25→20:03)
[2018-05-04] MEDS: Lyrica 50mg cap ORAL SCH ×3 (08:25→18:12)
[2018-05-04] MEDS: Heparin 5000 units/ml inj SUBQ SCH ×2 (08:33→20:07)
--- NOTE | 2018-05-04 11:06 | Infectious Diseases Prog Note ---
Assessment/Plan Assessment/Plan A 1. Gram negativeUTI 2. Proteus UTI treated 3. leucocytosis resolved 4. Acute renal failure resolved 5. paraplegia 6. shock, resolved, 7. 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 Leukocytosis P 1, continue Cefepime 2. f/u CBC Subjective ROS Limited/Unobtainable: Yes Allergies: Coded Allergies: CHLORHEXIDINE (Verified Allergy, Unknown, 04/17/18) Pt states CHG gives him rashes Objective Vital Signs Last 24 Hour Vital Signs Date Time Temp Pulse Resp B/P (MAP) Pulse Ox O2 Delivery O2 Flow Rate FiO2 05/04/18 08:00 98.1 72 20 91/52 98 98.1 05/04/18 06:29 97.0 05/04/18 05:30 97.0 05/04/18 03:30 97.0 74 20 117/60 95 Room Air 97.0 05/04/18 01:25 97.7 05/03/18 23:43 97.7 59 20 118/73 98 Room Air 97.7 05/03/18 21:22 98.1 85 20 126/82 93 Room Air 98.1 05/03/18 20:00 98.1 85 20 126/82 97 Room Air 98.1 05/03/18 16:00 98.0 68 20 126/70 98 Room Air 98.0 05/03/18 12:00 98.3 65 22 125/74 100 Room Air 98.3 Height (Feet): 5 Height (Inches): 9.00 Weight (Pounds): 211 General Appearance: no acute distress HEENT: mucous membranes moist Respiratory/Chest: lungs clear Cardiovascular: normal rate Abdomen: soft, non tender Genitourinary: other - Slater catheter Extremities: no edema Neurologic/Psychiatric: other - sleeping Microbiology Date/Time Source Procedure Growth Status 05/02/18 11:45 Indwelling Cath Urine Culture - Preliminary Gram Negative Bacillus 1 Resulted Current Medications Medications (Trade) Dose Ordered Sig/Aleyda Route PRN Reason Start Time Stop Time Status Last Admin Dose Admin Acetaminophen (Tylenol) 650 mg Q6H PRN ORAL Shivering 04/29/18 11:00 05/29/18 10:59 04/29/18 11:13 Al Hydroxide/Mg Hydroxide (Mylanta) 30 ml Q6H PRN ORAL HEARTBURN 04/20/18 22:30 05/15/18 22:29 Ascorbic Acid (Vitamin C) 500 mg TWICE A DAY ORAL 04/21/18 09:00 05/16/18 08:59 05/04/18 08:25 Bisacodyl (Dulcolax) 10 mg DAILY RECTAL 05/03/18 09:00 06/02/18 08:59 05/04/18 08:25 Cefepime HCl 2 gm/ Dextrose 110 ml @ 220 mls/hr Q12HR@0400,1600 IVPB 05/02/18 16:00 05/09/18 15:59 05/04/18 03:59 Diphenhydramine HCl (Benadryl Cream) 1 applic THREE TIMES A DAY PRN TOPIC Itching 04/28/18 11:00 05/28/18 10:59 04/29/18 15:07 Diphenhydramine HCl (Benadryl) 25 mg Q4H PRN IVP Itching 04/28/18 09:00 05/28/18 08:59 05/04/18 08:25 Fludrocortisone Acetate (Florinef) 0.1 mg DAILY ORAL 04/25/18 09:00 05/25/18 08:59 05/04/18 08:25 Heparin Sodium (Porcine) (Heparin 5000 units/ml) 5,000 units EVERY 12 HOURS SUBQ 04/20/18 22:00 05/15/18 21:59 05/04/18 08:33 Lactobacillus Acidophilus (Culturelle) 1 tab TWICE A DAY ORAL 04/21/18 09:00 05/16/18 08:59 05/04/18 08:25 Magnesium Hydroxide (Mom) 30 ml HSPRN PRN ORAL Constipation 04/20/18 22:30 05/15/18 22:29 Midodrine (Pro-Amatine) 10 mg THREE TIMES A DAY ORAL 04/21/18 09:00 05/19/18 08:59 05/04/18 08:24 Multivitamins (Multivitamins) 1 tab DAILY ORAL 04/21/18 09:00 05/16/18 08:59 05/04/18 08:24 Naloxone HCl (Narcan) 0.2 mg Q30MIN PRN IVP respiratory depression 04/20/18 21:00 05/20/18 09:14 Oxycodone/ Acetaminophen (Percocet 10/325) 1 tab Q4H PRN ORAL Severe Pain (Pain Scale 7-10) 05/04/18 10:00 05/11/18 09:59 05/04/18 09:31 Pantoprazole (Protonix) 40 mg DAILY ORAL 04/25/18 09:00 05/25/18 08:59 05/04/18 08:25 Polyethylene Glycol (Miralax) 17 gm BEDTIME ORAL 05/03/18 21:00 06/02/18 20:59 Pregabalin (Lyrica) 50 mg THREE TIMES A DAY ORAL 04/21/18 09:00 05/20/18 10:59 05/04/18 08:25 Reyes Trevino MD May 04, 2018 11:06
[2018-05-04 12:00] VITALS: BP 103/60
--- NOTE | 2018-05-04 14:05 | General Surgery Progress Note ---
General Surgery-Progress Note Subjective Additional Comments no acute events. doing well. comfortable Objective Last 24 Hour Vital Signs Date Time Temp Pulse Resp B/P (MAP) Pulse Ox O2 Delivery O2 Flow Rate FiO2 05/04/18 12:00 99.0 68 20 103/60 97 Room Air 99.0 05/04/18 08:00 98.1 72 20 91/52 98 98.1 05/04/18 08:00 Room Air 05/04/18 06:29 97.0 05/04/18 05:30 97.0 05/04/18 03:30 97.0 74 20 117/60 95 Room Air 97.0 05/04/18 01:25 97.7 05/03/18 23:43 97.7 59 20 118/73 98 Room Air 97.7 05/03/18 21:22 98.1 85 20 126/82 93 Room Air 98.1 05/03/18 20:00 98.1 85 20 126/82 97 Room Air 98.1 05/03/18 16:00 98.0 68 20 126/70 98 Room Air 98.0 I&O Intake and Output 05/03/18 05/04/18 19:00 07:00 Intake Total 2100 ml 110 ml Output Total 850 ml 1202 ml Balance 1250 ml -1092 ml Intake Oral 1600 ml IV Total 500 ml 110 ml Output Urine Total 850 ml 1200 ml Stool Total 2 ml # Bowel Movements 2 3 Cardiovascular: RSR Respiratory: clear Abdomen: soft, distended, present bowel sounds Extremities: no cyanosis Plan Problems: (1) Sepsis Assessment & Plan: 57M with sepsis. likely etiology UTI. recently noted to have abdominal distention. KUB ordered and concerns for possible volvulus. CT ordered and no obstruction or volvulus noted. dilated redundant sigmoid colon air filled. still watery stool in rectal tube. exam with distention but otherwise benign. differential could be atonic colon developing, hirschsprung adult, pseudo- obstruction s/p high rectal tube insertion by GI with good result KUB shows improvement -no acute surgical intervention planned -appreciate GI input Overall much improved and decompressed. rectal tube to be removed upon discharge. unfortunately may recur and if so will need to be monitored. discussed considerations for diverting loop colostomy given medical condition, sacral wounds, and prior events. 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 please refer to wound care photos for size and measurements. 2-3cm deep, 2cm undermining in inferior aspect. does get stool in wound at times given proximity to anus. some granulation tissue. no foul odor. serous drainage. minimal eschar and necrotic tissues. -No acute debridement necessary. -air soft mattress, gauze packing and dressings TID for now. -will follow with recs. thank you for this consultation. Alo Martin May 04, 2018 14:05
[2018-05-04 16:00] VITALS: BP 103/59
[2018-05-04] MEDS: Meropenem 1 GM in NS 55 ML IVPB SCH ×2 (16:48→23:41)
[2018-05-04 19:14] VITALS: BP 115/65
[2018-05-04] MEDS: Miralax 17gm pkt ORAL SCH (20:07)
[2018-05-04 23:59] VITALS: BP 142/72
--- NOTE | 2018-05-04 23:59 | General Progress Note ---
Assessment/Plan Assessment/Plan Assessment - paraplegia - chronic intestinal dysmotility - contractures - poor Px Recommendations - po as tolerated - bowel regimen - Abx - Placement Subjective Allergies: Coded Allergies: CHLORHEXIDINE (Verified Allergy, Unknown, 04/17/18) Pt states CHG gives him rashes Subjective Feel OK no abd c/o tolerating PO Objective Last 24 Hour Vital Signs Date Time Temp Pulse Resp B/P (MAP) Pulse Ox O2 Delivery O2 Flow Rate FiO2 05/04/18 19:14 98.2 80 20 115/65 95 Room Air 98.2 05/04/18 16:00 98.2 80 20 103/59 95 Room Air 98.2 05/04/18 12:00 99.0 68 20 103/60 97 Room Air 99.0 05/04/18 08:00 98.1 72 20 91/52 98 98.1 05/04/18 08:00 Room Air 05/04/18 06:29 97.0 05/04/18 05:30 97.0 05/04/18 03:30 97.0 74 20 117/60 95 Room Air 97.0 05/04/18 01:25 97.7 Intake and Output 05/03/18 05/04/18 19:00 07:00 Intake Total 2100 ml 110 ml Output Total 850 ml 1202 ml Balance 1250 ml -1092 ml Intake Oral 1600 ml IV Total 500 ml 110 ml Output Urine Total 850 ml 1200 ml Stool Total 2 ml # Bowel Movements 2 3 Height (Feet): 5 Height (Inches): 9.00 Weight (Pounds): 211 Objective Debilitated WM NCAT poor dentition Chest CTA RRR Soft NT ND no edema (+) contracted Raiza Rodas MD May 04, 2018 23:59
[2018-05-05 03:54] VITALS: BP 103/59
[2018-05-05 06:36] LABS: HEMATOCRIT 29.3 % (42.0-52.0); HEMOGLOBIN 9.5 G/DL (14.2-18.0); MEAN CORPUSCULAR VOLUME 84 FL (80-99); PLATELET COUNT 262 K/UL (150-450); RED BLOOD COUNT 3.47 M/UL (4.70-6.10); RED CELL DISTRIBUTION WIDTH 16.1 % (11.6-14.8); WHITE BLOOD COUNT 9.5 K/UL (4.8-10.8)
[2018-05-05] MEDS: DiphenhydrAMINE 50mg/ml Inj IVP PRN (07:19)
[2018-05-05 08:00] VITALS: BP 107/53
--- NOTE | 2018-05-05 08:04 | General Progress Note ---
Assessment/Plan Assessment/Plan (1) Spinal cord injury (2) H/o heroin abuse (3) Decubitus ulcer (4) Paraplegia (5) Neuropathic pain (6) Intractable pain Patient will be continued on Percocet and Lyrica D/w Dr. Byrd and he concurred. Subjective Date patient seen: May 05, 2018 Time patient seen: 07:00 - am Allergies: Coded Allergies: CHLORHEXIDINE (Verified Allergy, Unknown, 04/17/18) Pt states CHG gives him rashes Subjective Constitutional: Reports: weakness HEENT: Reports: no symptoms Cardiovascular: Reports: no symptoms Respiratory: Reports: no symptoms Gastrointestinal/Abdominal: Reports: no symptoms Genitourinary: Reports: no symptoms Neurologic/Psychiatric: Reports: numbness, tingling Endocrine: Reports: no symptoms Hematologic/Lymphatic: Reports: no symptoms Subjective Patient is in bed and reports that the pain is stable and tolerated on the Percocet having 3 doses in the last 24hrs. He has no new complaints. Objective Last 24 Hour Vital Signs Date Time Temp Pulse Resp B/P (MAP) Pulse Ox O2 Delivery O2 Flow Rate FiO2 05/05/18 04:11 98.2 05/05/18 03:54 98.2 66 20 103/59 97 Room Air 98.2 05/04/18 23:59 98.4 70 20 142/72 95 Room Air 98.4 05/04/18 19:14 98.2 80 20 115/65 95 Room Air 98.2 05/04/18 16:00 98.2 80 20 103/59 95 Room Air 98.2 05/04/18 12:00 99.0 68 20 103/60 97 Room Air 99.0 Intake and Output 05/04/18 05/05/18 19:00 07:00 Output Total 500 ml 1200 ml Balance -500 ml -1200 ml Output Urine Total 500 ml 1200 ml # Bowel Movements 2 1 Laboratory Tests 05/05/18 05:35: White Blood Count 9.5, Red Blood Count 3.47L, Hemoglobin 9.5L, Hematocrit 29.3L , Mean Corpuscular Volume 84, Mean Corpuscular Hemoglobin 27.3, Mean Corpuscular Hemoglobin Concent 32.4, Red Cell Distribution Width 16.1H, Platelet Count 262, Mean Platelet Volume 8.4, Neutrophils (%) (Auto) , Lymphocytes (%) (Auto) , Monocytes (%) (Auto) , Eosinophils (%) (Auto) , Basophils (%) (Auto) , Neutrophils % (Manual) [Pending], Lymphocytes % (Manual) [Pending], Platelet Estimate [Pending], Platelet Morphology [Pending] Height (Feet): 5 Height (Inches): 9.00 Weight (Pounds): 210 Objective GENERAL: Alert, awake, and oriented. HEENT: PERRLA. NECK: Range of motion is decreased due to the patient's condition. LUNGS: Decreased breath sounds bilaterally. ABDOMEN: Benign. BACK: Range of motion is decreased in flexion and extension with decubitus ulcer noted. EXTREMITIES: Upper and lower extremity range of motion is decreased with joint contractures seen. Tenderness to palpation. Luiz Lees May 05, 2018 08:04
--- NOTE | 2018-05-05 08:14 | General Progress Note ---
Assessment/Plan Problem List: (1) Renal failure ICD Codes: N19 - Unspecified kidney failure SNOMED: 87109866 Qualifiers: Qualified Codes: N19 - Unspecified kidney failure (2) Severe sepsis ICD Codes: A41.9 - Sepsis, unspecified organism; R65.20 - Severe sepsis without septic shock SNOMED: 94720452 (3) Paraplegia ICD Codes: G82.20 - Paraplegia, unspecified SNOMED: 11153463 (4) UTI (urinary tract infection) ICD Codes: N39.0 - Urinary tract infection, site not specified SNOMED: 12766737 Qualifiers: Qualified Codes: T83.511A - Infection and inflammatory reaction due to indwelling urethral catheter, initial encounter; N39.0 - Urinary tract infection , site not specified (5) Decubitus ulcer ICD Codes: L89.90 - Pressure ulcer of unspecified site, unspecified stage SNOMED: 424193525 Assessment/Plan cont current rx follow up urine culture abx per id wound care pain rx monitor renal fxn dc planning pt wants to go closer to [facility] Subjective ROS Limited/Unobtainable: No Constitutional: Reports: malaise, weakness HEENT: Reports: no symptoms Cardiovascular: Reports: no symptoms Respiratory: Reports: no symptoms Gastrointestinal/Abdominal: Reports: no symptoms Genitourinary: Reports: no symptoms Neurologic/Psychiatric: Reports: pre-existing deficit Endocrine: Reports: no symptoms Hematologic/Lymphatic: Reports: no symptoms Allergies: Coded Allergies: CHLORHEXIDINE (Verified Allergy, Unknown, 04/17/18) Pt states CHG gives him rashes All Systems: reviewed and negative except above Subjective no new complaints. no cp/sob. on iv abx ucx noted Objective Last 24 Hour Vital Signs Date Time Temp Pulse Resp B/P (MAP) Pulse Ox O2 Delivery O2 Flow Rate FiO2 05/05/18 04:11 98.2 05/05/18 03:54 98.2 66 20 103/59 97 Room Air 98.2 05/04/18 23:59 98.4 70 20 142/72 95 Room Air 98.4 05/04/18 19:14 98.2 80 20 115/65 95 Room Air 98.2 05/04/18 16:00 98.2 80 20 103/59 95 Room Air 98.2 05/04/18 12:00 99.0 68 20 103/60 97 Room Air 99.0 Intake and Output 05/04/18 05/05/18 19:00 07:00 Output Total 500 ml 1200 ml Balance -500 ml -1200 ml Output Urine Total 500 ml 1200 ml # Bowel Movements 2 1 Laboratory Tests 05/05/18 05:35: White Blood Count 9.5, Red Blood Count 3.47L, Hemoglobin 9.5L, Hematocrit 29.3L , Mean Corpuscular Volume 84, Mean Corpuscular Hemoglobin 27.3, Mean Corpuscular Hemoglobin Concent 32.4, Red Cell Distribution Width 16.1H, Platelet Count 262, Mean Platelet Volume 8.4, Neutrophils (%) (Auto) , Lymphocytes (%) (Auto) , Monocytes (%) (Auto) , Eosinophils (%) (Auto) , Basophils (%) (Auto) , Neutrophils % (Manual) [Pending], Lymphocytes % (Manual) [Pending], Platelet Estimate [Pending], Platelet Morphology [Pending] Height (Feet): 5 Height (Inches): 9.00 Weight (Pounds): 210 Objective General Appearance: WD/WN, alert Neck: supple Cardiovascular: regular rhythm Respiratory/Chest: chest wall non-tender, lungs clear, normal breath sounds Abdomen: normal bowel sounds, non tender, soft, no organomegaly Edema: no edema noted Arm (L), no edema noted Arm (R), no edema noted Leg (L), no edema noted Leg (R), no edema noted Pedal (L), no edema noted Pedal (R), no edema noted Generalized Alfa Marshall MD May 05, 2018 08:14
[2018-05-05] MEDS: Meropenem 1 GM in NS 55 ML IVPB SCH ×3 (08:38→23:24)
[2018-05-05] MEDS: Midodrine 10mg tab ORAL SCH ×3 (08:38→18:17)
[2018-05-05] MEDS: Ascorbic Acid 500mg tab ORAL SCH ×2 (08:38→18:16)
[2018-05-05] MEDS: Lactobacillus-GG tablet ORAL SCH ×2 (08:38→18:16)
[2018-05-05] MEDS: Heparin 5000 units/ml inj SUBQ SCH ×2 (08:50→20:51)
[2018-05-05] MEDS: Lyrica 50mg cap ORAL SCH ×3 (09:28→18:16)
--- NOTE | 2018-05-05 10:23 | Infectious Diseases Prog Note ---
Assessment/Plan Assessment/Plan A 1. E. coli ESBLUTI 2. Proteus UTI treated 3. leucocytosis resolved 4. Acute renal failure resolved 5. paraplegia 6. shock, resolved, 7. 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 Leukocytosis resolved P 1, continue Meropenem Subjective ROS Limited/Unobtainable: Yes Allergies: Coded Allergies: CHLORHEXIDINE (Verified Allergy, Unknown, 04/17/18) Pt states CHG gives him rashes Objective Vital Signs Last 24 Hour Vital Signs Date Time Temp Pulse Resp B/P (MAP) Pulse Ox O2 Delivery O2 Flow Rate FiO2 05/05/18 08:00 98.0 75 20 107/53 98 98.0 05/05/18 04:11 98.2 05/05/18 03:54 98.2 66 20 103/59 97 Room Air 98.2 05/04/18 23:59 98.4 70 20 142/72 95 Room Air 98.4 05/04/18 19:14 98.2 80 20 115/65 95 Room Air 98.2 05/04/18 16:00 98.2 80 20 103/59 95 Room Air 98.2 05/04/18 12:00 99.0 68 20 103/60 97 Room Air 99.0 Height (Feet): 5 Height (Inches): 9.00 Weight (Pounds): 210 General Appearance: no acute distress HEENT: mucous membranes moist Respiratory/Chest: lungs clear Cardiovascular: normal rate Abdomen: soft, non tender Genitourinary: other - Slater catheter Extremities: no edema Microbiology Date/Time Source Procedure Growth Status 05/02/18 11:45 Indwelling Cath Urine Culture - Final Escherichia Coli - Esbl Complete Laboratory Tests Test 05/05/18 05:35 White Blood Count 9.5 K/UL (4.8-10.8) Red Blood Count 3.47 M/UL (4.70-6.10) L Hemoglobin 9.5 G/DL (14.2-18.0) L Hematocrit 29.3 % (42.0-52.0) L Mean Corpuscular Volume 84 FL (80-99) Mean Corpuscular Hemoglobin 27.3 PG (27.0-31.0) Mean Corpuscular Hemoglobin Concent 32.4 G/DL (32.0-36.0) Red Cell Distribution Width 16.1 % (11.6-14.8) H Platelet Count 262 K/UL (150-450) Mean Platelet Volume 8.4 FL (6.5-10.1) Neutrophils (%) (Auto) % (45.0-75.0) Lymphocytes (%) (Auto) % (20.0-45.0) Monocytes (%) (Auto) % (1.0-10.0) Eosinophils (%) (Auto) % (0.0-3.0) Basophils (%) (Auto) % (0.0-2.0) Differential Total Cells Counted 100 Neutrophils % (Manual) 36 % (45-75) L Lymphocytes % (Manual) 21 % (20-45) Monocytes % (Manual) 2 % (1-10) Eosinophils % (Manual) 39 % (0-3) H Basophils % (Manual) 2 % (0-2) Band Neutrophils 0 % (0-8) Platelet Estimate Adequate Platelet Morphology Normal Hypochromasia 2+ Spherocytes 1+ Current Medications Medications (Trade) Dose Ordered Sig/Aleyda Route PRN Reason Start Time Stop Time Status Last Admin Dose Admin Acetaminophen (Tylenol) 650 mg Q6H PRN ORAL Shivering 04/29/18 11:00 05/29/18 10:59 04/29/18 11:13 Al Hydroxide/Mg Hydroxide (Mylanta) 30 ml Q6H PRN ORAL HEARTBURN 04/20/18 22:30 05/15/18 22:29 Ascorbic Acid (Vitamin C) 500 mg TWICE A DAY ORAL 04/21/18 09:00 05/16/18 08:59 05/05/18 08:38 Bisacodyl (Dulcolax) 10 mg DAILY RECTAL 05/03/18 09:00 06/02/18 08:59 05/05/18 08:38 Diphenhydramine HCl (Benadryl Cream) 1 applic THREE TIMES A DAY PRN TOPIC Itching 04/28/18 11:00 05/28/18 10:59 04/29/18 15:07 Diphenhydramine HCl (Benadryl) 25 mg Q4H PRN IVP Itching 04/28/18 09:00 05/28/18 08:59 05/05/18 07:19 Fludrocortisone Acetate (Florinef) 0.1 mg DAILY ORAL 04/25/18 09:00 05/25/18 08:59 05/05/18 08:38 Heparin Sodium (Porcine) (Heparin 5000 units/ml) 5,000 units EVERY 12 HOURS SUBQ 04/20/18 22:00 05/15/18 21:59 05/05/18 08:50 Lactobacillus Acidophilus (Culturelle) 1 tab TWICE A DAY ORAL 04/21/18 09:00 05/16/18 08:59 05/05/18 08:38 Magnesium Hydroxide (Mom) 30 ml HSPRN PRN ORAL Constipation 04/20/18 22:30 05/15/18 22:29 Meropenem 1 gm/ Sodium Chloride 55 ml @ 110 mls/hr Q8HR@0000,0800,1600 IVPB 05/04/18 16:00 05/09/18 15:59 05/05/18 08:38 Midodrine (Pro-Amatine) 10 mg THREE TIMES A DAY ORAL 04/21/18 09:00 05/19/18 08:59 05/05/18 08:38 Multivitamins (Multivitamins) 1 tab DAILY ORAL 04/21/18 09:00 05/16/18 08:59 05/05/18 08:38 Naloxone HCl (Narcan) 0.2 mg Q30MIN PRN IVP respiratory depression 04/20/18 21:00 05/20/18 09:14 Oxycodone/ Acetaminophen (Percocet 10/325) 1 tab Q4H PRN ORAL Severe Pain (Pain Scale 7-10) 05/04/18 10:00 05/11/18 09:59 05/05/18 08:38 Pantoprazole (Protonix) 40 mg DAILY ORAL 04/25/18 09:00 05/25/18 08:59 05/05/18 08:38 Polyethylene Glycol (Miralax) 17 gm BEDTIME ORAL 05/03/18 21:00 06/02/18 20:59 Pregabalin (Lyrica) 50 mg THREE TIMES A DAY ORAL 04/21/18 09:00 05/20/18 10:59 05/05/18 09:28 Reyes Trevino MD May 05, 2018 10:23
[2018-05-05 12:00] VITALS: BP 100/62
--- NOTE | 2018-05-05 12:44 | General Progress Note ---
Assessment/Plan Assessment/Plan Assessment - paraplegia - chronic intestinal dysmotility - contractures - poor Px Recommendations - po as tolerated - bowel regimen - Abx - Placement Subjective Allergies: Coded Allergies: CHLORHEXIDINE (Verified Allergy, Unknown, 04/17/18) Pt states CHG gives him rashes Subjective Feel OK no abd c/o tolerating PO Objective Last 24 Hour Vital Signs Date Time Temp Pulse Resp B/P (MAP) Pulse Ox O2 Delivery O2 Flow Rate FiO2 05/05/18 12:00 98.0 71 20 100/62 98 Room Air 98.0 05/05/18 08:00 98.0 75 20 107/53 98 98.0 05/05/18 08:00 Room Air 05/05/18 04:11 98.2 05/05/18 03:54 98.2 66 20 103/59 97 Room Air 98.2 05/04/18 23:59 98.4 70 20 142/72 95 Room Air 98.4 05/04/18 19:14 98.2 80 20 115/65 95 Room Air 98.2 05/04/18 16:00 98.2 80 20 103/59 95 Room Air 98.2 Intake and Output 05/04/18 05/05/18 19:00 07:00 Output Total 500 ml 1200 ml Balance -500 ml -1200 ml Output Urine Total 500 ml 1200 ml # Bowel Movements 2 1 Laboratory Tests 05/05/18 05:35: White Blood Count 9.5, Red Blood Count 3.47L, Hemoglobin 9.5L, Hematocrit 29.3L , Mean Corpuscular Volume 84, Mean Corpuscular Hemoglobin 27.3, Mean Corpuscular Hemoglobin Concent 32.4, Red Cell Distribution Width 16.1H, Platelet Count 262, Mean Platelet Volume 8.4, Neutrophils (%) (Auto) , Lymphocytes (%) (Auto) , Monocytes (%) (Auto) , Eosinophils (%) (Auto) , Basophils (%) (Auto) , Differential Total Cells Counted 100, Neutrophils % ( Manual) 36L, Lymphocytes % (Manual) 21, Monocytes % (Manual) 2, Eosinophils % ( Manual) 39H, Basophils % (Manual) 2, Band Neutrophils 0, Platelet Estimate Adequate, Platelet Morphology Normal, Hypochromasia 2+, Spherocytes 1+ Height (Feet): 5 Height (Inches): 9.00 Weight (Pounds): 210 Objective Debilitated WM NCAT poor dentition Chest CTA RRR Soft NT ND no edema (+) contracted Raiza Rodas MD May 05, 2018 12:44
--- NOTE | 2018-05-05 13:21 | General Surgery Progress Note ---
General Surgery-Progress Note Subjective Additional Comments no acute events. doing well. Objective Last 24 Hour Vital Signs Date Time Temp Pulse Resp B/P (MAP) Pulse Ox O2 Delivery O2 Flow Rate FiO2 05/05/18 12:00 98.0 71 20 100/62 98 Room Air 98.0 05/05/18 08:00 98.0 75 20 107/53 98 98.0 05/05/18 08:00 Room Air 05/05/18 04:11 98.2 05/05/18 03:54 98.2 66 20 103/59 97 Room Air 98.2 05/04/18 23:59 98.4 70 20 142/72 95 Room Air 98.4 05/04/18 19:14 98.2 80 20 115/65 95 Room Air 98.2 05/04/18 16:00 98.2 80 20 103/59 95 Room Air 98.2 I&O Intake and Output 05/04/18 05/05/18 19:00 07:00 Output Total 500 ml 1200 ml Balance -500 ml -1200 ml Output Urine Total 500 ml 1200 ml # Bowel Movements 2 1 Wound: clean Cardiovascular: RSR Respiratory: clear Abdomen: soft, distended, present bowel sounds Extremities: no cyanosis Laboratory Tests Test 05/05/18 05:35 White Blood Count 9.5 K/UL (4.8-10.8) Red Blood Count 3.47 M/UL (4.70-6.10) L Hemoglobin 9.5 G/DL (14.2-18.0) L Hematocrit 29.3 % (42.0-52.0) L Mean Corpuscular Volume 84 FL (80-99) Mean Corpuscular Hemoglobin 27.3 PG (27.0-31.0) Mean Corpuscular Hemoglobin Concent 32.4 G/DL (32.0-36.0) Red Cell Distribution Width 16.1 % (11.6-14.8) H Platelet Count 262 K/UL (150-450) Mean Platelet Volume 8.4 FL (6.5-10.1) Neutrophils (%) (Auto) % (45.0-75.0) Lymphocytes (%) (Auto) % (20.0-45.0) Monocytes (%) (Auto) % (1.0-10.0) Eosinophils (%) (Auto) % (0.0-3.0) Basophils (%) (Auto) % (0.0-2.0) Differential Total Cells Counted 100 Neutrophils % (Manual) 36 % (45-75) L Lymphocytes % (Manual) 21 % (20-45) Monocytes % (Manual) 2 % (1-10) Eosinophils % (Manual) 39 % (0-3) H Basophils % (Manual) 2 % (0-2) Band Neutrophils 0 % (0-8) Platelet Estimate Adequate Platelet Morphology Normal Hypochromasia 2+ Spherocytes 1+ Plan Problems: (1) Sepsis Assessment & Plan: 57M with sepsis. likely etiology UTI. recently noted to have abdominal distention. KUB ordered and concerns for possible volvulus. CT ordered and no obstruction or volvulus noted. dilated redundant sigmoid colon air filled. still watery stool in rectal tube. exam with distention but otherwise benign. differential could be atonic colon developing, hirschsprung adult, pseudo- obstruction s/p high rectal tube insertion by GI with good result KUB shows improvement -no acute surgical intervention planned -appreciate GI input Overall much improved and decompressed. rectal tube to be removed upon discharge. unfortunately may recur and if so will need to be monitored. discussed considerations for diverting loop colostomy given medical condition, sacral wounds, and prior events. 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 please refer to wound care photos for size and measurements. 2-3cm deep, 2cm undermining in inferior aspect. does get stool in wound at times given proximity to anus. some granulation tissue. no foul odor. serous drainage. minimal eschar and necrotic tissues. -No acute debridement necessary. -air soft mattress, gauze packing and dressings TID for now. -will follow with recs. thank you for this consultation. Alo Martin May 05, 2018 13:21
[2018-05-05 16:00] VITALS: BP 135/85
[2018-05-05] MEDS ORDERED: NS 500ML ONE (16:19)
[2018-05-05] MEDS ORDERED: NS 275ml ONE (16:19)
[2018-05-05 20:00] VITALS: BP 130/79
[2018-05-05] MEDS: Miralax 17gm pkt ORAL SCH (20:51)
[2018-05-06] VITALS (7 sets, daily range): BP systolic 100–145; BP diastolic 57–83
[2018-05-06] MEDS: DiphenhydrAMINE 50mg/ml Inj IVP PRN ×2 (04:09→15:18)
[2018-05-06 07:13] LABS: ANION GAP 10 mmol/L (5-15); BLOOD UREA NITROGEN 17 mg/dL (7-18); CALCIUM 8.9 MG/DL (8.5-10.1); CARBON DIOXIDE 24 MMOL/L (21-32); CHLORIDE 108 MMOL/L (98-107); SODIUM 142 MMOL/L (136-145)
--- NOTE | 2018-05-06 08:09 | General Progress Note ---
Assessment/Plan Assessment/Plan (1) Spinal cord injury (2) H/o heroin abuse (3) Decubitus ulcer (4) Paraplegia (5) Neuropathic pain (6) Intractable pain Patient will be continued on Percocet and Lyrica D/w Dr. Byrd and he concurred. Subjective Date patient seen: May 06, 2018 Time patient seen: 07:00 - am Allergies: Coded Allergies: CHLORHEXIDINE (Verified Allergy, Unknown, 04/17/18) Pt states CHG gives him rashes Subjective Constitutional: Reports: weakness HEENT: Reports: no symptoms Cardiovascular: Reports: no symptoms Respiratory: Reports: no symptoms Gastrointestinal/Abdominal: Reports: no symptoms Genitourinary: Reports: no symptoms Neurologic/Psychiatric: Reports: numbness, tingling Endocrine: Reports: no symptoms Hematologic/Lymphatic: Reports: no symptoms Subjective Patient reports that the pain has been stable and tolerated on the Percocet and Lyrica. He has no new complaints. Objective Last 24 Hour Vital Signs Date Time Temp Pulse Resp B/P (MAP) Pulse Ox O2 Delivery O2 Flow Rate FiO2 05/06/18 04:00 97.8 70 17 101/61 98 Room Air 97.8 05/06/18 00:00 98.2 68 17 135/83 98 Room Air 98.2 05/05/18 20:00 98.5 68 18 130/79 96 Room Air 98.5 05/05/18 16:00 98.0 75 20 135/85 98 98.0 05/05/18 13:31 98.0 05/05/18 12:00 98.0 71 20 100/62 98 Room Air 98.0 Intake and Output 05/05/18 05/06/18 19:00 07:00 Intake Total 400 ml 455 ml Output Total 800 ml 1300 ml Balance -400 ml -845 ml Intake Oral 400 ml 400 ml IV Total 55 ml Output Urine Total 800 ml 1300 ml # Bowel Movements 2 3 Laboratory Tests 05/06/18 04:00: Sodium Level 142, Potassium Level 3.0L, Chloride Level 108H, Carbon Dioxide Level 24, Anion Gap 10, Blood Urea Nitrogen 17, Creatinine 1.0, Estimat Glomerular Filtration Rate > 60, Glucose Level 90, Calcium Level 8.9 Height (Feet): 5 Height (Inches): 9.00 Weight (Pounds): 212 Objective GENERAL: Alert, awake, and oriented. HEENT: PERRLA. NECK: Range of motion is decreased due to the patient's condition. LUNGS: Decreased breath sounds bilaterally. ABDOMEN: Benign. BACK: Range of motion is decreased in flexion and extension with decubitus ulcer noted. EXTREMITIES: Upper and lower extremity range of motion is decreased with joint contractures seen. Tenderness to palpation. Luiz Lees May 06, 2018 08:09
[2018-05-06] MEDS: Meropenem 1 GM in NS 55 ML IVPB SCH ×3 (08:24→23:15)
[2018-05-06] MEDS: Lactobacillus-GG tablet ORAL SCH ×2 (08:24→17:21)
[2018-05-06] MEDS: Midodrine 10mg tab ORAL SCH ×3 (08:24→17:21)
[2018-05-06] MEDS: Lyrica 50mg cap ORAL SCH ×3 (08:25→17:20)
[2018-05-06] MEDS: Ascorbic Acid 500mg tab ORAL SCH ×2 (08:25→17:20)
[2018-05-06] MEDS: Heparin 5000 units/ml inj SUBQ SCH ×2 (08:35→20:26)
--- NOTE | 2018-05-06 08:42 | General Progress Note ---
Assessment/Plan Problem List: (1) Renal failure ICD Codes: N19 - Unspecified kidney failure SNOMED: 32873412 Qualifiers: Qualified Codes: N19 - Unspecified kidney failure (2) Severe sepsis ICD Codes: A41.9 - Sepsis, unspecified organism; R65.20 - Severe sepsis without septic shock SNOMED: 67627163 (3) Paraplegia ICD Codes: G82.20 - Paraplegia, unspecified SNOMED: 89755947 (4) UTI (urinary tract infection) ICD Codes: N39.0 - Urinary tract infection, site not specified SNOMED: 26309040 Qualifiers: Qualified Codes: T83.511A - Infection and inflammatory reaction due to indwelling urethral catheter, initial encounter; N39.0 - Urinary tract infection , site not specified (5) Decubitus ulcer ICD Codes: L89.90 - Pressure ulcer of unspecified site, unspecified stage SNOMED: 717031245 Status: stable Assessment/Plan cont current rx abx per id wound care pain rx replace k monitor renal fxn dc planning pt wants to go closer [facility] Subjective ROS Limited/Unobtainable: No Constitutional: Reports: malaise, weakness HEENT: Reports: no symptoms Cardiovascular: Reports: no symptoms Respiratory: Reports: no symptoms Gastrointestinal/Abdominal: Reports: no symptoms Genitourinary: Reports: no symptoms Neurologic/Psychiatric: Reports: pre-existing deficit Endocrine: Reports: no symptoms Hematologic/Lymphatic: Reports: no symptoms Allergies: Coded Allergies: CHLORHEXIDINE (Verified Allergy, Unknown, 04/17/18) Pt states CHG gives him rashes All Systems: reviewed and negative except above Subjective no new complaints. no cp/sob. on iv abx ucx noted Objective Last 24 Hour Vital Signs Date Time Temp Pulse Resp B/P (MAP) Pulse Ox O2 Delivery O2 Flow Rate FiO2 05/06/18 08:00 97.7 61 20 100/57 97 97.7 05/06/18 04:00 97.8 70 17 101/61 98 Room Air 97.8 05/06/18 00:00 98.2 68 17 135/83 98 Room Air 98.2 05/05/18 20:00 98.5 68 18 130/79 96 Room Air 98.5 05/05/18 16:00 98.0 75 20 135/85 98 98.0 05/05/18 13:31 98.0 05/05/18 12:00 98.0 71 20 100/62 98 Room Air 98.0 Intake and Output 05/05/18 05/06/18 19:00 07:00 Intake Total 400 ml 455 ml Output Total 800 ml 1300 ml Balance -400 ml -845 ml Intake Oral 400 ml 400 ml IV Total 55 ml Output Urine Total 800 ml 1300 ml # Bowel Movements 2 3 Laboratory Tests 05/06/18 04:00: Sodium Level 142, Potassium Level 3.0L, Chloride Level 108H, Carbon Dioxide Level 24, Anion Gap 10, Blood Urea Nitrogen 17, Creatinine 1.0, Estimat Glomerular Filtration Rate > 60, Glucose Level 90, Calcium Level 8.9 Height (Feet): 5 Height (Inches): 9.00 Weight (Pounds): 212 Objective General Appearance: WD/WN, alert Neck: supple Cardiovascular: regular rhythm Respiratory/Chest: chest wall non-tender, lungs clear, normal breath sounds Abdomen: normal bowel sounds, non tender, soft, no organomegaly Edema: no edema noted Arm (L), no edema noted Arm (R), no edema noted Leg (L), no edema noted Leg (R), no edema noted Pedal (L), no edema noted Pedal (R), no edema noted Generalized Alfa Marshall MD May 06, 2018 08:42
--- NOTE | 2018-05-06 09:52 | Nephrology Progress Note ---
Assessment/Plan Assessment/Plan 1. SHARDA- multifact ATN ( hypotension/sepsis) - Cr 1, resolved will sign off today 2. Hypotension - Midrodrine + Florinef 3. UTI- Abx completed 4. Hypokalemia- daily supplement ordered Subjective Date patient seen: May 06, 2018 Time patient seen: 09:50 ROS Limited/Unobtainable: No Allergies: Coded Allergies: CHLORHEXIDINE (Verified Allergy, Unknown, 04/17/18) Pt states CHG gives him rashes Subjective Awaiting DC to SNF. Objective Last 24 Hour Vital Signs Date Time Temp Pulse Resp B/P (MAP) Pulse Ox O2 Delivery O2 Flow Rate FiO2 05/06/18 08:00 97.7 61 20 100/57 97 97.7 05/06/18 04:00 97.8 70 17 101/61 98 Room Air 97.8 05/06/18 00:00 98.2 68 17 135/83 98 Room Air 98.2 05/05/18 20:00 98.5 68 18 130/79 96 Room Air 98.5 05/05/18 16:00 98.0 75 20 135/85 98 98.0 05/05/18 13:31 98.0 05/05/18 12:00 98.0 71 20 100/62 98 Room Air 98.0 Intake and Output 05/05/18 05/06/18 19:00 07:00 Intake Total 400 ml 455 ml Output Total 800 ml 1300 ml Balance -400 ml -845 ml Intake Oral 400 ml 400 ml IV Total 55 ml Output Urine Total 800 ml 1300 ml # Bowel Movements 2 3 Laboratory Tests 05/06/18 04:00: Sodium Level 142, Potassium Level 3.0L, Chloride Level 108H, Carbon Dioxide Level 24, Anion Gap 10, Blood Urea Nitrogen 17, Creatinine 1.0, Estimat Glomerular Filtration Rate > 60, Glucose Level 90, Calcium Level 8.9 Height (Feet): 5 Height (Inches): 9.00 Weight (Pounds): 212 General Appearance: alert EENT: normal ENT inspection Neck: normal alignment, supple Cardiovascular: normal rate, regular rhythm Respiratory/Chest: lungs clear, normal breath sounds Abdomen: non tender, soft Edema: no edema noted Arm (L), no edema noted Arm (R), no edema noted Leg (L), no edema noted Leg (R), no edema noted Pedal (L), no edema noted Pedal (R), no edema noted Generalized Macario Kumar M.D. May 06, 2018 09:52
--- NOTE | 2018-05-06 12:48 | General Surgery Progress Note ---
General Surgery-Progress Note Subjective Symptoms: improved Additional Comments no acute events. doing well. Objective Last 24 Hour Vital Signs Date Time Temp Pulse Resp B/P (MAP) Pulse Ox O2 Delivery O2 Flow Rate FiO2 05/06/18 12:00 97.8 68 20 135/81 98 97.8 05/06/18 08:00 97.7 61 20 100/57 97 97.7 05/06/18 04:00 97.8 70 17 101/61 98 Room Air 97.8 05/06/18 00:00 98.2 68 17 135/83 98 Room Air 98.2 05/05/18 20:00 98.5 68 18 130/79 96 Room Air 98.5 05/05/18 16:00 98.0 75 20 135/85 98 98.0 05/05/18 13:31 98.0 I&O Intake and Output 05/05/18 05/06/18 19:00 07:00 Intake Total 400 ml 455 ml Output Total 800 ml 1300 ml Balance -400 ml -845 ml Intake Oral 400 ml 400 ml IV Total 55 ml Output Urine Total 800 ml 1300 ml # Bowel Movements 2 3 Wound: clean Drains: none Cardiovascular: RSR Respiratory: clear Abdomen: soft, distended, non-tender, present bowel sounds Extremities: no cyanosis Laboratory Tests Test 05/06/18 04:00 Sodium Level 142 MMOL/L (136-145) Potassium Level 3.0 MMOL/L (3.5-5.1) L Chloride Level 108 MMOL/L (98-107) H Carbon Dioxide Level 24 MMOL/L (21-32) Anion Gap 10 mmol/L (5-15) Blood Urea Nitrogen 17 mg/dL (7-18) Creatinine 1.0 MG/DL (0.55-1.30) Estimat Glomerular Filtration Rate > 60 mL/min (>60) Glucose Level 90 MG/DL (74-106) Calcium Level 8.9 MG/DL (8.5-10.1) Plan Problems: (1) Sepsis Assessment & Plan: 57M with sepsis. likely etiology UTI. recently noted to have abdominal distention. KUB ordered and concerns for possible volvulus. CT ordered and no obstruction or volvulus noted. dilated redundant sigmoid colon air filled. still watery stool in rectal tube. exam with distention but otherwise benign. differential could be atonic colon developing, hirschsprung adult, pseudo- obstruction s/p high rectal tube insertion by GI with good result KUB shows improvement -no acute surgical intervention planned -appreciate GI input Overall much improved and decompressed. rectal tube to be removed upon discharge. unfortunately may recur and if so will need to be monitored. discussed considerations for diverting loop colostomy given medical condition, sacral wounds, and prior events. 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 please refer to wound care photos for size and measurements. 2-3cm deep, 2cm undermining in inferior aspect. does get stool in wound at times given proximity to anus. some granulation tissue. no foul odor. serous drainage. minimal eschar and necrotic tissues. -No acute debridement necessary. -air soft mattress, gauze packing and dressings TID for now. -will follow with recs. thank you for this consultation. Alo Martin May 06, 2018 12:48
--- NOTE | 2018-05-06 13:48 | Infectious Diseases Prog Note ---
Assessment/Plan Assessment/Plan A 1. E. coli ESBLUTI 2. Proteus UTI treated 3. leucocytosis resolved 4. Acute renal failure resolved 5. paraplegia 6. shock, resolved, 7. 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 Leukocytosis resolved P 1, continue Meropenem Subjective ROS Limited/Unobtainable: No Constitutional: Reports: no symptoms Respiratory: Reports: no symptoms Cardiovascular: Reports: no symptoms Gastrointestinal/Abdominal: Reports: no symptoms Musculoskeletal: Reports: pain, other - in left hand Allergies: Coded Allergies: CHLORHEXIDINE (Verified Allergy, Unknown, 04/17/18) Pt states CHG gives him rashes Objective Vital Signs Last 24 Hour Vital Signs Date Time Temp Pulse Resp B/P (MAP) Pulse Ox O2 Delivery O2 Flow Rate FiO2 05/06/18 12:00 97.8 68 20 135/81 98 97.8 05/06/18 08:00 97.7 61 20 100/57 97 97.7 05/06/18 04:00 97.8 70 17 101/61 98 Room Air 97.8 05/06/18 00:00 98.2 68 17 135/83 98 Room Air 98.2 05/05/18 20:00 98.5 68 18 130/79 96 Room Air 98.5 05/05/18 16:00 98.0 75 20 135/85 98 98.0 Height (Feet): 5 Height (Inches): 9.00 Weight (Pounds): 212 General Appearance: no acute distress HEENT: mucous membranes moist Respiratory/Chest: lungs clear Cardiovascular: normal rate, other - left arm PICC line Abdomen: soft, non tender Extremities: no edema Neurologic/Psychiatric: alert, responsive Laboratory Tests Test 05/06/18 04:00 Sodium Level 142 MMOL/L (136-145) Potassium Level 3.0 MMOL/L (3.5-5.1) L Chloride Level 108 MMOL/L (98-107) H Carbon Dioxide Level 24 MMOL/L (21-32) Anion Gap 10 mmol/L (5-15) Blood Urea Nitrogen 17 mg/dL (7-18) Creatinine 1.0 MG/DL (0.55-1.30) Estimat Glomerular Filtration Rate > 60 mL/min (>60) Glucose Level 90 MG/DL (74-106) Calcium Level 8.9 MG/DL (8.5-10.1) Current Medications Medications (Trade) Dose Ordered Sig/Aleyda Route PRN Reason Start Time Stop Time Status Last Admin Dose Admin Acetaminophen (Tylenol) 650 mg Q6H PRN ORAL Shivering 04/29/18 11:00 05/29/18 10:59 04/29/18 11:13 Al Hydroxide/Mg Hydroxide (Mylanta) 30 ml Q6H PRN ORAL HEARTBURN 04/20/18 22:30 05/15/18 22:29 Ascorbic Acid (Vitamin C) 500 mg TWICE A DAY ORAL 04/21/18 09:00 05/16/18 08:59 05/06/18 08:25 Bisacodyl (Dulcolax) 10 mg DAILY RECTAL 05/03/18 09:00 06/02/18 08:59 05/05/18 08:38 Diphenhydramine HCl (Benadryl Cream) 1 applic THREE TIMES A DAY PRN TOPIC Itching 04/28/18 11:00 05/28/18 10:59 04/29/18 15:07 Diphenhydramine HCl (Benadryl) 25 mg Q4H PRN IVP Itching 04/28/18 09:00 05/28/18 08:59 05/06/18 04:09 Fludrocortisone Acetate (Florinef) 0.1 mg DAILY ORAL 04/25/18 09:00 05/25/18 08:59 05/06/18 08:25 Heparin Sodium (Porcine) (Heparin 5000 units/ml) 5,000 units EVERY 12 HOURS SUBQ 04/20/18 22:00 05/15/18 21:59 05/06/18 08:35 Lactobacillus Acidophilus (Culturelle) 1 tab TWICE A DAY ORAL 04/21/18 09:00 05/16/18 08:59 05/06/18 08:24 Magnesium Hydroxide (Mom) 30 ml HSPRN PRN ORAL Constipation 04/20/18 22:30 05/15/18 22:29 Meropenem 1 gm/ Sodium Chloride 55 ml @ 110 mls/hr Q8HR@0000,0800,1600 IVPB 05/04/18 16:00 05/09/18 15:59 05/06/18 08:24 Midodrine (Pro-Amatine) 10 mg THREE TIMES A DAY ORAL 04/21/18 09:00 05/19/18 08:59 05/06/18 12:58 Multivitamins (Multivitamins) 1 tab DAILY ORAL 04/21/18 09:00 05/16/18 08:59 05/06/18 08:25 Naloxone HCl (Narcan) 0.2 mg Q30MIN PRN IVP respiratory depression 04/20/18 21:00 05/20/18 09:14 Oxycodone/ Acetaminophen (Percocet 10/325) 1 tab Q4H PRN ORAL Severe Pain (Pain Scale 7-10) 05/04/18 10:00 05/11/18 09:59 05/06/18 09:45 Pantoprazole (Protonix) 40 mg DAILY ORAL 04/25/18 09:00 05/25/18 08:59 05/06/18 08:25 Polyethylene Glycol (Miralax) 17 gm BEDTIME ORAL 05/03/18 21:00 06/02/18 20:59 Potassium Chloride (K-Dur) 40 meq DAILY ORAL 05/07/18 09:00 06/05/18 09:44 Pregabalin (Lyrica) 50 mg THREE TIMES A DAY ORAL 04/21/18 09:00 05/20/18 10:59 05/06/18 12:58 Reyes Trevino MD May 06, 2018 13:48
--- NOTE | 2018-05-06 19:56 | General Progress Note ---
Assessment/Plan Assessment/Plan Assessment - paraplegia - chronic intestinal dysmotility - contractures - poor Px Recommendations - po as tolerated - bowel regimen - Abx - Placement Subjective Allergies: Coded Allergies: CHLORHEXIDINE (Verified Allergy, Unknown, 04/17/18) Pt states CHG gives him rashes Subjective Feel OK no abd c/o tolerating PO Objective Last 24 Hour Vital Signs Date Time Temp Pulse Resp B/P (MAP) Pulse Ox O2 Delivery O2 Flow Rate FiO2 05/06/18 16:00 Room Air 05/06/18 16:00 98.1 77 20 126/72 98 98.1 05/06/18 12:00 Room Air 05/06/18 12:00 97.8 68 20 135/81 98 97.8 05/06/18 08:00 97.7 61 20 100/57 97 97.7 05/06/18 08:00 Room Air 05/06/18 04:00 97.8 70 17 101/61 98 Room Air 97.8 05/06/18 00:00 98.2 68 17 135/83 98 Room Air 98.2 05/05/18 20:00 98.5 68 18 130/79 96 Room Air 98.5 Intake and Output 05/05/18 05/06/18 19:00 07:00 Intake Total 400 ml 455 ml Output Total 800 ml 1300 ml Balance -400 ml -845 ml Intake Oral 400 ml 400 ml IV Total 55 ml Output Urine Total 800 ml 1300 ml # Bowel Movements 2 3 Laboratory Tests 05/06/18 04:00: Sodium Level 142, Potassium Level 3.0L, Chloride Level 108H, Carbon Dioxide Level 24, Anion Gap 10, Blood Urea Nitrogen 17, Creatinine 1.0, Estimat Glomerular Filtration Rate > 60, Glucose Level 90, Calcium Level 8.9 Height (Feet): 5 Height (Inches): 9.00 Weight (Pounds): 212 Objective Debilitated WM NCAT poor dentition Chest CTA RRR Soft NT ND no edema (+) contracted Raiza Rodas MD May 06, 2018 19:56
[2018-05-06] MEDS: Miralax 17gm pkt ORAL SCH (20:26)
[2018-05-07 04:00] VITALS: BP 104/62
[2018-05-07] MEDS: DiphenhydrAMINE 50mg/ml Inj IVP PRN ×3 (04:40→20:58)
[2018-05-07 08:00] VITALS: BP 99/61
[2018-05-07] MEDS: Meropenem 1 GM in NS 55 ML IVPB SCH ×2 (08:17→15:49)
[2018-05-07] MEDS: Midodrine 10mg tab ORAL SCH ×3 (08:39→18:08)
[2018-05-07] MEDS: Lactobacillus-GG tablet ORAL SCH ×2 (08:39→18:08)
[2018-05-07] MEDS: Ascorbic Acid 500mg tab ORAL SCH ×2 (08:39→18:09)
[2018-05-07] MEDS: Lyrica 50mg cap ORAL SCH ×3 (08:40→18:09)
[2018-05-07] MEDS: Heparin 5000 units/ml inj SUBQ SCH ×2 (08:44→21:04)
--- NOTE | 2018-05-07 11:50 | Infectious Diseases Prog Note ---
Assessment/Plan Assessment/Plan antibiotics : meropenem 05.04. - A 1. pneumonia 2. leucocytosis increasing 3. renal failure resolved 4. paraplegia 5. e.coli UTI P 1. continue meropenem 3 more days 2. will follow up cultures Subjective ROS Limited/Unobtainable: Yes Allergies: Coded Allergies: CHLORHEXIDINE (Verified Allergy, Unknown, 04/17/18) Pt states CHG gives him rashes Objective Vital Signs Last 24 Hour Vital Signs Date Time Temp Pulse Resp B/P (MAP) Pulse Ox O2 Delivery O2 Flow Rate FiO2 05/07/18 08:00 96.4 65 18 99/61 98 Room Air 96.4 05/07/18 04:00 97.9 74 20 104/62 94 Room Air 97.9 05/06/18 23:59 98.2 77 18 114/74 94 Room Air 98.2 05/06/18 20:00 98.6 69 18 145/79 96 Room Air 98.6 05/06/18 16:00 Room Air 05/06/18 16:00 98.1 77 20 126/72 98 98.1 05/06/18 12:00 Room Air 05/06/18 12:00 97.8 68 20 135/81 98 97.8 Height (Feet): 5 Height (Inches): 9.00 Weight (Pounds): 209 Respiratory/Chest: lungs clear Cardiovascular: normal rate, regular rhythm, no gallop/murmur Abdomen: soft, non tender Extremities: no edema, other - left arm PICC Current Medications Medications (Trade) Dose Ordered Sig/Aleyda Route PRN Reason Start Time Stop Time Status Last Admin Dose Admin Acetaminophen (Tylenol) 650 mg Q6H PRN ORAL Shivering 04/29/18 11:00 05/29/18 10:59 04/29/18 11:13 Al Hydroxide/Mg Hydroxide (Mylanta) 30 ml Q6H PRN ORAL HEARTBURN 04/20/18 22:30 05/15/18 22:29 Ascorbic Acid (Vitamin C) 500 mg TWICE A DAY ORAL 04/21/18 09:00 05/16/18 08:59 05/07/18 08:39 Bisacodyl (Dulcolax) 10 mg DAILY RECTAL 05/03/18 09:00 06/02/18 08:59 05/05/18 08:38 Diphenhydramine HCl (Benadryl Cream) 1 applic THREE TIMES A DAY PRN TOPIC Itching 04/28/18 11:00 05/28/18 10:59 04/29/18 15:07 Diphenhydramine HCl (Benadryl) 25 mg Q4H PRN IVP Itching 04/28/18 09:00 05/28/18 08:59 05/07/18 04:40 Fludrocortisone Acetate (Florinef) 0.1 mg DAILY ORAL 04/25/18 09:00 05/25/18 08:59 05/07/18 08:39 Heparin Sodium (Porcine) (Heparin 5000 units/ml) 5,000 units EVERY 12 HOURS SUBQ 04/20/18 22:00 05/15/18 21:59 05/07/18 08:44 Lactobacillus Acidophilus (Culturelle) 1 tab TWICE A DAY ORAL 04/21/18 09:00 05/16/18 08:59 05/07/18 08:39 Magnesium Hydroxide (Mom) 30 ml HSPRN PRN ORAL Constipation 04/20/18 22:30 05/15/18 22:29 Meropenem 1 gm/ Sodium Chloride 55 ml @ 110 mls/hr Q8HR@0000,0800,1600 IVPB 05/04/18 16:00 05/09/18 15:59 05/07/18 08:17 Midodrine (Pro-Amatine) 10 mg THREE TIMES A DAY ORAL 04/21/18 09:00 05/19/18 08:59 05/07/18 08:39 Multivitamins (Multivitamins) 1 tab DAILY ORAL 04/21/18 09:00 05/16/18 08:59 05/07/18 08:39 Naloxone HCl (Narcan) 0.2 mg Q30MIN PRN IVP respiratory depression 04/20/18 21:00 05/20/18 09:14 Oxycodone/ Acetaminophen (Percocet 10/325) 1 tab Q4H PRN ORAL Severe Pain (Pain Scale 7-10) 05/04/18 10:00 05/11/18 09:59 05/07/18 08:16 Pantoprazole (Protonix) 40 mg DAILY ORAL 04/25/18 09:00 05/25/18 08:59 05/07/18 08:40 Polyethylene Glycol (Miralax) 17 gm BEDTIME ORAL 05/03/18 21:00 06/02/18 20:59 Potassium Chloride (K-Dur) 40 meq DAILY ORAL 05/07/18 09:00 06/05/18 09:44 05/07/18 08:39 Pregabalin (Lyrica) 50 mg THREE TIMES A DAY ORAL 04/21/18 09:00 05/20/18 10:59 05/07/18 08:40 SABI COLON May 07, 2018 11:50
[2018-05-07 12:06] VITALS: BP 146/84
--- NOTE | 2018-05-07 14:57 | General Surgery Progress Note ---
General Surgery-Progress Note Subjective Additional Comments comfortable. no complaints today. doing well. Objective Last 24 Hour Vital Signs Date Time Temp Pulse Resp B/P (MAP) Pulse Ox O2 Delivery O2 Flow Rate FiO2 05/07/18 12:06 97.5 61 20 146/84 97 97.5 05/07/18 08:00 96.4 65 18 99/61 98 Room Air 96.4 05/07/18 04:00 97.9 74 20 104/62 94 Room Air 97.9 05/06/18 23:59 98.2 77 18 114/74 94 Room Air 98.2 05/06/18 20:00 98.6 69 18 145/79 96 Room Air 98.6 05/06/18 16:00 Room Air 05/06/18 16:00 98.1 77 20 126/72 98 98.1 I&O Intake and Output 05/06/18 05/07/18 19:00 07:00 Intake Total 300 ml 360 ml Output Total 900 ml 1000 ml Balance -600 ml -640 ml Intake Oral 300 ml 360 ml Output Urine Total 900 ml 1000 ml # Bowel Movements 1 Wound: clean Drains: none Cardiovascular: RSR Respiratory: clear Abdomen: soft, flat, non-tender, present bowel sounds Extremities: no cyanosis Plan Problems: (1) Sepsis Assessment & Plan: 57M with sepsis. likely etiology UTI. recently noted to have abdominal distention. KUB ordered and concerns for possible volvulus. CT ordered and no obstruction or volvulus noted. dilated redundant sigmoid colon air filled. still watery stool in rectal tube. exam with distention but otherwise benign. differential could be atonic colon developing, hirschsprung adult, pseudo- obstruction s/p high rectal tube insertion by GI with good result KUB shows improvement -no acute surgical intervention planned -appreciate GI input Overall much improved and decompressed. rectal tube to be removed upon discharge. unfortunately may recur and if so will need to be monitored. discussed considerations for diverting loop colostomy given medical condition, sacral wounds, and prior events. 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 please refer to wound care photos for size and measurements. 2-3cm deep, 2cm undermining in inferior aspect. does get stool in wound at times given proximity to anus. some granulation tissue. no foul odor. serous drainage. minimal eschar and necrotic tissues. -No acute debridement necessary. -air soft mattress, gauze packing and dressings TID for now. -will follow with recs. thank you for this consultation. Alo Martin May 07, 2018 14:57
[2018-05-07 16:08] VITALS: BP 148/92
--- NOTE | 2018-05-07 18:57 | General Progress Note ---
Assessment/Plan Problem List: (1) Renal failure ICD Codes: N19 - Unspecified kidney failure SNOMED: 05767913 Qualifiers: Qualified Codes: N19 - Unspecified kidney failure (2) Severe sepsis ICD Codes: A41.9 - Sepsis, unspecified organism; R65.20 - Severe sepsis without septic shock SNOMED: 57483330 (3) Paraplegia ICD Codes: G82.20 - Paraplegia, unspecified SNOMED: 00575937 (4) UTI (urinary tract infection) ICD Codes: N39.0 - Urinary tract infection, site not specified SNOMED: 11558203 Qualifiers: Qualified Codes: T83.511A - Infection and inflammatory reaction due to indwelling urethral catheter, initial encounter; N39.0 - Urinary tract infection , site not specified (5) Decubitus ulcer ICD Codes: L89.90 - Pressure ulcer of unspecified site, unspecified stage SNOMED: 457823190 Assessment/Plan cont current rx abx per id wound care pain rx replace k monitor renal fxn dc planning pt wants to go closer to [facility] Subjective ROS Limited/Unobtainable: No Constitutional: Reports: malaise, weakness HEENT: Reports: no symptoms Cardiovascular: Reports: no symptoms Respiratory: Reports: no symptoms Gastrointestinal/Abdominal: Reports: no symptoms Genitourinary: Reports: no symptoms Neurologic/Psychiatric: Reports: pre-existing deficit Endocrine: Reports: no symptoms Hematologic/Lymphatic: Reports: no symptoms Allergies: Coded Allergies: CHLORHEXIDINE (Verified Allergy, Unknown, 04/17/18) Pt states CHG gives him rashes All Systems: reviewed and negative except above Subjective no new complaints. no cp/sob. on iv abx ucx noted Objective Last 24 Hour Vital Signs Date Time Temp Pulse Resp B/P (MAP) Pulse Ox O2 Delivery O2 Flow Rate FiO2 05/07/18 16:08 98.1 68 18 148/92 98 Room Air 98.1 05/07/18 12:06 97.5 61 20 146/84 97 97.5 05/07/18 08:00 96.4 65 18 99/61 98 Room Air 96.4 05/07/18 04:00 97.9 74 20 104/62 94 Room Air 97.9 05/06/18 23:59 98.2 77 18 114/74 94 Room Air 98.2 05/06/18 20:00 98.6 69 18 145/79 96 Room Air 98.6 Intake and Output 05/06/18 05/07/18 19:00 07:00 Intake Total 300 ml 360 ml Output Total 900 ml 1000 ml Balance -600 ml -640 ml Intake Oral 300 ml 360 ml Output Urine Total 900 ml 1000 ml # Bowel Movements 1 Height (Feet): 5 Height (Inches): 9.00 Weight (Pounds): 209 Objective General Appearance: WD/WN, alert Neck: supple Cardiovascular: regular rhythm Respiratory/Chest: chest wall non-tender, lungs clear, normal breath sounds Abdomen: normal bowel sounds, non tender, soft, no organomegaly Edema: no edema noted Arm (L), no edema noted Arm (R), no edema noted Leg (L), no edema noted Leg (R), no edema noted Pedal (L), no edema noted Pedal (R), no edema noted Generalized Alfa Marshall MD May 07, 2018 18:57
[2018-05-07 20:00] VITALS: BP 120/73
--- NOTE | 2018-05-07 20:23 | General Progress Note ---
Assessment/Plan Assessment/Plan Assessment - paraplegia - chronic intestinal dysmotility - contractures - poor Px Recommendations - po as tolerated - bowel regimen - Abx - Placement Subjective Allergies: Coded Allergies: CHLORHEXIDINE (Verified Allergy, Unknown, 04/17/18) Pt states CHG gives him rashes Subjective Feel OK no abd c/o tolerating PO Objective Last 24 Hour Vital Signs Date Time Temp Pulse Resp B/P (MAP) Pulse Ox O2 Delivery O2 Flow Rate FiO2 05/07/18 16:08 98.1 68 18 148/92 98 Room Air 98.1 05/07/18 12:06 97.5 61 20 146/84 97 97.5 05/07/18 08:00 96.4 65 18 99/61 98 Room Air 96.4 05/07/18 04:00 97.9 74 20 104/62 94 Room Air 97.9 05/06/18 23:59 98.2 77 18 114/74 94 Room Air 98.2 Intake and Output 05/06/18 05/07/18 19:00 07:00 Intake Total 300 ml 360 ml Output Total 900 ml 1000 ml Balance -600 ml -640 ml Intake Oral 300 ml 360 ml Output Urine Total 900 ml 1000 ml # Bowel Movements 1 Height (Feet): 5 Height (Inches): 9.00 Weight (Pounds): 209 Objective Debilitated WM NCAT poor dentition Chest CTA RRR Soft NT ND no edema (+) contracted Raiza Rodas MD May 07, 2018 20:23
[2018-05-07] MEDS: Miralax 17gm pkt ORAL SCH (20:58)
[2018-05-08] VITALS (7 sets, daily range): BP systolic 100–126; BP diastolic 55–74
[2018-05-08] MEDS: Meropenem 1 GM in NS 55 ML IVPB SCH ×3 (00:54→16:28)
[2018-05-08] MEDS: DiphenhydrAMINE 50mg/ml Inj IVP PRN ×2 (05:45→22:30)
[2018-05-08] MEDS: Lyrica 50mg cap ORAL SCH ×3 (08:51→17:48)
[2018-05-08] MEDS: Lactobacillus-GG tablet ORAL SCH ×2 (08:51→17:48)
[2018-05-08] MEDS: Midodrine 10mg tab ORAL SCH ×3 (08:52→17:47)
[2018-05-08] MEDS: Ascorbic Acid 500mg tab ORAL SCH ×2 (08:52→17:49)
[2018-05-08] MEDS: Heparin 5000 units/ml inj SUBQ SCH ×2 (08:58→20:24)
--- NOTE | 2018-05-08 11:15 | General Progress Note ---
Assessment/Plan Problem List: (1) Renal failure ICD Codes: N19 - Unspecified kidney failure SNOMED: 81306303 Qualifiers: Qualified Codes: N19 - Unspecified kidney failure (2) Severe sepsis ICD Codes: A41.9 - Sepsis, unspecified organism; R65.20 - Severe sepsis without septic shock SNOMED: 20791848 (3) Paraplegia ICD Codes: G82.20 - Paraplegia, unspecified SNOMED: 38908097 (4) UTI (urinary tract infection) ICD Codes: N39.0 - Urinary tract infection, site not specified SNOMED: 46351000 Qualifiers: Qualified Codes: T83.511A - Infection and inflammatory reaction due to indwelling urethral catheter, initial encounter; N39.0 - Urinary tract infection , site not specified (5) Decubitus ulcer ICD Codes: L89.90 - Pressure ulcer of unspecified site, unspecified stage SNOMED: 667601856 Assessment/Plan cont current rx abx per id wound care pain rx replace k monitor renal fxn dc planning pt wants to go closer to [facility] Subjective ROS Limited/Unobtainable: No Constitutional: Reports: malaise, weakness HEENT: Reports: no symptoms Cardiovascular: Reports: no symptoms Respiratory: Reports: no symptoms Gastrointestinal/Abdominal: Reports: no symptoms Genitourinary: Reports: no symptoms Neurologic/Psychiatric: Reports: pre-existing deficit Endocrine: Reports: no symptoms Hematologic/Lymphatic: Reports: no symptoms Allergies: Coded Allergies: CHLORHEXIDINE (Verified Allergy, Unknown, 04/17/18) Pt states CHG gives him rashes All Systems: reviewed and negative except above Subjective no new complaints. no cp/sob. on iv abx ucx noted Objective Last 24 Hour Vital Signs Date Time Temp Pulse Resp B/P (MAP) Pulse Ox O2 Delivery O2 Flow Rate FiO2 05/08/18 08:00 97.8 58 20 100/55 97 97.8 05/08/18 07:22 98.1 05/08/18 04:17 98.1 71 20 119/70 96 Room Air 98.1 05/08/18 00:00 98.2 75 18 105/60 96 Room Air 98.2 05/07/18 20:00 97.9 77 19 120/73 96 Room Air 97.9 05/07/18 16:08 98.1 68 18 148/92 98 Room Air 98.1 05/07/18 12:06 97.5 61 20 146/84 97 97.5 Intake and Output 05/07/18 05/08/18 19:00 07:00 Intake Total 1190 ml 350 ml Output Total 500 ml 650 ml Balance 690 ml -300 ml Intake Oral 1080 ml 350 ml IV Total 110 ml Output Urine Total 500 ml 650 ml # Bowel Movements 1 1 Height (Feet): 5 Height (Inches): 9.00 Weight (Pounds): 213 Objective General Appearance: WD/WN, alert Neck: supple Cardiovascular: regular rhythm Respiratory/Chest: chest wall non-tender, lungs clear, normal breath sounds Abdomen: normal bowel sounds, non tender, soft, no organomegaly Edema: no edema noted Arm (L), no edema noted Arm (R), no edema noted Leg (L), no edema noted Leg (R), no edema noted Pedal (L), no edema noted Pedal (R), no edema noted Generalized Alfa Marshall MD May 08, 2018 11:15
--- NOTE | 2018-05-08 11:18 | General Progress Note ---
Assessment/Plan Assessment/Plan (1) Spinal cord injury (2) H/o heroin abuse (3) Decubitus ulcer (4) Paraplegia (5) Neuropathic pain (6) Intractable pain Patient will be continued on Percocet and Lyrica D/w Dr. Byrd and he concurred. Subjective Date patient seen: May 08, 2018 Time patient seen: 10:00 - am Allergies: Coded Allergies: CHLORHEXIDINE (Verified Allergy, Unknown, 04/17/18) Pt states CHG gives him rashes Subjective Constitutional: Reports: weakness HEENT: Reports: no symptoms Cardiovascular: Reports: no symptoms Respiratory: Reports: no symptoms Gastrointestinal/Abdominal: Reports: no symptoms Genitourinary: Reports: no symptoms Neurologic/Psychiatric: Reports: numbness, tingling Endocrine: Reports: no symptoms Hematologic/Lymphatic: Reports: no symptoms Subjective Patient is in bed and reports that the pain is at a moderate level on the Percocet having using 6 doses in the last 24hrs. Objective Last 24 Hour Vital Signs Date Time Temp Pulse Resp B/P (MAP) Pulse Ox O2 Delivery O2 Flow Rate FiO2 05/08/18 08:00 97.8 58 20 100/55 97 97.8 05/08/18 07:22 98.1 05/08/18 04:17 98.1 71 20 119/70 96 Room Air 98.1 05/08/18 00:00 98.2 75 18 105/60 96 Room Air 98.2 05/07/18 20:00 97.9 77 19 120/73 96 Room Air 97.9 05/07/18 16:08 98.1 68 18 148/92 98 Room Air 98.1 05/07/18 12:06 97.5 61 20 146/84 97 97.5 Intake and Output 05/07/18 05/08/18 19:00 07:00 Intake Total 1190 ml 350 ml Output Total 500 ml 650 ml Balance 690 ml -300 ml Intake Oral 1080 ml 350 ml IV Total 110 ml Output Urine Total 500 ml 650 ml # Bowel Movements 1 1 Height (Feet): 5 Height (Inches): 9.00 Weight (Pounds): 213 Objective GENERAL: Alert, awake, and oriented. HEENT: PERRLA. NECK: Range of motion is decreased due to the patient's condition. LUNGS: Decreased breath sounds bilaterally. ABDOMEN: Benign. BACK: Range of motion is decreased in flexion and extension with decubitus ulcer noted. EXTREMITIES: Upper and lower extremity range of motion is decreased with joint contractures seen. Tenderness to palpation. Luiz Lees May 08, 2018 11:18
--- NOTE | 2018-05-08 12:09 | Infectious Diseases Prog Note ---
Assessment/Plan Assessment/Plan A 1. E. coli ESBL UTI 2. Proteus UTI treated 3. leucocytosis resolved 4. Acute renal failure resolved 5. paraplegia 6. shock, resolved, 7. 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 Leukocytosis resolved P 1, continue Meropenem X 2 days Subjective ROS Limited/Unobtainable: No Constitutional: Reports: no symptoms Cardiovascular: Reports: no symptoms Gastrointestinal/Abdominal: Reports: no symptoms Genitourinary: Reports: no symptoms Musculoskeletal: Reports: pain Allergies: Coded Allergies: CHLORHEXIDINE (Verified Allergy, Unknown, 04/17/18) Pt states CHG gives him rashes Objective Vital Signs Last 24 Hour Vital Signs Date Time Temp Pulse Resp B/P (MAP) Pulse Ox O2 Delivery O2 Flow Rate FiO2 05/08/18 12:00 97.7 66 20 124/67 98 97.7 05/08/18 08:00 97.8 58 20 100/55 97 97.8 05/08/18 07:22 98.1 05/08/18 04:17 98.1 71 20 119/70 96 Room Air 98.1 05/08/18 00:00 98.2 75 18 105/60 96 Room Air 98.2 05/07/18 20:00 97.9 77 19 120/73 96 Room Air 97.9 05/07/18 16:08 98.1 68 18 148/92 98 Room Air 98.1 Height (Feet): 5 Height (Inches): 9.00 Weight (Pounds): 213 General Appearance: no acute distress HEENT: mucous membranes moist Respiratory/Chest: lungs clear Cardiovascular: normal rate Abdomen: soft, non tender Extremities: no edema Neurologic/Psychiatric: alert, oriented x 3, responsive, other - paraplegia Current Medications Medications (Trade) Dose Ordered Sig/Aledya Route PRN Reason Start Time Stop Time Status Last Admin Dose Admin Acetaminophen (Tylenol) 650 mg Q6H PRN ORAL Shivering 04/29/18 11:00 05/29/18 10:59 04/29/18 11:13 Al Hydroxide/Mg Hydroxide (Mylanta) 30 ml Q6H PRN ORAL HEARTBURN 04/20/18 22:30 05/15/18 22:29 Ascorbic Acid (Vitamin C) 500 mg TWICE A DAY ORAL 04/21/18 09:00 05/16/18 08:59 05/08/18 08:52 Bisacodyl (Dulcolax) 10 mg DAILY RECTAL 05/03/18 09:00 06/02/18 08:59 05/05/18 08:38 Diphenhydramine HCl (Benadryl Cream) 1 applic THREE TIMES A DAY PRN TOPIC Itching 04/28/18 11:00 05/28/18 10:59 04/29/18 15:07 Diphenhydramine HCl (Benadryl) 25 mg Q4H PRN IVP Itching 04/28/18 09:00 05/28/18 08:59 05/08/18 05:45 Fludrocortisone Acetate (Florinef) 0.1 mg DAILY ORAL 04/25/18 09:00 05/25/18 08:59 05/08/18 08:52 Heparin Sodium (Porcine) (Heparin 5000 units/ml) 5,000 units EVERY 12 HOURS SUBQ 04/20/18 22:00 05/15/18 21:59 05/08/18 08:58 Lactobacillus Acidophilus (Culturelle) 1 tab TWICE A DAY ORAL 04/21/18 09:00 05/16/18 08:59 05/08/18 08:51 Magnesium Hydroxide (Mom) 30 ml HSPRN PRN ORAL Constipation 04/20/18 22:30 05/15/18 22:29 Meropenem 1 gm/ Sodium Chloride 55 ml @ 110 mls/hr Q8HR@0000,0800,1600 IVPB 05/07/18 16:00 05/12/18 15:59 05/08/18 08:48 Midodrine (Pro-Amatine) 10 mg THREE TIMES A DAY ORAL 04/21/18 09:00 05/19/18 08:59 05/08/18 08:52 Multivitamins (Multivitamins) 1 tab DAILY ORAL 04/21/18 09:00 05/16/18 08:59 05/08/18 08:52 Naloxone HCl (Narcan) 0.2 mg Q30MIN PRN IVP respiratory depression 04/20/18 21:00 05/20/18 09:14 Oxycodone/ Acetaminophen (Percocet 10/325) 1 tab Q4H PRN ORAL Severe Pain (Pain Scale 7-10) 05/04/18 10:00 05/11/18 09:59 05/08/18 06:23 Pantoprazole (Protonix) 40 mg DAILY ORAL 04/25/18 09:00 05/25/18 08:59 05/08/18 08:51 Polyethylene Glycol (Miralax) 17 gm BEDTIME ORAL 05/03/18 21:00 06/02/18 20:59 Potassium Chloride (K-Dur) 40 meq DAILY ORAL 05/07/18 09:00 06/05/18 09:44 05/08/18 08:52 Pregabalin (Lyrica) 50 mg THREE TIMES A DAY ORAL 04/21/18 09:00 05/20/18 10:59 05/08/18 08:51 Reyes Trevino MD May 08, 2018 12:09
--- NOTE | 2018-05-08 13:09 | General Progress Note ---
Assessment/Plan Assessment/Plan Assessment - paraplegia - chronic intestinal dysmotility - contractures - poor Px Recommendations - po as tolerated - bowel regimen - Abx - Placement Subjective Allergies: Coded Allergies: CHLORHEXIDINE (Verified Allergy, Unknown, 04/17/18) Pt states CHG gives him rashes Subjective Feel OK no abd c/o tolerating PO Objective Last 24 Hour Vital Signs Date Time Temp Pulse Resp B/P (MAP) Pulse Ox O2 Delivery O2 Flow Rate FiO2 05/08/18 12:00 97.7 66 20 124/67 98 97.7 05/08/18 08:00 97.8 58 20 100/55 97 97.8 05/08/18 07:22 98.1 05/08/18 04:17 98.1 71 20 119/70 96 Room Air 98.1 05/08/18 00:00 98.2 75 18 105/60 96 Room Air 98.2 05/07/18 20:00 97.9 77 19 120/73 96 Room Air 97.9 05/07/18 16:08 98.1 68 18 148/92 98 Room Air 98.1 Intake and Output 05/07/18 05/08/18 19:00 07:00 Intake Total 1190 ml 350 ml Output Total 500 ml 650 ml Balance 690 ml -300 ml Intake Oral 1080 ml 350 ml IV Total 110 ml Output Urine Total 500 ml 650 ml # Bowel Movements 1 1 Height (Feet): 5 Height (Inches): 9.00 Weight (Pounds): 213 Objective Debilitated WM NCAT poor dentition Chest CTA RRR Soft NT ND no edema (+) contracted Raiza Rodas MD May 08, 2018 13:09
--- NOTE | 2018-05-08 13:54 | General Surgery Progress Note ---
General Surgery-Progress Note Subjective Additional Comments no acute events. doing well. comfortable. Objective Last 24 Hour Vital Signs Date Time Temp Pulse Resp B/P (MAP) Pulse Ox O2 Delivery O2 Flow Rate FiO2 05/08/18 13:25 97.7 05/08/18 12:00 97.7 66 20 124/67 98 97.7 05/08/18 08:00 97.8 58 20 100/55 97 97.8 05/08/18 07:22 98.1 05/08/18 04:17 98.1 71 20 119/70 96 Room Air 98.1 05/08/18 00:00 98.2 75 18 105/60 96 Room Air 98.2 05/07/18 20:00 97.9 77 19 120/73 96 Room Air 97.9 05/07/18 16:08 98.1 68 18 148/92 98 Room Air 98.1 I&O Intake and Output 05/07/18 05/08/18 19:00 07:00 Intake Total 1190 ml 350 ml Output Total 500 ml 650 ml Balance 690 ml -300 ml Intake Oral 1080 ml 350 ml IV Total 110 ml Output Urine Total 500 ml 650 ml # Bowel Movements 1 1 Wound: clean Drains: none Cardiovascular: RSR Respiratory: clear Abdomen: soft, distended, present bowel sounds Extremities: no cyanosis Plan Problems: (1) Sepsis Assessment & Plan: 57M with sepsis. likely etiology UTI. recently noted to have abdominal distention. KUB ordered and concerns for possible volvulus. CT ordered and no obstruction or volvulus noted. dilated redundant sigmoid colon air filled. still watery stool in rectal tube. exam with distention but otherwise benign. differential could be atonic colon developing, hirschsprung adult, pseudo- obstruction s/p high rectal tube insertion by GI with good result KUB shows improvement -no acute surgical intervention planned -appreciate GI input Overall much improved and decompressed. rectal tube to be removed upon discharge. unfortunately may recur and if so will need to be monitored. discussed considerations for diverting loop colostomy given medical condition, sacral wounds, and prior events. 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 please refer to wound care photos for size and measurements. 2-3cm deep, 2cm undermining in inferior aspect. does get stool in wound at times given proximity to anus. some granulation tissue. no foul odor. serous drainage. minimal eschar and necrotic tissues. -No acute debridement necessary. -air soft mattress, gauze packing and dressings TID for now. -will follow with recs. thank you for this consultation. Alo Martin May 08, 2018 13:54
[2018-05-08] MEDS: Miralax 17gm pkt ORAL SCH (20:20)
[2018-05-09] MEDS: Meropenem 1 GM in NS 55 ML IVPB SCH ×3 (00:20→16:04)
[2018-05-09] MEDS: DiphenhydrAMINE 50mg/ml Inj IVP PRN ×3 (03:11→20:16)
[2018-05-09 04:00] VITALS: BP 110/70
[2018-05-09 08:00] VITALS: BP 106/61
--- NOTE | 2018-05-09 08:01 | General Progress Note ---
Assessment/Plan Assessment/Plan (1) Spinal cord injury (2) H/o heroin abuse (3) Decubitus ulcer (4) Paraplegia (5) Neuropathic pain (6) Intractable pain Patient will be continued on Percocet and Lyrica D/w Dr. Byrd and he concurred. Subjective Date patient seen: May 09, 2018 Time patient seen: 08:00 - am Allergies: Coded Allergies: CHLORHEXIDINE (Verified Allergy, Unknown, 04/17/18) Pt states CHG gives him rashes Subjective Constitutional: Reports: weakness HEENT: Reports: no symptoms Cardiovascular: Reports: no symptoms Respiratory: Reports: no symptoms Gastrointestinal/Abdominal: Reports: no symptoms Genitourinary: Reports: no symptoms Neurologic/Psychiatric: Reports: numbness, tingling Endocrine: Reports: no symptoms Hematologic/Lymphatic: Reports: no symptoms Subjective Patient reports that his pain has been tolerated on the Percocet. He has no new complaints. Objective Last 24 Hour Vital Signs Date Time Temp Pulse Resp B/P (MAP) Pulse Ox O2 Delivery O2 Flow Rate FiO2 05/09/18 04:00 97.7 66 16 110/70 99 Room Air 97.7 05/08/18 23:52 97.9 75 18 107/64 99 Room Air 97.9 05/08/18 20:00 98.2 67 17 126/74 98 Room Air 98.2 05/08/18 18:59 97.8 05/08/18 18:00 97.8 05/08/18 15:49 97.8 70 19 101/56 95 Room Air 97.8 05/08/18 13:25 97.7 05/08/18 12:00 97.7 66 20 124/67 98 97.7 Intake and Output 05/08/18 05/09/18 19:00 07:00 Intake Total 480 ml 240 ml Output Total 1000 ml 650 ml Balance -520 ml -410 ml Intake Oral 480 ml 240 ml Output Urine Total 1000 ml 650 ml Laboratory Tests 05/09/18 06:00: White Blood Count [Pending], Red Blood Count [Pending], Hemoglobin [Pending], Hematocrit [Pending], Mean Corpuscular Volume [Pending], Mean Corpuscular Hemoglobin [Pending], Mean Corpuscular Hemoglobin Concent [Pending], Red Cell Distribution Width [Pending], Platelet Count [Pending], Mean Platelet Volume [ Pending], Neutrophils (%) (Auto) [Pending], Lymphocytes (%) (Auto) [Pending], Monocytes (%) (Auto) [Pending], Eosinophils (%) (Auto) [Pending], Basophils (%) (Auto) [Pending], Sodium Level [Pending], Potassium Level [Pending], Chloride Level [Pending], Carbon Dioxide Level [Pending], Blood Urea Nitrogen [Pending], Creatinine [Pending], Estimat Glomerular Filtration Rate [Pending], Glucose Level [Pending], Calcium Level [Pending], Total Bilirubin [Pending], Aspartate Amino Transf (AST/SGOT) [Pending], Alanine Aminotransferase (ALT/SGPT) [Pending] , Alkaline Phosphatase [Pending], Total Protein [Pending], Albumin [Pending], Globulin [Pending] Height (Feet): 5 Height (Inches): 9.00 Weight (Pounds): 206 Objective GENERAL: Alert, awake, and oriented. HEENT: PERRLA. NECK: Range of motion is decreased due to the patient's condition. LUNGS: Decreased breath sounds bilaterally. ABDOMEN: Benign. BACK: Range of motion is decreased in flexion and extension with decubitus ulcer noted. EXTREMITIES: Upper and lower extremity range of motion is decreased with joint contractures seen. Tenderness to palpation. Luiz Lees May 09, 2018 08:01
[2018-05-09 08:04] LABS: HEMATOCRIT 32.2 % (42.0-52.0); HEMOGLOBIN 10.4 G/DL (14.2-18.0); MEAN CORPUSCULAR VOLUME 84 FL (80-99); PLATELET COUNT 251 K/UL (150-450); RED BLOOD COUNT 3.82 M/UL (4.70-6.10); RED CELL DISTRIBUTION WIDTH 16.2 % (11.6-14.8); WHITE BLOOD COUNT 10.9 K/UL (4.8-10.8)
[2018-05-09 08:18] LABS: ALANINE AMINOTRANSFERASE 18 U/L (12-78); ALBUMIN 2.9 G/DL (3.4-5.0); ALBUMIN/GLOBULIN RATIO 0.6 (1.0-2.7); ALKALINE PHOSPHATASE 105 U/L (46-116); ANION GAP 6 mmol/L (5-15); ASPARTATE AMINO TRANSFERASE 15 U/L (15-37); BILIRUBIN,TOTAL 0.1 MG/DL (0.2-1.0); BLOOD UREA NITROGEN 17 mg/dL (7-18); CARBON DIOXIDE 25 MMOL/L (21-32); CHLORIDE 112 MMOL/L (98-107); CREATININE 1.1 MG/DL (0.55-1.30); POTASSIUM 3.7 MMOL/L (3.5-5.1); SODIUM 143 MMOL/L (136-145)
[2018-05-09] MEDS: Ascorbic Acid 500mg tab ORAL SCH ×2 (08:30→17:49)
[2018-05-09] MEDS: Midodrine 10mg tab ORAL SCH ×3 (08:31→17:49)
[2018-05-09] MEDS: Lyrica 50mg cap ORAL SCH ×3 (08:31→17:49)
[2018-05-09] MEDS: Heparin 5000 units/ml inj SUBQ SCH ×2 (08:37→21:00)
[2018-05-09] MEDS: Lactobacillus-GG tablet ORAL SCH ×2 (10:03→17:49)
[2018-05-09 11:55] VITALS: BP 116/74
--- NOTE | 2018-05-09 12:06 | General Surgery Progress Note ---
General Surgery-Progress Note Subjective Additional Comments no acute events. doing well. Objective Last 24 Hour Vital Signs Date Time Temp Pulse Resp B/P (MAP) Pulse Ox O2 Delivery O2 Flow Rate FiO2 05/09/18 11:55 98.0 89 19 116/74 96 98.0 05/09/18 08:32 97.7 05/09/18 08:00 97.8 94 19 106/61 97 97.8 05/09/18 04:00 97.7 66 16 110/70 99 Room Air 97.7 05/08/18 23:52 97.9 75 18 107/64 99 Room Air 97.9 05/08/18 20:00 98.2 67 17 126/74 98 Room Air 98.2 05/08/18 18:59 97.8 05/08/18 18:00 97.8 05/08/18 15:49 97.8 70 19 101/56 95 Room Air 97.8 05/08/18 13:25 97.7 I&O Intake and Output 05/08/18 05/09/18 19:00 07:00 Intake Total 480 ml 240 ml Output Total 1000 ml 650 ml Balance -520 ml -410 ml Intake Oral 480 ml 240 ml Output Urine Total 1000 ml 650 ml Dressing: saturated Wound: clean Drains: none Cardiovascular: RSR Respiratory: clear Abdomen: soft, distended, present bowel sounds Extremities: no cyanosis Laboratory Tests Test 05/09/18 06:00 White Blood Count 10.9 K/UL (4.8-10.8) H Red Blood Count 3.82 M/UL (4.70-6.10) L Hemoglobin 10.4 G/DL (14.2-18.0) L Hematocrit 32.2 % (42.0-52.0) L Mean Corpuscular Volume 84 FL (80-99) Mean Corpuscular Hemoglobin 27.1 PG (27.0-31.0) Mean Corpuscular Hemoglobin Concent 32.2 G/DL (32.0-36.0) Red Cell Distribution Width 16.2 % (11.6-14.8) H Platelet Count 251 K/UL (150-450) Mean Platelet Volume 9.1 FL (6.5-10.1) Neutrophils (%) (Auto) % (45.0-75.0) Lymphocytes (%) (Auto) % (20.0-45.0) Monocytes (%) (Auto) % (1.0-10.0) Eosinophils (%) (Auto) % (0.0-3.0) Basophils (%) (Auto) % (0.0-2.0) Differential Total Cells Counted 100 Neutrophils % (Manual) 42 % (45-75) L Lymphocytes % (Manual) 16 % (20-45) L Monocytes % (Manual) 5 % (1-10) Eosinophils % (Manual) 37 % (0-3) H Basophils % (Manual) 0 % (0-2) Band Neutrophils 0 % (0-8) Platelet Estimate Adequate Platelet Morphology Normal Anisocytosis 1+ Microcytosis 1+ Sodium Level 143 MMOL/L (136-145) Potassium Level 3.7 MMOL/L (3.5-5.1) Chloride Level 112 MMOL/L (98-107) H Carbon Dioxide Level 25 MMOL/L (21-32) Anion Gap 6 mmol/L (5-15) Blood Urea Nitrogen 17 mg/dL (7-18) Creatinine 1.1 MG/DL (0.55-1.30) Estimat Glomerular Filtration Rate > 60 mL/min (>60) Glucose Level 97 MG/DL (74-106) Calcium Level 9.0 MG/DL (8.5-10.1) Total Bilirubin 0.1 MG/DL (0.2-1.0) L Aspartate Amino Transf (AST/SGOT) 15 U/L (15-37) Alanine Aminotransferase (ALT/SGPT) 18 U/L (12-78) Alkaline Phosphatase 105 U/L (46-116) Total Protein 7.8 G/DL (6.4-8.2) Albumin 2.9 G/DL (3.4-5.0) L Globulin 4.9 g/dL Albumin/Globulin Ratio 0.6 (1.0-2.7) L Plan Problems: (1) Sepsis Assessment & Plan: 57M with sepsis. likely etiology UTI. recently noted to have abdominal distention. KUB ordered and concerns for possible volvulus. CT ordered and no obstruction or volvulus noted. dilated redundant sigmoid colon air filled. still watery stool in rectal tube. exam with distention but otherwise benign. differential could be atonic colon developing, hirschsprung adult, pseudo- obstruction s/p high rectal tube insertion by GI with good result KUB shows improvement -no acute surgical intervention planned -appreciate GI input Overall much improved and decompressed. rectal tube to be removed upon discharge. unfortunately may recur and if so will need to be monitored. discussed considerations for diverting loop colostomy given medical condition, sacral wounds, and prior events. 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 please refer to wound care photos for size and measurements. 2-3cm deep, 2cm undermining in inferior aspect. does get stool in wound at times given proximity to anus. some granulation tissue. no foul odor. serous drainage. minimal eschar and necrotic tissues. -No acute debridement necessary. -air soft mattress, gauze packing and dressings TID for now. -will follow with recs. thank you for this consultation. Alo Martin May 09, 2018 12:06
--- NOTE | 2018-05-09 15:06 | Infectious Diseases Prog Note ---
Assessment/Plan Assessment/Plan A 1. E. coli ESBL UTI 2. Proteus UTI treated 3. leucocytosis resolved 4. Acute renal failure resolved 5. paraplegia 6. shock, resolved, 7. 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 Leukocytosis resolved P 1, continue Meropenem X 1 day Subjective ROS Limited/Unobtainable: No Respiratory: Reports: no symptoms Cardiovascular: Reports: no symptoms Gastrointestinal/Abdominal: Reports: no symptoms Musculoskeletal: Reports: pain Allergies: Coded Allergies: CHLORHEXIDINE (Verified Allergy, Unknown, 04/17/18) Pt states CHG gives him rashes Objective Vital Signs Last 24 Hour Vital Signs Date Time Temp Pulse Resp B/P (MAP) Pulse Ox O2 Delivery O2 Flow Rate FiO2 05/09/18 11:55 98.0 89 19 116/74 96 98.0 05/09/18 08:32 97.7 05/09/18 08:00 97.8 94 19 106/61 97 97.8 05/09/18 04:00 97.7 66 16 110/70 99 Room Air 97.7 05/08/18 23:52 97.9 75 18 107/64 99 Room Air 97.9 05/08/18 20:00 98.2 67 17 126/74 98 Room Air 98.2 05/08/18 18:59 97.8 05/08/18 18:00 97.8 05/08/18 15:49 97.8 70 19 101/56 95 Room Air 97.8 Height (Feet): 5 Height (Inches): 9.00 Weight (Pounds): 206 HEENT: mucous membranes moist, other - blind left eye Abdomen: soft, non tender Extremities: no edema Neurologic/Psychiatric: alert, responsive Laboratory Tests Test 05/09/18 06:00 White Blood Count 10.9 K/UL (4.8-10.8) H Red Blood Count 3.82 M/UL (4.70-6.10) L Hemoglobin 10.4 G/DL (14.2-18.0) L Hematocrit 32.2 % (42.0-52.0) L Mean Corpuscular Volume 84 FL (80-99) Mean Corpuscular Hemoglobin 27.1 PG (27.0-31.0) Mean Corpuscular Hemoglobin Concent 32.2 G/DL (32.0-36.0) Red Cell Distribution Width 16.2 % (11.6-14.8) H Platelet Count 251 K/UL (150-450) Mean Platelet Volume 9.1 FL (6.5-10.1) Neutrophils (%) (Auto) % (45.0-75.0) Lymphocytes (%) (Auto) % (20.0-45.0) Monocytes (%) (Auto) % (1.0-10.0) Eosinophils (%) (Auto) % (0.0-3.0) Basophils (%) (Auto) % (0.0-2.0) Differential Total Cells Counted 100 Neutrophils % (Manual) 42 % (45-75) L Lymphocytes % (Manual) 16 % (20-45) L Monocytes % (Manual) 5 % (1-10) Eosinophils % (Manual) 37 % (0-3) H Basophils % (Manual) 0 % (0-2) Band Neutrophils 0 % (0-8) Platelet Estimate Adequate Platelet Morphology Normal Anisocytosis 1+ Microcytosis 1+ Sodium Level 143 MMOL/L (136-145) Potassium Level 3.7 MMOL/L (3.5-5.1) Chloride Level 112 MMOL/L (98-107) H Carbon Dioxide Level 25 MMOL/L (21-32) Anion Gap 6 mmol/L (5-15) Blood Urea Nitrogen 17 mg/dL (7-18) Creatinine 1.1 MG/DL (0.55-1.30) Estimat Glomerular Filtration Rate > 60 mL/min (>60) Glucose Level 97 MG/DL (74-106) Calcium Level 9.0 MG/DL (8.5-10.1) Total Bilirubin 0.1 MG/DL (0.2-1.0) L Aspartate Amino Transf (AST/SGOT) 15 U/L (15-37) Alanine Aminotransferase (ALT/SGPT) 18 U/L (12-78) Alkaline Phosphatase 105 U/L (46-116) Total Protein 7.8 G/DL (6.4-8.2) Albumin 2.9 G/DL (3.4-5.0) L Globulin 4.9 g/dL Albumin/Globulin Ratio 0.6 (1.0-2.7) L Current Medications Medications (Trade) Dose Ordered Sig/Aleyda Route PRN Reason Start Time Stop Time Status Last Admin Dose Admin Acetaminophen (Tylenol) 650 mg Q6H PRN ORAL Shivering 04/29/18 11:00 05/29/18 10:59 04/29/18 11:13 Al Hydroxide/Mg Hydroxide (Mylanta) 30 ml Q6H PRN ORAL HEARTBURN 04/20/18 22:30 05/15/18 22:29 Ascorbic Acid (Vitamin C) 500 mg TWICE A DAY ORAL 04/21/18 09:00 05/16/18 08:59 05/09/18 08:30 Bisacodyl (Dulcolax) 10 mg DAILY RECTAL 05/03/18 09:00 06/02/18 08:59 05/05/18 08:38 Diphenhydramine HCl (Benadryl Cream) 1 applic THREE TIMES A DAY PRN TOPIC Itching 04/28/18 11:00 05/28/18 10:59 04/29/18 15:07 Diphenhydramine HCl (Benadryl) 25 mg Q4H PRN IVP Itching 04/28/18 09:00 05/28/18 08:59 05/09/18 11:52 Fludrocortisone Acetate (Florinef) 0.1 mg DAILY ORAL 04/25/18 09:00 05/25/18 08:59 05/09/18 08:31 Heparin Sodium (Porcine) (Heparin 5000 units/ml) 5,000 units EVERY 12 HOURS SUBQ 04/20/18 22:00 05/15/18 21:59 05/09/18 08:37 Lactobacillus Acidophilus (Culturelle) 1 tab TWICE A DAY ORAL 04/21/18 09:00 05/16/18 08:59 05/09/18 10:03 Magnesium Hydroxide (Mom) 30 ml HSPRN PRN ORAL Constipation 04/20/18 22:30 05/15/18 22:29 Meropenem 1 gm/ Sodium Chloride 55 ml @ 110 mls/hr Q8HR@0000,0800,1600 IVPB 05/07/18 16:00 05/12/18 15:59 05/09/18 10:30 Midodrine (Pro-Amatine) 10 mg THREE TIMES A DAY ORAL 04/21/18 09:00 05/19/18 08:59 05/09/18 12:14 Multivitamins (Multivitamins) 1 tab DAILY ORAL 04/21/18 09:00 05/16/18 08:59 05/09/18 08:31 Naloxone HCl (Narcan) 0.2 mg Q30MIN PRN IVP respiratory depression 04/20/18 21:00 05/20/18 09:14 Oxycodone/ Acetaminophen (Percocet 10/325) 1 tab Q4H PRN ORAL Severe Pain (Pain Scale 7-10) 05/04/18 10:00 05/11/18 09:59 05/09/18 13:53 Pantoprazole (Protonix) 40 mg DAILY ORAL 04/25/18 09:00 05/25/18 08:59 05/09/18 08:31 Polyethylene Glycol (Miralax) 17 gm BEDTIME ORAL 05/03/18 21:00 06/02/18 20:59 Potassium Chloride (K-Dur) 40 meq DAILY ORAL 05/07/18 09:00 06/05/18 09:44 05/09/18 08:31 Pregabalin (Lyrica) 50 mg THREE TIMES A DAY ORAL 04/21/18 09:00 05/20/18 10:59 05/09/18 12:14 Reyes Trevino MD May 09, 2018 15:06
[2018-05-09 16:00] VITALS: BP 100/55
[2018-05-09] MEDS ORDERED: Cathflo Alteplase 2mg Inj INJ ONE (17:00)
--- NOTE | 2018-05-09 18:25 | General Progress Note ---
Assessment/Plan Problem List: (1) Renal failure ICD Codes: N19 - Unspecified kidney failure SNOMED: 41548984 Qualifiers: Qualified Codes: N19 - Unspecified kidney failure (2) Severe sepsis ICD Codes: A41.9 - Sepsis, unspecified organism; R65.20 - Severe sepsis without septic shock SNOMED: 59882407 (3) Paraplegia ICD Codes: G82.20 - Paraplegia, unspecified SNOMED: 70999693 (4) UTI (urinary tract infection) ICD Codes: N39.0 - Urinary tract infection, site not specified SNOMED: 90852893 Qualifiers: Qualified Codes: T83.511A - Infection and inflammatory reaction due to indwelling urethral catheter, initial encounter; N39.0 - Urinary tract infection , site not specified (5) Decubitus ulcer ICD Codes: L89.90 - Pressure ulcer of unspecified site, unspecified stage SNOMED: 432313370 Status: stable, progressing Assessment/Plan cont current rx abx per id- 1 more day wound care pain rx monitor renal fxn dc planning pt wants to go closer to [facility] Subjective ROS Limited/Unobtainable: No Constitutional: Reports: malaise, weakness HEENT: Reports: no symptoms Cardiovascular: Reports: no symptoms Respiratory: Reports: no symptoms Gastrointestinal/Abdominal: Reports: no symptoms Genitourinary: Reports: no symptoms Neurologic/Psychiatric: Reports: pre-existing deficit Endocrine: Reports: no symptoms Hematologic/Lymphatic: Reports: anemia Allergies: Coded Allergies: CHLORHEXIDINE (Verified Allergy, Unknown, 04/17/18) Pt states CHG gives him rashes All Systems: reviewed and negative except above Subjective no new complaints. no cp/sob. on iv abx for more day ucx noted Objective Last 24 Hour Vital Signs Date Time Temp Pulse Resp B/P (MAP) Pulse Ox O2 Delivery O2 Flow Rate FiO2 05/09/18 17:52 97.8 05/09/18 16:00 97.8 88 19 100/55 95 97.8 05/09/18 11:55 98.0 89 19 116/74 96 98.0 05/09/18 08:32 97.7 05/09/18 08:00 97.8 94 19 106/61 97 97.8 05/09/18 04:00 97.7 66 16 110/70 99 Room Air 97.7 05/08/18 23:52 97.9 75 18 107/64 99 Room Air 97.9 05/08/18 20:00 98.2 67 17 126/74 98 Room Air 98.2 05/08/18 18:59 97.8 Intake and Output 05/08/18 05/09/18 19:00 07:00 Intake Total 480 ml 240 ml Output Total 1000 ml 650 ml Balance -520 ml -410 ml Intake Oral 480 ml 240 ml Output Urine Total 1000 ml 650 ml Laboratory Tests 05/09/18 06:00: White Blood Count 10.9H, Red Blood Count 3.82L, Hemoglobin 10.4L, Hematocrit 32.2L, Mean Corpuscular Volume 84, Mean Corpuscular Hemoglobin 27.1, Mean Corpuscular Hemoglobin Concent 32.2, Red Cell Distribution Width 16.2H, Platelet Count 251, Mean Platelet Volume 9.1, Neutrophils (%) (Auto) , Lymphocytes (%) (Auto) , Monocytes (%) (Auto) , Eosinophils (%) (Auto) , Basophils (%) (Auto) , Differential Total Cells Counted 100, Neutrophils % ( Manual) 42L, Lymphocytes % (Manual) 16L, Monocytes % (Manual) 5, Eosinophils % ( Manual) 37H, Basophils % (Manual) 0, Band Neutrophils 0, Platelet Estimate Adequate, Platelet Morphology Normal, Anisocytosis 1+, Microcytosis 1+, Sodium Level 143, Potassium Level 3.7, Chloride Level 112H, Carbon Dioxide Level 25, Anion Gap 6, Blood Urea Nitrogen 17, Creatinine 1.1, Estimat Glomerular Filtration Rate > 60, Glucose Level 97, Calcium Level 9.0, Total Bilirubin 0.1L , Aspartate Amino Transf (AST/SGOT) 15, Alanine Aminotransferase (ALT/SGPT) 18, Alkaline Phosphatase 105, Total Protein 7.8, Albumin 2.9L, Globulin 4.9, Albumin /Globulin Ratio 0.6L Height (Feet): 5 Height (Inches): 9.00 Weight (Pounds): 206 Objective General Appearance: WD/WN, alert Neck: supple Cardiovascular: regular rhythm Respiratory/Chest: chest wall non-tender, lungs clear, normal breath sounds Abdomen: normal bowel sounds, non tender, soft, no organomegaly Edema: no edema noted Arm (L), no edema noted Arm (R), no edema noted Leg (L), no edema noted Leg (R), no edema noted Pedal (L), no edema noted Pedal (R), no edema noted Generalized Alfa Marshall MD May 09, 2018 18:25
[2018-05-09 20:00] VITALS: BP 119/72
[2018-05-09] MEDS: Miralax 17gm pkt ORAL SCH (20:30)
--- NOTE | 2018-05-09 21:49 | General Progress Note ---
Assessment/Plan Assessment/Plan Assessment - paraplegia - chronic intestinal dysmotility - contractures - poor Px Recommendations - po as tolerated - bowel regimen - Abx - Placement Subjective Allergies: Coded Allergies: CHLORHEXIDINE (Verified Allergy, Unknown, 04/17/18) Pt states CHG gives him rashes Subjective Feel OK no abd c/o tolerating PO Objective Last 24 Hour Vital Signs Date Time Temp Pulse Resp B/P (MAP) Pulse Ox O2 Delivery O2 Flow Rate FiO2 05/09/18 17:52 97.8 05/09/18 16:00 97.8 88 19 100/55 95 97.8 05/09/18 11:55 98.0 89 19 116/74 96 98.0 05/09/18 08:32 97.7 05/09/18 08:00 97.8 94 19 106/61 97 97.8 05/09/18 04:00 97.7 66 16 110/70 99 Room Air 97.7 05/08/18 23:52 97.9 75 18 107/64 99 Room Air 97.9 Intake and Output 05/08/18 05/09/18 19:00 07:00 Intake Total 480 ml 240 ml Output Total 1000 ml 650 ml Balance -520 ml -410 ml Intake Oral 480 ml 240 ml Output Urine Total 1000 ml 650 ml Laboratory Tests 05/09/18 06:00: White Blood Count 10.9H, Red Blood Count 3.82L, Hemoglobin 10.4L, Hematocrit 32.2L, Mean Corpuscular Volume 84, Mean Corpuscular Hemoglobin 27.1, Mean Corpuscular Hemoglobin Concent 32.2, Red Cell Distribution Width 16.2H, Platelet Count 251, Mean Platelet Volume 9.1, Neutrophils (%) (Auto) , Lymphocytes (%) (Auto) , Monocytes (%) (Auto) , Eosinophils (%) (Auto) , Basophils (%) (Auto) , Differential Total Cells Counted 100, Neutrophils % ( Manual) 42L, Lymphocytes % (Manual) 16L, Monocytes % (Manual) 5, Eosinophils % ( Manual) 37H, Basophils % (Manual) 0, Band Neutrophils 0, Platelet Estimate Adequate, Platelet Morphology Normal, Anisocytosis 1+, Microcytosis 1+, Sodium Level 143, Potassium Level 3.7, Chloride Level 112H, Carbon Dioxide Level 25, Anion Gap 6, Blood Urea Nitrogen 17, Creatinine 1.1, Estimat Glomerular Filtration Rate > 60, Glucose Level 97, Calcium Level 9.0, Total Bilirubin 0.1L , Aspartate Amino Transf (AST/SGOT) 15, Alanine Aminotransferase (ALT/SGPT) 18, Alkaline Phosphatase 105, Total Protein 7.8, Albumin 2.9L, Globulin 4.9, Albumin /Globulin Ratio 0.6L Height (Feet): 5 Height (Inches): 9.00 Weight (Pounds): 206 Objective Debilitated WM NCAT poor dentition Chest CTA RRR Soft NT ND no edema (+) contracted Raiza Rodas MD May 09, 2018 21:49
[2018-05-10] VITALS: BP 106/64
[2018-05-10] MEDS: Meropenem 1 GM in NS 55 ML IVPB SCH ×3 (00:38→17:31)
[2018-05-10] MEDS: DiphenhydrAMINE 50mg/ml Inj IVP PRN ×4 (00:56→20:22)
[2018-05-10 04:00] VITALS: BP 102/68
--- NOTE | 2018-05-10 07:49 | General Progress Note ---
Assessment/Plan Assessment/Plan (1) Spinal cord injury (2) H/o heroin abuse (3) Decubitus ulcer (4) Paraplegia (5) Neuropathic pain (6) Intractable pain Patient will be continued on Percocet and Lyrica D/w Dr. Byrd and he concurred. Subjective Date patient seen: May 10, 2018 Time patient seen: 07:15 - am Allergies: Coded Allergies: CHLORHEXIDINE (Verified Allergy, Unknown, 04/17/18) Pt states CHG gives him rashes Subjective Constitutional: Reports: weakness HEENT: Reports: no symptoms Cardiovascular: Reports: no symptoms Respiratory: Reports: no symptoms Gastrointestinal/Abdominal: Reports: no symptoms Genitourinary: Reports: no symptoms Neurologic/Psychiatric: Reports: numbness, tingling Endocrine: Reports: no symptoms Hematologic/Lymphatic: Reports: no symptoms Subjective Patient is in bed and reports that his pain continues to be tolerated on the Percocet which he has had 5 doses of in the last 24hrs. He has no new complaints. Objective Last 24 Hour Vital Signs Date Time Temp Pulse Resp B/P (MAP) Pulse Ox O2 Delivery O2 Flow Rate FiO2 05/10/18 04:00 97.6 81 19 102/68 97 Room Air 97.6 05/10/18 00:00 98.5 72 20 106/64 97 Room Air 98.5 05/09/18 20:00 98.6 78 18 119/72 98 Room Air 98.6 05/09/18 17:52 97.8 05/09/18 16:00 97.8 88 19 100/55 95 97.8 05/09/18 11:55 98.0 89 19 116/74 96 98.0 05/09/18 08:32 97.7 05/09/18 08:00 97.8 94 19 106/61 97 97.8 Intake and Output 05/09/18 05/10/18 19:00 07:00 Intake Total 400 ml Output Total 500 ml 850 ml Balance -100 ml -850 ml Intake Oral 400 ml Output Urine Total 500 ml 850 ml # Bowel Movements 2 Height (Feet): 5 Height (Inches): 9.00 Weight (Pounds): 205 Objective GENERAL: Alert, awake, and oriented. HEENT: PERRLA. NECK: Range of motion is decreased due to the patient's condition. LUNGS: Decreased breath sounds bilaterally. ABDOMEN: Benign. BACK: Range of motion is decreased in flexion and extension with decubitus ulcer noted. EXTREMITIES: Upper and lower extremity range of motion is decreased with joint contractures seen. Tenderness to palpation. Luiz Lees May 10, 2018 07:49
[2018-05-10 08:00] VITALS: BP 95/62
[2018-05-10] MEDS: Heparin 5000 units/ml inj SUBQ SCH ×2 (08:20→20:23)
[2018-05-10] MEDS: Lactobacillus-GG tablet ORAL SCH ×2 (08:22→18:24)
[2018-05-10] MEDS: Lyrica 50mg cap ORAL SCH ×3 (08:26→18:25)
[2018-05-10] MEDS: Midodrine 10mg tab ORAL SCH ×3 (08:26→18:25)
[2018-05-10] MEDS: Ascorbic Acid 500mg tab ORAL SCH ×2 (08:27→18:25)
--- NOTE | 2018-05-10 08:49 | General Progress Note ---
Assessment/Plan Assessment/Plan IMPRESSION leukocytosis anemia SHARDA severe protein malnutrition hypotension, orthostatic sacral pressure ulcer abdominal distention PLAN laxatives pressors off midodrine PRN norco monitor labs dc to snf when placement founds Subjective Allergies: Coded Allergies: CHLORHEXIDINE (Verified Allergy, Unknown, 04/17/18) Pt states CHG gives him rashes Subjective care noted placement issues noted Objective Last 24 Hour Vital Signs Date Time Temp Pulse Resp B/P (MAP) Pulse Ox O2 Delivery O2 Flow Rate FiO2 05/10/18 08:00 97.2 71 20 95/62 97 97.2 05/10/18 04:00 97.6 81 19 102/68 97 Room Air 97.6 05/10/18 00:00 98.5 72 20 106/64 97 Room Air 98.5 05/09/18 20:00 98.6 78 18 119/72 98 Room Air 98.6 05/09/18 17:52 97.8 05/09/18 16:00 97.8 88 19 100/55 95 97.8 05/09/18 11:55 98.0 89 19 116/74 96 98.0 Intake and Output 05/09/18 05/10/18 19:00 07:00 Intake Total 400 ml Output Total 500 ml 850 ml Balance -100 ml -850 ml Intake Oral 400 ml Output Urine Total 500 ml 850 ml # Bowel Movements 2 Height (Feet): 5 Height (Inches): 9.00 Weight (Pounds): 205 Objective WDWN NAD clear breath sounds bilaterally without rhonchi or wheeze [id number] without MRG NABS nontender weak alert Amado Coker MD May 10, 2018 08:49
[2018-05-10 11:00] VITALS: BP 147/91
--- NOTE | 2018-05-10 15:14 | General Surgery Progress Note ---
General Surgery-Progress Note Subjective Additional Comments no acute events. comfortable. Objective Last 24 Hour Vital Signs Date Time Temp Pulse Resp B/P (MAP) Pulse Ox O2 Delivery O2 Flow Rate FiO2 05/10/18 11:00 97.9 61 20 147/91 97 Room Air 97.9 05/10/18 08:00 97.2 71 20 95/62 97 97.2 05/10/18 04:00 97.6 81 19 102/68 97 Room Air 97.6 05/10/18 00:00 98.5 72 20 106/64 97 Room Air 98.5 05/09/18 20:00 98.6 78 18 119/72 98 Room Air 98.6 05/09/18 17:52 97.8 05/09/18 16:00 97.8 88 19 100/55 95 97.8 I&O Intake and Output 05/09/18 05/10/18 19:00 07:00 Intake Total 400 ml Output Total 500 ml 850 ml Balance -100 ml -850 ml Intake Oral 400 ml Output Urine Total 500 ml 850 ml # Bowel Movements 2 Wound: clean Cardiovascular: RSR Respiratory: clear Abdomen: soft, distended, non-tender, present bowel sounds Extremities: no cyanosis Plan Problems: (1) Sepsis Assessment & Plan: 57M with sepsis. likely etiology UTI. recently noted to have abdominal distention. KUB ordered and concerns for possible volvulus. CT ordered and no obstruction or volvulus noted. dilated redundant sigmoid colon air filled. still watery stool in rectal tube. exam with distention but otherwise benign. differential could be atonic colon developing, hirschsprung adult, pseudo- obstruction s/p high rectal tube insertion by GI with good result KUB shows improvement -no acute surgical intervention planned -appreciate GI input Overall much improved and decompressed. rectal tube to be removed upon discharge. unfortunately may recur and if so will need to be monitored. discussed considerations for diverting loop colostomy given medical condition, sacral wounds, and prior events. 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 please refer to wound care photos for size and measurements. 2-3cm deep, 2cm undermining in inferior aspect. does get stool in wound at times given proximity to anus. some granulation tissue. no foul odor. serous drainage. minimal eschar and necrotic tissues. -No acute debridement necessary. -air soft mattress, gauze packing and dressings TID for now. -will follow with recs. thank you for this consultation. Alo Martin May 10, 2018 15:14
[2018-05-10 15:46] VITALS: BP 99/56
[2018-05-10 20:00] VITALS: BP 110/63
[2018-05-10] MEDS: Miralax 17gm pkt ORAL SCH (20:30)
--- NOTE | 2018-05-10 22:49 | General Progress Note ---
Assessment/Plan Assessment/Plan Assessment - paraplegia - chronic intestinal dysmotility - contractures - poor Px Recommendations - po as tolerated - bowel regimen - Abx - Placement Subjective Allergies: Coded Allergies: CHLORHEXIDINE (Verified Allergy, Unknown, 04/17/18) Pt states CHG gives him rashes Subjective Feel OK no abd c/o tolerating PO Objective Last 24 Hour Vital Signs Date Time Temp Pulse Resp B/P (MAP) Pulse Ox O2 Delivery O2 Flow Rate FiO2 05/10/18 21:24 98.8 05/10/18 20:00 98.8 71 16 110/63 97 Room Air 98.8 05/10/18 15:46 Room Air 05/10/18 15:46 97.7 74 20 99/56 95 97.7 05/10/18 11:00 97.9 61 20 147/91 97 Room Air 97.9 05/10/18 08:00 97.2 71 20 95/62 97 97.2 05/10/18 04:00 97.6 81 19 102/68 97 Room Air 97.6 05/10/18 00:00 98.5 72 20 106/64 97 Room Air 98.5 Intake and Output 05/09/18 05/10/18 19:00 07:00 Intake Total 400 ml Output Total 500 ml 850 ml Balance -100 ml -850 ml Intake Oral 400 ml Output Urine Total 500 ml 850 ml # Bowel Movements 2 Height (Feet): 5 Height (Inches): 9.00 Weight (Pounds): 205 Objective Debilitated WM NCAT poor dentition Chest CTA RRR Soft NT ND no edema (+) contracted Raiza Rodas MD May 10, 2018 22:49
[2018-05-11] VITALS (7 sets, daily range): BP systolic 98–131; BP diastolic 52–74
[2018-05-11] MEDS: Meropenem 1 GM in NS 55 ML IVPB SCH ×2 (00:01→07:59)
[2018-05-11] MEDS: DiphenhydrAMINE 50mg/ml Inj IVP PRN ×5 (04:58→22:58)
--- NOTE | 2018-05-11 07:51 | General Progress Note ---
Assessment/Plan Assessment/Plan (1) Spinal cord injury (2) H/o heroin abuse (3) Decubitus ulcer (4) Paraplegia (5) Neuropathic pain (6) Intractable pain Patient will be continued on Percocet and Lyrica D/w Dr. Byrd and he concurred. Subjective Date patient seen: May 11, 2018 Time patient seen: 07:00 - am Allergies: Coded Allergies: CHLORHEXIDINE (Verified Allergy, Unknown, 04/17/18) Pt states CHG gives him rashes Subjective Constitutional: Reports: weakness HEENT: Reports: no symptoms Cardiovascular: Reports: no symptoms Respiratory: Reports: no symptoms Gastrointestinal/Abdominal: Reports: no symptoms Genitourinary: Reports: no symptoms Neurologic/Psychiatric: Reports: numbness, tingling Endocrine: Reports: no symptoms Hematologic/Lymphatic: Reports: no symptoms Subjective Patient reports that the pain has been stable on the Percocet. He has no new complaints and has no new complaints. Objective Last 24 Hour Vital Signs Date Time Temp Pulse Resp B/P (MAP) Pulse Ox O2 Delivery O2 Flow Rate FiO2 05/11/18 04:00 98.8 69 20 131/74 96 Room Air 98.8 05/11/18 00:00 97.9 85 17 114/69 96 Room Air 97.9 05/10/18 21:24 98.8 05/10/18 20:00 98.8 71 16 110/63 97 Room Air 98.8 05/10/18 15:46 Room Air 05/10/18 15:46 97.7 74 20 99/56 95 97.7 05/10/18 11:00 97.9 61 20 147/91 97 Room Air 97.9 05/10/18 08:00 97.2 71 20 95/62 97 97.2 Intake and Output 05/10/18 05/11/18 19:00 07:00 Intake Total 480 ml 55 ml Output Total 900 ml 1000 ml Balance -420 ml -945 ml Intake Oral 480 ml IV Total 55 ml Output Urine Total 900 ml 1000 ml Height (Feet): 5 Height (Inches): 9.00 Weight (Pounds): 211 Objective GENERAL: Alert, awake, and oriented. HEENT: PERRLA. NECK: Range of motion is decreased due to the patient's condition. LUNGS: Decreased breath sounds bilaterally. ABDOMEN: Benign. BACK: Range of motion is decreased in flexion and extension with decubitus ulcer noted. EXTREMITIES: Upper and lower extremity range of motion is decreased with joint contractures seen. Tenderness to palpation. Luiz Lees May 11, 2018 07:51
[2018-05-11] MEDS: Lactobacillus-GG tablet ORAL SCH ×2 (08:00→17:10)
[2018-05-11] MEDS: Ascorbic Acid 500mg tab ORAL SCH ×2 (08:00→17:09)
[2018-05-11] MEDS: Midodrine 10mg tab ORAL SCH ×3 (08:00→17:09)
[2018-05-11] MEDS: Lyrica 50mg cap ORAL SCH ×3 (08:01→17:10)
[2018-05-11] MEDS: Heparin 5000 units/ml inj SUBQ SCH ×2 (08:10→21:14)
--- NOTE | 2018-05-11 11:08 | Infectious Diseases Prog Note ---
Assessment/Plan Assessment/Plan antibiotics : meropenem 6..18 - A 1. pneumonia s/p rx 2. leucocytosis resolved 3. renal failure resolved 4. paraplegia 5. e.coli UTI s/p rx 6. sacral decubitus ulcer P 1. d/c meropenem 2. observe off antibiotics Subjective Respiratory: Denies: shortness of breath, dry cough Gastrointestinal/Abdominal: Denies: nausea, vomiting, diarrhea Musculoskeletal: Reports: pain Allergies: Coded Allergies: CHLORHEXIDINE (Verified Allergy, Unknown, 04/17/18) Pt states CHG gives him rashes Objective Vital Signs Last 24 Hour Vital Signs Date Time Temp Pulse Resp B/P (MAP) Pulse Ox O2 Delivery O2 Flow Rate FiO2 05/11/18 08:30 98.0 70 20 101/52 98 98.0 05/11/18 04:00 98.8 69 20 131/74 96 Room Air 98.8 05/11/18 00:00 97.9 85 17 114/69 96 Room Air 97.9 05/10/18 21:24 98.8 05/10/18 20:00 98.8 71 16 110/63 97 Room Air 98.8 05/10/18 15:46 Room Air 05/10/18 15:46 97.7 74 20 99/56 95 97.7 Height (Feet): 5 Height (Inches): 9.00 Weight (Pounds): 211 Respiratory/Chest: lungs clear Cardiovascular: normal rate, regular rhythm, no gallop/murmur Abdomen: soft, non tender Extremities: no edema, other - left arm PICC Current Medications Medications (Trade) Dose Ordered Sig/Aleyda Route PRN Reason Start Time Stop Time Status Last Admin Dose Admin Acetaminophen (Tylenol) 650 mg Q6H PRN ORAL Shivering 04/29/18 11:00 05/29/18 10:59 04/29/18 11:13 Al Hydroxide/Mg Hydroxide (Mylanta) 30 ml Q6H PRN ORAL HEARTBURN 04/20/18 22:30 05/15/18 22:29 Ascorbic Acid (Vitamin C) 500 mg TWICE A DAY ORAL 04/21/18 09:00 05/16/18 08:59 05/11/18 08:00 Bisacodyl (Dulcolax) 10 mg DAILY RECTAL 05/03/18 09:00 06/02/18 08:59 05/05/18 08:38 Diphenhydramine HCl (Benadryl Cream) 1 applic THREE TIMES A DAY PRN TOPIC Itching 04/28/18 11:00 05/28/18 10:59 04/29/18 15:07 Diphenhydramine HCl (Benadryl) 25 mg Q4H PRN IVP Itching 04/28/18 09:00 05/28/18 08:59 05/11/18 09:11 Fludrocortisone Acetate (Florinef) 0.1 mg DAILY ORAL 04/25/18 09:00 05/25/18 08:59 05/11/18 07:59 Heparin Sodium (Porcine) (Heparin 5000 units/ml) 5,000 units EVERY 12 HOURS SUBQ 04/20/18 22:00 05/15/18 21:59 05/11/18 08:10 Lactobacillus Acidophilus (Culturelle) 1 tab TWICE A DAY ORAL 04/21/18 09:00 05/16/18 08:59 05/11/18 08:00 Magnesium Hydroxide (Mom) 30 ml HSPRN PRN ORAL Constipation 04/20/18 22:30 05/15/18 22:29 Meropenem 1 gm/ Sodium Chloride 55 ml @ 110 mls/hr Q8HR@0000,0800,1600 IVPB 05/07/18 16:00 05/12/18 15:59 05/11/18 07:59 Midodrine (Pro-Amatine) 10 mg THREE TIMES A DAY ORAL 04/21/18 09:00 05/19/18 08:59 05/11/18 08:00 Multivitamins (Multivitamins) 1 tab DAILY ORAL 04/21/18 09:00 05/16/18 08:59 05/11/18 08:00 Naloxone HCl (Narcan) 0.2 mg Q30MIN PRN IVP respiratory depression 04/20/18 21:00 05/20/18 09:14 Oxycodone/ Acetaminophen (Percocet 10/325) 1 tab Q4H PRN ORAL Severe Pain (Pain Scale 7-10) 05/10/18 10:00 05/17/18 09:59 05/11/18 09:11 Pantoprazole (Protonix) 40 mg DAILY ORAL 04/25/18 09:00 05/25/18 08:59 05/11/18 08:00 Polyethylene Glycol (Miralax) 17 gm BEDTIME ORAL 05/03/18 21:00 06/02/18 20:59 Potassium Chloride (K-Dur) 40 meq DAILY ORAL 05/07/18 09:00 06/05/18 09:44 05/11/18 08:00 Pregabalin (Lyrica) 50 mg THREE TIMES A DAY ORAL 04/21/18 09:00 05/20/18 10:59 05/11/18 08:01 SABI COLON May 11, 2018 11:08
--- NOTE | 2018-05-11 11:12 | General Progress Note ---
Assessment/Plan Assessment/Plan IMPRESSION leukocytosis anemia SHARDA severe protein malnutrition hypotension, orthostatic sacral pressure ulcer abdominal distention PLAN laxatives pressors off midodrine PRN norco monitor labs dc to snf when placement founds Subjective Allergies: Coded Allergies: CHLORHEXIDINE (Verified Allergy, Unknown, 04/17/18) Pt states CHG gives him rashes Subjective care noted placement issues noted Objective Last 24 Hour Vital Signs Date Time Temp Pulse Resp B/P (MAP) Pulse Ox O2 Delivery O2 Flow Rate FiO2 05/11/18 08:30 98.0 70 20 101/52 98 98.0 05/11/18 04:00 98.8 69 20 131/74 96 Room Air 98.8 05/11/18 00:00 97.9 85 17 114/69 96 Room Air 97.9 05/10/18 21:24 98.8 05/10/18 20:00 98.8 71 16 110/63 97 Room Air 98.8 05/10/18 15:46 Room Air 05/10/18 15:46 97.7 74 20 99/56 95 97.7 Intake and Output 05/10/18 05/11/18 19:00 07:00 Intake Total 480 ml 55 ml Output Total 900 ml 1000 ml Balance -420 ml -945 ml Intake Oral 480 ml IV Total 55 ml Output Urine Total 900 ml 1000 ml Height (Feet): 5 Height (Inches): 9.00 Weight (Pounds): 211 Objective WDWN NAD clear breath sounds bilaterally without rhonchi or wheeze [id number] without MRG NABS nontender weak alert Amado Coker MD May 11, 2018 11:12
--- NOTE | 2018-05-11 13:00 | General Surgery Progress Note ---
General Surgery-Progress Note Subjective Symptoms: improved, pain absent, tolerating diet, BM Objective Last 24 Hour Vital Signs Date Time Temp Pulse Resp B/P (MAP) Pulse Ox O2 Delivery O2 Flow Rate FiO2 05/11/18 12:00 98.2 75 20 108/55 98 Room Air 98.2 05/11/18 08:30 98.0 70 20 101/52 98 98.0 05/11/18 08:30 Room Air 05/11/18 04:00 98.8 69 20 131/74 96 Room Air 98.8 05/11/18 00:00 97.9 85 17 114/69 96 Room Air 97.9 05/10/18 21:24 98.8 05/10/18 20:00 98.8 71 16 110/63 97 Room Air 98.8 05/10/18 15:46 Room Air 05/10/18 15:46 97.7 74 20 99/56 95 97.7 I&O Intake and Output 05/10/18 05/11/18 19:00 07:00 Intake Total 480 ml 55 ml Output Total 900 ml 1000 ml Balance -420 ml -945 ml Intake Oral 480 ml IV Total 55 ml Output Urine Total 900 ml 1000 ml Wound: clean Cardiovascular: RSR Respiratory: clear Abdomen: soft, distended, present bowel sounds Extremities: no cyanosis Plan Problems: (1) Sepsis Assessment & Plan: 57M with sepsis. likely etiology UTI. recently noted to have abdominal distention. KUB ordered and concerns for possible volvulus. CT ordered and no obstruction or volvulus noted. dilated redundant sigmoid colon air filled. still watery stool in rectal tube. exam with distention but otherwise benign. differential could be atonic colon developing, hirschsprung adult, pseudo- obstruction s/p high rectal tube insertion by GI with good result KUB shows improvement -no acute surgical intervention planned -appreciate GI input Overall much improved and decompressed. rectal tube to be removed upon discharge. unfortunately may recur and if so will need to be monitored. discussed considerations for diverting loop colostomy given medical condition, sacral wounds, and prior events. 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 please refer to wound care photos for size and measurements. 2-3cm deep, 2cm undermining in inferior aspect. does get stool in wound at times given proximity to anus. some granulation tissue. no foul odor. serous drainage. minimal eschar and necrotic tissues. -No acute debridement necessary. -air soft mattress, gauze packing and dressings TID for now. -will follow with recs. thank you for this consultation. Alo Martin May 11, 2018 13:00
[2018-05-11] MEDS ORDERED: NS 500ML ONE (15:51)
--- NOTE | 2018-05-11 18:33 | General Progress Note ---
Assessment/Plan Assessment/Plan Assessment - paraplegia - chronic intestinal dysmotility - contractures - poor Px Recommendations - po as tolerated - bowel regimen - Abx - Placement Subjective Allergies: Coded Allergies: CHLORHEXIDINE (Verified Allergy, Unknown, 04/17/18) Pt states CHG gives him rashes Subjective Feel OK no abd c/o tolerating PO Objective Last 24 Hour Vital Signs Date Time Temp Pulse Resp B/P (MAP) Pulse Ox O2 Delivery O2 Flow Rate FiO2 05/11/18 16:00 98.0 85 20 98/54 98 Room Air 98.0 05/11/18 12:00 98.2 75 20 108/55 98 Room Air 98.2 05/11/18 08:30 98.0 70 20 101/52 98 98.0 05/11/18 08:30 Room Air 05/11/18 04:00 98.8 69 20 131/74 96 Room Air 98.8 05/11/18 00:00 97.9 85 17 114/69 96 Room Air 97.9 05/10/18 21:24 98.8 05/10/18 20:00 98.8 71 16 110/63 97 Room Air 98.8 Intake and Output 05/10/18 05/11/18 19:00 07:00 Intake Total 480 ml 55 ml Output Total 900 ml 1000 ml Balance -420 ml -945 ml Intake Oral 480 ml IV Total 55 ml Output Urine Total 900 ml 1000 ml Height (Feet): 5 Height (Inches): 9.00 Weight (Pounds): 211 Objective Debilitated WM NCAT poor dentition Chest CTA RRR Soft NT ND no edema (+) contracted Raiza Rodas MD May 11, 2018 18:33
[2018-05-11] MEDS: Miralax 17gm pkt ORAL SCH (21:00)
[2018-05-12] VITALS: BP 129/80
[2018-05-12] MEDS: DiphenhydrAMINE 50mg/ml Inj IVP PRN ×4 (03:52→22:08)
[2018-05-12 04:00] VITALS: BP 131/77
--- NOTE | 2018-05-12 07:57 | General Progress Note ---
Assessment/Plan Assessment/Plan (1) Spinal cord injury (2) H/o heroin abuse (3) Decubitus ulcer (4) Paraplegia (5) Neuropathic pain (6) Intractable pain Patient will be continued on Percocet and Lyrica D/w Dr. Byrd and he concurred. Subjective Date patient seen: May 12, 2018 Time patient seen: 07:00 - am Allergies: Coded Allergies: CHLORHEXIDINE (Verified Allergy, Unknown, 04/17/18) Pt states CHG gives him rashes Subjective Constitutional: Reports: weakness HEENT: Reports: no symptoms Cardiovascular: Reports: no symptoms Respiratory: Reports: no symptoms Gastrointestinal/Abdominal: Reports: no symptoms Genitourinary: Reports: no symptoms Neurologic/Psychiatric: Reports: numbness, tingling Endocrine: Reports: no symptoms Hematologic/Lymphatic: Reports: no symptoms Subjective Patient has been tolerating the pain on the Percocet. He has no new complaints. Pain is reduced from a 8/10 to a 5/10 on the Percocet. Objective Last 24 Hour Vital Signs Date Time Temp Pulse Resp B/P (MAP) Pulse Ox O2 Delivery O2 Flow Rate FiO2 05/12/18 04:00 97.0 72 22 131/77 94 Room Air 97.0 05/12/18 00:00 97.0 76 23 129/80 94 Room Air 97.0 05/11/18 23:58 99.0 05/11/18 22:59 99.0 05/11/18 22:14 99.0 05/11/18 21:15 100.0 05/11/18 20:16 Room Air 05/11/18 19:21 100.0 84 20 128/73 94 Room Air 100.0 05/11/18 18:34 98.4 101/58 98.4 05/11/18 16:00 98.0 85 20 98/54 98 Room Air 98.0 05/11/18 12:00 98.2 75 20 108/55 98 Room Air 98.2 05/11/18 08:30 98.0 70 20 101/52 98 98.0 05/11/18 08:30 Room Air Intake and Output 05/11/18 05/12/18 19:00 07:00 Intake Total 655 ml 800 ml Output Total 900 ml 1000 ml Balance -245 ml -200 ml Intake Oral 600 ml 800 ml IV Total 55 ml Output Urine Total 900 ml 1000 ml Height (Feet): 5 Height (Inches): 9.00 Weight (Pounds): 217 Objective GENERAL: Alert, awake, and oriented. HEENT: PERRLA. NECK: Range of motion is decreased due to the patient's condition. LUNGS: Decreased breath sounds bilaterally. ABDOMEN: Benign. BACK: Range of motion is decreased in flexion and extension with decubitus ulcer noted. EXTREMITIES: Upper and lower extremity range of motion is decreased with joint contractures seen. Tenderness to palpation. Luiz Lees May 12, 2018 07:57
[2018-05-12 08:00] VITALS: BP 104/59
--- NOTE | 2018-05-12 08:34 | General Progress Note ---
Assessment/Plan Assessment/Plan IMPRESSION leukocytosis anemia SHARDA severe protein malnutrition hypotension, orthostatic sacral pressure ulcer abdominal distention PLAN laxatives pressors off midodrine PRN norco monitor labs dc to snf when placement founds Subjective Allergies: Coded Allergies: CHLORHEXIDINE (Verified Allergy, Unknown, 04/17/18) Pt states CHG gives him rashes Subjective care noted placement issues noted Objective Last 24 Hour Vital Signs Date Time Temp Pulse Resp B/P (MAP) Pulse Ox O2 Delivery O2 Flow Rate FiO2 05/12/18 08:00 97.8 70 20 104/59 95 97.8 05/12/18 04:00 97.0 72 22 131/77 94 Room Air 97.0 05/12/18 00:00 97.0 76 23 129/80 94 Room Air 97.0 05/11/18 23:58 99.0 05/11/18 22:59 99.0 05/11/18 22:14 99.0 05/11/18 21:15 100.0 05/11/18 20:16 Room Air 05/11/18 19:21 100.0 84 20 128/73 94 Room Air 100.0 05/11/18 18:34 98.4 101/58 98.4 05/11/18 16:00 98.0 85 20 98/54 98 Room Air 98.0 05/11/18 12:00 98.2 75 20 108/55 98 Room Air 98.2 Intake and Output 05/11/18 05/12/18 19:00 07:00 Intake Total 655 ml 800 ml Output Total 900 ml 1000 ml Balance -245 ml -200 ml Intake Oral 600 ml 800 ml IV Total 55 ml Output Urine Total 900 ml 1000 ml Height (Feet): 5 Height (Inches): 9.00 Weight (Pounds): 217 Objective WDWN NAD clear breath sounds bilaterally without rhonchi or wheeze [id number] without MRG NABS nontender weak alert Amado Coker MD May 12, 2018 08:34
[2018-05-12] MEDS: Lactobacillus-GG tablet ORAL SCH ×2 (10:14→17:44)
[2018-05-12] MEDS: Lyrica 50mg cap ORAL SCH ×3 (10:14→17:45)
[2018-05-12] MEDS: Midodrine 10mg tab ORAL SCH ×3 (10:15→17:44)
[2018-05-12] MEDS: Heparin 5000 units/ml inj SUBQ SCH ×2 (10:22→21:53)
[2018-05-12] MEDS: Ascorbic Acid 500mg tab ORAL SCH ×2 (10:29→17:44)
[2018-05-12 12:00] VITALS: BP 99/64
--- NOTE | 2018-05-12 12:14 | Infectious Diseases Prog Note ---
Assessment/Plan Assessment/Plan A 1. E. coli ESBL UTI treated 2. Proteus UTI treated 3. leucocytosis resolved 4. Acute renal failure resolved 5. paraplegia 6. shock, resolved, 7. 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 Leukocytosis resolved P 1, observe off antibiotic Subjective ROS Limited/Unobtainable: No Constitutional: Reports: fever, other - yesterday Respiratory: Reports: no symptoms Gastrointestinal/Abdominal: Reports: no symptoms Genitourinary: Reports: no symptoms Musculoskeletal: Reports: pain Allergies: Coded Allergies: CHLORHEXIDINE (Verified Allergy, Unknown, 04/17/18) Pt states CHG gives him rashes Objective Vital Signs Last 24 Hour Vital Signs Date Time Temp Pulse Resp B/P (MAP) Pulse Ox O2 Delivery O2 Flow Rate FiO2 05/12/18 11:55 97.8 05/12/18 10:56 97.8 05/12/18 08:00 97.8 70 20 104/59 95 97.8 05/12/18 04:00 97.0 72 22 131/77 94 Room Air 97.0 05/12/18 00:00 97.0 76 23 129/80 94 Room Air 97.0 05/11/18 22:59 99.0 05/11/18 22:14 99.0 05/11/18 21:15 100.0 05/11/18 20:16 Room Air 05/11/18 19:21 100.0 84 20 128/73 94 Room Air 100.0 05/11/18 18:34 98.4 101/58 98.4 05/11/18 16:00 98.0 85 20 98/54 98 Room Air 98.0 Height (Feet): 5 Height (Inches): 9.00 Weight (Pounds): 217 General Appearance: no acute distress HEENT: mucous membranes moist Respiratory/Chest: lungs clear Cardiovascular: normal rate Abdomen: soft, non tender Extremities: no edema Neurologic/Psychiatric: alert, responsive, other - paraplegia Current Medications Medications (Trade) Dose Ordered Sig/Aleyda Route PRN Reason Start Time Stop Time Status Last Admin Dose Admin Acetaminophen (Tylenol) 650 mg Q6H PRN ORAL Shivering 04/29/18 11:00 05/29/18 10:59 05/11/18 21:15 Al Hydroxide/Mg Hydroxide (Mylanta) 30 ml Q6H PRN ORAL HEARTBURN 04/20/18 22:30 05/15/18 22:29 Ascorbic Acid (Vitamin C) 500 mg TWICE A DAY ORAL 04/21/18 09:00 05/16/18 08:59 05/12/18 10:29 Bisacodyl (Dulcolax) 10 mg DAILY RECTAL 05/03/18 09:00 06/02/18 08:59 05/05/18 08:38 Diphenhydramine HCl (Benadryl Cream) 1 applic THREE TIMES A DAY PRN TOPIC Itching 04/28/18 11:00 05/28/18 10:59 04/29/18 15:07 Diphenhydramine HCl (Benadryl) 25 mg Q4H PRN IVP Itching 04/28/18 09:00 05/28/18 08:59 05/12/18 10:29 Fludrocortisone Acetate (Florinef) 0.1 mg DAILY ORAL 04/25/18 09:00 05/25/18 08:59 05/12/18 10:15 Heparin Sodium (Porcine) (Heparin 5000 units/ml) 5,000 units EVERY 12 HOURS SUBQ 04/20/18 22:00 05/15/18 21:59 05/12/18 10:22 Lactobacillus Acidophilus (Culturelle) 1 tab TWICE A DAY ORAL 04/21/18 09:00 05/16/18 08:59 05/12/18 10:14 Magnesium Hydroxide (Mom) 30 ml HSPRN PRN ORAL Constipation 04/20/18 22:30 05/15/18 22:29 Midodrine (Pro-Amatine) 10 mg THREE TIMES A DAY ORAL 04/21/18 09:00 05/19/18 08:59 05/12/18 10:15 Multivitamins (Multivitamins) 1 tab DAILY ORAL 04/21/18 09:00 05/16/18 08:59 05/12/18 10:15 Naloxone HCl (Narcan) 0.2 mg Q30MIN PRN IVP respiratory depression 04/20/18 21:00 05/20/18 09:14 Oxycodone/ Acetaminophen (Percocet 10/325) 1 tab Q4H PRN ORAL Severe Pain (Pain Scale 7-10) 05/10/18 10:00 05/17/18 09:59 05/12/18 10:56 Pantoprazole (Protonix) 40 mg DAILY ORAL 04/25/18 09:00 05/25/18 08:59 05/12/18 10:15 Polyethylene Glycol (Miralax) 17 gm BEDTIME ORAL 05/03/18 21:00 06/02/18 20:59 Potassium Chloride (K-Dur) 40 meq DAILY ORAL 05/07/18 09:00 06/05/18 09:44 05/12/18 10:15 Pregabalin (Lyrica) 50 mg THREE TIMES A DAY ORAL 04/21/18 09:00 05/20/18 10:59 05/12/18 10:14 Reyes Trevino MD May 12, 2018 12:14
[2018-05-12 16:00] VITALS: BP 120/68
[2018-05-12 20:00] VITALS: BP 134/70
[2018-05-12] MEDS: Miralax 17gm pkt ORAL SCH (21:00)
--- NOTE | 2018-05-12 23:01 | General Progress Note ---
Assessment/Plan Assessment/Plan Assessment - paraplegia - chronic intestinal dysmotility - contractures - poor Px Recommendations - po as tolerated - bowel regimen - Abx - Placement Subjective Allergies: Coded Allergies: CHLORHEXIDINE (Verified Allergy, Unknown, 04/17/18) Pt states CHG gives him rashes Subjective Feel OK no abd c/o tolerating PO Objective Last 24 Hour Vital Signs Date Time Temp Pulse Resp B/P (MAP) Pulse Ox O2 Delivery O2 Flow Rate FiO2 05/12/18 22:44 100.0 05/12/18 21:45 100.0 05/12/18 20:00 98.2 82 20 134/70 95 Room Air 98.2 05/12/18 16:00 100.0 69 18 120/68 96 Room Air 100.0 05/12/18 15:42 98.3 05/12/18 12:00 98.3 79 18 99/64 97 Room Air 98.3 05/12/18 10:56 97.8 05/12/18 08:00 97.8 70 20 104/59 95 97.8 05/12/18 04:00 97.0 72 22 131/77 94 Room Air 97.0 05/12/18 00:00 97.0 76 23 129/80 94 Room Air 97.0 Intake and Output 05/11/18 05/12/18 19:00 07:00 Intake Total 655 ml 800 ml Output Total 900 ml 1000 ml Balance -245 ml -200 ml Intake Oral 600 ml 800 ml IV Total 55 ml Output Urine Total 900 ml 1000 ml Height (Feet): 5 Height (Inches): 9.00 Weight (Pounds): 217 Objective Debilitated WM NCAT poor dentition Chest CTA RRR Soft NT ND no edema (+) contracted Raiza Rodas MD May 12, 2018 23:01
[2018-05-13] VITALS: BP 127/76
[2018-05-13 04:00] VITALS: BP 106/71
[2018-05-13] MEDS: DiphenhydrAMINE 50mg/ml Inj IVP PRN ×4 (04:16→19:59)
[2018-05-13 08:00] VITALS: BP 100/46
--- NOTE | 2018-05-13 08:35 | General Progress Note ---
Assessment/Plan Assessment/Plan IMPRESSION leukocytosis anemia SHARDA severe protein malnutrition hypotension, orthostatic sacral pressure ulcer abdominal distention PLAN laxatives pressors off midodrine PRN norco monitor labs dc to snf when placement founds Subjective Allergies: Coded Allergies: CHLORHEXIDINE (Verified Allergy, Unknown, 04/17/18) Pt states CHG gives him rashes Subjective care noted placement issues noted Objective Last 24 Hour Vital Signs Date Time Temp Pulse Resp B/P (MAP) Pulse Ox O2 Delivery O2 Flow Rate FiO2 05/13/18 08:00 98.0 79 22 100/46 95 Room Air 98.0 05/13/18 04:00 98.7 80 20 106/71 100 Room Air 98.7 05/13/18 00:00 99.0 75 20 127/76 95 Room Air 99.0 05/12/18 22:44 100.0 05/12/18 21:45 100.0 05/12/18 20:00 98.2 82 20 134/70 95 Room Air 98.2 05/12/18 16:00 100.0 69 18 120/68 96 Room Air 100.0 05/12/18 15:42 98.3 05/12/18 12:00 98.3 79 18 99/64 97 Room Air 98.3 05/12/18 10:56 97.8 Intake and Output 05/12/18 05/13/18 19:00 07:00 Intake Total 620 ml 790 ml Output Total 700 ml 1500 ml Balance -80 ml -710 ml Intake Oral 620 ml 790 ml Output Urine Total 700 ml 1500 ml # Bowel Movements 1 1 Height (Feet): 5 Height (Inches): 9.00 Weight (Pounds): 211 Objective WDWN NAD clear breath sounds bilaterally without rhonchi or wheeze [id number] without MRG NABS nontender weak alert Amado Coker MD May 13, 2018 08:35
[2018-05-13] MEDS: Ascorbic Acid 500mg tab ORAL SCH ×2 (09:20→17:49)
[2018-05-13] MEDS: Midodrine 10mg tab ORAL SCH ×3 (09:21→17:49)
[2018-05-13] MEDS: Lyrica 50mg cap ORAL SCH ×3 (09:21→17:49)
[2018-05-13] MEDS: Lactobacillus-GG tablet ORAL SCH ×2 (09:21→17:49)
[2018-05-13] MEDS: Heparin 5000 units/ml inj SUBQ SCH ×2 (09:25→20:49)
--- NOTE | 2018-05-13 10:37 | Infectious Diseases Prog Note ---
Assessment/Plan Assessment/Plan antibiotics : none A 1. pneumonia s/p rx 2. leucocytosis resolved 3. renal failure resolved 4. paraplegia 5. e.coli UTI s/p rx 6. sacral decubitus ulcer P 1. observe off antibiotics Subjective Constitutional: Denies: fever, chills Respiratory: Denies: shortness of breath Gastrointestinal/Abdominal: Denies: nausea, vomiting, diarrhea Musculoskeletal: Denies: pain Allergies: Coded Allergies: CHLORHEXIDINE (Verified Allergy, Unknown, 04/17/18) Pt states CHG gives him rashes Objective Vital Signs Last 24 Hour Vital Signs Date Time Temp Pulse Resp B/P (MAP) Pulse Ox O2 Delivery O2 Flow Rate FiO2 05/13/18 10:17 98.0 05/13/18 09:18 98.0 05/13/18 08:00 98.0 79 22 100/46 95 Room Air 98.0 05/13/18 04:00 98.7 80 20 106/71 100 Room Air 98.7 05/13/18 00:00 99.0 75 20 127/76 95 Room Air 99.0 05/12/18 21:45 100.0 05/12/18 20:00 98.2 82 20 134/70 95 Room Air 98.2 05/12/18 16:00 100.0 69 18 120/68 96 Room Air 100.0 05/12/18 15:42 98.3 05/12/18 12:00 98.3 79 18 99/64 97 Room Air 98.3 05/12/18 10:56 97.8 Height (Feet): 5 Height (Inches): 9.00 Weight (Pounds): 211 Respiratory/Chest: lungs clear Cardiovascular: normal rate, regular rhythm, no gallop/murmur Abdomen: soft, non tender Extremities: no edema, other - left arm PICC Current Medications Medications (Trade) Dose Ordered Sig/Aleyda Route PRN Reason Start Time Stop Time Status Last Admin Dose Admin Acetaminophen (Tylenol) 650 mg Q6H PRN ORAL Shivering 04/29/18 11:00 05/29/18 10:59 05/11/18 21:15 Al Hydroxide/Mg Hydroxide (Mylanta) 30 ml Q6H PRN ORAL HEARTBURN 04/20/18 22:30 05/15/18 22:29 Ascorbic Acid (Vitamin C) 500 mg TWICE A DAY ORAL 04/21/18 09:00 05/16/18 08:59 05/13/18 09:20 Bisacodyl (Dulcolax) 10 mg DAILY RECTAL 05/03/18 09:00 06/02/18 08:59 05/05/18 08:38 Diphenhydramine HCl (Benadryl Cream) 1 applic THREE TIMES A DAY PRN TOPIC Itching 04/28/18 11:00 05/28/18 10:59 04/29/18 15:07 Diphenhydramine HCl (Benadryl) 25 mg Q4H PRN IVP Itching 04/28/18 09:00 05/28/18 08:59 05/13/18 09:18 Fludrocortisone Acetate (Florinef) 0.1 mg DAILY ORAL 04/25/18 09:00 05/25/18 08:59 05/13/18 09:21 Heparin Sodium (Porcine) (Heparin 5000 units/ml) 5,000 units EVERY 12 HOURS SUBQ 04/20/18 22:00 05/15/18 21:59 05/13/18 09:25 Lactobacillus Acidophilus (Culturelle) 1 tab TWICE A DAY ORAL 04/21/18 09:00 05/16/18 08:59 05/13/18 09:21 Magnesium Hydroxide (Mom) 30 ml HSPRN PRN ORAL Constipation 04/20/18 22:30 05/15/18 22:29 Midodrine (Pro-Amatine) 10 mg THREE TIMES A DAY ORAL 04/21/18 09:00 05/19/18 08:59 05/13/18 09:21 Multivitamins (Multivitamins) 1 tab DAILY ORAL 04/21/18 09:00 05/16/18 08:59 05/13/18 09:19 Naloxone HCl (Narcan) 0.2 mg Q30MIN PRN IVP respiratory depression 04/20/18 21:00 05/20/18 09:14 Oxycodone/ Acetaminophen (Percocet 10/325) 1 tab Q4H PRN ORAL Severe Pain (Pain Scale 7-10) 05/10/18 10:00 05/17/18 09:59 05/13/18 09:18 Pantoprazole (Protonix) 40 mg DAILY ORAL 6/18/18 09:00 05/25/18 08:59 05/13/18 09:21 Polyethylene Glycol (Miralax) 17 gm BEDTIME ORAL 05/03/18 21:00 06/02/18 20:59 Potassium Chloride (K-Dur) 40 meq DAILY ORAL 05/07/18 09:00 06/05/18 09:44 05/13/18 09:20 Pregabalin (Lyrica) 50 mg THREE TIMES A DAY ORAL 04/21/18 09:00 05/20/18 10:59 05/13/18 09:21 SABI COLON May 13, 2018 10:37
[2018-05-13 12:00] VITALS: BP 118/75
--- NOTE | 2018-05-13 12:04 | General Progress Note ---
Assessment/Plan Assessment/Plan (1) Spinal cord injury (2) H/o heroin abuse (3) Decubitus ulcer (4) Paraplegia (5) Neuropathic pain (6) Intractable pain Patient will be continued on Percocet and Lyrica D/w Dr. Byrd and he concurred. Subjective Date patient seen: May 13, 2018 Time patient seen: 11:15 - am Allergies: Coded Allergies: CHLORHEXIDINE (Verified Allergy, Unknown, 04/17/18) Pt states CHG gives him rashes Subjective Constitutional: Reports: weakness HEENT: Reports: no symptoms Cardiovascular: Reports: no symptoms Respiratory: Reports: no symptoms Gastrointestinal/Abdominal: Reports: no symptoms Genitourinary: Reports: no symptoms Neurologic/Psychiatric: Reports: numbness, tingling Endocrine: Reports: no symptoms Hematologic/Lymphatic: Reports: no symptoms Subjective He is in bed and reports that the pain is stable on the Percocet. Having received 5 doses of Percocet in the last 24hrs. He has no new complaints. Objective Last 24 Hour Vital Signs Date Time Temp Pulse Resp B/P (MAP) Pulse Ox O2 Delivery O2 Flow Rate FiO2 05/13/18 10:17 98.0 05/13/18 09:18 98.0 05/13/18 08:00 98.0 79 22 100/46 95 Room Air 98.0 05/13/18 04:00 98.7 80 20 106/71 100 Room Air 98.7 05/13/18 00:00 99.0 75 20 127/76 95 Room Air 99.0 05/12/18 21:45 100.0 05/12/18 20:00 98.2 82 20 134/70 95 Room Air 98.2 05/12/18 16:00 100.0 69 18 120/68 96 Room Air 100.0 05/12/18 15:42 98.3 Intake and Output 05/12/18 05/13/18 19:00 07:00 Intake Total 620 ml 790 ml Output Total 700 ml 1500 ml Balance -80 ml -710 ml Intake Oral 620 ml 790 ml Output Urine Total 700 ml 1500 ml # Bowel Movements 1 1 Height (Feet): 5 Height (Inches): 9.00 Weight (Pounds): 211 Objective GENERAL: Alert, awake, and oriented. HEENT: PERRLA. NECK: Range of motion is decreased due to the patient's condition. LUNGS: Decreased breath sounds bilaterally. ABDOMEN: Benign. BACK: Range of motion is decreased in flexion and extension with decubitus ulcer noted. EXTREMITIES: Upper and lower extremity range of motion is decreased with joint contractures seen. Tenderness to palpation. Luiz Lees May 13, 2018 12:04
--- NOTE | 2018-05-13 13:37 | General Surgery Progress Note ---
General Surgery-Progress Note Subjective Symptoms: improved, tolerating diet, BM Objective Last 24 Hour Vital Signs Date Time Temp Pulse Resp B/P (MAP) Pulse Ox O2 Delivery O2 Flow Rate FiO2 05/13/18 12:00 98.0 80 20 118/75 (89) 98 98.0 05/13/18 10:17 98.0 05/13/18 09:18 98.0 05/13/18 08:00 98.0 79 22 100/46 95 Room Air 98.0 05/13/18 04:00 98.7 80 20 106/71 100 Room Air 98.7 05/13/18 00:00 99.0 75 20 127/76 95 Room Air 99.0 05/12/18 21:45 100.0 05/12/18 20:00 98.2 82 20 134/70 95 Room Air 98.2 05/12/18 16:00 100.0 69 18 120/68 96 Room Air 100.0 05/12/18 15:42 98.3 I&O Intake and Output 05/12/18 05/13/18 19:00 07:00 Intake Total 620 ml 790 ml Output Total 700 ml 1500 ml Balance -80 ml -710 ml Intake Oral 620 ml 790 ml Output Urine Total 700 ml 1500 ml # Bowel Movements 1 1 Wound: clean Cardiovascular: RSR Respiratory: clear Abdomen: soft, non-tender, present bowel sounds Extremities: no cyanosis Plan Problems: (1) Sepsis Assessment & Plan: 57M with sepsis. likely etiology UTI. recently noted to have abdominal distention. KUB ordered and concerns for possible volvulus. CT ordered and no obstruction or volvulus noted. dilated redundant sigmoid colon air filled. still watery stool in rectal tube. exam with distention but otherwise benign. differential could be atonic colon developing, hirschsprung adult, pseudo- obstruction s/p high rectal tube insertion by GI with good result KUB shows improvement -no acute surgical intervention planned -appreciate GI input okay to d/c from surgical standpoint Sacral decubitus ulcer stage IV evaluated. please refer to wound care photos for size and measurements. 2-3cm deep, 2cm undermining in inferior aspect. does get stool in wound at times given proximity to anus. some granulation tissue. no foul odor. serous drainage. minimal eschar and necrotic tissues. -No acute debridement necessary. -air soft mattress, gauze packing and dressings TID for now. -will follow with recs. thank you for this consultation. Alo Martin May 13, 2018 13:37
[2018-05-13 15:56] VITALS: BP 100/52
--- NOTE | 2018-05-13 19:09 | General Progress Note ---
Assessment/Plan Assessment/Plan Assessment - paraplegia - chronic intestinal dysmotility - contractures - poor Px Recommendations - po as tolerated - bowel regimen - Abx - Placement - I will see patient next week Subjective Allergies: Coded Allergies: CHLORHEXIDINE (Verified Allergy, Unknown, 04/17/18) Pt states CHG gives him rashes Subjective Feel OK no abd c/o tolerating PO Objective Last 24 Hour Vital Signs Date Time Temp Pulse Resp B/P (MAP) Pulse Ox O2 Delivery O2 Flow Rate FiO2 05/13/18 18:52 99.0 05/13/18 17:53 100.9 05/13/18 15:56 98.1 81 19 100/52 (68) 98 98.1 05/13/18 15:01 98.0 05/13/18 14:02 98.0 05/13/18 12:00 98.0 80 20 118/75 (89) 98 98.0 05/13/18 09:18 98.0 05/13/18 08:00 98.0 79 22 100/46 95 Room Air 98.0 05/13/18 04:00 98.7 80 20 106/71 100 Room Air 98.7 05/13/18 00:00 99.0 75 20 127/76 95 Room Air 99.0 05/12/18 21:45 100.0 05/12/18 20:00 98.2 82 20 134/70 95 Room Air 98.2 Intake and Output 05/12/18 05/13/18 19:00 07:00 Intake Total 620 ml 790 ml Output Total 700 ml 1500 ml Balance -80 ml -710 ml Intake Oral 620 ml 790 ml Output Urine Total 700 ml 1500 ml # Bowel Movements 1 1 Height (Feet): 5 Height (Inches): 9.00 Weight (Pounds): 211 Objective Debilitated WM NCAT poor dentition Chest CTA RRR Soft NT ND no edema (+) contracted Raiza Rodas MD May 13, 2018 19:08
[2018-05-13 19:59] VITALS: BP 141/76
[2018-05-13] MEDS: Miralax 17gm pkt ORAL SCH (20:39)
[2018-05-14] VITALS: BP 129/66
[2018-05-14] MEDS: DiphenhydrAMINE 50mg/ml Inj IVP PRN ×6 (01:05→22:23)
[2018-05-14 04:35] VITALS: BP 134/75
[2018-05-14 07:22] LABS: ALANINE AMINOTRANSFERASE 18 U/L (12-78); ALBUMIN 3.2 G/DL (3.4-5.0); ALBUMIN/GLOBULIN RATIO 0.6 (1.0-2.7); ALKALINE PHOSPHATASE 116 U/L (46-116); ANION GAP 13 mmol/L (5-15); ASPARTATE AMINO TRANSFERASE 16 U/L (15-37); BILIRUBIN,TOTAL 0.3 MG/DL (0.2-1.0); BLOOD UREA NITROGEN 15 mg/dL (7-18); CALCIUM 8.7 MG/DL (8.5-10.1); CARBON DIOXIDE 23 MMOL/L (21-32); CHLORIDE 101 MMOL/L (98-107); SODIUM 137 MMOL/L (136-145)
--- NOTE | 2018-05-14 07:26 | General Progress Note ---
Assessment/Plan Assessment/Plan Assessment - paraplegia - chronic intestinal dysmotility - contractures - poor Px -anemia Recommendations - po as tolerated - bowel regimen - Abx - Placement -anemia work up Subjective ROS Limited/Unobtainable: No Allergies: Coded Allergies: CHLORHEXIDINE (Verified Allergy, Unknown, 04/17/18) Pt states CHG gives him rashes Objective Last 24 Hour Vital Signs Date Time Temp Pulse Resp B/P (MAP) Pulse Ox O2 Delivery O2 Flow Rate FiO2 05/14/18 06:35 98.4 05/14/18 05:36 98.4 05/14/18 04:35 98.4 79 20 134/75 (94) 95 98.4 05/14/18 02:50 98.4 98.4 05/14/18 01:05 99.0 05/14/18 00:00 100.7 81 21 129/66 (87) 96 100.7 05/13/18 19:59 100.6 86 22 141/76 (97) 96 100.6 05/13/18 19:59 99.0 05/13/18 18:52 99.0 05/13/18 17:53 100.9 05/13/18 15:56 98.1 81 19 100/52 (68) 98 98.1 05/13/18 14:02 98.0 05/13/18 12:00 98.0 80 20 118/75 (89) 98 98.0 05/13/18 09:18 98.0 05/13/18 08:00 98.0 79 22 100/46 95 Room Air 98.0 Intake and Output 05/13/18 05/14/18 19:00 07:00 Intake Total 600 ml 1200 ml Output Total 900 ml 1800 ml Balance -300 ml -600 ml Intake Oral 600 ml 1200 ml Output Urine Total 900 ml 1800 ml # Bowel Movements 2 1 Laboratory Tests 05/14/18 05:45: White Blood Count [Pending], Red Blood Count [Pending], Hemoglobin [Pending], Hematocrit [Pending], Mean Corpuscular Volume [Pending], Mean Corpuscular Hemoglobin [Pending], Mean Corpuscular Hemoglobin Concent [Pending], Red Cell Distribution Width [Pending], Platelet Count [Pending], Mean Platelet Volume [ Pending], Neutrophils (%) (Auto) [Pending], Lymphocytes (%) (Auto) [Pending], Monocytes (%) (Auto) [Pending], Eosinophils (%) (Auto) [Pending], Basophils (%) (Auto) [Pending], Sodium Level [Pending], Potassium Level [Pending], Chloride Level [Pending], Carbon Dioxide Level [Pending], Blood Urea Nitrogen [Pending], Creatinine [Pending], Estimat Glomerular Filtration Rate [Pending], Glucose Level [Pending], Calcium Level [Pending], Total Bilirubin [Pending], Aspartate Amino Transf (AST/SGOT) [Pending], Alanine Aminotransferase (ALT/SGPT) [Pending] , Alkaline Phosphatase [Pending], Total Protein [Pending], Albumin [Pending], Globulin [Pending] Height (Feet): 5 Height (Inches): 9.00 Weight (Pounds): 217 General Appearance: no apparent distress EENT: normal ENT inspection Neck: supple Cardiovascular: normal rate Respiratory/Chest: decreased breath sounds Abdomen: soft, hypoactive bowel sounds, distended Extremities: non-tender Bran Burden MD May 14, 2018 07:26
[2018-05-14 07:32] LABS: MEAN CORPUSCULAR VOLUME 83 FL (80-99); PLATELET COUNT 258 K/UL (150-450); RED BLOOD COUNT 4.08 M/UL (4.70-6.10); RED CELL DISTRIBUTION WIDTH 15.8 % (11.6-14.8); WHITE BLOOD COUNT 16.8 K/UL (4.8-10.8)
[2018-05-14 08:00] VITALS: BP 111/58
[2018-05-14] MEDS: Lactobacillus-GG tablet ORAL SCH ×2 (08:26→17:30)
[2018-05-14] MEDS: Midodrine 10mg tab ORAL SCH ×3 (08:26→17:30)
[2018-05-14] MEDS: Lyrica 50mg cap ORAL SCH ×3 (08:26→17:30)
[2018-05-14] MEDS: Ascorbic Acid 500mg tab ORAL SCH ×2 (08:27→17:30)
[2018-05-14] MEDS: Heparin 5000 units/ml inj SUBQ SCH ×2 (08:28→20:27)
--- NOTE | 2018-05-14 11:16 | General Progress Note ---
Assessment/Plan Assessment/Plan IMPRESSION leukocytosis anemia SHARDA severe protein malnutrition hypotension, orthostatic sacral pressure ulcer abdominal distention PLAN laxatives pressors off midodrine PRN norco monitor labs dc to snf when placement founds Subjective Allergies: Coded Allergies: CHLORHEXIDINE (Verified Allergy, Unknown, 04/17/18) Pt states CHG gives him rashes Subjective care noted placement issues noted Objective Last 24 Hour Vital Signs Date Time Temp Pulse Resp B/P (MAP) Pulse Ox O2 Delivery O2 Flow Rate FiO2 05/14/18 11:04 98.4 05/14/18 10:05 98.4 05/14/18 08:00 97.7 77 20 111/58 (75) 95 97.7 05/14/18 05:36 98.4 05/14/18 04:35 98.4 79 20 134/75 (94) 95 98.4 05/14/18 02:50 98.4 98.4 05/14/18 01:05 99.0 05/14/18 00:00 100.7 81 21 129/66 (87) 96 100.7 05/13/18 19:59 100.6 86 22 141/76 (97) 96 100.6 05/13/18 19:59 99.0 05/13/18 18:52 99.0 05/13/18 17:53 100.9 05/13/18 15:56 98.1 81 19 100/52 (68) 98 98.1 05/13/18 14:02 98.0 05/13/18 12:00 98.0 80 20 118/75 (89) 98 98.0 Intake and Output 05/13/18 05/14/18 19:00 07:00 Intake Total 600 ml 1200 ml Output Total 900 ml 1800 ml Balance -300 ml -600 ml Intake Oral 600 ml 1200 ml Output Urine Total 900 ml 1800 ml # Bowel Movements 2 1 Laboratory Tests 05/14/18 05:45: White Blood Count 16.8H, Red Blood Count 4.08L, Hemoglobin 11.0L, Hematocrit 34.0L, Mean Corpuscular Volume 83, Mean Corpuscular Hemoglobin 26.9L, Mean Corpuscular Hemoglobin Concent 32.4, Red Cell Distribution Width 15.8H, Platelet Count 258, Mean Platelet Volume 8.9, Neutrophils (%) (Auto) , Lymphocytes (%) (Auto) , Monocytes (%) (Auto) , Eosinophils (%) (Auto) , Basophils (%) (Auto) , Neutrophils % (Manual) [Pending], Lymphocytes % (Manual) [Pending], Platelet Estimate [Pending], Platelet Morphology [Pending], Sodium Level 137, Potassium Level 3.0L, Chloride Level 101, Carbon Dioxide Level 23, Anion Gap 13, Blood Urea Nitrogen 15, Creatinine 1.0, Estimat Glomerular Filtration Rate > 60, Glucose Level 98, Calcium Level 8.7, Total Bilirubin 0.3, Aspartate Amino Transf (AST/SGOT) 16, Alanine Aminotransferase (ALT/SGPT) 18, Alkaline Phosphatase 116, Total Protein 8.6H, Albumin 3.2L, Globulin 5.4, Albumin/Globulin Ratio 0.6L Height (Feet): 5 Height (Inches): 9.00 Weight (Pounds): 217 Objective WDWN NAD clear breath sounds bilaterally without rhonchi or wheeze [id number] without MRG NABS nontender weak alert Amado Coker MD May 14, 2018 11:16
[2018-05-14 12:00] VITALS: BP 114/69
[2018-05-14 16:00] VITALS: BP 103/63
[2018-05-14 20:00] VITALS: BP 88/52
[2018-05-14] MEDS: Miralax 17gm pkt ORAL SCH (20:25)
[2018-05-15] VITALS: BP 91/52
[2018-05-15] MEDS: DiphenhydrAMINE 50mg/ml Inj IVP PRN ×6 (02:26→23:45)
[2018-05-15 04:00] VITALS: BP 93/52
[2018-05-15 06:34] LABS: HEMATOCRIT 31.6 % (42.0-52.0); HEMOGLOBIN 10.5 G/DL (14.2-18.0); MEAN CORPUSCULAR VOLUME 84 FL (80-99); PLATELET COUNT 211 K/UL (150-450); RED BLOOD COUNT 3.77 M/UL (4.70-6.10); RED CELL DISTRIBUTION WIDTH 15.8 % (11.6-14.8); WHITE BLOOD COUNT 19.3 K/UL (4.8-10.8)
--- NOTE | 2018-05-15 06:36 | General Progress Note ---
Assessment/Plan Assessment/Plan Assessment - paraplegia - chronic intestinal dysmotility - contractures - poor Px -anemia Recommendations - po as tolerated - bowel regimen - Abx - Placement -anemia work up Subjective ROS Limited/Unobtainable: Yes Allergies: Coded Allergies: CHLORHEXIDINE (Verified Allergy, Unknown, 04/17/18) Pt states CHG gives him rashes Objective Last 24 Hour Vital Signs Date Time Temp Pulse Resp B/P (MAP) Pulse Ox O2 Delivery O2 Flow Rate FiO2 05/15/18 04:00 99.5 82 20 93/52 (66) 95 99.5 05/15/18 00:00 99.3 81 20 91/52 (65) 92 99.3 05/14/18 20:00 99.3 75 20 88/52 (64) 96 99.3 05/14/18 18:13 98.9 05/14/18 16:00 98.9 80 19 103/63 (76) 94 98.9 05/14/18 15:09 98.4 05/14/18 14:10 98.4 05/14/18 12:00 98.4 74 18 114/69 (84) 95 98.4 05/14/18 10:05 98.4 05/14/18 08:00 97.7 77 20 111/58 (75) 95 97.7 Intake and Output 05/14/18 05/15/18 19:00 07:00 Intake Total 1080 ml Output Total 1400 ml Balance -320 ml Intake Oral 1080 ml Output Urine Total 1400 ml Laboratory Tests 05/15/18 05:10: White Blood Count [Pending], Red Blood Count [Pending], Hemoglobin [Pending], Hematocrit [Pending], Mean Corpuscular Volume [Pending], Mean Corpuscular Hemoglobin [Pending], Mean Corpuscular Hemoglobin Concent [Pending], Red Cell Distribution Width [Pending], Platelet Count [Pending], Mean Platelet Volume [ Pending], Neutrophils (%) (Auto) [Pending], Lymphocytes (%) (Auto) [Pending], Monocytes (%) (Auto) [Pending], Eosinophils (%) (Auto) [Pending], Basophils (%) (Auto) [Pending], Iron Level [Pending], Unsaturated Iron Binding [Pending] Height (Feet): 5 Height (Inches): 9.00 Weight (Pounds): 217 General Appearance: no apparent distress EENT: normal ENT inspection Neck: supple Cardiovascular: normal rate Respiratory/Chest: decreased breath sounds Abdomen: normal bowel sounds, non tender, soft Bran Burden MD May 15, 2018 06:36
[2018-05-15 06:45] LABS: % IRON SATURATION 9 % (15-50); IRON 17 ug/dL (50-175); TOTAL IRON BINDING CAPACITY 181 ug/dL (250-450)
[2018-05-15 08:00] VITALS: BP 102/59
[2018-05-15] MEDS: Lactobacillus-GG tablet ORAL SCH ×2 (08:42→18:17)
[2018-05-15] MEDS: Lyrica 50mg cap ORAL SCH ×3 (08:43→18:18)
[2018-05-15] MEDS: Ascorbic Acid 500mg tab ORAL SCH ×2 (08:44→18:17)
[2018-05-15] MEDS: Heparin 5000 units/ml inj SUBQ SCH ×2 (08:48→21:41)
[2018-05-15] MEDS: Midodrine 10mg tab ORAL SCH ×3 (09:16→18:18)
--- NOTE | 2018-05-15 11:14 | General Progress Note ---
Assessment/Plan Assessment/Plan IMPRESSION leukocytosis anemia SHARDA severe protein malnutrition hypotension, orthostatic sacral pressure ulcer abdominal distention PLAN laxatives pressors off midodrine PRN norco monitor labs defer to Id re: wbc elevation dc to snf when placement founds Subjective Allergies: Coded Allergies: CHLORHEXIDINE (Verified Allergy, Unknown, 04/17/18) Pt states CHG gives him rashes Subjective care noted placement issues noted Objective Last 24 Hour Vital Signs Date Time Temp Pulse Resp B/P (MAP) Pulse Ox O2 Delivery O2 Flow Rate FiO2 05/15/18 10:48 97.3 05/15/18 08:00 97.3 81 20 102/59 (73) 97 97.3 05/15/18 07:36 97.3 05/15/18 04:00 99.5 82 20 93/52 (66) 95 99.5 05/15/18 00:00 99.3 81 20 91/52 (65) 92 99.3 05/14/18 20:00 99.3 75 20 88/52 (64) 96 99.3 05/14/18 18:13 98.9 05/14/18 16:00 98.9 80 19 103/63 (76) 94 98.9 05/14/18 14:10 98.4 05/14/18 12:00 98.4 74 18 114/69 (84) 95 98.4 Intake and Output 05/14/18 05/15/18 19:00 07:00 Intake Total 1080 ml 240 ml Output Total 1400 ml 1200 ml Balance -320 ml -960 ml Intake Oral 1080 ml 240 ml Output Urine Total 1400 ml 1200 ml # Bowel Movements 1 Laboratory Tests 05/15/18 05:10: White Blood Count 19.3H, Red Blood Count 3.77L, Hemoglobin 10.5L, Hematocrit 31.6L, Mean Corpuscular Volume 84, Mean Corpuscular Hemoglobin 27.9, Mean Corpuscular Hemoglobin Concent 33.4, Red Cell Distribution Width 15.8H, Platelet Count 211, Mean Platelet Volume 9.0, Neutrophils (%) (Auto) , Lymphocytes (%) (Auto) , Monocytes (%) (Auto) , Eosinophils (%) (Auto) , Basophils (%) (Auto) , Differential Total Cells Counted 100, Neutrophils % ( Manual) 71, Lymphocytes % (Manual) 9L, Monocytes % (Manual) 4, Eosinophils % ( Manual) 14H, Basophils % (Manual) 0, Band Neutrophils 2, Platelet Estimate Adequate, Platelet Morphology Normal, Hypochromasia 1+, Anisocytosis 1+, Potassium Level 3.4L, Iron Level 17L, Total Iron Binding Capacity 181L, Percent Iron Saturation 9L, Unsaturated Iron Binding 164 Height (Feet): 5 Height (Inches): 9.00 Weight (Pounds): 214 Objective WDWN NAD clear breath sounds bilaterally without rhonchi or wheeze [id number] without MRG NABS nontender weak alert Amado Coker MD May 15, 2018 11:14
[2018-05-15 11:46] VITALS: BP 106/64
--- NOTE | 2018-05-15 13:29 | General Progress Note ---
Assessment/Plan Assessment/Plan (1) Spinal cord injury (2) H/o heroin abuse (3) Decubitus ulcer (4) Paraplegia (5) Neuropathic pain (6) Intractable pain Patient will be continued on Percocet and Lyrica D/w Dr. Byrd and he concurred. Subjective Date patient seen: May 15, 2018 Time patient seen: 01:00 - pm Allergies: Coded Allergies: CHLORHEXIDINE (Verified Allergy, Unknown, 04/17/18) Pt states CHG gives him rashes Subjective Constitutional: Reports: weakness HEENT: Reports: no symptoms Cardiovascular: Reports: no symptoms Respiratory: Reports: no symptoms Gastrointestinal/Abdominal: Reports: no symptoms Genitourinary: Reports: no symptoms Neurologic/Psychiatric: Reports: numbness, tingling Endocrine: Reports: no symptoms Hematologic/Lymphatic: Reports: no symptoms Subjective Patient has been tolerating the pain on the Percocet. He has no new complaints. The pain is at a moderate level. Objective Last 24 Hour Vital Signs Date Time Temp Pulse Resp B/P (MAP) Pulse Ox O2 Delivery O2 Flow Rate FiO2 05/15/18 11:47 97.9 05/15/18 11:46 97.9 80 20 106/64 (78) 96 97.9 05/15/18 10:48 97.3 05/15/18 08:00 97.3 81 20 102/59 (73) 97 97.3 05/15/18 04:00 99.5 82 20 93/52 (66) 95 99.5 05/15/18 00:00 99.3 81 20 91/52 (65) 92 99.3 05/14/18 20:00 99.3 75 20 88/52 (64) 96 99.3 05/14/18 18:13 98.9 05/14/18 16:00 98.9 80 19 103/63 (76) 94 98.9 05/14/18 14:10 98.4 Intake and Output 05/14/18 05/15/18 19:00 07:00 Intake Total 1080 ml 240 ml Output Total 1400 ml 1200 ml Balance -320 ml -960 ml Intake Oral 1080 ml 240 ml Output Urine Total 1400 ml 1200 ml # Bowel Movements 1 Laboratory Tests 05/15/18 05:10: White Blood Count 19.3H, Red Blood Count 3.77L, Hemoglobin 10.5L, Hematocrit 31.6L, Mean Corpuscular Volume 84, Mean Corpuscular Hemoglobin 27.9, Mean Corpuscular Hemoglobin Concent 33.4, Red Cell Distribution Width 15.8H, Platelet Count 211, Mean Platelet Volume 9.0, Neutrophils (%) (Auto) , Lymphocytes (%) (Auto) , Monocytes (%) (Auto) , Eosinophils (%) (Auto) , Basophils (%) (Auto) , Differential Total Cells Counted 100, Neutrophils % ( Manual) 71, Lymphocytes % (Manual) 9L, Monocytes % (Manual) 4, Eosinophils % ( Manual) 14H, Basophils % (Manual) 0, Band Neutrophils 2, Platelet Estimate Adequate, Platelet Morphology Normal, Hypochromasia 1+, Anisocytosis 1+, Potassium Level 3.4L, Iron Level 17L, Total Iron Binding Capacity 181L, Percent Iron Saturation 9L, Unsaturated Iron Binding 164 Height (Feet): 5 Height (Inches): 9.00 Weight (Pounds): 214 Objective GENERAL: Alert, awake, and oriented. HEENT: PERRLA. NECK: Range of motion is decreased due to the patient's condition. LUNGS: Decreased breath sounds bilaterally. ABDOMEN: Benign. BACK: Range of motion is decreased in flexion and extension with decubitus ulcer noted. EXTREMITIES: Upper and lower extremity range of motion is decreased with joint contractures seen. Tenderness to palpation. Luiz Lees May 15, 2018 13:29
--- NOTE | 2018-05-15 13:33 | Infectious Diseases Prog Note ---
Assessment/Plan Assessment/Plan A 1. E. coli ESBL UTI treated 2. Proteus UTI treated 3. leucocytosis resolved 4. Acute renal failure resolved 5. paraplegia 6. shock, resolved, 7. 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 Leukocytosis resolved P 1, observe off antibiotic Subjective ROS Limited/Unobtainable: Yes Allergies: Coded Allergies: CHLORHEXIDINE (Verified Allergy, Unknown, 04/17/18) Pt states CHG gives him rashes Objective Vital Signs Last 24 Hour Vital Signs Date Time Temp Pulse Resp B/P (MAP) Pulse Ox O2 Delivery O2 Flow Rate FiO2 05/15/18 11:47 97.9 05/15/18 11:46 97.9 80 20 106/64 (78) 96 97.9 05/15/18 10:48 97.3 05/15/18 08:00 97.3 81 20 102/59 (73) 97 97.3 05/15/18 04:00 99.5 82 20 93/52 (66) 95 99.5 05/15/18 00:00 99.3 81 20 91/52 (65) 92 99.3 05/14/18 20:00 99.3 75 20 88/52 (64) 96 99.3 05/14/18 18:13 98.9 05/14/18 16:00 98.9 80 19 103/63 (76) 94 98.9 05/14/18 14:10 98.4 Height (Feet): 5 Height (Inches): 9.00 Weight (Pounds): 214 General Appearance: no acute distress HEENT: mucous membranes moist Respiratory/Chest: lungs clear Cardiovascular: normal rate Abdomen: soft, non tender Extremities: no edema Neurologic/Psychiatric: other - sleeping Laboratory Tests Test 05/15/18 05:10 White Blood Count 19.3 K/UL (4.8-10.8) H Red Blood Count 3.77 M/UL (4.70-6.10) L Hemoglobin 10.5 G/DL (14.2-18.0) L Hematocrit 31.6 % (42.0-52.0) L Mean Corpuscular Volume 84 FL (80-99) Mean Corpuscular Hemoglobin 27.9 PG (27.0-31.0) Mean Corpuscular Hemoglobin Concent 33.4 G/DL (32.0-36.0) Red Cell Distribution Width 15.8 % (11.6-14.8) H Platelet Count 211 K/UL (150-450) Mean Platelet Volume 9.0 FL (6.5-10.1) Neutrophils (%) (Auto) % (45.0-75.0) Lymphocytes (%) (Auto) % (20.0-45.0) Monocytes (%) (Auto) % (1.0-10.0) Eosinophils (%) (Auto) % (0.0-3.0) Basophils (%) (Auto) % (0.0-2.0) Differential Total Cells Counted 100 Neutrophils % (Manual) 71 % (45-75) Lymphocytes % (Manual) 9 % (20-45) L Monocytes % (Manual) 4 % (1-10) Eosinophils % (Manual) 14 % (0-3) H Basophils % (Manual) 0 % (0-2) Band Neutrophils 2 % (0-8) Platelet Estimate Adequate Platelet Morphology Normal Hypochromasia 1+ Anisocytosis 1+ Potassium Level 3.4 MMOL/L (3.5-5.1) L Iron Level 17 ug/dL (50-175) L Total Iron Binding Capacity 181 ug/dL (250-450) L Percent Iron Saturation 9 % (15-50) L Unsaturated Iron Binding 164 ug/dL (112-346) Current Medications Medications (Trade) Dose Ordered Sig/Aleyda Route PRN Reason Start Time Stop Time Status Last Admin Dose Admin Acetaminophen (Tylenol) 650 mg Q6H PRN ORAL Shivering 04/29/18 11:00 05/29/18 10:59 05/13/18 17:53 Al Hydroxide/Mg Hydroxide (Mylanta) 30 ml Q6H PRN ORAL HEARTBURN 04/20/18 22:30 05/15/18 22:29 Ascorbic Acid (Vitamin C) 500 mg TWICE A DAY ORAL 04/21/18 09:00 05/16/18 08:59 05/15/18 08:44 Bisacodyl (Dulcolax) 10 mg DAILY RECTAL 05/03/18 09:00 06/02/18 08:59 05/05/18 08:38 Diphenhydramine HCl (Benadryl Cream) 1 applic THREE TIMES A DAY PRN TOPIC Itching 04/28/18 11:00 7/21/18 10:59 04/29/18 15:07 Diphenhydramine HCl (Benadryl) 25 mg Q4H PRN IVP Itching 04/28/18 09:00 05/28/18 08:59 05/15/18 10:47 Fludrocortisone Acetate (Florinef) 0.1 mg DAILY ORAL 04/25/18 09:00 05/25/18 08:59 05/15/18 08:42 Heparin Sodium (Porcine) (Heparin 5000 units/ml) 5,000 units EVERY 12 HOURS SUBQ 04/20/18 22:00 05/15/18 21:59 05/15/18 08:48 Lactobacillus Acidophilus (Culturelle) 1 tab TWICE A DAY ORAL 04/21/18 09:00 05/16/18 08:59 05/15/18 08:42 Magnesium Hydroxide (Mom) 30 ml HSPRN PRN ORAL Constipation 04/20/18 22:30 05/15/18 22:29 Midodrine (Pro-Amatine) 10 mg THREE TIMES A DAY ORAL 04/21/18 09:00 05/19/18 08:59 05/15/18 12:55 Multivitamins (Multivitamins) 1 tab DAILY ORAL 04/21/18 09:00 05/16/18 08:59 05/15/18 08:42 Naloxone HCl (Narcan) 0.2 mg Q30MIN PRN IVP respiratory depression 04/20/18 21:00 05/20/18 09:14 Oxycodone/ Acetaminophen (Percocet 10/325) 1 tab Q4H PRN ORAL Severe Pain (Pain Scale 7-10) 05/10/18 10:00 05/17/18 09:59 05/15/18 10:48 Pantoprazole (Protonix) 40 mg DAILY ORAL 04/25/18 09:00 05/25/18 08:59 05/15/18 08:42 Polyethylene Glycol (Miralax) 17 gm BEDTIME ORAL 05/03/18 21:00 06/02/18 20:59 Potassium Chloride (K-Dur) 40 meq DAILY ORAL 05/07/18 09:00 06/05/18 09:44 05/15/18 08:44 Pregabalin (Lyrica) 50 mg THREE TIMES A DAY ORAL 04/21/18 09:00 05/20/18 10:59 05/15/18 12:55 Reyes Trevino MD May 15, 2018 13:33
[2018-05-15] MEDS: Meropenem 500 MG in NS 55 ML IVPB SCH ×2 (14:59→21:40)
[2018-05-15] MEDS ORDERED: Vancomycin 1.5 GM/D5W 250ML IVPB SCH (15:30)
[2018-05-15 16:00] VITALS: BP 124/80
[2018-05-15 20:00] VITALS: BP 106/55
[2018-05-15 20:23] LABS: APPEARANCE,URINE CLEAR; BILIRUBIN, URINE NEGATIVE (NEGATIVE); GLUCOSE, URINE (UA) NEGATIVE (NEGATIVE); KETONES,URINE 1+ (NEGATIVE); LEUKOCYTE ESTERASE ,URINE 2+ (NEGATIVE); NITRITE,URINE NEGATIVE (NEGATIVE); PH,URINE 5 (4.5-8.0); PROTEIN,URINE 2+ (NEGATIVE); UROBILINOGEN,URINE 1 MG/DL (0.0-1.0)
[2018-05-15 20:29] LABS: COLOR,URINE YELLOW
[2018-05-15] MEDS: Miralax 17gm pkt ORAL SCH (20:51)
[2018-05-15] MEDS: Vancomycin 1gm/D5W 275ml IVPB SCH ×2 (23:45)
[2018-05-16] VITALS (7 sets, daily range): BP systolic 96–130; BP diastolic 58–80
[2018-05-16] MEDS: DiphenhydrAMINE 50mg/ml Inj IVP PRN ×5 (03:48→22:51)
[2018-05-16] MEDS: Meropenem 500 MG in NS 55 ML IVPB SCH ×3 (05:18→22:51)
[2018-05-16] MEDS: Vancomycin 1gm/D5W 275ml IVPB SCH ×4 (06:43→15:30)
--- NOTE | 2018-05-16 08:33 | General Progress Note ---
Assessment/Plan Assessment/Plan (1) Spinal cord injury (2) H/o heroin abuse (3) Decubitus ulcer (4) Paraplegia (5) Neuropathic pain (6) Intractable pain Patient will be continued on Percocet and Lyrica D/w Dr. Byrd and he concurred. Subjective Date patient seen: May 16, 2018 Time patient seen: 07:00 - am Allergies: Coded Allergies: CHLORHEXIDINE (Verified Allergy, Unknown, 04/17/18) Pt states CHG gives him rashes Subjective Constitutional: Reports: weakness HEENT: Reports: no symptoms Cardiovascular: Reports: no symptoms Respiratory: Reports: no symptoms Gastrointestinal/Abdominal: Reports: no symptoms Genitourinary: Reports: no symptoms Neurologic/Psychiatric: Reports: numbness, tingling Endocrine: Reports: no symptoms Hematologic/Lymphatic: Reports: no symptoms Subjective Patient is in bed and reports continued pain which has been tolerated on the Percocet. He has no new complaints./ Objective Last 24 Hour Vital Signs Date Time Temp Pulse Resp B/P (MAP) Pulse Ox O2 Delivery O2 Flow Rate FiO2 05/16/18 04:48 99.3 05/16/18 04:00 99.3 85 20 104/58 (73) 96 99.3 05/16/18 03:49 99.1 05/16/18 00:10 99.1 84 19 104/64 (77) 95 99.1 05/15/18 23:46 98.1 05/15/18 20:00 99.9 81 18 106/55 (72) 96 99.9 05/15/18 19:39 98.1 05/15/18 16:00 98.1 88 20 124/80 (95) 94 98.1 05/15/18 14:59 97.9 05/15/18 11:46 97.9 80 20 106/64 (78) 96 97.9 05/15/18 10:48 97.3 Intake and Output 05/15/18 05/16/18 19:00 07:00 Intake Total 620 ml 865.000 ml Output Total 450 ml 700 ml Balance 170 ml 165.000 ml Intake Oral 620 ml 480 ml IV Total 385.000 ml Output Urine Total 450 ml 700 ml # Voids 1 # Bowel Movements 1 Laboratory Tests 05/15/18 14:30: Urine Color Yellow, Urine Appearance Clear, Urine pH 5, Urine Specific [place] 1.025, Urine Protein 2+H, Urine Glucose (UA) Negative, Urine Ketones 1+H, Urine Occult Blood Negative, Urine Nitrite Negative, Urine Bilirubin Negative, Urine Urobilinogen 1H, Urine Leukocyte Esterase 2+H, Urine RBC 2-4H, Urine WBC 5-10H, Urine Squamous Epithelial Cells None, Urine Bacteria ModerateH, Urine Fine Granular Casts 2-4H Height (Feet): 5 Height (Inches): 9.00 Weight (Pounds): 215 Objective GENERAL: Alert, awake, and oriented. HEENT: PERRLA. NECK: Range of motion is decreased due to the patient's condition. LUNGS: Decreased breath sounds bilaterally. ABDOMEN: Benign. BACK: Range of motion is decreased in flexion and extension with decubitus ulcer noted. EXTREMITIES: Upper and lower extremity range of motion is decreased with joint contractures seen. Tenderness to palpation. Luiz Lees May 16, 2018 08:33
--- NOTE | 2018-05-16 08:40 | General Progress Note ---
Assessment/Plan Assessment/Plan IMPRESSION leukocytosis anemia SHARDA severe protein malnutrition hypotension, orthostatic sacral pressure ulcer abdominal distention PLAN laxatives pressors off midodrine PRN norco monitor labs ID noted started on vanco follow up cbc dc to snf when placement founds Subjective Allergies: Coded Allergies: CHLORHEXIDINE (Verified Allergy, Unknown, 04/17/18) Pt states CHG gives him rashes Subjective care noted placement issues noted wbc elevated ID reviewed Objective Last 24 Hour Vital Signs Date Time Temp Pulse Resp B/P (MAP) Pulse Ox O2 Delivery O2 Flow Rate FiO2 05/16/18 04:48 99.3 05/16/18 04:00 99.3 85 20 104/58 (73) 96 99.3 05/16/18 03:49 99.1 05/16/18 00:10 99.1 84 19 104/64 (77) 95 99.1 05/15/18 23:46 98.1 05/15/18 20:00 99.9 81 18 106/55 (72) 96 99.9 05/15/18 19:39 98.1 05/15/18 16:00 98.1 88 20 124/80 (95) 94 98.1 05/15/18 14:59 97.9 05/15/18 11:46 97.9 80 20 106/64 (78) 96 97.9 05/15/18 10:48 97.3 Intake and Output 05/15/18 05/16/18 19:00 07:00 Intake Total 620 ml 865.000 ml Output Total 450 ml 700 ml Balance 170 ml 165.000 ml Intake Oral 620 ml 480 ml IV Total 385.000 ml Output Urine Total 450 ml 700 ml # Voids 1 # Bowel Movements 1 Laboratory Tests 05/15/18 14:30: Urine Color Yellow, Urine Appearance Clear, Urine pH 5, Urine Specific [place] 1.025, Urine Protein 2+H, Urine Glucose (UA) Negative, Urine Ketones 1+H, Urine Occult Blood Negative, Urine Nitrite Negative, Urine Bilirubin Negative, Urine Urobilinogen 1H, Urine Leukocyte Esterase 2+H, Urine RBC 2-4H, Urine WBC 5-10H, Urine Squamous Epithelial Cells None, Urine Bacteria ModerateH, Urine Fine Granular Casts 2-4H Height (Feet): 5 Height (Inches): 9.00 Weight (Pounds): 215 Objective WDWN NAD clear breath sounds bilaterally without rhonchi or wheeze [id number] without MRG NABS nontender weak alert Amado Coker MD May 16, 2018 08:40
[2018-05-16] MEDS: Midodrine 10mg tab ORAL SCH ×2 (08:44→13:00)
[2018-05-16] MEDS: Lyrica 50mg cap ORAL SCH ×3 (09:16→19:44)
--- NOTE | 2018-05-16 14:14 | General Surgery Progress Note ---
General Surgery-Progress Note Subjective Additional Comments low grade fevers. worsening leukocytosis. on abx again. Objective Last 24 Hour Vital Signs Date Time Temp Pulse Resp B/P (MAP) Pulse Ox O2 Delivery O2 Flow Rate FiO2 05/16/18 13:46 78 130/80 (97) 05/16/18 12:00 99.1 83 18 96/59 (71) 96 99.1 05/16/18 08:00 99.9 82 18 101/59 (73) 99.9 05/16/18 04:48 99.3 05/16/18 04:00 99.3 85 20 104/58 (73) 96 99.3 05/16/18 03:49 99.1 05/16/18 00:10 99.1 84 19 104/64 (77) 95 99.1 05/15/18 23:46 98.1 05/15/18 20:00 99.9 81 18 106/55 (72) 96 99.9 05/15/18 19:39 98.1 05/15/18 16:00 98.1 88 20 124/80 (95) 94 98.1 05/15/18 14:59 97.9 I&O Intake and Output 05/15/18 05/16/18 19:00 07:00 Intake Total 620 ml 865.000 ml Output Total 450 ml 700 ml Balance 170 ml 165.000 ml Intake Oral 620 ml 480 ml IV Total 385.000 ml Output Urine Total 450 ml 700 ml # Voids 1 # Bowel Movements 1 Dressing: saturated Wound: clean Cardiovascular: RSR Respiratory: clear Abdomen: soft, distended, present bowel sounds Extremities: no cyanosis Laboratory Tests Test 05/15/18 14:30 Urine Color Yellow Urine Appearance Clear Urine pH 5 (4.5-8.0) Urine Specific [place] 1.025 (1.005-1.035) Urine Protein 2+ (NEGATIVE) H Urine Glucose (UA) Negative (NEGATIVE) Urine Ketones 1+ (NEGATIVE) H Urine Occult Blood Negative (NEGATIVE) Urine Nitrite Negative (NEGATIVE) Urine Bilirubin Negative (NEGATIVE) Urine Urobilinogen 1 MG/DL (0.0-1.0) H Urine Leukocyte Esterase 2+ (NEGATIVE) H Urine RBC 2-4 /HPF (0 - 0) H Urine WBC 5-10 /HPF (0 - 0) H Urine Squamous Epithelial Cells None /LPF (NONE/OCC) Urine Bacteria Moderate /HPF (NONE) H Urine Fine Granular Casts 2-4 /LPF (NONE) H Plan Problems: (1) Sepsis Assessment & Plan: 57M with sepsis. likely etiology UTI. recently noted to have abdominal distention. KUB ordered and concerns for possible volvulus. CT ordered and no obstruction or volvulus noted. dilated redundant sigmoid colon air filled. still watery stool in rectal tube. exam with distention but otherwise benign. differential could be atonic colon developing, hirschsprung adult, pseudo- obstruction s/p high rectal tube insertion by GI with good result KUB shows improvement -no acute surgical intervention planned -appreciate GI input work up for leukocytosis and fevers. 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 please refer to wound care photos for size and measurements. 2-3cm deep, 2cm undermining in inferior aspect. does get stool in wound at times given proximity to anus. some granulation tissue. no foul odor. serous drainage. minimal eschar and necrotic tissues. -No acute debridement necessary. -air soft mattress, gauze packing and dressings TID for now. -will follow with recs. thank you for this consultation. Alo Martin May 16, 2018 14:14
--- NOTE | 2018-05-16 15:41 | Diagnostic Imaging Report ---
Indication: Abdominal pain Comparison: 05/02/2018 Single view of the abdomen obtained Findings: The colon is markedly distended especially the sigmoid. This does not appear significant change from the last exam this is apparently chronic. The most recent cross-sectional imaging performed 04/24/2018 showed no evidence of sigmoid volvulus. Current exam shows a moderate amount of fecal retention within the colon. The bones are osteopenic. IMPRESSION: Chronic severe colonic distention unchanged.
--- NOTE | 2018-05-16 15:51 | Diagnostic Imaging Report ---
Indication: Chest pain Comparison: 05/02/2018 A single view chest radiograph was obtained. Findings: Cardiomediastinal appearance is within normal limits for age. PICC line is present and appears to be in good position with the tip projected over the SVC. Pulmonary vascularity is appropriate. The diaphragmatic contour is smooth and costophrenic angles are sharp. No pleural effusions are identified. The bones are unremarkable. The visualized part of the abdomen demonstrates distended large bowel. This was seen previously also. Impression: No acute findings within the chest. Dilated colon noted in the visualized part of the abdomen
[2018-05-16] MEDS: Miralax 17gm pkt ORAL SCH (21:00)
[2018-05-16 21:13] LABS: APPEARANCE,URINE SLIGHTLY CLOUDY; BILIRUBIN, URINE NEGATIVE (NEGATIVE); COLOR,URINE PALE YELLOW; GLUCOSE, URINE (UA) NEGATIVE (NEGATIVE); KETONES,URINE NEGATIVE (NEGATIVE); LEUKOCYTE ESTERASE ,URINE 3+ (NEGATIVE); NITRITE,URINE NEGATIVE (NEGATIVE); PH,URINE 6 (4.5-8.0); PROTEIN,URINE 2+ (NEGATIVE); UROBILINOGEN,URINE NORMAL MG/DL (0.0-1.0)
[2018-05-17] VITALS: BP 98/58
[2018-05-17] MEDS: DiphenhydrAMINE 50mg/ml Inj IVP PRN ×3 (03:34→12:57)
[2018-05-17] MEDS: Vancomycin 1gm/D5W 275ml IVPB SCH ×4 (03:34→16:00)
[2018-05-17 04:00] VITALS: BP 109/61
[2018-05-17 06:44] LABS: HEMATOCRIT 28.8 % (42.0-52.0); HEMOGLOBIN 9.3 G/DL (14.2-18.0); MEAN CORPUSCULAR VOLUME 83 FL (80-99); PLATELET COUNT 213 K/UL (150-450); RED BLOOD COUNT 3.45 M/UL (4.70-6.10); RED CELL DISTRIBUTION WIDTH 15.5 % (11.6-14.8); WHITE BLOOD COUNT 16.2 K/UL (4.8-10.8)
[2018-05-17] MEDS: Meropenem 500 MG in NS 55 ML IVPB SCH (06:55)
[2018-05-17 08:00] VITALS: BP 100/40
--- NOTE | 2018-05-17 08:32 | General Progress Note ---
Assessment/Plan Assessment/Plan (1) Spinal cord injury (2) H/o heroin abuse (3) Decubitus ulcer (4) Paraplegia (5) Neuropathic pain (6) Intractable pain Patient will be continued on Percocet and Lyrica D/w Dr. Byrd and he concurred. Subjective Date patient seen: May 17, 2018 Time patient seen: 07:00 - am Allergies: Coded Allergies: CHLORHEXIDINE (Verified Allergy, Unknown, 04/17/18) Pt states CHG gives him rashes Subjective Constitutional: Reports: weakness HEENT: Reports: no symptoms Cardiovascular: Reports: no symptoms Respiratory: Reports: no symptoms Gastrointestinal/Abdominal: Reports: no symptoms Genitourinary: Reports: no symptoms Neurologic/Psychiatric: Reports: numbness, tingling Endocrine: Reports: no symptoms Hematologic/Lymphatic: Reports: no symptoms Subjective Patient has tolerated the pain on the Percocet having taken 5 doses in the last 24hrs. He has no new complaints. Objective Last 24 Hour Vital Signs Date Time Temp Pulse Resp B/P (MAP) Pulse Ox O2 Delivery O2 Flow Rate FiO2 05/17/18 08:26 98.0 05/17/18 07:27 98.0 05/17/18 04:00 98.0 81 20 109/61 (77) 96 98.0 05/17/18 02:51 98.3 05/17/18 00:00 98.3 82 20 98/58 (71) 95 98.3 05/16/18 22:43 98.3 05/16/18 20:00 98.3 82 20 97/58 (71) 95 98.3 05/16/18 16:00 98.3 80 20 102/59 (73) 96 98.3 05/16/18 13:46 78 130/80 (97) 05/16/18 12:00 99.1 83 18 96/59 (71) 96 99.1 Intake and Output 05/16/18 05/17/18 19:00 07:00 Intake Total 720 ml 890 ml Output Total 800 ml 800 ml Balance -80 ml 90 ml Intake Oral 720 ml 560 ml IV Total 330 ml Output Urine Total 800 ml 800 ml Laboratory Tests 05/16/18 14:45: Vancomycin Level Trough 27.8H 05/16/18 19:20: Urine Color Pale yellow, Urine Appearance Slightly cloudy, Urine pH 6, Urine Specific [place] 1.015, Urine Protein 2+H, Urine Glucose (UA) Negative, Urine Ketones Negative, Urine Occult Blood 3+H, Urine Nitrite Negative, Urine Bilirubin Negative, Urine Urobilinogen Normal, Urine Leukocyte Esterase 3+H, Urine RBC 5-10H, Urine WBC 15-20H, Urine Squamous Epithelial Cells Occasional, Urine Bacteria ModerateH 05/17/18 05:20: White Blood Count 16.2H, Red Blood Count 3.45L, Hemoglobin 9.3L, Hematocrit 28.8L, Mean Corpuscular Volume 83, Mean Corpuscular Hemoglobin 26.9L, Mean Corpuscular Hemoglobin Concent 32.2, Red Cell Distribution Width 15.5H, Platelet Count 213, Mean Platelet Volume 9.1, Neutrophils (%) (Auto) , Lymphocytes (%) (Auto) , Monocytes (%) (Auto) , Eosinophils (%) (Auto) , Basophils (%) (Auto) , Neutrophils % (Manual) [Pending], Lymphocytes % (Manual) [Pending], Platelet Estimate [Pending], Platelet Morphology [Pending] Height (Feet): 5 Height (Inches): 9.00 Weight (Pounds): 217 Objective GENERAL: Alert, awake, and oriented. HEENT: PERRLA. NECK: Range of motion is decreased due to the patient's condition. LUNGS: Decreased breath sounds bilaterally. ABDOMEN: Benign. BACK: Range of motion is decreased in flexion and extension with decubitus ulcer noted. EXTREMITIES: Upper and lower extremity range of motion is decreased with joint contractures seen. Tenderness to palpation. Luiz Lees May 17, 2018 08:32
--- NOTE | 2018-05-17 08:43 | General Progress Note ---
Assessment/Plan Assessment/Plan IMPRESSION leukocytosis anemia SHARDA severe protein malnutrition hypotension, orthostatic sacral pressure ulcer abdominal distention colonic ileus PLAN laxatives pressors off midodrine PRN norco monitor labs ID noted started on antibiotics follow up cbc and taper dc to snf when placement founds Subjective Allergies: Coded Allergies: CHLORHEXIDINE (Verified Allergy, Unknown, 04/17/18) Pt states CHG gives him rashes Subjective care noted placement issues noted wbc elevated ID reviewed Objective Last 24 Hour Vital Signs Date Time Temp Pulse Resp B/P (MAP) Pulse Ox O2 Delivery O2 Flow Rate FiO2 05/17/18 08:26 98.0 05/17/18 08:00 97.2 86 19 100/40 (60) 95 97.2 05/17/18 07:27 98.0 05/17/18 04:00 98.0 81 20 109/61 (77) 96 98.0 05/17/18 02:51 98.3 05/17/18 00:00 98.3 82 20 98/58 (71) 95 98.3 05/16/18 22:43 98.3 05/16/18 20:00 98.3 82 20 97/58 (71) 95 98.3 05/16/18 16:00 98.3 80 20 102/59 (73) 96 98.3 05/16/18 13:46 78 130/80 (97) 05/16/18 12:00 99.1 83 18 96/59 (71) 96 99.1 Intake and Output 05/16/18 05/17/18 19:00 07:00 Intake Total 720 ml 890 ml Output Total 800 ml 800 ml Balance -80 ml 90 ml Intake Oral 720 ml 560 ml IV Total 330 ml Output Urine Total 800 ml 800 ml Laboratory Tests 05/16/18 14:45: Vancomycin Level Trough 27.8H 05/16/18 19:20: Urine Color Pale yellow, Urine Appearance Slightly cloudy, Urine pH 6, Urine Specific [place] 1.015, Urine Protein 2+H, Urine Glucose (UA) Negative, Urine Ketones Negative, Urine Occult Blood 3+H, Urine Nitrite Negative, Urine Bilirubin Negative, Urine Urobilinogen Normal, Urine Leukocyte Esterase 3+H, Urine RBC 5-10H, Urine WBC 15-20H, Urine Squamous Epithelial Cells Occasional, Urine Bacteria ModerateH 05/17/18 05:20: White Blood Count 16.2H, Red Blood Count 3.45L, Hemoglobin 9.3L, Hematocrit 28.8L, Mean Corpuscular Volume 83, Mean Corpuscular Hemoglobin 26.9L, Mean Corpuscular Hemoglobin Concent 32.2, Red Cell Distribution Width 15.5H, Platelet Count 213, Mean Platelet Volume 9.1, Neutrophils (%) (Auto) , Lymphocytes (%) (Auto) , Monocytes (%) (Auto) , Eosinophils (%) (Auto) , Basophils (%) (Auto) , Neutrophils % (Manual) [Pending], Lymphocytes % (Manual) [Pending], Platelet Estimate [Pending], Platelet Morphology [Pending] Height (Feet): 5 Height (Inches): 9.00 Weight (Pounds): 217 Objective WDWN NAD clear breath sounds bilaterally without rhonchi or wheeze [id number] without MRG NABS nontender weak alert Amado Coker MD May 17, 2018 08:43
[2018-05-17] MEDS: Lyrica 50mg cap ORAL SCH ×3 (09:07→17:31)
--- NOTE | 2018-05-17 10:51 | General Surgery Progress Note ---
General Surgery-Progress Note Subjective Symptoms: improved Additional Comments labs improved. overall no acute events. micro negative cxr and kub reviewed. still with chronic colonic distention Objective Last 24 Hour Vital Signs Date Time Temp Pulse Resp B/P (MAP) Pulse Ox O2 Delivery O2 Flow Rate FiO2 05/17/18 08:26 98.0 05/17/18 08:00 97.2 86 19 100/40 (60) 95 97.2 05/17/18 07:27 98.0 05/17/18 04:00 98.0 81 20 109/61 (77) 96 98.0 05/17/18 02:51 98.3 05/17/18 00:00 98.3 82 20 98/58 (71) 95 98.3 05/16/18 22:43 98.3 05/16/18 20:00 98.3 82 20 97/58 (71) 95 98.3 05/16/18 16:00 98.3 80 20 102/59 (73) 96 98.3 05/16/18 13:46 78 130/80 (97) 05/16/18 12:00 99.1 83 18 96/59 (71) 96 99.1 I&O Intake and Output 05/16/18 05/17/18 19:00 07:00 Intake Total 720 ml 890 ml Output Total 800 ml 800 ml Balance -80 ml 90 ml Intake Oral 720 ml 560 ml IV Total 330 ml Output Urine Total 800 ml 800 ml Wound: clean Drains: none Cardiovascular: RSR Respiratory: clear Abdomen: soft, distended, present bowel sounds Extremities: no cyanosis Laboratory Tests Test 05/16/18 14:45 05/16/18 19:20 05/17/18 05:20 Vancomycin Level Trough 27.8 ug/mL (5.0-12.0) H Urine Color Pale yellow Urine Appearance Slightly cloudy Urine pH 6 (4.5-8.0) Urine Specific [place] 1.015 (1.005-1.035) Urine Protein 2+ (NEGATIVE) H Urine Glucose (UA) Negative (NEGATIVE) Urine Ketones Negative (NEGATIVE) Urine Occult Blood 3+ (NEGATIVE) H Urine Nitrite Negative (NEGATIVE) Urine Bilirubin Negative (NEGATIVE) Urine Urobilinogen Normal MG/DL (0.0-1.0) Urine Leukocyte Esterase 3+ (NEGATIVE) H Urine RBC 5-10 /HPF (0 - 0) H Urine WBC 15-20 /HPF (0 - 0) H Urine Squamous Epithelial Cells Occasional /LPF Urine Bacteria Moderate /HPF (NONE) H White Blood Count 16.2 K/UL (4.8-10.8) H Red Blood Count 3.45 M/UL (4.70-6.10) L Hemoglobin 9.3 G/DL (14.2-18.0) L Hematocrit 28.8 % (42.0-52.0) L Mean Corpuscular Volume 83 FL (80-99) Mean Corpuscular Hemoglobin 26.9 PG (27.0-31.0) L Mean Corpuscular Hemoglobin Concent 32.2 G/DL (32.0-36.0) Red Cell Distribution Width 15.5 % (11.6-14.8) H Platelet Count 213 K/UL (150-450) Mean Platelet Volume 9.1 FL (6.5-10.1) Neutrophils (%) (Auto) % (45.0-75.0) Lymphocytes (%) (Auto) % (20.0-45.0) Monocytes (%) (Auto) % (1.0-10.0) Eosinophils (%) (Auto) % (0.0-3.0) Basophils (%) (Auto) % (0.0-2.0) Differential Total Cells Counted 100 Neutrophils % (Manual) 59 % (45-75) Lymphocytes % (Manual) 13 % (20-45) L Monocytes % (Manual) 3 % (1-10) Eosinophils % (Manual) 25 % (0-3) H Basophils % (Manual) 0 % (0-2) Band Neutrophils 0 % (0-8) Platelet Estimate Adequate Platelet Morphology Normal Hypochromasia 2+ Anisocytosis 1+ Plan Problems: (1) Sepsis Assessment & Plan: 57M with sepsis. likely etiology UTI. recently noted to have abdominal distention. KUB ordered and concerns for possible volvulus. CT ordered and no obstruction or volvulus noted. dilated redundant sigmoid colon air filled. still watery stool in rectal tube. exam with distention but otherwise benign. differential could be atonic colon developing, hirschsprung adult, pseudo- obstruction s/p high rectal tube insertion by GI with good result KUB reviewed -no acute surgical intervention planned -appreciate GI input work up for leukocytosis and fevers without etiology yet. micro negative. cxr/ kub reviewed. 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 please refer to wound care photos for size and measurements. 2-3cm deep, 2cm undermining in inferior aspect. does get stool in wound at times given proximity to anus. some granulation tissue. no foul odor. serous drainage. minimal eschar and necrotic tissues. -No acute debridement necessary. -air soft mattress, gauze packing and dressings TID for now. -will follow with recs. thank you for this consultation. Alo Martin May 17, 2018 10:51
--- NOTE | 2018-05-17 11:02 | Infectious Diseases Prog Note ---
Assessment/Plan Assessment/Plan antibiotics : vancomycin iv, meropenem A 1. gram positive sepsis 2. leucocytosis improving 3. renal failure resolved 4. paraplegia 5. e.coli UTI s/p rx 6. sacral decubitus ulcer P 1. continue iv vancomycin 2. d/c meropenem 3. d/c PICC line Subjective ROS Limited/Unobtainable: Yes Allergies: Coded Allergies: CHLORHEXIDINE (Verified Allergy, Unknown, 04/17/18) Pt states CHG gives him rashes Objective Vital Signs Last 24 Hour Vital Signs Date Time Temp Pulse Resp B/P (MAP) Pulse Ox O2 Delivery O2 Flow Rate FiO2 05/17/18 08:26 98.0 05/17/18 08:00 97.2 86 19 100/40 (60) 95 97.2 05/17/18 07:27 98.0 05/17/18 04:00 98.0 81 20 109/61 (77) 96 98.0 05/17/18 02:51 98.3 05/17/18 00:00 98.3 82 20 98/58 (71) 95 98.3 05/16/18 22:43 98.3 05/16/18 20:00 98.3 82 20 97/58 (71) 95 98.3 05/16/18 16:00 98.3 80 20 102/59 (73) 96 98.3 05/16/18 13:46 78 130/80 (97) 05/16/18 12:00 99.1 83 18 96/59 (71) 96 99.1 Height (Feet): 5 Height (Inches): 9.00 Weight (Pounds): 217 Respiratory/Chest: lungs clear Cardiovascular: normal rate, regular rhythm, no gallop/murmur Abdomen: soft, non tender Extremities: no edema, other - left arm PICC Microbiology Date/Time Source Procedure Growth Status 05/15/18 15:20 Blood Blood Culture - Preliminary Resulted 05/15/18 18:00 Sputum Gram Stain Pending Resulted 05/15/18 18:00 Sputum Sputum Culture - Preliminary NORMAL UPPER RESPIRATORY NAEEM AT 24 ... Resulted 05/16/18 19:20 Urine,Clean Catch Urine Culture - Preliminary NO GROWTH Resulted 05/15/18 14:30 Urine,Clean Catch Urine Culture - Preliminary NO GROWTH Resulted Laboratory Tests Test 05/16/18 14:45 05/16/18 19:20 05/17/18 05:20 Vancomycin Level Trough 27.8 ug/mL (5.0-12.0) H Urine Color Pale yellow Urine Appearance Slightly cloudy Urine pH 6 (4.5-8.0) Urine Specific [place] 1.015 (1.005-1.035) Urine Protein 2+ (NEGATIVE) H Urine Glucose (UA) Negative (NEGATIVE) Urine Ketones Negative (NEGATIVE) Urine Occult Blood 3+ (NEGATIVE) H Urine Nitrite Negative (NEGATIVE) Urine Bilirubin Negative (NEGATIVE) Urine Urobilinogen Normal MG/DL (0.0-1.0) Urine Leukocyte Esterase 3+ (NEGATIVE) H Urine RBC 5-10 /HPF (0 - 0) H Urine WBC 15-20 /HPF (0 - 0) H Urine Squamous Epithelial Cells Occasional /LPF Urine Bacteria Moderate /HPF (NONE) H White Blood Count 16.2 K/UL (4.8-10.8) H Red Blood Count 3.45 M/UL (4.70-6.10) L Hemoglobin 9.3 G/DL (14.2-18.0) L Hematocrit 28.8 % (42.0-52.0) L Mean Corpuscular Volume 83 FL (80-99) Mean Corpuscular Hemoglobin 26.9 PG (27.0-31.0) L Mean Corpuscular Hemoglobin Concent 32.2 G/DL (32.0-36.0) Red Cell Distribution Width 15.5 % (11.6-14.8) H Platelet Count 213 K/UL (150-450) Mean Platelet Volume 9.1 FL (6.5-10.1) Neutrophils (%) (Auto) % (45.0-75.0) Lymphocytes (%) (Auto) % (20.0-45.0) Monocytes (%) (Auto) % (1.0-10.0) Eosinophils (%) (Auto) % (0.0-3.0) Basophils (%) (Auto) % (0.0-2.0) Differential Total Cells Counted 100 Neutrophils % (Manual) 59 % (45-75) Lymphocytes % (Manual) 13 % (20-45) L Monocytes % (Manual) 3 % (1-10) Eosinophils % (Manual) 25 % (0-3) H Basophils % (Manual) 0 % (0-2) Band Neutrophils 0 % (0-8) Platelet Estimate Adequate Platelet Morphology Normal Hypochromasia 2+ Anisocytosis 1+ Current Medications Medications (Trade) Dose Ordered Sig/Aleyda Route PRN Reason Start Time Stop Time Status Last Admin Dose Admin Acetaminophen (Tylenol) 650 mg Q6H PRN ORAL Shivering 04/29/18 11:00 05/29/18 10:59 05/13/18 17:53 Bisacodyl (Dulcolax) 10 mg DAILY RECTAL 05/03/18 09:00 06/02/18 08:59 05/05/18 08:38 Diphenhydramine HCl (Benadryl Cream) 1 applic THREE TIMES A DAY PRN TOPIC Itching 04/28/18 11:00 05/28/18 10:59 04/29/18 15:07 Diphenhydramine HCl (Benadryl) 25 mg Q4H PRN IVP Itching 04/28/18 09:00 05/28/18 08:59 05/17/18 07:37 Fludrocortisone Acetate (Florinef) 0.1 mg DAILY ORAL 04/25/18 09:00 05/25/18 08:59 05/17/18 09:06 Meropenem 500 mg/ Sodium Chloride 55 ml @ 110 mls/hr EVERY 8 HOURS IVPB 05/15/18 15:30 05/20/18 15:29 05/17/18 06:55 Midodrine (Pro-Amatine) 10 mg THREE TIMES A DAY ORAL 05/16/18 18:00 05/19/18 08:59 05/17/18 09:07 Naloxone HCl (Narcan) 0.2 mg Q30MIN PRN IVP respiratory depression 04/20/18 21:00 05/20/18 09:14 Oxycodone/ Acetaminophen (Percocet 10/325) 1 tab Q4H PRN ORAL Severe Pain (Pain Scale 7-10) 05/16/18 09:30 05/23/18 09:29 05/17/18 07:27 Pantoprazole (Protonix) 40 mg DAILY ORAL 04/25/18 09:00 05/25/18 08:59 05/17/18 09:07 Polyethylene Glycol (Miralax) 17 gm BEDTIME ORAL 05/03/18 21:00 06/02/18 20:59 Potassium Chloride (K-Dur) 40 meq DAILY ORAL 05/07/18 09:00 06/05/18 09:44 05/17/18 09:06 Pregabalin (Lyrica) 50 mg THREE TIMES A DAY ORAL 04/21/18 09:00 05/20/18 10:59 05/17/18 09:07 Vancomycin HCl (Vanco rx to dose) 1 ea DAILY PRN MISC Per rx protocol 05/15/18 14:15 06/14/18 14:14 Vancomycin HCl 1 gm/Dextrose 275 ml @ 183.708 mls/hr Q12HR@0400,1600 IVPB 05/17/18 04:00 05/22/18 03:59 05/17/18 03:34 SABI COLON May 17, 2018 11:02
[2018-05-17 12:00] VITALS: BP 100/56
[2018-05-17] MEDS ORDERED: Heparin 2000 units/Ns 1000ml INJ PRN (13:45)
[2018-05-17] MEDS ORDERED: Lidocaine 1% Plain 30 ml INJ PRN (13:45)
[2018-05-17 16:00] VITALS: BP 100/54
--- NOTE | 2018-05-17 19:46 | General Progress Note ---
Assessment/Plan Assessment/Plan Assessment - paraplegia - chronic intestinal dysmotility - contractures - poor Px Recommendations - po as tolerated - bowel regimen - Abx - Placement Subjective Allergies: Coded Allergies: CHLORHEXIDINE (Verified Allergy, Unknown, 04/17/18) Pt states CHG gives him rashes Subjective Feel OK no abd c/o tolerating PO (+) BM Objective Last 24 Hour Vital Signs Date Time Temp Pulse Resp B/P (MAP) Pulse Ox O2 Delivery O2 Flow Rate FiO2 05/17/18 18:30 98.3 05/17/18 17:31 98.3 05/17/18 16:00 98.3 76 19 100/54 (69) 96 98.3 05/17/18 12:57 98.1 05/17/18 12:00 98.1 89 19 100/56 (71) 97 98.1 05/17/18 08:00 97.2 86 19 100/40 (60) 95 97.2 05/17/18 07:27 98.0 05/17/18 04:00 98.0 81 20 109/61 (77) 96 98.0 05/17/18 02:51 98.3 05/17/18 00:00 98.3 82 20 98/58 (71) 95 98.3 05/16/18 22:43 98.3 05/16/18 20:00 98.3 82 20 97/58 (71) 95 98.3 Intake and Output 05/16/18 05/17/18 19:00 07:00 Intake Total 720 ml 890 ml Output Total 800 ml 800 ml Balance -80 ml 90 ml Intake Oral 720 ml 560 ml IV Total 330 ml Output Urine Total 800 ml 800 ml Laboratory Tests 05/17/18 05:20: White Blood Count 16.2H, Red Blood Count 3.45L, Hemoglobin 9.3L, Hematocrit 28.8L, Mean Corpuscular Volume 83, Mean Corpuscular Hemoglobin 26.9L, Mean Corpuscular Hemoglobin Concent 32.2, Red Cell Distribution Width 15.5H, Platelet Count 213, Mean Platelet Volume 9.1, Neutrophils (%) (Auto) , Lymphocytes (%) (Auto) , Monocytes (%) (Auto) , Eosinophils (%) (Auto) , Basophils (%) (Auto) , Differential Total Cells Counted 100, Neutrophils % ( Manual) 59, Lymphocytes % (Manual) 13L, Monocytes % (Manual) 3, Eosinophils % ( Manual) 25H, Basophils % (Manual) 0, Band Neutrophils 0, Platelet Estimate Adequate, Platelet Morphology Normal, Hypochromasia 2+, Anisocytosis 1+ Height (Feet): 5 Height (Inches): 9.00 Weight (Pounds): 217 Objective Debilitated WM NCAT poor dentition Chest CTA RRR Soft NT ND no edema (+) contracted Raiza Rodas MD May 17, 2018 19:46
[2018-05-17 20:00] VITALS: BP 116/67
[2018-05-17] MEDS: Dyna-Hex 2% Top Sol 2oz TOPIC SCH (20:00)
[2018-05-17] MEDS: Miralax 17gm pkt ORAL SCH (21:00)
[2018-05-18] VITALS: BP 127/66
[2018-05-18 04:00] VITALS: BP 117/66
[2018-05-18] MEDS: Vancomycin 1gm/D5W 275ml IVPB SCH ×6 (04:00→17:31)
--- NOTE | 2018-05-18 07:55 | General Progress Note ---
Assessment/Plan Assessment/Plan (1) Spinal cord injury (2) H/o heroin abuse (3) Decubitus ulcer (4) Paraplegia (5) Neuropathic pain (6) Intractable pain Patient will be continued on Percocet and Lyrica D/w Dr. Byrd and he concurred. Subjective Date patient seen: May 18, 2018 Time patient seen: 07:00 - am Allergies: Coded Allergies: CHLORHEXIDINE (Verified Allergy, Unknown, 04/17/18) Pt states CHG gives him rashes Subjective Constitutional: Reports: weakness HEENT: Reports: no symptoms Cardiovascular: Reports: no symptoms Respiratory: Reports: no symptoms Gastrointestinal/Abdominal: Reports: no symptoms Genitourinary: Reports: no symptoms Neurologic/Psychiatric: Reports: numbness, tingling Endocrine: Reports: no symptoms Hematologic/Lymphatic: Reports: no symptoms Subjective Patient is in bed has been tolerating pain on the Percocet He has no new complaints. Objective Last 24 Hour Vital Signs Date Time Temp Pulse Resp B/P (MAP) Pulse Ox O2 Delivery O2 Flow Rate FiO2 05/18/18 06:05 98.1 05/18/18 04:00 98.1 70 22 117/66 (83) 98 98.1 05/18/18 00:00 97.4 80 19 127/66 (86) 97 97.4 05/17/18 20:00 98.4 71 18 116/67 (83) 97 98.4 05/17/18 18:30 98.3 05/17/18 17:31 98.3 05/17/18 16:00 98.3 76 19 100/54 (69) 96 98.3 05/17/18 12:57 98.1 05/17/18 12:00 98.1 89 19 100/56 (71) 97 98.1 05/17/18 08:00 97.2 86 19 100/40 (60) 95 97.2 Intake and Output 05/17/18 05/18/18 19:00 07:00 Intake Total 355 ml 480 ml Output Total 600 ml 1000 ml Balance -245 ml -520 ml Intake Oral 300 ml 480 ml IV Total 55 ml Output Urine Total 600 ml 1000 ml Height (Feet): 5 Height (Inches): 9.00 Weight (Pounds): 221 Objective GENERAL: Alert, awake, and oriented. HEENT: PERRLA. NECK: Range of motion is decreased due to the patient's condition. LUNGS: Decreased breath sounds bilaterally. ABDOMEN: Benign. BACK: Range of motion is decreased in flexion and extension with decubitus ulcer noted. EXTREMITIES: Upper and lower extremity range of motion is decreased with joint contractures seen. Tenderness to palpation. Luiz Lees May 18, 2018 07:55
[2018-05-18 08:00] VITALS: BP 153/90
[2018-05-18] MEDS: Lyrica 50mg cap ORAL SCH ×3 (09:05→17:30)
--- NOTE | 2018-05-18 11:07 | General Progress Note ---
Assessment/Plan Assessment/Plan IMPRESSION leukocytosis anemia SHARDA severe protein malnutrition hypotension, orthostatic sacral pressure ulcer abdominal distention colonic ileus PLAN laxatives pressors off midodrine PRN norco monitor labs ID noted iv vanco dc picc dc to snf when placement founds Subjective Allergies: Coded Allergies: CHLORHEXIDINE (Verified Allergy, Unknown, 04/17/18) Pt states CHG gives him rashes Subjective care noted placement issues noted wbc elevated ID reviewed and discussed Objective Last 24 Hour Vital Signs Date Time Temp Pulse Resp B/P (MAP) Pulse Ox O2 Delivery O2 Flow Rate FiO2 05/18/18 10:46 97.9 05/18/18 08:00 97.9 71 22 153/90 (111) 98 97.9 05/18/18 06:05 98.1 05/18/18 04:00 98.1 70 22 117/66 (83) 98 98.1 05/18/18 00:00 97.4 80 19 127/66 (86) 97 97.4 05/17/18 20:00 98.4 71 18 116/67 (83) 97 98.4 05/17/18 18:30 98.3 05/17/18 17:31 98.3 05/17/18 16:00 98.3 76 19 100/54 (69) 96 98.3 05/17/18 12:57 98.1 05/17/18 12:00 98.1 89 19 100/56 (71) 97 98.1 Intake and Output 05/17/18 05/18/18 19:00 07:00 Intake Total 355 ml 480 ml Output Total 600 ml 1000 ml Balance -245 ml -520 ml Intake Oral 300 ml 480 ml IV Total 55 ml Output Urine Total 600 ml 1000 ml Height (Feet): 5 Height (Inches): 9.00 Weight (Pounds): 221 Objective WDWN NAD clear breath sounds bilaterally without rhonchi or wheeze [id number] without MRG NABS nontender weak alert Amado Coker MD May 18, 2018 11:07
[2018-05-18 12:00] VITALS: BP 118/66
[2018-05-18] MEDS: DiphenhydrAMINE 50mg/ml Inj IVP PRN ×2 (14:58→20:19)
--- NOTE | 2018-05-18 15:06 | Diagnostic Imaging Report ---
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 The right upper extremity was prepped with alcohol. All elements of maximal sterile barrier technique were followed including usage of a cap, mask, sterile gown, sterile gloves, hand hygiene and a large sterile sheet. Sonographic evaluation of the upper extremity was performed demonstrating a patent and compressible basilic vein. Access was obtained under real-time ultrasound guidance (with utilization of sterile gel and sterile probe cover) and digital image was saved and archived. An .018 wire was introduced. Needle exchanged for a 5 [place] peel-away sheath. Measurements were obtained. A 5 [place] dual-lumen Power PICC line catheter was cut to 47 cm and introduced over the wire. Peel-away sheath and wire were removed.Catheter was secured to the skin using 2-0 Prolene suture. Both ports aspirate and flush easily. Fluoroscopic images show distal tip in the superior vena cava. Total fluoroscopic time 0.3 minutes. Impression: Successful placement of an upper extremity PICC line catheter
[2018-05-18 16:00] VITALS: BP 104/71
[2018-05-18] MEDS ORDERED: NS 275ml ONE (16:26)
[2018-05-18] MEDS ORDERED: Tubing IV Secondary IV ONE (16:26)
[2018-05-18 20:00] VITALS: BP 95/64
[2018-05-18] MEDS: Dyna-Hex 2% Top Sol 2oz TOPIC SCH (20:00)
[2018-05-18] MEDS: Miralax 17gm pkt ORAL SCH (20:14)
--- NOTE | 2018-05-18 22:27 | General Progress Note ---
Assessment/Plan Assessment/Plan Assessment - paraplegia - chronic intestinal dysmotility - contractures - poor Px Recommendations - po as tolerated - bowel regimen - Abx - Placement Subjective Allergies: Coded Allergies: CHLORHEXIDINE (Verified Allergy, Unknown, 04/17/18) Pt states CHG gives him rashes Subjective Feel OK no abd c/o tolerating PO (+) BM Objective Last 24 Hour Vital Signs Date Time Temp Pulse Resp B/P (MAP) Pulse Ox O2 Delivery O2 Flow Rate FiO2 05/18/18 16:00 97.9 86 20 104/71 (82) 99 97.9 05/18/18 15:52 98.1 05/18/18 14:53 98.1 05/18/18 12:00 98.1 75 20 118/66 (83) 99 98.1 05/18/18 10:46 97.9 05/18/18 08:00 97.9 71 22 153/90 (111) 98 97.9 05/18/18 06:05 98.1 05/18/18 04:00 98.1 70 22 117/66 (83) 98 98.1 05/18/18 00:00 97.4 80 19 127/66 (86) 97 97.4 Intake and Output 05/17/18 05/18/18 19:00 07:00 Intake Total 355 ml 480 ml Output Total 600 ml 1000 ml Balance -245 ml -520 ml Intake Oral 300 ml 480 ml IV Total 55 ml Output Urine Total 600 ml 1000 ml Height (Feet): 5 Height (Inches): 9.00 Weight (Pounds): 221 Objective Debilitated WM NCAT poor dentition Chest CTA RRR Soft NT ND no edema (+) contracted Raiza Rodas MD May 18, 2018 22:27
[2018-05-19] VITALS: BP 114/71
[2018-05-19] MEDS: DiphenhydrAMINE 50mg/ml Inj IVP PRN ×5 (00:49→21:15)
[2018-05-19 04:00] VITALS: BP 119/69
[2018-05-19] MEDS: Vancomycin 1gm/D5W 275ml IVPB SCH ×6 (06:00→23:27)
[2018-05-19 08:00] VITALS: BP 106/64
--- NOTE | 2018-05-19 08:33 | General Progress Note ---
Assessment/Plan Assessment/Plan (1) Spinal cord injury (2) H/o heroin abuse (3) Decubitus ulcer (4) Paraplegia (5) Neuropathic pain (6) Intractable pain Patient will be continued on Percocet and Lyrica D/w Dr. Byrd and he concurred. Subjective Date patient seen: May 19, 2018 Time patient seen: 07:00 - am Allergies: Coded Allergies: CHLORHEXIDINE (Verified Allergy, Unknown, 04/17/18) Pt states CHG gives him rashes Subjective Constitutional: Reports: weakness HEENT: Reports: no symptoms Cardiovascular: Reports: no symptoms Respiratory: Reports: no symptoms Gastrointestinal/Abdominal: Reports: no symptoms Genitourinary: Reports: no symptoms Neurologic/Psychiatric: Reports: numbness, tingling Endocrine: Reports: no symptoms Hematologic/Lymphatic: Reports: no symptoms Subjective Patient reports that he is feeling slightly better. Pain has been tolerated on the Percocet. He has no new complaints. Objective Last 24 Hour Vital Signs Date Time Temp Pulse Resp B/P (MAP) Pulse Ox O2 Delivery O2 Flow Rate FiO2 05/19/18 07:41 97.9 05/19/18 04:00 97.9 78 16 119/69 (86) 97 97.9 05/19/18 00:00 98.5 65 16 114/71 (85) 97 98.5 05/18/18 20:00 98.0 83 18 95/64 (74) 98 98.0 05/18/18 16:00 97.9 86 20 104/71 (82) 99 97.9 05/18/18 14:53 98.1 05/18/18 12:00 98.1 75 20 118/66 (83) 99 98.1 05/18/18 10:46 97.9 Intake and Output 05/18/18 05/19/18 19:00 07:00 Intake Total 543.708 ml 275.000 ml Output Total 700 ml 500 ml Balance -156.292 ml -225.000 ml Intake Oral 360 ml IV Total 183.708 ml 275.000 ml Output Urine Total 700 ml 500 ml # Bowel Movements 2 1 Height (Feet): 5 Height (Inches): 9.00 Weight (Pounds): 221 Objective GENERAL: Alert, awake, and oriented. HEENT: PERRLA. NECK: Range of motion is decreased due to the patient's condition. LUNGS: Decreased breath sounds bilaterally. ABDOMEN: Benign. BACK: Range of motion is decreased in flexion and extension with decubitus ulcer noted. EXTREMITIES: Upper and lower extremity range of motion is decreased with joint contractures seen. Tenderness to palpation. Luiz Lees May 19, 2018 08:33
[2018-05-19] MEDS: Lyrica 50mg cap ORAL SCH ×3 (08:36→17:03)
--- NOTE | 2018-05-19 08:43 | General Progress Note ---
Assessment/Plan Assessment/Plan IMPRESSION leukocytosis anemia SHARDA severe protein malnutrition hypotension, orthostatic sacral pressure ulcer abdominal distention colonic ileus PLAN laxatives pressors off midodrine PRN norco monitor labs ID noted iv antibiotics as needed dc picc dc to snf when placement founds Subjective Allergies: Coded Allergies: CHLORHEXIDINE (Verified Allergy, Unknown, 04/17/18) Pt states CHG gives him rashes Subjective care noted placement issues noted wbc elevated ID reviewed and discussed Objective Last 24 Hour Vital Signs Date Time Temp Pulse Resp B/P (MAP) Pulse Ox O2 Delivery O2 Flow Rate FiO2 05/19/18 07:41 97.9 05/19/18 04:00 97.9 78 16 119/69 (86) 97 97.9 05/19/18 00:00 98.5 65 16 114/71 (85) 97 98.5 05/18/18 20:00 98.0 83 18 95/64 (74) 98 98.0 05/18/18 16:00 97.9 86 20 104/71 (82) 99 97.9 05/18/18 14:53 98.1 05/18/18 12:00 98.1 75 20 118/66 (83) 99 98.1 05/18/18 10:46 97.9 Intake and Output 05/18/18 05/19/18 19:00 07:00 Intake Total 543.708 ml 275.000 ml Output Total 700 ml 500 ml Balance -156.292 ml -225.000 ml Intake Oral 360 ml IV Total 183.708 ml 275.000 ml Output Urine Total 700 ml 500 ml # Bowel Movements 2 1 Height (Feet): 5 Height (Inches): 9.00 Weight (Pounds): 221 Objective WDWN NAD clear breath sounds bilaterally without rhonchi or wheeze [id number] without MRG NABS nontender weak alert Amado Coker MD May 19, 2018 08:43
--- NOTE | 2018-05-19 11:34 | Infectious Diseases Prog Note ---
Assessment/Plan Assessment/Plan antibiotics : vancomycin iv A 1. coag neg staph sepsis s/p line change 2. leucocytosis improving 3. renal failure resolved 4. paraplegia 5. e.coli UTI s/p rx 6. sacral decubitus ulcer P 1. continue iv vancomycin 5 more days 2. will follow up cultures Subjective ROS Limited/Unobtainable: Yes Allergies: Coded Allergies: CHLORHEXIDINE (Verified Allergy, Unknown, 04/17/18) Pt states CHG gives him rashes Objective Vital Signs Last 24 Hour Vital Signs Date Time Temp Pulse Resp B/P (MAP) Pulse Ox O2 Delivery O2 Flow Rate FiO2 05/19/18 10:53 97.7 05/19/18 08:00 97.7 69 20 106/64 (78) 97 97.7 05/19/18 07:41 97.9 05/19/18 04:00 97.9 78 16 119/69 (86) 97 97.9 05/19/18 00:00 98.5 65 16 114/71 (85) 97 98.5 05/18/18 20:00 98.0 83 18 95/64 (74) 98 98.0 05/18/18 16:00 97.9 86 20 104/71 (82) 99 97.9 05/18/18 14:53 98.1 05/18/18 12:00 98.1 75 20 118/66 (83) 99 98.1 Height (Feet): 5 Height (Inches): 9.00 Weight (Pounds): 221 Respiratory/Chest: lungs clear Cardiovascular: normal rate, regular rhythm, no gallop/murmur Abdomen: soft, non tender Extremities: no edema Microbiology Date/Time Source Procedure Growth Status 05/16/18 14:10 Blood Blood Culture - Preliminary NO GROWTH AFTER 48 HOURS Resulted 05/16/18 14:05 Blood Blood Culture - Preliminary NO GROWTH AFTER 48 HOURS Resulted 05/16/18 19:20 Urine,Clean Catch Urine Culture - Final NO GROWTH AFTER 48 HOURS Complete Current Medications Medications (Trade) Dose Ordered Sig/Aleyda Route PRN Reason Start Time Stop Time Status Last Admin Dose Admin Acetaminophen (Tylenol) 650 mg Q6H PRN ORAL Shivering 04/29/18 11:00 05/29/18 10:59 05/13/18 17:53 Bisacodyl (Dulcolax) 10 mg DAILY RECTAL 05/03/18 09:00 06/02/18 08:59 05/05/18 08:38 Chlorhexidine Gluconate (Franchesca-Hex 2%) 1 applic DAILY@2000 TOPIC 05/17/18 20:00 06/16/18 19:59 Diphenhydramine HCl (Benadryl Cream) 1 applic THREE TIMES A DAY PRN TOPIC Itching 04/28/18 11:00 05/28/18 10:59 04/29/18 15:07 Diphenhydramine HCl (Benadryl) 25 mg Q4H PRN IVP Itching 04/28/18 09:00 05/28/18 08:59 05/19/18 11:12 Fludrocortisone Acetate (Florinef) 0.1 mg DAILY ORAL 04/25/18 09:00 05/25/18 08:59 05/19/18 08:36 Naloxone HCl (Narcan) 0.2 mg Q30MIN PRN IVP respiratory depression 04/20/18 21:00 05/20/18 09:14 Oxycodone/ Acetaminophen (Percocet 10/325) 1 tab Q4H PRN ORAL Severe Pain (Pain Scale 7-10) 05/16/18 09:30 05/23/18 09:29 05/19/18 10:53 Pantoprazole (Protonix) 40 mg DAILY ORAL 04/25/18 09:00 05/25/18 08:59 05/19/18 08:36 Polyethylene Glycol (Miralax) 17 gm BEDTIME ORAL 05/03/18 21:00 06/02/18 20:59 Potassium Chloride (K-Dur) 40 meq DAILY ORAL 05/07/18 09:00 06/05/18 09:44 05/19/18 08:36 Pregabalin (Lyrica) 50 mg THREE TIMES A DAY ORAL 04/21/18 09:00 05/20/18 10:59 05/19/18 08:36 Vancomycin HCl (Vanco rx to dose) 1 ea DAILY PRN MISC Per rx protocol 05/15/18 14:15 06/14/18 14:14 Vancomycin HCl 1 gm/Dextrose 275 ml @ 183.708 mls/hr Q12H IVPB 05/18/18 18:00 05/23/18 17:59 05/19/18 06:00 SABI COLON May 19, 2018 11:34
[2018-05-19 12:00] VITALS: BP 116/70
--- NOTE | 2018-05-19 15:09 | General Surgery Progress Note ---
General Surgery-Progress Note Subjective Symptoms: improved Additional Comments no acute events. Objective Last 24 Hour Vital Signs Date Time Temp Pulse Resp B/P (MAP) Pulse Ox O2 Delivery O2 Flow Rate FiO2 05/19/18 15:06 97.5 05/19/18 12:00 97.5 76 20 116/70 (85) 98 97.5 05/19/18 11:52 97.5 05/19/18 10:53 97.7 05/19/18 08:00 97.7 69 20 106/64 (78) 97 97.7 05/19/18 04:00 97.9 78 16 119/69 (86) 97 97.9 05/19/18 00:00 98.5 65 16 114/71 (85) 97 98.5 05/18/18 20:00 98.0 83 18 95/64 (74) 98 98.0 05/18/18 16:00 97.9 86 20 104/71 (82) 99 97.9 I&O Intake and Output 05/18/18 05/19/18 19:00 07:00 Intake Total 543.708 ml 275.000 ml Output Total 700 ml 500 ml Balance -156.292 ml -225.000 ml Intake Oral 360 ml IV Total 183.708 ml 275.000 ml Output Urine Total 700 ml 500 ml # Bowel Movements 2 1 Wound: clean, other - sacral wound improved and currently smaller than prior with good granulation tissue. no debridement currently necessary Cardiovascular: RSR Respiratory: clear Abdomen: soft, distended Extremities: no cyanosis Plan Problems: (1) Sepsis Assessment & Plan: 57M with sepsis. likely etiology UTI. recently noted to have abdominal distention. KUB ordered and concerns for possible volvulus. CT ordered and no obstruction or volvulus noted. dilated redundant sigmoid colon air filled. still watery stool in rectal tube. exam with distention but otherwise benign. differential could be atonic colon developing, hirschsprung adult, pseudo- obstruction s/p high rectal tube insertion by GI with good result KUB reviewed -no acute surgical intervention planned -appreciate GI input Sacral decubitus ulcer stage IV evaluated. please refer to wound care photos for size and measurements. 2-3cm deep, 2cm undermining in inferior aspect. does get stool in wound at times given proximity to anus. some granulation tissue. no foul odor. serous drainage. minimal eschar and necrotic tissues. -No acute debridement necessary. -air soft mattress, gauze packing and dressings TID for now. -will follow with recs. thank you for this consultation. Alo Martin May 19, 2018 15:09
[2018-05-19 16:00] VITALS: BP 114/70
[2018-05-19 19:56] VITALS: BP 114/71
[2018-05-19] MEDS: Dyna-Hex 2% Top Sol 2oz TOPIC SCH (20:00)
[2018-05-19] MEDS: Miralax 17gm pkt ORAL SCH (20:08)
--- NOTE | 2018-05-19 23:48 | General Progress Note ---
Assessment/Plan Assessment/Plan Assessment - paraplegia - chronic intestinal dysmotility - contractures - poor Px Recommendations - po as tolerated - bowel regimen - Abx - Placement Subjective Allergies: Coded Allergies: CHLORHEXIDINE (Verified Allergy, Unknown, 04/17/18) Pt states CHG gives him rashes Subjective Feel OK no abd c/o tolerating PO (+) BM Objective Last 24 Hour Vital Signs Date Time Temp Pulse Resp B/P (MAP) Pulse Ox O2 Delivery O2 Flow Rate FiO2 05/19/18 21:09 100.0 05/19/18 20:10 100.0 05/19/18 19:56 100.0 81 20 114/71 (85) 96 100.0 05/19/18 16:00 98.1 73 20 114/70 (85) 97 98.1 05/19/18 15:06 97.5 05/19/18 12:00 97.5 76 20 116/70 (85) 98 97.5 05/19/18 10:53 97.7 05/19/18 08:00 97.7 69 20 106/64 (78) 97 97.7 05/19/18 04:00 97.9 78 16 119/69 (86) 97 97.9 05/19/18 00:00 98.5 65 16 114/71 (85) 97 98.5 Intake and Output 05/18/18 05/19/18 19:00 07:00 Intake Total 543.708 ml 275.000 ml Output Total 700 ml 500 ml Balance -156.292 ml -225.000 ml Intake Oral 360 ml IV Total 183.708 ml 275.000 ml Output Urine Total 700 ml 500 ml # Bowel Movements 2 1 Height (Feet): 5 Height (Inches): 9.00 Weight (Pounds): 221 Objective Debilitated WM NCAT poor dentition Chest CTA RRR Soft NT ND no edema (+) contracted Raiza Rodas MD May 19, 2018 23:47
[2018-05-20] MEDS: DiphenhydrAMINE 50mg/ml Inj IVP PRN ×3 (01:44→14:28)
[2018-05-20 04:19] VITALS: BP 134/92
[2018-05-20 07:27] LABS: ANION GAP 10 mmol/L (5-15); BLOOD UREA NITROGEN 18 mg/dL (7-18); CALCIUM 8.2 MG/DL (8.5-10.1); CARBON DIOXIDE 23 MMOL/L (21-32); CHLORIDE 108 MMOL/L (98-107); CREATININE 1.1 MG/DL (0.55-1.30); SODIUM 141 MMOL/L (136-145)
[2018-05-20 07:35] LABS: POTASSIUM 2.7 MMOL/L (3.5-5.1)
[2018-05-20 08:00] VITALS: BP 114/63
[2018-05-20] MEDS: Lyrica 50mg cap ORAL SCH (08:07)
--- NOTE | 2018-05-20 10:45 | General Progress Note ---
Assessment/Plan Assessment/Plan (1) Spinal cord injury (2) H/o heroin abuse (3) Decubitus ulcer (4) Paraplegia (5) Neuropathic pain (6) Intractable pain Patient will be continued on Percocet and Lyrica D/w Dr. Byrd and he concurred. Subjective Date patient seen: May 20, 2018 Time patient seen: 07:00 - am Allergies: Coded Allergies: CHLORHEXIDINE (Verified Allergy, Unknown, 04/17/18) Pt states CHG gives him rashes Subjective Constitutional: Reports: weakness HEENT: Reports: no symptoms Cardiovascular: Reports: no symptoms Respiratory: Reports: no symptoms Gastrointestinal/Abdominal: Reports: no symptoms Genitourinary: Reports: no symptoms Neurologic/Psychiatric: Reports: numbness, tingling Endocrine: Reports: no symptoms Hematologic/Lymphatic: Reports: no symptoms Subjective Patient has been doing well and the pain has been tolerated on the Percocet. Having 5 doses in the last 24hrs. Objective Last 24 Hour Vital Signs Date Time Temp Pulse Resp B/P (MAP) Pulse Ox O2 Delivery O2 Flow Rate FiO2 05/20/18 09:06 98.9 05/20/18 08:07 98.9 05/20/18 08:00 98.2 96 20 114/63 (80) 95 98.2 05/20/18 04:19 98.9 80 20 134/92 (106) 96 98.9 05/20/18 01:44 100.0 05/19/18 20:10 100.0 05/19/18 19:56 100.0 81 20 114/71 (85) 96 100.0 05/19/18 16:00 98.1 73 20 114/70 (85) 97 98.1 05/19/18 15:06 97.5 05/19/18 12:00 97.5 76 20 116/70 (85) 98 97.5 05/19/18 10:53 97.7 Intake and Output 05/19/18 05/20/18 19:00 07:00 Intake Total 803.708 ml 695.000 ml Output Total 550 ml 600 ml Balance 253.708 ml 95.000 ml Intake Oral 620 ml 420 ml IV Total 183.708 ml 275.000 ml Output Urine Total 550 ml 600 ml # Bowel Movements 1 Laboratory Tests 05/20/18 04:50: Sodium Level 141, Potassium Level 2.7*L, Chloride Level 108H, Carbon Dioxide Level 23, Anion Gap 10, Blood Urea Nitrogen 18, Creatinine 1.1, Estimat Glomerular Filtration Rate > 60, Glucose Level 95, Calcium Level 8.2L 05/20/18 10:00: Vancomycin Level Trough [Pending] Height (Feet): 5 Height (Inches): 9.00 Weight (Pounds): 219 Objective GENERAL: Alert, awake, and oriented. HEENT: PERRLA. NECK: Range of motion is decreased due to the patient's condition. LUNGS: Decreased breath sounds bilaterally. ABDOMEN: Benign. BACK: Range of motion is decreased in flexion and extension with decubitus ulcer noted. EXTREMITIES: Upper and lower extremity range of motion is decreased with joint contractures seen. Tenderness to palpation. Luiz Lees May 20, 2018 10:45
[2018-05-20 12:00] VITALS: BP 118/65
[2018-05-20] MEDS: Vancomycin 1gm/D5W 275ml IVPB SCH ×2 (12:01)
--- NOTE | 2018-05-20 12:41 | General Progress Note ---
Assessment/Plan Assessment/Plan IMPRESSION leukocytosis anemia SHARDA severe protein malnutrition hypotension, orthostatic sacral pressure ulcer abdominal distention colonic ileus PLAN laxatives midodrine PRN norco monitor labs ID noted iv antibiotics with vanco x 5 days replace K dc to snf with follow up labs Subjective Allergies: Coded Allergies: CHLORHEXIDINE (Verified Allergy, Unknown, 04/17/18) Pt states CHG gives him rashes Subjective care noted placement possibly found ID reviewed and discussed Objective Last 24 Hour Vital Signs Date Time Temp Pulse Resp B/P (MAP) Pulse Ox O2 Delivery O2 Flow Rate FiO2 05/20/18 12:00 98.0 98 20 118/65 (82) 96 98.0 05/20/18 09:06 98.9 05/20/18 08:07 98.9 05/20/18 08:00 98.2 96 20 114/63 (80) 95 98.2 05/20/18 04:19 98.9 80 20 134/92 (106) 96 98.9 05/20/18 01:44 100.0 05/19/18 20:10 100.0 05/19/18 19:56 100.0 81 20 114/71 (85) 96 100.0 05/19/18 16:00 98.1 73 20 114/70 (85) 97 98.1 05/19/18 15:06 97.5 Intake and Output 05/19/18 05/20/18 19:00 07:00 Intake Total 803.708 ml 695.000 ml Output Total 550 ml 600 ml Balance 253.708 ml 95.000 ml Intake Oral 620 ml 420 ml IV Total 183.708 ml 275.000 ml Output Urine Total 550 ml 600 ml # Bowel Movements 1 Laboratory Tests 05/20/18 04:50: Sodium Level 141, Potassium Level 2.7*L, Chloride Level 108H, Carbon Dioxide Level 23, Anion Gap 10, Blood Urea Nitrogen 18, Creatinine 1.1, Estimat Glomerular Filtration Rate > 60, Glucose Level 95, Calcium Level 8.2L 05/20/18 10:00: Vancomycin Level Trough 14.1H Height (Feet): 5 Height (Inches): 9.00 Weight (Pounds): 219 Objective WDWN NAD clear breath sounds bilaterally without rhonchi or wheeze [id number] without MRG NABS nontender weak alert Amado Coker MD May 20, 2018 12:41
[2018-05-20] MEDS ORDERED: Tubing IV Secondary IV ONE ×2 (14:20→14:23)
[2018-05-20] MEDS ORDERED: NS 500ML ONE (14:20)
[2018-05-20] MEDS ORDERED: NS 275ml ONE (14:23)
--- NOTE | 2018-05-20 23:12 | General Progress Note ---
Assessment/Plan Assessment/Plan Assessment - paraplegia - chronic intestinal dysmotility - contractures - poor Px Recommendations - po as tolerated - bowel regimen - Abx - Placement Subjective Allergies: Coded Allergies: CHLORHEXIDINE (Verified Allergy, Unknown, 04/17/18) Pt states CHG gives him rashes Subjective Feel OK no abd c/o tolerating PO (+) BM awaiting d/c Objective Last 24 Hour Vital Signs Date Time Temp Pulse Resp B/P (MAP) Pulse Ox O2 Delivery O2 Flow Rate FiO2 05/20/18 14:26 98.0 05/20/18 13:27 98.0 05/20/18 12:00 98.0 98 20 118/65 (82) 96 98.0 05/20/18 08:07 98.9 05/20/18 08:00 98.2 96 20 114/63 (80) 95 98.2 05/20/18 04:19 98.9 80 20 134/92 (106) 96 98.9 05/20/18 01:44 100.0 Intake and Output 05/19/18 05/20/18 19:00 07:00 Intake Total 803.708 ml 695.000 ml Output Total 550 ml 600 ml Balance 253.708 ml 95.000 ml Intake Oral 620 ml 420 ml IV Total 183.708 ml 275.000 ml Output Urine Total 550 ml 600 ml # Bowel Movements 1 Laboratory Tests 05/20/18 04:50: Sodium Level 141, Potassium Level 2.7*L, Chloride Level 108H, Carbon Dioxide Level 23, Anion Gap 10, Blood Urea Nitrogen 18, Creatinine 1.1, Estimat Glomerular Filtration Rate > 60, Glucose Level 95, Calcium Level 8.2L 05/20/18 10:00: Vancomycin Level Trough 14.1H Height (Feet): 5 Height (Inches): 9.00 Weight (Pounds): 219 Objective Debilitated WM NCAT poor dentition Chest CTA RRR Soft NT ND no edema (+) contracted Raiza Rodas MD May 20, 2018 23:12
--- NOTE | 2018-05-23 14:35 | Discharge Summary ---
Discharge Summary Hospital Course Date of Admission Apr 15, 2018 at 15:20 Date of Discharge May 20, 2018 at 16:01 Admitting Diagnosis sepsis/ urine source HPI Spenser Grier is a 57 year old male who was admitted on Apr 15, 2018 at 15:20 for Sepsis/Urine Source Hospital Course dc summary #[id number] Discharge Medications Continued Medications: Ascorbic Acid* (Ascorbic Acid*) 500 Mg Tablet 500 MG ORAL TWICE A DAY, TAB (This prescription has been renewed) Diphenhydramine HCl (Benadryl) 25 Mg Capsule 25 MG PO EVERY 6 HOURS for itching, CAP (This prescription has been renewed) Fludrocortisone Acetate (Fludrocortisone Acetate) 0.1 Mg Tablet 0.1 MG PO DAILY, TAB (This prescription has been renewed) Lactobacillus Acidophilus/Pect (Acidophilus-Pectin Capsule) 1 Each Capsule 1 EACH PO BID, CAP (This prescription has been renewed) Multivitamins* (Multivitamins*) 1 Each Tablet 1 TAB ORAL DAILY, TAB 0 Refills (This prescription has been renewed) Pantoprazole (Pantoprazole) 20 Mg Tablet.dr 20 MG ORAL DAILY, #10 TAB 0 Refills (This prescription has been renewed) Polyethylene Glycol 3350* (Polyethylene Glycol 3350*) 17 Gm Powd.pack 8.5 GM ORAL BEDTIME PRN for Constipation, PACKET (This prescription has been renewed) Pregabalin (Lyrica) 50 Mg Capsule 50 MG ORAL THREE TIMES A DAY, CAP (This prescription has been renewed) Discharge Condition Upon Discharge: stable Discharge Disposition Patient was discharged to SNF Discharge Instructions Discharge Instructions Special Instructions I have been assigned to complete a D/C Summary on this account. I was not involved in the patient management Mary Ospina NP May 23, 2018 14:35
--- NOTE | 2018-05-24 03:45 | Discharge Summary 2 SIG ---
DATE OF ADMISSION: 04/15/2018 DATE OF DISCHARGE: 05/20/2018 REASON FOR ADMISSION: 57-year-old male with past medical history of paraplegia due to history of spinal cord injury, heroin abuse, was sent from the [facility] facility for evaluation. Upon evaluation, the patient was tachycardic, heart rate 123, hypotensive, blood pressure 80/42, fever 103.8, urinalysis showed evidence of UTI. WBC 17.2, hemoglobin 10.1, hematocrit 32.1. Urinalysis with evidence of UTI. Lactic acid 2.8. Troponin negative. Pro BNP 3183. BUN 50, creatinine 3.8. EKG revealed sinus tachycardia, no acute ischemic changes. Chest x-ray revealed no acute cardiopulmonary pathology. The patient admitted with diagnoses of severe sepsis, UTI, paraplegia, acute renal failure, multiple decubiti, anemia. While in the emergency department, Slater catheter was replaced, noted pus in the urine. The patient started on fluid resuscitation. Blood pressure improved initially, but then dropped again. A central line was inserted , and the patient was started on Levophed. The patient admitted to ICU. CONSULTANTS: 1. Infectious Disease specialist, Chad Sandhu M.D. 2. General surgeon, Alo Martin M.D. 3. Solar Site Assessment Specialist, Macario Kumar M.D. 4. GI specialist, Raiza Rodas M.D. 5. Pain specialist, Stephany Byrd M.D. HOSPITAL COURSE: The patient admitted. The patient was on the IV fluids and pressors. The patient started on empiric antibiotic after being pancultured. Supplemental oxygen provided as needed to keep pulse oximetry above 92%. Pulmonary toilet was on standby. Pain management was addressed. The patient was started on midodrine and Florinef for low blood pressure. The patient able to be weaned from the pressors. Initially, urine culture revealed Proteus and blood culture revealed Proteus. Sepsis with bacteremia was secondary to UTI. The patient was on antibiotic as per ID recommendation. The patient noted to have abdominal distention . GI specialist had seen and evaluated the patient. Per GI specialist, the patient likely had chronic intestinal dysmotility. Large-caliber Slater catheter placed as a rectal tube for decompression. Bowel regimen instituted. According to the GI specialist, the patient will need outpatient long-term paraplegic bowel regimen. General surgeon closely followed. KUB and CT scan revealed no obstruction, no volvulus. As mentioned above, rectal tube was inserted. The patient started to have bowel movement. No acute surgical intervention was needed at this time. Rectal tube was discontinued prior to discharge. The patient will need to continue with extensive bowel regimen as an outpatient in the facility. The patient noted to have multiple pressure ulcers, including sacral decubitus stage IV , present on admission. Wound care provided as per surgeon recommendation. No acute debridement at this time was necessary. Solar Site Assessment Specialist closely followed. Renal parameters and electrolytes were closely monitored. Nephrotoxics were avoided. For hypotension, the patient was on midodrine and Florinef. Blood pressure stabilized. Acute kidney injury was multifactorial including acute tubular necrosis due to hypotension, leading to shock. sepsis, acute renal failure. Acute kidney injury resolved. Prior to discharge, creatinine from initial 3.8 down to 1.1. Electrolytes were corrected as needed. Pain specialist closely followed. The patient has history of heroin abuse in the past as well as neuropathic pain and paraplegia. Pain management was addressed as per pain specialist's recommendation , and pain was controlled. Anemia workup was consistent with anemia of chronic disease. Stool for occult blood was negative. Hemoglobin and hematocrit were closely monitored with goal to keep hemoglobin above 7. No need for transfusion at this admission. The patient continued to have leukocytosis. Infectious disease specialist closely followed. Stool for C. difficile was negative. Repeated blood culture revealed Staph coag-negative. Sputum culture was negative, and urine culture revealed E. coli ESBL. The patient status post treatment for E. coli ESBL UTI and bacteremia. Bedside swallow evaluation revealed [id number] dysphagia. Diet provided as per speech therapist's recommendations. Nutritional recommendation implemented in plan of care. Placement was found and secured. The patient was stable for transfer. FINAL DIAGNOSES: 1. Acute on chronic encephalopathy. 2. Shock. 3. Hypotension. 4. Sepsis with Providencia secondary to UTI. 5. UTI with Providencia. 6. Sepsis with Staph coag-negative (status post line change). 7. UTI with E. coli ESBL. 8. Anemia. 9. Acute kidney injury. 10. Acute tubular necrosis. 11. Severe protein-calorie malnutrition. 12. Sacral decubitus pressure ulcer, present on admission, stage IV. 13. Paraplegia. 14. Leukocytosis. 15. Colonic ileus 16. Abdominal distention, 17. Chronic intestinal dysmotility. 18. Spinal cord injury. 19. History of heroin abuse. 20. Neuropathic pain. DISCHARGE MEDICATIONS: See medication reconciliation list. DISCHARGE INSTRUCTIONS: The patient discharged to [facility] facility. FOLLOWUP: Follow up with medical doctor at the facility. Amado Coker M.D. I have been assigned to dictate discharge summary on this account and I was not involved in the patient's management. Mary ArriagaBatavia Veterans Administration HospitalBong N.PJazmin DR: Hipolito JOB#: [id number] CC: ELANA
== END 2018-05-20 16:01 | DRG 720 ==
LOC: EDBD 14:07 → EMR 14:23 → ICU 15:20 → EDBEDREQ 15:29 → EDBEDREQSVC 16:03 → EDBEDREQ 16:03 → 4W 04-20 22:03
PROC: 05HM33Z Insertion of Infusion Device into Right Internal Jugular Vein, Percutaneous Approach (ICD-10-PCS; principal; 2018-04-15)
PROC: 02HV33Z Insertion of Infusion Device into Superior Vena Cava, Percutaneous Approach (ICD-10-PCS; 2018-04-29)
PROC: B518ZZA Fluoroscopy of Superior Vena Cava, Guidance (ICD-10-PCS; 2018-04-29)
PROC: 02HV33Z Insertion of Infusion Device into Superior Vena Cava, Percutaneous Approach (ICD-10-PCS; 2018-05-18)
PROC: B518ZZA Fluoroscopy of Superior Vena Cava, Guidance (ICD-10-PCS; 2018-05-18)
DX: A41.59 Other Gram-negative sepsis (principal); N17.0 Acute kidney failure with tubular necrosis; R65.21 Severe sepsis with septic shock; G93.41 Metabolic encephalopathy; E43 Unspecified severe protein-calorie malnutrition; L89.154 Pressure ulcer of sacral region, stage 4; J18.9 Pneumonia, unspecified organism; A41.51 Sepsis due to Escherichia coli [E. coli]; G82.20 Paraplegia, unspecified; D64.9 Anemia, unspecified; T14.8XXS Other injury of unspecified body region, sequela; Z68.32 Body mass index [BMI] 32.0-32.9, adult; X58.XXXS Exposure to other specified factors, sequela; I10 Essential (primary) hypertension; R33.9 Retention of urine, unspecified; J44.0 Chronic obstructive pulmonary disease with (acute) lower respiratory infection; G89.29 Other chronic pain; G62.9 Polyneuropathy, unspecified; E87.6 Hypokalemia; K59.8 Other specified functional intestinal disorders; R13.10 Dysphagia, unspecified; K56.7 Ileus, unspecified
CPT/HCPCS: 36415; 36569; 71045; 74018; 74176; 76700; 76937; 80048; 80053; 80076; 80202; 81001; 81003; 82270; 82550; 82962; 83540; 83550; 83605; 83880; 84132; 84484; 85007; 85025; 85610; 85730; 87040; 87070; 87081; 87086; 87181; 87205; 87324; 93005; 99285; 99291; J2405; J8499